=== PATIENT | male | born 1990 | race Caucasian/White ===

== ENCOUNTER 2016-06-08 16:16 | Inpatient (IN) | payer OTHER ==
[~2016-06-08] VITALS: Ht 185.4 cm; Wt 78.0 kg
[2016-06-08 11:36] VITALS: BP 154/93
[~2016-06-08 16:16] MED LIST: ATORVASTATI80 MG/TAB PO; ATORVASTATIN CA40 MG PO; AUGMENTIN875TAB PO; BACTRIM DS1 TAB PO; BUPROPION HCL300 MG PO; BUSPIRONE5 MG PO; DARVOCET-N 100100 MG OR; DITROPAN PO; ELAVIL25 MG PO; ENALAPRIL5 MG OR; FISH OIL1000 MG PO; GLIPIZIDE5 MG PO; HUMULIN 70/30 SC; HUMULIN R1 M1 SC; HYDROCO/APAP1 TA9 PO; LACTATED RING1000 ML; LEVEMIR FL100 UNIT/M SC; LEVEMIR SC; LEVEMIR1000 UNITS SC; LEVOTHYROXIN50 MCG PO; LISINOPRIL10 MG PO; LISINOPRIL20 M1 PO; LISINOPRIL20 MG PO; LOPID600 MG PO; LOPRESSOR 550 MG/TAB PO; LORTAB 5/3255 MG PO; LYRICA200 MG PO; LYRICA50 MG PO; METFORMIN500 M1 OR; METFORMIN500 M1 PO; METFORMIN500 MG PO; MIRTAZAPINE15 MG PO; MOTRIN800 MG PO; NOT TAKING ANY MEDS; NOVOLIN 70/30 SC; NOVOLOG FLEXPEN SC; OMEGA 31000 MG PO; ONDANSETRON4 MG PO; PEPCID20 MG PO; PREVACID30 M2 PO; PRILOSEC20 MG PO; PRILOSEC20 MG/CAP PO; SEROQUEL25 MG PO; TRICOR145 MG PO; VENLAFAXINE HCL75 M1 PO; ZOFRAN ODT4 MG PO
--- NOTE | 2016-06-08 16:24 | NUR ---
PT TO ROOM PER EMS. WITH FAMILY MEMEMBER AT BEDSIDE
[2016-06-08 16:38] LABS: HEMATOCRIT 44.8 % (39.0-50.0); HEMOGLOBIN 15.4 g/dl (14.0-18.0); IMMATURE GRANULOCYTES 1.3 % (0.0-1.0); MEAN CELL VOLUME 84.2 fL CALC (80.0-100.0); MEAN CORPUSCULAR HGB 28.9 pG CALC (26.0-32.0); MEAN CORPUSCULAR HGB CONC 34.4 g/L CALC (32.0-36.0); NEUT# 5.78 thou/uL (1.82-7.42); RED BLOOD COUNT 5.32 mill/uL (4.70-6.10); RED CELL DISTRI WIDTH 13.9 % (11.5-15.5)
[2016-06-08 16:49] LABS: ALKALINE PHOSPHATASE 219 u/l (38-126); AMYLASE 92 u/l (30-110); ANION GAP 26 (6-22 (CALC)); BILIRUBIN, TOTAL 1.2 mg/dL (0.0-1.4); BUN 15 mg/dL (9-20); BUN/CREATININE RATIO 23 (12-20 (CALC)); CALCIUM 10.4 mg/dL (8.4-10.2); CARBON DIOXIDE 18 mmol/l (22-30); CHLORIDE 95 mmol/l (95-108); CREATININE 0.6 mg/dL (0.7-1.3); GFR > 60 ML/MIN (>=60 (CALC)); GFR FOR AFR.AMER. > 60 ML/MIN (>=60 (CALC)); LIPASE 1316 u/l (23-300); POTASSIUM 4.8 mmol/l (3.5-5.1); SGOT/AST 79 u/l (17-59); SGPT/ALT 53 u/l (21-72); SODIUM 134 mmol/l (137-146); TOTAL PROTEIN 9.6 g/dL (6.3-8.2)
[2016-06-08 16:52] LABS: GLUCOSE 618 mg/dL (75-110)
[2016-06-08 17:01] LABS: MYOGLOBIN 33 ng/mL (0 - 121)
[2016-06-08 17:08] LABS: URINE BILIRUBIN - DIPSTICK NEGATIVE (NEGATIVE); URINE BLOOD DIPSTICK NEGATIVE (NEGATIVE); URINE CLARITY CLEAR; URINE COLOR YELLOW; URINE GLUCOSE - DIPSTICK >=1000 mg/dL (NEGATIVE); URINE KETONE NEGATIVE (NEGATIVE); URINE LEUK ESTERASE NEGATIVE (NEGATIVE); URINE NITRITE - DIPSTICK NEGATIVE (Negative); URINE PROTEIN - DIPSTICK NEGATIVE (NEG-TRACE); URINE SPECIFIC GRAVITY <=1.005; URINE UROBILINOGEN - DIPSTICK 0.2 E.U./dL (0.2)
--- NOTE | 2016-06-08 17:45 | NUR ---
PT MEDICATED W/MORPHINE FOR CONTINUED PAIN ADVISED OF WAIT TIME FOR RESULTS. COMFORT MEASURES PROVIDED.
--- NOTE | 2016-06-08 18:23 | NUR ---
ACCUCHECK RECHECK PRIOR TO INSULIN DRIP 235, ZOHRA SANTOS MD AWARE
--- NOTE | 2016-06-08 18:56 | NUR ---
PT RETURNED FROM CT ADVISED OF WAIT TIME AND COMFORT MEASURES PROVIDED. IV FLUIDS VIA PUMP
--- NOTE | 2016-06-08 19:20 | NUR ---
RECEIVED REPORT FROM CHINA TURK AND MEDICATED PT WITH PROTONIX AND DILAUDID. REPEAT ACCUCHECK 192. STILL HOLDING INSULIN.
--- NOTE | 2016-06-08 20:22 | NUR ---
PATIENT MEDICATED FOR ELEVATED BLOOD PRESSURE. WILL MONITOR FOR EFFECT. STATES PAIN IS STARTING TO RETURN.
--- NOTE | 2016-06-08 21:15 | NUR ---
REPORT GIVEN TO CHINA ROBLES.
--- NOTE | 2016-06-08 21:27 | NUR ---
Admission Note Report Given to: CHINA ROBLES Transported by: X Wheelchair Stretcher Transported with: X Nurse Transporter X Patent IV O2 Waistline Joiner Overlock CALLED TRAVIS WITH UPDATE WHILE PT TRANSPORTED BY CHINA VILLALOBOS.
[2016-06-08 21:30] VITALS: BP 155/71
--- NOTE | 2016-06-08 21:30 | NUR ---
PT. ARRIVED TO THE FLOOR VIA W/C ACCOMPANIED BY ER NURSE. PT. C/O ABDOMINAL PAIN 27/12, AWAITING PHARMACY TO VERIFY MEDICATIONS TO ADMINSITER TORADOL. PT. UPDATED WITH POC AND PAIN MEDICATION ORDERED(TORADOL), PT. STATES,"OH I NEED SOMETHING STRONGER, LIKE MORPHINE.". WILL CALL MD FOR FURTHER ORDERS. ASSESSMENT COMPLETED. PT. MOANING IN PAIN, POOR HISTORIAN AT THIS TIME R/T PAIN. TELEMETRY IN PLACE. PT. HAS CALLOUS NOTED TO RIGHT FOOT, PHOTO OBTAINED FOR CHART. CALL LIGHT IS IN REACH. WILL CONTINUE TO MONITOR. GIRLFRIEND IS AT BEDSIDE.
--- NOTE | 2016-06-08 21:50 | NUR ---
NOTFIIED DR. OVERTON OF PT'S C/O PAIN 27/12, AND OF PT'S REQUEST FOR MORPHINE, AND C/O NAUSEA WITH NO ORDERS FOR ZOFRAN. ALSO NOTIFIED HIM OF PT'S BS 252 AT THIS TIME. AWAITING CHEMISTRY RESULTS. TO PLACE NEW ORDERS IN [place], WILL AWAIT THEM.
[2016-06-08 22:11] LABS: ANION GAP 21 (6-22 (CALC)); BUN 15 mg/dL (9-20); BUN/CREATININE RATIO 24 (12-20 (CALC)); CALCIUM 9.7 mg/dL (8.4-10.2); CARBON DIOXIDE 21 mmol/l (22-30); CHLORIDE 102 mmol/l (95-108); CREATININE 0.6 mg/dL (0.7-1.3); GFR > 60 ML/MIN (>=60 (CALC)); GFR FOR AFR.AMER. > 60 ML/MIN (>=60 (CALC)); GLUCOSE 282 mg/dL (75-110); POTASSIUM 4.3 mmol/l (3.5-5.1); SODIUM 140 mmol/l (137-146)
--- NOTE | 2016-06-08 22:20 | NUR ---
NOTIFIED DR. OVERTON OF PTS HR BEING IN THE HIGH 40'S AND OF B/P 155/71, ORDERS RECEIVED TO HOLD NORVASC AT THIS TIME.
[2016-06-08 23:36] VITALS: BP 154/93
--- NOTE | 2016-06-09 00:18 | NUR ---
PT'S GIRLFRIEND RETURNED TO STAY THE NIGHT, PT. C/O ABDOMINAL PAIN AGAIN AT A 12/17, AND INSISTS THAT THIS PHYSICAL FITNESS TRAINER CALL FOR STRONGER PAIN MEDICATION, WILL CALL DR. OVERTON AND NOTIFY HIM OF THIS.
--- NOTE | 2016-06-09 00:31 | NUR ---
PT. C/O ABDOMINAL PAIN 12/17,MOANING, MEDICATED WITH ORDERED PRN DILAUDID WILL REASSESS. GIRLFRIEND REMAINS AT BEDSIDE. PT. EDUCATED ON PAIN MEDICATIONS ORDERED. ALSO EDUCATED PT. ON ELEVATED AIC AND PT. REPORTS HE HAS BEEN OUT OF STRIPS FOR 2 MONTHS AND HAS NOT BEEN CHECKING BS AND OF NOT FOLLOWING UP WITH PRIMARY MD. EDUCATED ON IMPORTANCE OF COMPLIANCE WITH DR VISITS AND MEDICATIONS. WILL CONTINUE TO MONITOR.
--- NOTE | 2016-06-09 02:43 | NUR ---
PT. C/O ABDOMINAL PAIN 12/17, MEDICATED WITH PRN LORTAB PER ORDER. ENCOURAGED TO CALL FOR ANY FURTHER NEEDS. CALL LIGHT IS IN REACH.
--- NOTE | 2016-06-09 04:30 | NUR ---
PT. CC/O PAIN 12/17, MEDICATED WITH ORDERED PRN DILAUDID, WILL REASSESS. PT. ALSO C/O NAUSEA, MEDICATED WITH PRN ZOFRAN PER ORDER.
[2016-06-09 06:02] LABS: MAGNESIUM 1.6 mg/dL (1.6-2.3)
[2016-06-09 06:14] VITALS: BP 165/89
--- NOTE | 2016-06-09 06:29 | NUR ---
PT. C/O ABDOMINAL PAIN 11/17, MEDICATED WITH ORDERED TORADOL AND LORTAB PER ORDER. APPLE JUICE PROVIDIED PER PTS REQUEST. ENCOURAGED TO CALL FOR ANY NEEDS. CALL LIGHT IS IN REACH.
--- NOTE | 2016-06-09 06:40 | NUR ---
DR. OVERTON NOTIFIED OF PT'S HR DIPPING INTO THE HIGH 30'S AND FLUCTUATING FROM 38-42. STAT EKG ORDERED AND NOTIFIED RT TO OBTAIN.
--- NOTE | 2016-06-09 06:45 | NUR ---
RT IN AT BEDSIDE FOR EKG. PT'S ASSESSMENT REMAINS THE SAME, NO NEW COMPLAINTS.
--- NOTE | 2016-06-09 07:00 | NUR ---
RECEIVED BEDSIDE REPORT FROM TRAVIS ATKINSON. IN SEMI FOWLERS POSITION WITH EYES CLOSED, AWAKENS EASILY. RESPS EVEN AND UNLABORED ON ROOM AIR, TELE MONITOR IN PLACE. DENIES PAIN OR DISCOMFORT. #22 LW INFUSING WITHOUT DIFFICULTY, SITE APPEARS HEALTHY. PLAN OF CARE DISCUSSED. SAFETY PRECAUTIONS REINFORCED. BED IN LOWEST POSITION WITH WHEELS LOCKED. CALL LIGHT WITHIN REACH. WILL CONTINUE TO MONITOR.
[2016-06-09 07:52] VITALS: BP 155/81
[2016-06-09 08:48] LABS: ANION GAP 24 (6-22 (CALC)); BUN 15 mg/dL (9-20); BUN/CREATININE RATIO 21 (12-20 (CALC)); CALCIUM 9.2 mg/dL (8.4-10.2); CARBON DIOXIDE 21 mmol/l (22-30); CHLORIDE 100 mmol/l (95-108); CREATININE 0.7 mg/dL (0.7-1.3); GFR > 60 ML/MIN (>=60 (CALC)); GFR FOR AFR.AMER. > 60 ML/MIN (>=60 (CALC)); SODIUM 139 mmol/l (137-146)
[2016-06-09 08:57] LABS: GLUCOSE 583 mg/dL (75-110); POTASSIUM 5.7 mmol/l (3.5-5.1)
--- NOTE | 2016-06-09 10:15 | NUR ---
MEDICATED WITH MORPHINE 4MG IVP FOR C/O 11/17 ABD PAIN. ENCOURAGED PT TO SIP WATER AND SOLID FOODS. UNTIL ABD PAIN SUBSIDES. VISITOR AT BEDSIDE. CALL LIGHT WITHIN REACH. WILL CONTINUE TO MONITOR.
[2016-06-09 12:42] VITALS: BP 142/63
[2016-06-09 12:47] LABS: ANION GAP 24 (6-22 (CALC)); BUN 12 mg/dL (9-20); BUN/CREATININE RATIO 18 (12-20 (CALC)); CALCIUM 8.9 mg/dL (8.4-10.2); CARBON DIOXIDE 17 mmol/l (22-30); CHLORIDE 101 mmol/l (95-108); CREATININE 0.7 mg/dL (0.7-1.3); GFR > 60 ML/MIN (>=60 (CALC)); GFR FOR AFR.AMER. > 60 ML/MIN (>=60 (CALC)); POTASSIUM 4.8 mmol/l (3.5-5.1); SODIUM 137 mmol/l (137-146)
[2016-06-09 12:55] LABS: GLUCOSE 470 mg/dL (75-110)
--- NOTE | 2016-06-09 14:43 | NUR ---
MEDICATED WITH MORPHINE 4MG IVP FOR C/O 9/10 ABD PAIN. RESPS EVEN AND UNLABORED ON ROOM AIR, TELE MONITOR IN PLACE. #20 LW INFUSING WITHOUT DIFFICULTY, SITE APPEARS HEALTHY. CALL LIGHT WITHIN REACH. WILL CONTINUE TO MONITOR.
[2016-06-09 15:48] VITALS: BP 136/73
--- NOTE | 2016-06-09 17:10 | NUR ---
MEDICATED WITH TORADOL 15MG IVP FOR C/O 9/10 ABD PAIN.
--- NOTE | 2016-06-09 17:40 | NUR ---
TORADOL NOT EFFECTIVE FOR PAIN CONTROL. MEDICATED WITH MORPHINE 4MG IVP FOR RELIEF OF 8/10 ABD PAIN. VISITOR AT BEDSIDE. CALL LIGHT WITHIN REACH. WILL CONTINUE TO MONITOR.
--- NOTE | 2016-06-09 19:00 | NUR ---
RECEIVED CHANGE OF SHIFT REPORT ON PATIENT.NO COMPLAINTS VOICED. RESTING COMFORTABLY IN BED.
[2016-06-09 19:11] VITALS: BP 128/79
[2016-06-09 23:25] VITALS: BP 125/66
[2016-06-10 01:10] LABS: ANION GAP 15 (6-22 (CALC)); BUN 5 mg/dL (9-20); BUN/CREATININE RATIO 11 (12-20 (CALC)); CALCIUM 8.3 mg/dL (8.4-10.2); CARBON DIOXIDE 23 mmol/l (22-30); CHLORIDE 106 mmol/l (95-108); CREATININE 0.5 mg/dL (0.7-1.3); GFR > 60 ML/MIN (>=60 (CALC)); GFR FOR AFR.AMER. > 60 ML/MIN (>=60 (CALC)); GLUCOSE 156 mg/dL (75-110); POTASSIUM 3.2 mmol/l (3.5-5.1); SODIUM 140 mmol/l (137-146)
[2016-06-10 03:00] LABS: HEMATOCRIT 38.3 % (39.0-50.0); HEMOGLOBIN 12.8 g/dl (14.0-18.0); IMMATURE GRANULOCYTES 0.6 % (0.0-1.0); MEAN CORPUSCULAR HGB 29.1 pG CALC (26.0-32.0); MEAN CORPUSCULAR HGB CONC 33.4 g/L CALC (32.0-36.0); NEUT# 11.38 thou/uL (1.82-7.42); RED BLOOD COUNT 4.4 mill/uL (4.70-6.10); RED CELL DISTRI WIDTH 14.6 % (11.5-15.5)
[2016-06-10 03:24] LABS: ALBUMIN 2.9 g/dL (3.2-5.0); ALKALINE PHOSPHATASE 109 u/l (38-126); AMYLASE 117 u/l (30-110); ANION GAP 12 (6-22 (CALC)); BUN 6 mg/dL (9-20); BUN/CREATININE RATIO 11 (12-20 (CALC)); CALCIUM 8.2 mg/dL (8.4-10.2); CARBON DIOXIDE 24 mmol/l (22-30); CHLORIDE 106 mmol/l (95-108); CREATININE 0.5 mg/dL (0.7-1.3); GFR > 60 ML/MIN (>=60 (CALC)); GFR FOR AFR.AMER. > 60 ML/MIN (>=60 (CALC)); GLUCOSE 130 mg/dL (75-110); LIPASE 550 u/l (23-300); POTASSIUM 3.1 mmol/l (3.5-5.1); SGOT/AST 104 u/l (17-59); SGPT/ALT 68 u/l (21-72); SODIUM 139 mmol/l (137-146); TOTAL PROTEIN 5.8 g/dL (6.3-8.2)
[2016-06-10 04:20] VITALS: BP 128/74
--- NOTE | 2016-06-10 04:30 | NUR ---
NOTIFY DR OVERTON OF CHANGE IN PATIENT'S CONDITION. ORDERRS RECEIVED FOR LR BOLUS AND POTASSIUM RIDER.
--- NOTE | 2016-06-10 05:20 | NUR ---
0520-RECEIVED PHONE CALL FROM REGARDING NOT WANTING TO PROFILE POTASSIUM RIDER. R/T PT. HAVING PERIPHERAL ACCESS AND NOT HAVING A CENTRAL LINE, AND BECAUSE OF PT. BEING ON MEDICAL/SURGICAL FLOOR. PER PT. WOULD NEED TO BE IN ICU WITH PERIPHERAL ACCESS. DR. OVERTON NOTIFIED OF THIS AND CONTINUES TO WANT ORDER GIVEN OF POTASSIUM RIDER ON THIS FLOOR AND TO NOTIFY THE PHARMACY THAT MD IS AWARE OF ACCESS AND WHERE PT. IS STATIONED, AND ALSO THAT PT. IS ON TELEMETRY. WAS CALLED BACK AND NOTIFIED OF DR. TURCIOS RESPONSE. AWAITING RETURN PHONE CALL FROM PHARMACIST. 0550- RECEIVED RETURN PHONE CALL FROM LORENZO(PHARMACIST) AND HE REPORTED PER POLICY STILL UNAVAILABLE TO PROFILE POTASSIUM RIDER. 0552- CALLED DR. OVERTON TO NOTIFY HIM OF THIS, NO ANSWER, VOICEMAIL LEFT.
--- NOTE | 2016-06-10 06:27 | NUR ---
SPOKE WITH DR. OVERTON AND NOTIFIED HIM OF [facility] NOT PROFILING K-RIDER FOR PT. IN REGARDS TO JEANNINE, AND AWARE WE WILL NEED TO AWAIT IN HOUSE PHARMACY. NO NEW ORDERS RECEIVED.
--- NOTE | 2016-06-10 07:21 | NUR ---
BEDSIDE REPORT RECEIVED FROM CHINA TIM. PT REPORTS RELIEF FROM PAIN FROM RECENT MEDICATION. PLAN OF CARE DISCUSSED. REPORTING OF CONCERNS ENCOURAGED. CALL LIGHT REVIEWED AND IN REACH. PT STATES UNDERSTANDING.
--- NOTE | 2016-06-10 07:54 | NUR ---
ORDER RECEIVED FOR LR BOLUS X 2 L NOW AND REPEAT LACTIC ACID WHEN COMPLETE. BOLUS STARTED NOW. PT UPDATED ON PLAN OF CARE. WILL CONTINUE TO MONITOR.
[2016-06-10 07:55] VITALS: BP 161/92
--- NOTE | 2016-06-10 08:05 | NUR ---
PT REPORTS NAUSEA AND 9 ON PAIN SCaLE TO ABDOMIN. LORTAB AND ZOFRAN ADMINISTERED. PAIN MEDICATIONS AND SCHEDULES REVIEWED. PT STATES UNDERSTANDING.
--- NOTE | 2016-06-10 09:25 | NUR ---
BLOOD GLUCOSE 85 AT THIS TIME. PT ENCOURAGED TO DRINK LIQUIDS PROVIDED TO HIM. PT STATES UNDERSTANDING. WILL CONTINUE TO MONITOR.
--- NOTE | 2016-06-10 09:45 | NUR ---
DR. RUSS IN TO SEE PT AT THIS TIME.
--- NOTE | 2016-06-10 10:47 | NUR ---
CONSULT CALLED TO DR. SERVIN AT THIS TIME. MESSAGE LEFT.
[2016-06-10 11:01] VITALS: BP 152/78
--- NOTE | 2016-06-10 11:27 | NUR ---
TYLENOL PO ADMINISTERED FOR TEMP OF 101.2. MORPHINE IV FOR SEVERE ABDOMINAL PAIN, 8 ON SCALE OF 0-10. PT ASSISTED TO RESTROOM FOR BM, GAIT UNSTEADY. FALL PRECAUTIONS REINFORCED. PT STATES UNDERSTANDING. PT ASSISTED TO FOR TRANSFER TO CT DEPARTMENT AT THIS TIME.
--- NOTE | 2016-06-10 12:14 | NUR ---
DR. SERVIN IN TO SEE PT AT THIS TIME. PT REPORTS RELIEF OF PAIN W/ RECENT MORPHINE ADMINISTRATION. TEMP 100.9 AFTER THYLENOL. WILL CONTINUE TO MONITOR.
--- NOTE | 2016-06-10 14:14 | NUR ---
PT SLEEPNIG AT THIS TIME. WILL CONTINUE TO MONITOR.
[2016-06-10 15:11] VITALS: BP 141/67
--- NOTE | 2016-06-10 16:50 | NUR ---
PT REPORTS SEVERE ABDOMINAL PAIN AND NAUSEA. ZOFRAN AND MORPHINE IV ADMINISTERED. PT STATES HE IS UNABLE TO CONSUME FLUID INTAKE AT THIS TIME. INTAKE ENCOURAGED WITH RELIEF OF NAUSEA. WILL CONTINUE TO MONITOR.
--- NOTE | 2016-06-10 17:54 | NUR ---
PT REPORTS SOME RELIEF OF ABDOMINAL PAIN AND NAUSEA. STATES "I FEEL SOME BETTER." STILL UNABLE TO TAKE PO FLUIDS. INTAKE ENCOURAGED AGAIN. WILL CONTINUE TO MONITOR.
--- NOTE | 2016-06-10 19:00 | NUR ---
RECEIVED REPORT ON PATIENT. NO ACUTE DISTRESS NOTED.
[2016-06-10 20:00] VITALS: BP 149/84
--- NOTE | 2016-06-11 | NUR ---
PATIENT RESTING QUIETLY IN BED WITH EYES CLOSE. NO ACUTE DISTRESS NOTED.
[2016-06-11 00:15] VITALS: BP 124/66
--- NOTE | 2016-06-11 03:37 | NUR ---
PATIENT IS RESTING COMFORTABLY. PATIENT'S AWAKE AND STATED "I DON'T THINK I REQUIE ALANIS MORE MORPHINE"
--- NOTE | 2016-06-11 04:00 | NUR ---
PATIENT IS AWAKE AND IN NO APPARENT DISTRESS.
[2016-06-11 04:45] VITALS: BP 130/72
[2016-06-11 06:02] LABS: HEMATOCRIT 35.9 % (39.0-50.0); IMMATURE GRANULOCYTES 0.9 % (0.0-1.0); MEAN CELL VOLUME 86.9 fL CALC (80.0-100.0); MEAN CORPUSCULAR HGB 29.1 pG CALC (26.0-32.0); MEAN CORPUSCULAR HGB CONC 33.4 g/L CALC (32.0-36.0); RED BLOOD COUNT 4.13 mill/uL (4.70-6.10); RED CELL DISTRI WIDTH 14.3 % (11.5-15.5)
[2016-06-11 06:25] LABS: ALBUMIN 2.6 g/dL (3.2-5.0); ALKALINE PHOSPHATASE 145 u/l (38-126); ANION GAP 13 (6-22 (CALC)); BILIRUBIN, TOTAL 5.1 mg/dL (0.0-1.4); BUN 6 mg/dL (9-20); BUN/CREATININE RATIO 11 (12-20 (CALC)); CALCIUM 8.1 mg/dL (8.4-10.2); CARBON DIOXIDE 27 mmol/l (22-30); CHLORIDE 97 mmol/l (95-108); CREATININE 0.5 mg/dL (0.7-1.3); GFR > 60 ML/MIN (>=60 (CALC)); GFR FOR AFR.AMER. > 60 ML/MIN (>=60 (CALC)); GLUCOSE 320 mg/dL (75-110); HDL CHOLESTEROL 13 mg/dL (>=40); LIPASE 122 u/l (23-300); MAGNESIUM 1.4 mg/dL (1.6-2.3); POTASSIUM 3.4 mmol/l (3.5-5.1); SGOT/AST 139 u/l (17-59); SGPT/ALT 118 u/l (21-72); SODIUM 134 mmol/l (137-146); TOTAL CHOLESTEROL 133 mg/dl (0-199); TOTAL PROTEIN 5.5 g/dL (6.3-8.2)
[2016-06-11 06:32] LABS: VLDL CHOLESTROL 128 mg/dl (1-36 (CALC))
[2016-06-11 06:33] LABS: TRIGLYCERIDES REFLEX TO dLDL 640 mg/dl (30-149)
--- NOTE | 2016-06-11 07:24 | NUR ---
BRYANE REPORT RECEIVED FROM CHINA TIM. PT SUPINE IN BED. REPORTS ABDOMINAL PAIN AND NAUSEA. PLAN OF CARE, NPO STATUS FOR NUC MED TEST DISCUSSED. REPORTING OF CONCERNS ENCORUAGED. CALL LIGHT REVIEWED AND IN REACH. PT STATES UNDERSTANDING.
[2016-06-11 07:40] VITALS: BP 132/79
--- NOTE | 2016-06-11 08:15 | NUR ---
PT LEFT FLOOR VIA WHEELCHAIR ACCOMPANIED BY VOLUNTEER TO NUC MED. STABLE AT THIS TIME.
--- NOTE | 2016-06-11 10:00 | NUR ---
PT ARRIVED TO FLOOR VIA WHEELCHAIR ACCOMPANIED BY VOLUNTEER. PT DENIES PAIN. REPORTS TOLERATING OF TESTING WELL.
--- NOTE | 2016-06-11 11:05 | NUR ---
PT LEFT FLOOR VIA WHEELCHAIR ACCOMPANIED BY VOLUNTEER, DESTINATION NUC MED.
--- NOTE | 2016-06-11 11:30 | NUR ---
PT RETURNED TO FLOOR. REPORTS HUNGER. NO PAIN, NAUSEA. WILL CONTINUE TO MONITOR.
--- NOTE | 2016-06-11 12:55 | NUR ---
PT REPORTS SEVERE ABDOMINAL PAIN. LORTAB PO ADMINISTERED. WILL MONITOR FOR EFFECTIVENESS.
--- NOTE | 2016-06-11 13:40 | NUR ---
PT REPORTS NO RELIEF OF ABDOMINAL PAIN FROM LORTAB PO. MORPHINE IV ADMINISTERED. WILL CONTINUE TO MONITOR.
--- NOTE | 2016-06-11 14:15 | NUR ---
PT REPORTS RELIEF OF ABDOMINAL PAIN. CALL LIGHT WITHIN REACH.
[2016-06-11 16:04] VITALS: BP 131/75
--- NOTE | 2016-06-11 18:33 | NUR ---
PT DENIES COMPLAINTS AT THIS TIME. REPORTING OF CONCERNS ENCOURAGED.
--- NOTE | 2016-06-11 19:44 | NUR ---
PT IN BED WATCHING TV, RESPIRATIONS EVEN AND UNLABORED ON RA. C/O EPIGASTRIC PAIN 10/17 AND MEDICATED WITH MORPHINE 4MG IV AT THIS TIME. LR INFUSING TO RFA AT 150CC/HR. TELE IN PLACE. PO FLUIDS IN REACH, URINAL AT BED SIDE. ENCOURAGED TO USE CALL LIGHT FOR ASSISTANCE, WILL CONTINUE TO MONITOR.
[2016-06-11 19:48] VITALS: BP 146/90
[2016-06-11 23:52] VITALS: BP 131/90
--- NOTE | 2016-06-11 23:52 | NUR ---
C/O PAIN TO ABDOMEN 11/17, STATES MORPHINE DOES NOT HELP HIS PAIN WELL DILAUDID AND REQUESTS THAT HIS DOCTOR BE CALLED. CALLED AND NEW ORDER RECEIVED FOR DILAUDID, MEDICATED WITH DILAUDID 1MG IV AT THIS TIME. TEMP 100.2, ICE PACK PROVIDED. TOLERATING COOL DRINK, WILL CONTINUE TO MONITOR.
[2016-06-12] VITALS (7 sets, daily range): BP systolic 131–155; BP diastolic 85–100
--- NOTE | 2016-06-12 04:30 | NUR ---
RESTING WITH EYES CLOSED RESPIRATIONS EVEN AND UNLABORED ON RA. IV FLUIDS INFUSING TO RFA WITH NO COMPLICATIONS. CALL LIGHT IN REACH.
[2016-06-12 05:43] LABS: HEMATOCRIT 36.2 % (39.0-50.0); HEMOGLOBIN 11.8 g/dl (14.0-18.0); IMMATURE GRANULOCYTES 1.3 % (0.0-1.0); MEAN CELL VOLUME 87.7 fL CALC (80.0-100.0); MEAN CORPUSCULAR HGB 28.6 pG CALC (26.0-32.0); MEAN CORPUSCULAR HGB CONC 32.6 g/L CALC (32.0-36.0); NEUT# 4.4 thou/uL (1.82-7.42); RED BLOOD COUNT 4.13 mill/uL (4.70-6.10); RED CELL DISTRI WIDTH 14.1 % (11.5-15.5)
[2016-06-12 06:09] LABS: ALBUMIN 2.8 g/dL (3.2-5.0); ALKALINE PHOSPHATASE 208 u/l (38-126); ANION GAP 14 (6-22 (CALC)); BILIRUBIN, TOTAL 5.4 mg/dL (0.0-1.4); BUN 7 mg/dL (9-20); BUN/CREATININE RATIO 15 (12-20 (CALC)); CALCIUM 8.2 mg/dL (8.4-10.2); CARBON DIOXIDE 26 mmol/l (22-30); CHLORIDE 99 mmol/l (95-108); CREATININE 0.5 mg/dL (0.7-1.3); GFR > 60 ML/MIN (>=60 (CALC)); GFR FOR AFR.AMER. > 60 ML/MIN (>=60 (CALC)); GLUCOSE 213 mg/dL (75-110); POTASSIUM 3.7 mmol/l (3.5-5.1); SGOT/AST 93 u/l (17-59); SGPT/ALT 114 u/l (21-72); SODIUM 135 mmol/l (137-146); TOTAL PROTEIN 5.9 g/dL (6.3-8.2)
--- NOTE | 2016-06-12 07:50 | NUR ---
ASSESSMENT IS COMPLETED: IV SITE IS FREE FROM REDNESS OR EDEMA. TELE MONITOR IN PLACE. C/O BACK PAIN . CONTINUE TO OBSERVE AND MONITOR
--- NOTE | 2016-06-12 11:27 | NUR ---
PT IS RELAXING IN BED WITH NO DISTRESS NOTED.
--- NOTE | 2016-06-12 12:17 | NUR ---
PT IS EATING LUNCH NO DISTRESS NOTED. IV SITE IS FREE FROM REDNESS OR EDEMA.
--- NOTE | 2016-06-12 16:30 | NUR ---
PT IS RELAXING IN BED WITH FAMILY AT BEDSIDE. NO DISTRESS NOTED. IV SITE IS FREE FROM REDNESS OR EDEMA.
--- NOTE | 2016-06-12 20:36 | NUR ---
PT. RESTING IN BED WATCHING TV, NO DISTRESS NOTED. ASSESSMENT COMPLETED. IV SITE TO RFA APPEARS WITH SLIGHT REDNESS NOTED, AND PT. C/O SLIGHT PAIN TO SITE; IV SITE REMOVED, CATH TIP IS INTACT. NEW IV RESTARTED TO RFA X1 ATTEMPT. ACCUCHECK OBTAINED AND SCHED MEDS ADMINISTERED. SNACK PROVIDED. ENCOURAGED TO CALL FOR ANY NEEDS. CALL LIGHT IS IN REACH. WILL CONTINUE TO MONITOR.
--- NOTE | 2016-06-12 23:41 | NUR ---
PT. RESTING IN BED WATCHING TV. C/O ABDOMINAL PAIN , MEDICATED WITH ORDERED PRN TORADOL. WILL REASSESS. PO FLUIDS OFFERED. ENCOURAGED PT. TO CALL FOR ANY NEEDS. CALL LIGHT IS IN REACH. WILL CONTINUE TO MONITOR.
--- NOTE | 2016-06-13 04:48 | NUR ---
PT. RESTING IN BED WITH NO RESP DISTRESS NOTED. C/O ABDOMINAL PAIN 11/17, MEDICATED WITH ORDERED DILAUDID, WILL REASSESS. PT. DENIES FURTHER NEEDS. CALL LIGHT IS IN REACH. WILL CONTINUE TO MONITOR.
[2016-06-13 05:08] LABS: HEMATOCRIT 37.1 % (39.0-50.0); HEMOGLOBIN 12.1 g/dl (14.0-18.0); IMMATURE GRANULOCYTES 1.2 % (0.0-1.0); MEAN CELL VOLUME 87.9 fL CALC (80.0-100.0); MEAN CORPUSCULAR HGB 28.7 pG CALC (26.0-32.0); MEAN CORPUSCULAR HGB CONC 32.6 g/L CALC (32.0-36.0); NEUT# 2.42 thou/uL (1.82-7.42); RED BLOOD COUNT 4.22 mill/uL (4.70-6.10); RED CELL DISTRI WIDTH 14.2 % (11.5-15.5)
[2016-06-13 05:45] LABS: ALBUMIN 3.1 g/dL (3.2-5.0); ALKALINE PHOSPHATASE 362 u/l (38-126); ANION GAP 15 (6-22 (CALC)); BILIRUBIN, TOTAL 4.8 mg/dL (0.0-1.4); BUN 5 mg/dL (9-20); BUN/CREATININE RATIO 8 (12-20 (CALC)); CALCIUM 8.6 mg/dL (8.4-10.2); CARBON DIOXIDE 28 mmol/l (22-30); CHLORIDE 100 mmol/l (95-108); CREATININE 0.6 mg/dL (0.7-1.3); GFR > 60 ML/MIN (>=60 (CALC)); GFR FOR AFR.AMER. > 60 ML/MIN (>=60 (CALC)); GLUCOSE 169 mg/dL (75-110); POTASSIUM 3.3 mmol/l (3.5-5.1); SGOT/AST 106 u/l (17-59); SGPT/ALT 113 u/l (21-72); SODIUM 140 mmol/l (137-146); TOTAL PROTEIN 6.5 g/dL (6.3-8.2)
[2016-06-13 06:06] VITALS: BP 165/98
--- NOTE | 2016-06-13 07:35 | NUR ---
INFORMED RE: MRI MACHINE UNABLE TO COMPLETE ABD TESTING. WILL EVALUATE WHEN HE COMES IN
[2016-06-13 07:45] VITALS: BP 122/47
--- NOTE | 2016-06-13 07:45 | NUR ---
ASSESSMENT IS COMPLETED: IV SITE IS FREE FROM REDNESS OR EDEMA. TELE MONITOR IN PLACE. CONTINUE TO OSBERVE AND MONITOR.
--- NOTE | 2016-06-13 08:26 | NUR ---
CALLED [facility] RE: TRANSFER OF PT .
[2016-06-13 10:11] VITALS: BP 122/47
--- NOTE | 2016-06-13 11:13 | NUR ---
SPOKE WITH ROBERTA TAKINSON AT [facility] GIVING REPORT AND [facility] HERE TO TRANSPORT PT TO [facility]. GAVE TORADOL FOR PAIN ON THE TRIP. IV SITE REMAINS FREE FROM REDNESS OR EDEMA. TELE MONITOR REMOVED CONTINUE TO OBSERVE AND MONITOR.
== END 2016-06-13 11:10 | disposition short-term general hospital (02) | DRG 439 ==
LOC: ED 16:16 → ED-I 19:54 → ED 20:09 → MS2 20:10
PROVIDERS: Emergency Medicine; Internal Medicine; ADMIT Internal Medicine; ATTEND Internal Medicine
DX: K85.90 Acute pancreatitis without necrosis or infection, unspecified (principal); K86.3 Pseudocyst of pancreas; E87.2 Acidosis; E11.69 Type 2 diabetes mellitus with other specified complication; K80.71 Calculus of gallbladder and bile duct without cholecystitis with obstruction; K86.1 Other chronic pancreatitis; E11.65 Type 2 diabetes mellitus with hyperglycemia; I10 Essential (primary) hypertension; F32.9 Major depressive disorder, single episode, unspecified; E03.9 Hypothyroidism, unspecified; K75.81 Nonalcoholic steatohepatitis (NASH); F12.90 Cannabis use, unspecified, uncomplicated; E87.5 Hyperkalemia; E78.1 Pure hyperglyceridemia; E78.5 Hyperlipidemia, unspecified; Z91.14 Patient's other noncompliance with medication regimen; Z91.11 Patient's noncompliance with dietary regimen; Z79.4 Long term (current) use of insulin; Z87.891 Personal history of nicotine dependence
CPT/HCPCS: A9537; J1335; J1650; Q9967; S0164

== ENCOUNTER 2016-06-17 15:25 | Emergency (ER) | payer OTHER ==
[~2016-06-17] VITALS: Ht 185.4 cm; Wt 76.0 kg
[2016-06-17 16:06] LABS: HEMATOCRIT 47.1 % (39.0-50.0); MEAN CELL VOLUME 92.2 fL CALC (80.0-100.0); MEAN CORPUSCULAR HGB 29.4 pG CALC (26.0-32.0); MEAN CORPUSCULAR HGB CONC 31.8 g/L CALC (32.0-36.0); NEUT# 8.61 thou/uL (1.82-7.42); RED BLOOD COUNT 5.11 mill/uL (4.70-6.10); RED CELL DISTRI WIDTH 15.2 % (11.5-15.5)
[2016-06-17 16:26] LABS: ALBUMIN 4.7 g/dL (3.2-5.0); AMYLASE 46 u/l (30-110); BILIRUBIN, TOTAL 7.3 mg/dL (0.0-1.4); BUN 11 mg/dL (9-20); BUN/CREATININE RATIO 12 (12-20 (CALC)); CALCIUM 9.9 mg/dL (8.4-10.2); CARBON DIOXIDE 15 mmol/l (22-30); CHLORIDE 90 mmol/l (95-108); CREATININE 0.9 mg/dL (0.7-1.3); GFR > 60 ML/MIN (>=60 (CALC)); GFR FOR AFR.AMER. > 60 ML/MIN (>=60 (CALC)); LIPASE 123 u/l (23-300); SGPT/ALT 446 u/l (21-72); SODIUM 135 mmol/l (137-146); TOTAL PROTEIN 9.5 g/dL (6.3-8.2)
[2016-06-17 16:33] LABS: IMMATURE GRANULOCYTES 8.4 % (0.0-1.0)
[2016-06-17 16:35] LABS: ANION GAP 36 (6-22 (CALC)); POTASSIUM 5.7 mmol/l (3.5-5.1); SGOT/AST 835 u/l (17-59)
[2016-06-17 16:36] LABS: ALKALINE PHOSPHATASE 1675 u/l (38-126); GLUCOSE 512 mg/dL (75-110)
[2016-06-17 16:37] LABS: MYOGLOBIN 21 ng/mL (0 - 121)
[2016-06-17] MEDS ORDERED: LISINOPRIL5 MG PO (16:52)
[2016-06-17 17:31] LABS: PROTHROMBIN TIME 10.7 SECONDS (9.0-12.5)
[2016-06-17 17:58] LABS: DIRECT BILIRUBIN 4.2 mg/dl (0.0-0.3)
[2016-06-17 18:30] LABS: URINE BLOOD DIPSTICK NEGATIVE (NEGATIVE); URINE CLARITY CLEAR; URINE COLOR YELLOW; URINE GLUCOSE - DIPSTICK >=1000 mg/dL (NEGATIVE); URINE KETONE >=80 mg/dL (NEGATIVE); URINE LEUK ESTERASE NEGATIVE (NEGATIVE); URINE NITRITE - DIPSTICK NEGATIVE (Negative); URINE PH 5.5 (4.5-8.0); URINE PROTEIN - DIPSTICK NEGATIVE (NEG-TRACE); URINE UROBILINOGEN - DIPSTICK 0.2 E.U./dL (0.2)
[2016-06-17 18:32] LABS: URINE BILIRUBIN - DIPSTICK SMALL (NEGATIVE)
[2016-06-17 22:07] VITALS: BP 114/57
--- NOTE | 2016-06-23 08:26 | NUR ---
ED CULTURE PHARMACY MEDICATION FOLLOW-UP Patient was seen in ED on 06/17/16 Cultures were reviewed from: Blood Patient was discharged with Rx for:NO ABX, TRN [facility] WITH OBSTRUCTIVE JAUNDICE C&S report came back with No Growth PLAN: Recommended: No Change Comment:
== END 2016-06-17 22:07 | disposition short-term general hospital (02) | DRG 445 ==
LOC: ED 15:25
PROVIDERS: Emergency Medicine
DX: K83.1 Obstruction of bile duct (principal); K86.3 Pseudocyst of pancreas; I10 Essential (primary) hypertension; R11.0 Nausea; R10.11 Right upper quadrant pain; R50.9 Fever, unspecified
CPT/HCPCS: Q9967

== ENCOUNTER 2016-07-07 23:19 | Emergency (ER) | payer OTHER ==
[~2016-07-07] VITALS: Ht 185.4 cm; Wt 75.0 kg
[~2016-07-07 23:19] MED LIST changes: +LISINOPRIL5 MG PO
[2016-07-07 23:54] LABS: HEMATOCRIT 39.3 % (39.0-50.0); HEMOGLOBIN 12.9 g/dl (14.0-18.0); IMMATURE GRANULOCYTES 0.7 % (0.0-1.0); MEAN CELL VOLUME 90.1 fL CALC (80.0-100.0); MEAN CORPUSCULAR HGB 29.6 pG CALC (26.0-32.0); MEAN CORPUSCULAR HGB CONC 32.8 g/L CALC (32.0-36.0); NEUT# 12.23 thou/uL (1.82-7.42); RED BLOOD COUNT 4.36 mill/uL (4.70-6.10); RED CELL DISTRI WIDTH 14.9 % (11.5-15.5)
[2016-07-08 00:09] LABS: ALBUMIN 4.3 g/dL (3.2-5.0); ALKALINE PHOSPHATASE 166 u/l (38-126); AMYLASE < 30 u/l (30-110); ANION GAP 19 (6-22 (CALC)); BILIRUBIN, TOTAL 1.1 mg/dL (0.0-1.4); BUN 22 mg/dL (9-20); BUN/CREATININE RATIO 32 (12-20 (CALC)); CALCIUM 10.1 mg/dL (8.4-10.2); CALCULATED LDLCHOLESTEROL 39 mg/dL (62-129 (CALC)); CARBON DIOXIDE 29 mmol/l (22-30); CHLORIDE 96 mmol/l (95-108); CREATININE 0.7 mg/dL (0.7-1.3); GFR > 60 ML/MIN (>=60 (CALC)); GFR FOR AFR.AMER. > 60 ML/MIN (>=60 (CALC)); GLUCOSE 217 mg/dL (75-110); HDL CHOLESTEROL 60 mg/dL (>=40); LIPASE 33 u/l (23-300); POTASSIUM 3.9 mmol/l (3.5-5.1); SGOT/AST 16 u/l (17-59); SGPT/ALT 38 u/l (21-72); SODIUM 139 mmol/l (137-146); TOTAL CHOLESTEROL 128 mg/dl (0-199); TOTAL PROTEIN 7.8 g/dL (6.3-8.2); TRIGLYCERIDES REFLEX TO dLDL 146 mg/dl (30-149); VLDL CHOLESTROL 29 mg/dl (1-36 (CALC))
[2016-07-08 00:21] LABS: MYOGLOBIN 21 ng/mL (0 - 121)
[2016-07-08 03:00] VITALS: BP 131/63
== END 2016-07-08 03:00 | disposition short-term general hospital (02) | DRG 440 ==
LOC: ED 23:19
PROVIDERS: Emergency Medicine
DX: K85.90 Acute pancreatitis without necrosis or infection, unspecified (principal); R50.9 Fever, unspecified; R10.13 Epigastric pain
CPT/HCPCS: J2060; S0164

== ENCOUNTER 2016-07-30 04:48 | Emergency (ER) | payer OTHER ==
[~2016-07-30] VITALS: Ht 185.4 cm; Wt 111.4 kg
[2016-07-30 05:53] LABS: HEMATOCRIT 40.5 % (39.0-50.0); HEMOGLOBIN 13.5 g/dl (14.0-18.0); IMMATURE GRANULOCYTES 1.6 % (0.0-1.0); MEAN CELL VOLUME 89.2 fL CALC (80.0-100.0); MEAN CORPUSCULAR HGB 29.7 pG CALC (26.0-32.0); MEAN CORPUSCULAR HGB CONC 33.3 g/L CALC (32.0-36.0); NEUT# 8.18 thou/uL (1.82-7.42); RED BLOOD COUNT 4.54 mill/uL (4.70-6.10); RED CELL DISTRI WIDTH 14.5 % (11.5-15.5)
[2016-07-30 05:58] LABS: ALKALINE PHOSPHATASE 93 u/l (38-126); AMYLASE < 30 u/l (30-110); ANION GAP 18 (6-22 (CALC)); BILIRUBIN, TOTAL 0.5 mg/dL (0.0-1.4); BUN 19 mg/dL (9-20); BUN/CREATININE RATIO 37 (12-20 (CALC)); CALCIUM 9.7 mg/dL (8.4-10.2); CARBON DIOXIDE 24 mmol/l (22-30); CHLORIDE 101 mmol/l (95-108); CREATININE 0.5 mg/dL (0.7-1.3); GFR > 60 ML/MIN (>=60 (CALC)); GFR FOR AFR.AMER. > 60 ML/MIN (>=60 (CALC)); GLUCOSE 342 mg/dL (75-110); LIPASE 114 u/l (23-300); POTASSIUM 4.1 mmol/l (3.5-5.1); SGOT/AST 15 u/l (17-59); SGPT/ALT 25 u/l (21-72); SODIUM 139 mmol/l (137-146); TOTAL PROTEIN 6.9 g/dL (6.3-8.2)
[2016-07-30 06:10] LABS: MYOGLOBIN 16 ng/mL (0 - 121)
[2016-07-30] MEDS ORDERED: DILAUDID4 MG PO (06:25)
[2016-07-30] MEDS ORDERED: PREDNISONE10 M2 (06:26)
[2016-07-30 07:32] LABS: URINE BILIRUBIN - DIPSTICK NEGATIVE (NEGATIVE); URINE BLOOD DIPSTICK NEGATIVE (NEGATIVE); URINE CLARITY CLEAR; URINE COLOR YELLOW; URINE GLUCOSE - DIPSTICK >=1000 mg/dL (NEGATIVE); URINE KETONE 15 mg/dL (NEGATIVE); URINE LEUK ESTERASE NEGATIVE (NEGATIVE); URINE NITRITE - DIPSTICK NEGATIVE (Negative); URINE PH 5.5 (4.5-8.0); URINE PROTEIN - DIPSTICK NEGATIVE (NEG-TRACE); URINE UROBILINOGEN - DIPSTICK 0.2 E.U./dL (0.2)
[2016-07-30 08:52] VITALS: BP 152/88
== END 2016-07-30 08:53 | disposition short-term general hospital (02) | DRG 389 ==
LOC: ED 04:48 → ED-I 05:15 → ED 05:15 → ED-I 06:45 → ED 08:53
PROVIDERS: Emergency Medicine
PROC: 0D9670Z Drainage of Stomach with Drainage Device, Via Natural or Artificial Opening (ICD-10-PCS; principal; 2016-07-30)
DX: K56.60 Unspecified intestinal obstruction (principal); K86.1 Other chronic pancreatitis; R10.13 Epigastric pain; R11.2 Nausea with vomiting, unspecified; R50.9 Fever, unspecified
CPT/HCPCS: S0164

== ENCOUNTER 2016-09-01 17:24 | Emergency (ER) | payer OTHER ==
[~2016-09-01] VITALS: Ht 185.4 cm; Wt 84.8 kg
[~2016-09-01 17:24] MED LIST changes: +DILAUDID4 MG PO; +PREDNISONE10 M2
[2016-09-01 18:19] LABS: HEMATOCRIT 41.5 % (39.0-50.0); HEMOGLOBIN 13.3 g/dl (14.0-18.0); IMMATURE GRANULOCYTES 3.8 % (0.0-1.0); MEAN CELL VOLUME 89.8 fL CALC (80.0-100.0); MEAN CORPUSCULAR HGB 28.8 pG CALC (26.0-32.0); NEUT# 6.88 thou/uL (1.82-7.42); RED BLOOD COUNT 4.62 mill/uL (4.70-6.10); RED CELL DISTRI WIDTH 14.7 % (11.5-15.5)
[2016-09-01 18:20] LABS: URINE BILIRUBIN - DIPSTICK NEGATIVE (NEGATIVE); URINE BLOOD DIPSTICK NEGATIVE (NEGATIVE); URINE CLARITY CLEAR; URINE COLOR YELLOW; URINE GLUCOSE - DIPSTICK >=1000 mg/dL (NEGATIVE); URINE KETONE NEGATIVE (NEGATIVE); URINE LEUK ESTERASE NEGATIVE (NEGATIVE); URINE NITRITE - DIPSTICK NEGATIVE (Negative); URINE PROTEIN - DIPSTICK NEGATIVE (NEG-TRACE); URINE UROBILINOGEN - DIPSTICK 0.2 E.U./dL (0.2)
[2016-09-01 18:29] LABS: ALBUMIN 4.3 g/dL (3.2-5.0); ALKALINE PHOSPHATASE 122 u/l (38-126); ANION GAP 18 (6-22 (CALC)); BILIRUBIN, TOTAL 0.3 mg/dL (0.0-1.4); BUN 14 mg/dL (9-20); BUN/CREATININE RATIO 20 (12-20 (CALC)); CALCIUM 9.5 mg/dL (8.4-10.2); CARBON DIOXIDE 25 mmol/l (22-30); CHLORIDE 99 mmol/l (95-108); CREATININE 0.7 mg/dL (0.7-1.3); GFR > 60 ML/MIN (>=60 (CALC)); GFR FOR AFR.AMER. > 60 ML/MIN (>=60 (CALC)); GLUCOSE 426 mg/dL (75-110); SGOT/AST 19 u/l (17-59); SGPT/ALT 30 u/l (21-72); SODIUM 137 mmol/l (137-146); TOTAL PROTEIN 7.2 g/dL (6.3-8.2)
[2016-09-01 18:30] LABS: POTASSIUM 5.4 mmol/l (3.5-5.1)
[2016-09-01 20:56] VITALS: BP 154/87
== END 2016-09-01 20:56 | disposition home or self-care (01) | DRG 639 ==
LOC: ED 17:24
PROVIDERS: Emergency Medicine
DX: E11.65 Type 2 diabetes mellitus with hyperglycemia (principal); I10 Essential (primary) hypertension; F31.9 Bipolar disorder, unspecified; F41.9 Anxiety disorder, unspecified; Z79.4 Long term (current) use of insulin; Z91.14 Patient's other noncompliance with medication regimen

== ENCOUNTER 2016-09-17 22:18 | Inpatient (IN) | payer OTHER ==
[~2016-09-17] VITALS: Ht 185.4 cm; Wt 83.2 kg
[2016-09-17 23:00] LABS: URINE BILIRUBIN - DIPSTICK NEGATIVE (NEGATIVE); URINE BLOOD DIPSTICK NEGATIVE (NEGATIVE); URINE CLARITY CLEAR; URINE COLOR YELLOW; URINE GLUCOSE - DIPSTICK >=1000 mg/dL (NEGATIVE); URINE KETONE NEGATIVE (NEGATIVE); URINE LEUK ESTERASE NEGATIVE (NEGATIVE); URINE NITRITE - DIPSTICK NEGATIVE (Negative); URINE PROTEIN - DIPSTICK NEGATIVE (NEG-TRACE); URINE SPECIFIC GRAVITY <=1.005; URINE UROBILINOGEN - DIPSTICK 0.2 E.U./dL (0.2)
[2016-09-17 23:07] LABS: BARBITURATES NEGATIVE (NEGATIVE); COCAINE NEGATIVE (NEGATIVE); METHADONE NEGATIVE (NEGATIVE); OXCYCODONE NEGATIVE (NEGATIVE); TETRAHYDROCANNABIONOL POSITIVE (NEGATIVE); TRICYLIC ANTIDEPRESSANTS NEGATIVE (NEGATIVE)
[2016-09-17 23:08] LABS: HEMATOCRIT 39.8 % (39.0-50.0); HEMOGLOBIN 12.6 g/dl (14.0-18.0); MEAN CORPUSCULAR HGB 29.4 pG CALC (26.0-32.0); MEAN CORPUSCULAR HGB CONC 31.7 g/L CALC (32.0-36.0); NEUT# 6.91 thou/uL (1.82-7.42); RED BLOOD COUNT 4.28 mill/uL (4.70-6.10); RED CELL DISTRI WIDTH 15.1 % (11.5-15.5)
[2016-09-17 23:12] LABS: AMYLASE 35 u/l (30-110); LIPASE 80 u/l (23-300)
[2016-09-17 23:14] LABS: ALBUMIN 4.3 g/dL (3.2-5.0); ALKALINE PHOSPHATASE 289 u/l (38-126); BUN 26 mg/dL (9-20); BUN/CREATININE RATIO 33 (12-20 (CALC)); CALCIUM 8.9 mg/dL (8.4-10.2); CARBON DIOXIDE 20 mmol/l (22-30); CHLORIDE 80 mmol/l (95-108); CREATININE 0.8 mg/dL (0.7-1.3); GFR > 60 ML/MIN (>=60 (CALC)); GFR FOR AFR.AMER. > 60 ML/MIN (>=60 (CALC)); SGOT/AST 21 u/l (17-59); SGPT/ALT 41 u/l (21-72)
[2016-09-17 23:26] LABS: ANION GAP 20 (6-22 (CALC)); POTASSIUM 5.6 mmol/l (3.5-5.1); SODIUM 114 mmol/l (137-146)
[2016-09-17 23:29] LABS: GLUCOSE 1392 mg/dL (75-110)
[2016-09-17 23:39] LABS: IMMATURE GRANULOCYTES 5.5 % (0.0-1.0)
[2016-09-18] VITALS (12 sets, daily range): BP systolic 112–145; BP diastolic 69–95
[2016-09-18 05:45] LABS: BUN 15 mg/dL (9-20); BUN/CREATININE RATIO 26 (12-20 (CALC)); CALCIUM 8.2 mg/dL (8.4-10.2); CARBON DIOXIDE 27 mmol/l (22-30); CREATININE 0.6 mg/dL (0.7-1.3); GFR > 60 ML/MIN (>=60 (CALC)); GFR FOR AFR.AMER. > 60 ML/MIN (>=60 (CALC)); GLUCOSE 258 mg/dL (75-110); MAGNESIUM 1.8 mg/dL (1.6-2.3); POTASSIUM 3.8 mmol/l (3.5-5.1)
[2016-09-18 05:47] LABS: ANION GAP 11 (6-22 (CALC)); CHLORIDE 103 mmol/l (95-108); SODIUM 137 mmol/l (137-146)
[2016-09-19 00:04] VITALS: BP 129/83
[2016-09-19 04:52] VITALS: BP 146/87
[2016-09-19 05:40] LABS: CHOLESTEROL HDL RATIO 3.7 (<4.4 (CALC))
[2016-09-19 05:41] LABS: BUN 12 mg/dL (9-20); BUN/CREATININE RATIO 18 (12-20 (CALC)); CALCIUM 8.4 mg/dL (8.4-10.2); CARBON DIOXIDE 27 mmol/l (22-30); CREATININE 0.7 mg/dL (0.7-1.3); GFR > 60 ML/MIN (>=60 (CALC)); GFR FOR AFR.AMER. > 60 ML/MIN (>=60 (CALC)); GLUCOSE 92 mg/dL (75-110); MAGNESIUM 1.7 mg/dL (1.6-2.3); POTASSIUM 3.8 mmol/l (3.5-5.1); SODIUM 140 mmol/l (137-146)
[2016-09-19 06:49] LABS: ANION GAP 9 (6-22 (CALC)); CHLORIDE 108 mmol/l (95-108)
[2016-09-19 08:21] VITALS: BP 155/93
[2016-09-19 11:03] VITALS: BP 148/91
[2016-09-19] MEDS ORDERED: FISH OIL1000 MG PO (13:16)
[2016-09-19] MEDS ORDERED: LEVEMIR100 UNIT/M SC (13:20)
[2016-09-19] MEDS ORDERED: NOVOLOG100 UNIT/M SC (13:20)
[2016-09-19 15:30] VITALS: BP 159/94
== END 2016-09-19 16:27 | disposition home or self-care (01) | DRG 637 ==
LOC: ENPENDDIS → ED 22:18 → ED-I 09-18 00:59 → ED 09-18 01:07 → ICU 09-18 01:08 → MS2 09-18 01:08
PROVIDERS: Emergency Medicine; ADMIT Internal Medicine; ATTEND Internal Medicine
DX: E11.65 Type 2 diabetes mellitus with hyperglycemia (principal); E11.00 Type 2 diabetes mellitus with hyperosmolarity without nonketotic hyperglycemic-hyperosmolar coma (NKHHC); E13.69 Other specified diabetes mellitus with other specified complication; E11.42 Type 2 diabetes mellitus with diabetic polyneuropathy; K86.1 Other chronic pancreatitis; E87.8 Other disorders of electrolyte and fluid balance, not elsewhere classified; E87.5 Hyperkalemia; K75.81 Nonalcoholic steatohepatitis (NASH); I10 Essential (primary) hypertension; E78.1 Pure hyperglyceridemia; E03.9 Hypothyroidism, unspecified; F43.10 Post-traumatic stress disorder, unspecified; F31.9 Bipolar disorder, unspecified; F41.9 Anxiety disorder, unspecified; Z59.0 Homelessness; Z79.4 Long term (current) use of insulin; Z87.891 Personal history of nicotine dependence; Z91.14 Patient's other noncompliance with medication regimen
CPT/HCPCS: Q9967

== ENCOUNTER 2016-09-21 03:54 | Inpatient (IN) | payer OTHER ==
[~2016-09-21] VITALS: Ht 185.4 cm; Wt 82.0 kg
[2016-09-21] VITALS (11 sets, daily range): BP systolic 131–153; BP diastolic 72–107
[~2016-09-21 03:54] MED LIST changes: +LEVEMIR100 UNIT/M SC; +NOVOLOG100 UNIT/M SC
--- NOTE | 2016-09-21 03:54 | NUR ---
TO TX ROOM VIA STRETCHER BY EMS. C/O ABD PAIN X 3 WEEKS.
[2016-09-21 04:49] LABS: HEMATOCRIT 36.8 % (39.0-50.0); IMMATURE GRANULOCYTES 1.9 % (0.0-1.0); MEAN CELL VOLUME 89.1 fL CALC (80.0-100.0); MEAN CORPUSCULAR HGB 29.1 pG CALC (26.0-32.0); MEAN CORPUSCULAR HGB CONC 32.6 g/L CALC (32.0-36.0); NEUT# 6.48 thou/uL (1.82-7.42); RED BLOOD COUNT 4.13 mill/uL (4.70-6.10); RED CELL DISTRI WIDTH 14.7 % (11.5-15.5)
[2016-09-21 04:50] LABS: URINE BILIRUBIN - DIPSTICK NEGATIVE (NEGATIVE); URINE BLOOD DIPSTICK NEGATIVE (NEGATIVE); URINE CLARITY CLEAR; URINE COLOR YELLOW; URINE GLUCOSE - DIPSTICK >=1000 mg/dL (NEGATIVE); URINE KETONE TRACE mg/dL (NEGATIVE); URINE LEUK ESTERASE NEGATIVE (NEGATIVE); URINE NITRITE - DIPSTICK NEGATIVE (Negative); URINE PH 5.5 (4.5-8.0); URINE PROTEIN - DIPSTICK NEGATIVE (NEG-TRACE); URINE SPECIFIC GRAVITY <=1.005; URINE UROBILINOGEN - DIPSTICK 0.2 E.U./dL (0.2)
[2016-09-21 05:00] LABS: ALBUMIN 4.2 g/dL (3.2-5.0); ALKALINE PHOSPHATASE 186 u/l (38-126); AMYLASE 38 u/l (30-110); BILIRUBIN, TOTAL 0.9 mg/dL (0.0-1.4); BUN 19 mg/dL (9-20); BUN/CREATININE RATIO 25 (12-20 (CALC)); CARBON DIOXIDE 23 mmol/l (22-30); CHLORIDE 88 mmol/l (95-108); CREATININE 0.7 mg/dL (0.7-1.3); GFR > 60 ML/MIN (>=60 (CALC)); GFR FOR AFR.AMER. > 60 ML/MIN (>=60 (CALC)); LIPASE 57 u/l (23-300); SGOT/AST 28 u/l (17-59); SGPT/ALT 41 u/l (21-72)
[2016-09-21 05:11] LABS: MYOGLOBIN 16 ng/mL (0 - 121)
[2016-09-21 05:12] LABS: ANION GAP 18 (6-22 (CALC)); GLUCOSE 946 mg/dL (75-110); POTASSIUM 5.2 mmol/l (3.5-5.1); SODIUM 124 mmol/l (137-146)
--- NOTE | 2016-09-21 06:00 | NUR ---
ACCK "HIGH" NOTIFIED. START IV AT 10 UNITS PER HOUR.
--- NOTE | 2016-09-21 06:56 | NUR ---
REPORT RECEIVED. CARE ASSUMED. PATIENT RESTING ON STRETCHER. ACCU CHECK DONE AT BEDSIDE. BLOOD SUGAR 544. ER AWARE. ORDERS RECEIVED TO DECREASE INSULIN GTT TO 5 UNITS. WILL CONTINUE TO MONIOR.
--- NOTE | 2016-09-21 07:26 | NUR ---
REPORT CALLED TO LARISSA HORTA. PATIENT READIED FOR TRANSPORT TO FLOOR.
--- NOTE | 2016-09-21 08:00 | NUR ---
PATIENT ADMITTED TO ICU BED 6. PATIENT AMBULATES TO BED FROM STRETCHER. PATIENT IMMEDIATELY ASKS FOR PAIN MEDICINE. IV FLUIDS IN PLACE, INSULIN DRIP IN PLACE. ADMISSION ASSESSMENT COMPLETED, RESP EVEN AND UNLABORED. NO S/S OF DISTRESS NOTED. PATIENT COMPLAINS OF PAIN. CALL LIGHT IN REACH PATIENT ORIENTED TO CALL SYSTEM AND ROOM.
--- NOTE | 2016-09-21 10:05 | NUR ---
PATIENT IN BED. PAIN MED GIVEN ORDERED. PATIENT GOES TO SLEEP.
--- NOTE | 2016-09-21 12:00 | NUR ---
PATIENT IN BED SLEEPING. RESP EVEN AND UNLABORED. NO S/S OF DISTRESS NOTED. CALL LIGHT IN REACH.
[2016-09-21 12:29] LABS: POTASSIUM 3.5 mmol/l (3.5-5.1)
--- NOTE | 2016-09-21 16:00 | NUR ---
PATIENT IN BED WITH EYES CLOSED. RESP EVEN AND UNLABORED. NO S/S OF DISTRESS NOTED. CALL LIGHT IN REACH. ENCOURAGED TO CALL FOR ANY NEEDS.
--- NOTE | 2016-09-21 18:50 | NUR ---
REPORT FROM CHINA SILVERMAN. ASSUMED PT. CARE.
--- NOTE | 2016-09-21 19:30 | NUR ---
PT. FOUND RESTING ON LT. SIDE IN NO DISTRESS. EYES CLOSED. RESPS EVEN AND UNLABORED. SKIN WARM AND DRY. VSS. WILL CONTINUE TO MONITOR.
--- NOTE | 2016-09-21 20:15 | NUR ---
FRIENDS PRESENTS AT THIS TIME ASKING IF THE PATIENT CAN HAVE A SALAD. THIS RN INFORMED THEM THAT HE COULD HAVE ONLY THE SALAD.
--- NOTE | 2016-09-21 21:00 | NUR ---
ACCUCHECK IS 309 AT THIS TIME. MEDICATED WITH LEVEMIR 40 UNITS PER ORDERS. PT. REPORTS SOME NAUSEA AT THIS TIME. PHYSICIAN NOTIFIED OF C/O NAUSEA AND CURRENT FSBS. WILL MEDICATE ORDERED.
--- NOTE | 2016-09-21 23:05 | NUR ---
PT. SITTING UP CROSSLEGGED IN BED IN NO DISTRESS. PLAYING ON CELL PHONE AT THIS TIME. APPEARS IN NAD. DENIES NEED AT THIS TIME. CALL LIGHT REMAINS WITHIN REACH.
--- NOTE | 2016-09-21 23:18 | NUR ---
PT. SITTING UP IN BED IN NO DISTRESS. ASKING FOR TURKEY SANDWICH. OFFERED THE TURKEY WITHOUT THE BREAD, BUT PT. STATES "I WOULDN'T WANT TO RUIN A WHOLE SANDWICH FOR THAT".
[2016-09-22] VITALS (10 sets, daily range): BP systolic 126–160; BP diastolic 67–102
--- NOTE | 2016-09-22 01:00 | NUR ---
PT. RESTING IN BED IN NO DISTRESS. BP CUFF WAKES HIM FROM A SNORING RESPIRATION. PT. STATES HIS PAIN IS "ABOUT A 6". MEDICATED PER PHYSICIAN ORDERS. URINAL EMPTIED OF APPROX 500 CC YELLOW URINE AT THIS TIME. VOICES NO OTHER COMPLAINTS OR NEEDS.
--- NOTE | 2016-09-22 03:05 | NUR ---
PT. RESTING IN BED ON RT. SIDE IN NO DISTRESS. BP AND HR STABLE. RESPS EVEN AND UNLABORED. NO EMESIS NOTED SINCE BEGINNING OF SHIFT. PT. VOICES NO COMPLAINTS OR NEEDS AT THIS TIME. CALL LIGHT REMAINS WITHIN REACH.
--- NOTE | 2016-09-22 04:10 | NUR ---
PT. CONTINUES TO REST ON LT. SIDE IN NO DISTRESS. VSS. VOICES NO COMPLAINTS OF NEED AT THIS TIME. RESPS EVEN AND UNLABORED. SKIN WARM AND DRY. IV FLUIDS CONTINUE TO INFUSE AT 75 CC/HR. WILL CONTINUE TO MONITOR.
[2016-09-22 04:54] LABS: ANION GAP 12 (6-22 (CALC)); BUN 13 mg/dL (9-20); BUN/CREATININE RATIO 18 (12-20 (CALC)); CALCIUM 8.8 mg/dL (8.4-10.2); CARBON DIOXIDE 26 mmol/l (22-30); CHLORIDE 102 mmol/l (95-108); CREATININE 0.7 mg/dL (0.7-1.3); GFR > 60 ML/MIN (>=60 (CALC)); GFR FOR AFR.AMER. > 60 ML/MIN (>=60 (CALC)); GLUCOSE 223 mg/dL (75-110); POTASSIUM 4.4 mmol/l (3.5-5.1); SODIUM 136 mmol/l (137-146)
[2016-09-22 05:57] LABS: IMMATURE GRANULOCYTES 1.8 % (0.0-1.0); MEAN CELL VOLUME 87.6 fL CALC (80.0-100.0); MEAN CORPUSCULAR HGB 29.2 pG CALC (26.0-32.0); MEAN CORPUSCULAR HGB CONC 33.3 g/L CALC (32.0-36.0); RED BLOOD COUNT 4.11 mill/uL (4.70-6.10); RED CELL DISTRI WIDTH 14.6 % (11.5-15.5)
--- NOTE | 2016-09-22 07:00 | NUR ---
REPORT RECEIVED FROM CHINA BERMAN. PT RESTING, CERTIFIED PROFESSIONAL MIDWIFE PRESENT FOR MARK BS IS 187. WILL MEDICATE DIRECTED. VSS OTHERWISE STABLE. CALL LIGHT WITHIN REACH. INSTRUCTED PT TO CALL FOR ASSISTANCE. STATES UNDERSTANDING.
--- NOTE | 2016-09-22 09:00 | NUR ---
MD IN TO SEE PT AT THIS TIME, VOICES CONCERN FOR INCREASE OF AMBULATION AND ADL PERFORMANCE. PT AGREEABLE WILL CONTINUE TO ENCOURAGE.
--- NOTE | 2016-09-22 10:00 | NUR ---
PATIENT SET UP AND GIVING SELF BATH. TOLERATING WELL.
--- NOTE | 2016-09-22 12:00 | NUR ---
PT REFUSING TO GET OOB AND AMBULATE. WILL CONTINUE TO ENCOURAGE
--- NOTE | 2016-09-22 13:32 | NUR ---
PT ASSISTED TO WHEELCHAIR AT THIS TIME. STABLE AT TIME OF DEPARTURE. REPORT GIVEN TO CHINA LICONA.
--- NOTE | 2016-09-22 13:35 | NUR ---
PT TO ROOM VIA WC ACCOMPANIED BY STAFF; AMBULATORY TO BED WITH MODERATE ASSIST; PT A/O X3; TELE MONITOR IN PLACE; PT C/O ABD PAIN 8/10, MEDICATED ORDERED; ORIENTED TO ROOM AND CALL SYSTEM; CALL ANDERSON WITHIN REACH; WILL CONTINUE TO MONITOR.
--- NOTE | 2016-09-22 19:22 | NUR ---
BEDSIDE REPORT RECEIVED FROM CHINA BENNETT. PT SITTING UP IN CHAIR READING. C/O MILD PAIN TO RIGHT ANKLE AT THIS TIME. RESPIRATIONS EVEN AND UNLABORED. ALERT, OREINTED, AND PLEASANT. PLAN OF CARE REVIEWED. PT ENCOURAGED TO VERBALIZE CONCERNS. STATES UNDERSTANDING. NO IV ACCESS. SAFETY MEASURES IN PLACE. CALL LIGHT WITHIN REACH.
--- NOTE | 2016-09-23 | NUR ---
PT SITTING UP IN BED AT THIS TIME REQUESTING PAIN MEDICATIONS FOR ABDOMEN. DILAUDID GIVEN. RESPIRATIONS EVEN AND UNLABORED. SAFETY MEASURES IN PLACE. CALL LIGHT WITHIN REACH.
[2016-09-23 04:00] VITALS: BP 151/87
--- NOTE | 2016-09-23 04:19 | NUR ---
PT ASLEEP AFTER PAIN MEDICATION GIVEN. ABT INFUSED WITH NO ADVERSE EFFECTS NOTED. RESPIRATIONS EVEN AND UNLABORED. NO CHANGES IN ASSESSMENT NOTED. SAFETY MEASURES IN PLACE. CALL LIGHT WITHIN REACH.
--- NOTE | 2016-09-23 07:00 | NUR ---
RECEIVED BEDSIDE REPORT FROM KETAN DIAS. IN HIGH FOWLERS WATCHING TV. RESPS EVEN AND UNLABORED ON ROOM AIR. #20 RH INFUSING WITHOUT DIFFICULTY, SITE APPEARS HEALTHY. VOICES NO NEEDS AT THIS TIME. PLAN OF CARE DISCUSSED, SAFETY PRECAUTIONS REINFORCED. BED IN LOWEST POSITION WITH WHEELS LOCKED. CALL LIGHT WITHIN REACH. ENCOURAGED PT TO CALL FOR ANY NEEDS.
[2016-09-23 07:17] VITALS: BP 152/93
[2016-09-23 07:33] VITALS: BP 152/93
--- NOTE | 2016-09-23 09:30 | NUR ---
RESTING IN BED WATCHING TV. RESPS EVEN AND UNLABORED ON ROOM AIR. #20RH INFUISNG WITHOUT DIFFICULTY, SITE APPEARS HEALTHY. MEDICATED WITH LORTAB PO FOR C/O 10/17 ABD PAIN. PO FLUIDS OFFERED. CALL LIGHT ALESHA DEAL. WILL CONTINUE TO MONIOTR.
--- NOTE | 2016-09-23 10:30 | NUR ---
DR RUSS IN TO SEE PT, NEW ORDERS RECEIVED.
[2016-09-23] MEDS ORDERED: LORTAB 7.5-3251 TAB PO (13:28)
[2016-09-23] MEDS ORDERED: ELAVIL25 M1 PO (13:28)
[2016-09-23] MEDS ORDERED: LEXAPRO10 MG PO (13:28)
[2016-09-23] MEDS ORDERED: LYRICA75 MG PO (13:28)
[2016-09-23] MEDS ORDERED: CREON12000 UNT PO (13:28)
--- NOTE | 2016-09-23 14:40 | NUR ---
TURKEY SANDWICH AND 210 OZ ORANGE JUICE PO FOR RBS 56. WILL RECHECK BLOOD SUGAR IN 30 MINUTES
--- NOTE | 2016-09-23 15:12 | NUR ---
Discharge instructions given. Patient verbalizes understanding of same. Discharged in stable condition via Wheelchair to Home with friend. All belongings sent with pt.
== END 2016-09-23 15:32 | disposition home or self-care (01) | DRG 638 ==
LOC: ENPENDDIS → ED 03:54 → ED-I 06:46 → ED 07:02 → ICU 07:03 → MS2 07:03
PROVIDERS: Emergency Medicine; ADMIT Internal Medicine; ATTEND Internal Medicine
DX: E13.10 Other specified diabetes mellitus with ketoacidosis without coma (principal); E87.1 Hypo-osmolality and hyponatremia; K86.3 Pseudocyst of pancreas; K75.81 Nonalcoholic steatohepatitis (NASH); K86.1 Other chronic pancreatitis; E11.69 Type 2 diabetes mellitus with other specified complication; E78.1 Pure hyperglyceridemia; I10 Essential (primary) hypertension; F31.9 Bipolar disorder, unspecified; F41.9 Anxiety disorder, unspecified; F17.210 Nicotine dependence, cigarettes, uncomplicated; F12.90 Cannabis use, unspecified, uncomplicated; E03.9 Hypothyroidism, unspecified; Z91.11 Patient's noncompliance with dietary regimen; Z91.14 Patient's other noncompliance with medication regimen; Z79.4 Long term (current) use of insulin

== ENCOUNTER 2016-10-06 05:13 | Emergency (ER) | payer OTHER ==
[~2016-10-06] VITALS: Ht 185.4 cm; Wt 83.7 kg
[~2016-10-06 05:13] MED LIST changes: +CREON12000 UNT PO; +ELAVIL25 M1 PO; +LEXAPRO10 MG PO; +LORTAB 7.5-3251 TAB PO; +LYRICA75 MG PO
[2016-10-06 06:16] LABS: HEMATOCRIT 40.3 % (39.0-50.0); HEMOGLOBIN 13.3 g/dl (14.0-18.0); IMMATURE GRANULOCYTES 1.5 % (0.0-1.0); MEAN CELL VOLUME 89.4 fL CALC (80.0-100.0); MEAN CORPUSCULAR HGB 29.5 pG CALC (26.0-32.0); RED BLOOD COUNT 4.51 mill/uL (4.70-6.10); RED CELL DISTRI WIDTH 15.7 % (11.5-15.5)
[2016-10-06 06:20] LABS: URINE BILIRUBIN - DIPSTICK NEGATIVE (NEGATIVE); URINE BLOOD DIPSTICK NEGATIVE (NEGATIVE); URINE CLARITY CLEAR; URINE COLOR YELLOW; URINE GLUCOSE - DIPSTICK >=1000 mg/dL (NEGATIVE); URINE KETONE 15 mg/dL (NEGATIVE); URINE LEUK ESTERASE NEGATIVE (NEGATIVE); URINE NITRITE - DIPSTICK NEGATIVE (Negative); URINE PH 6.5 (4.5-8.0); URINE PROTEIN - DIPSTICK NEGATIVE (NEG-TRACE); URINE SPECIFIC GRAVITY <=1.005; URINE UROBILINOGEN - DIPSTICK 0.2 E.U./dL (0.2)
[2016-10-06 06:31] LABS: ALBUMIN 4.4 g/dL (3.2-5.0); ALKALINE PHOSPHATASE 181 u/l (38-126); AMYLASE < 30 u/l (30-110); BILIRUBIN, TOTAL 0.5 mg/dL (0.0-1.4); BUN 25 mg/dL (9-20); BUN/CREATININE RATIO 20 (12-20 (CALC)); CALCIUM 9.8 mg/dL (8.4-10.2); CARBON DIOXIDE 23 mmol/l (22-30); CHLORIDE 97 mmol/l (95-108); CREATININE 1.3 mg/dL (0.7-1.3); GFR > 60 ML/MIN (>=60 (CALC)); GFR FOR AFR.AMER. > 60 ML/MIN (>=60 (CALC)); LIPASE 33 u/l (23-300); SGOT/AST 18 u/l (17-59); SGPT/ALT 36 u/l (21-72); SODIUM 132 mmol/l (137-146); TOTAL PROTEIN 7.4 g/dL (6.3-8.2)
[2016-10-06 06:33] LABS: ANION GAP 18 (6-22 (CALC)); GLUCOSE 539 mg/dL (75-110); POTASSIUM 5.9 mmol/l (3.5-5.1)
[2016-10-06] MEDS ORDERED: GABAPENTIN100 MG PO (07:23)
[2016-10-06] MEDS ORDERED: PANTOPRAZOLE SO40 MG PO (07:28)
[2016-10-06 10:06] LABS: ANION GAP 18 (6-22 (CALC)); BUN 24 mg/dL (9-20); BUN/CREATININE RATIO 27 (12-20 (CALC)); CALCIUM 9.3 mg/dL (8.4-10.2); CARBON DIOXIDE 23 mmol/l (22-30); CHLORIDE 97 mmol/l (95-108); CREATININE 0.9 mg/dL (0.7-1.3); GFR > 60 ML/MIN (>=60 (CALC)); GFR FOR AFR.AMER. > 60 ML/MIN (>=60 (CALC)); GLUCOSE 392 mg/dL (75-110); POTASSIUM 4.9 mmol/l (3.5-5.1); SODIUM 133 mmol/l (137-146)
[2016-10-06] MEDS ORDERED: ZOFRAN ODT4 MG PO (12:32)
[2016-10-06 13:05] VITALS: BP 133/66
== END 2016-10-06 13:25 | disposition home or self-care (01) | DRG 392 ==
LOC: ED 05:13 → ED-I 05:23 → ED 05:23 → ED-I 07:00 → ED 13:25
PROVIDERS: Emergency Medicine
DX: R10.13 Epigastric pain (principal); E10.65 Type 1 diabetes mellitus with hyperglycemia; K86.1 Other chronic pancreatitis; Z79.4 Long term (current) use of insulin; E87.5 Hyperkalemia; M62.562 Muscle wasting and atrophy, not elsewhere classified, left lower leg; M62.561 Muscle wasting and atrophy, not elsewhere classified, right lower leg
CPT/HCPCS: S0164

== ENCOUNTER 2016-10-09 04:24 | Inpatient (IN) | payer OTHER ==
[2016-10-09] VITALS (18 sets, daily range): BP systolic 104–136; BP diastolic 59–76
[~2016-10-09] VITALS: Ht 185.4 cm; Wt 84.0 kg
[~2016-10-09 04:24] MED LIST changes: +GABAPENTIN100 MG PO; +PANTOPRAZOLE SO40 MG PO
[2016-10-09 06:02] LABS: URINE BILIRUBIN - DIPSTICK NEGATIVE (NEGATIVE); URINE BLOOD DIPSTICK NEGATIVE (NEGATIVE); URINE CLARITY CLEAR; URINE COLOR YELLOW; URINE GLUCOSE - DIPSTICK >=1000 mg/dL (NEGATIVE); URINE KETONE 15 mg/dL (NEGATIVE); URINE LEUK ESTERASE NEGATIVE (NEGATIVE); URINE NITRITE - DIPSTICK NEGATIVE (Negative); URINE PH 5.5 (4.5-8.0); URINE PROTEIN - DIPSTICK NEGATIVE (NEG-TRACE); URINE SPECIFIC GRAVITY <=1.005; URINE UROBILINOGEN - DIPSTICK 0.2 E.U./dL (0.2)
[2016-10-09 06:03] LABS: ALBUMIN 4.9 g/dL (3.2-5.0); ALKALINE PHOSPHATASE 164 u/l (38-126); AMYLASE 33 u/l (30-110); ANION GAP 27 (6-22 (CALC)); BILIRUBIN, TOTAL 1.3 mg/dL (0.0-1.4); BUN 16 mg/dL (9-20); BUN/CREATININE RATIO 22 (12-20 (CALC)); CALCIUM 10.3 mg/dL (8.4-10.2); CARBON DIOXIDE 17 mmol/l (22-30); CHLORIDE 88 mmol/l (95-108); CREATININE 0.7 mg/dL (0.7-1.3); GFR > 60 ML/MIN (>=60 (CALC)); GFR FOR AFR.AMER. > 60 ML/MIN (>=60 (CALC)); LIPASE 63 u/l (23-300); POTASSIUM 4.8 mmol/l (3.5-5.1); SGOT/AST 17 u/l (17-59); SGPT/ALT 34 u/l (21-72); SODIUM 126 mmol/l (137-146); TOTAL PROTEIN 7.9 g/dL (6.3-8.2)
[2016-10-09 06:17] LABS: GLUCOSE 929 mg/dL (75-110)
[2016-10-09 06:21] LABS: HEMATOCRIT 40.9 % (39.0-50.0); HEMOGLOBIN 13.9 g/dl (14.0-18.0); IMMATURE GRANULOCYTES 2.4 % (0.0-1.0); MEAN CELL VOLUME 86.7 fL CALC (80.0-100.0); MEAN CORPUSCULAR HGB 29.4 pG CALC (26.0-32.0); NEUT# 4.11 thou/uL (1.82-7.42); RED BLOOD COUNT 4.72 mill/uL (4.70-6.10); RED CELL DISTRI WIDTH 15.9 % (11.5-15.5)
[2016-10-09 07:03] LABS: MYOGLOBIN 29 ng/mL (0 - 121)
[2016-10-09 07:51] LABS: BARBITURATES NEGATIVE (NEGATIVE); COCAINE NEGATIVE (NEGATIVE); METHADONE NEGATIVE (NEGATIVE); OXCYCODONE NEGATIVE (NEGATIVE); TETRAHYDROCANNABIONOL POSITIVE (NEGATIVE); TRICYLIC ANTIDEPRESSANTS NEGATIVE (NEGATIVE)
[2016-10-09 16:40] LABS: BUN 9 mg/dL (9-20); BUN/CREATININE RATIO 15 (12-20 (CALC)); CALCIUM 8.9 mg/dL (8.4-10.2); CARBON DIOXIDE 26 mmol/l (22-30); CREATININE 0.6 mg/dL (0.7-1.3); GFR > 60 ML/MIN (>=60 (CALC)); GFR FOR AFR.AMER. > 60 ML/MIN (>=60 (CALC)); GLUCOSE 157 mg/dL (75-110); POTASSIUM 3.6 mmol/l (3.5-5.1)
[2016-10-09 16:42] LABS: ANION GAP 13 (6-22 (CALC)); CHLORIDE 104 mmol/l (95-108); SODIUM 139 mmol/l (137-146)
[2016-10-10] VITALS (10 sets, daily range): BP systolic 108–158; BP diastolic 63–97
[2016-10-10 06:13] LABS: ANION GAP 12 (6-22 (CALC)); BUN 7 mg/dL (9-20); BUN/CREATININE RATIO 13 (12-20 (CALC)); CALCIUM 8.5 mg/dL (8.4-10.2); CARBON DIOXIDE 25 mmol/l (22-30); CHLORIDE 106 mmol/l (95-108); CREATININE 0.6 mg/dL (0.7-1.3); GFR > 60 ML/MIN (>=60 (CALC)); GFR FOR AFR.AMER. > 60 ML/MIN (>=60 (CALC)); GLUCOSE 212 mg/dL (75-110); POTASSIUM 3.7 mmol/l (3.5-5.1); SODIUM 139 mmol/l (137-146)
== END 2016-10-10 12:35 | disposition home health service (06) | DRG 638 ==
LOC: ED 04:24 → ED-I 06:36 → ED 07:04 → ICU 07:05
PROVIDERS: Emergency Medicine; Internal Medicine; ADMIT Internal Medicine; ATTEND Internal Medicine
DX: E13.10 Other specified diabetes mellitus with ketoacidosis without coma (principal); K86.1 Other chronic pancreatitis; K75.81 Nonalcoholic steatohepatitis (NASH); I10 Essential (primary) hypertension; E11.621 Type 2 diabetes mellitus with foot ulcer; L97.529 Non-pressure chronic ulcer of other part of left foot with unspecified severity; E11.69 Type 2 diabetes mellitus with other specified complication; E78.5 Hyperlipidemia, unspecified; E03.9 Hypothyroidism, unspecified; F31.9 Bipolar disorder, unspecified; F41.9 Anxiety disorder, unspecified; Z87.891 Personal history of nicotine dependence; Z79.4 Long term (current) use of insulin; Z91.14 Patient's other noncompliance with medication regimen; Z91.11 Patient's noncompliance with dietary regimen
CPT/HCPCS: S0164

== ENCOUNTER 2016-11-26 17:25 | Inpatient (IN) | payer OTHER ==
[2016-11-26] VITALS (7 sets, daily range): BP systolic 110–147; BP diastolic 56–83
[~2016-11-26] VITALS: Ht 185.4 cm; Wt 83.0 kg
[2016-11-26 18:13] LABS: HEMATOCRIT 47.6 % (39.0-50.0); HEMOGLOBIN 15.6 g/dl (14.0-18.0); IMMATURE GRANULOCYTES 2.2 % (0.0-1.0); MEAN CELL VOLUME 89.3 fL CALC (80.0-100.0); MEAN CORPUSCULAR HGB 29.3 pG CALC (26.0-32.0); MEAN CORPUSCULAR HGB CONC 32.8 g/L CALC (32.0-36.0); NEUT# 15.2 thou/uL (1.82-7.42); RED BLOOD COUNT 5.33 mill/uL (4.70-6.10); RED CELL DISTRI WIDTH 13.2 % (11.5-15.5)
[2016-11-26 18:51] LABS: URINE BILIRUBIN - DIPSTICK NEGATIVE (NEGATIVE); URINE BLOOD DIPSTICK NEGATIVE (NEGATIVE); URINE CLARITY CLEAR; URINE COLOR YELLOW; URINE GLUCOSE - DIPSTICK >=1000 mg/dL (NEGATIVE); URINE KETONE >=80 mg/dL (NEGATIVE); URINE LEUK ESTERASE NEGATIVE (NEGATIVE); URINE NITRITE - DIPSTICK NEGATIVE (Negative); URINE PH 5.5 (4.5-8.0); URINE PROTEIN - DIPSTICK NEGATIVE (NEG-TRACE); URINE UROBILINOGEN - DIPSTICK 0.2 E.U./dL (0.2)
[2016-11-26 18:54] LABS: ALBUMIN 5.4 g/dL (3.2-5.0); ALKALINE PHOSPHATASE 171 u/l (38-126); BILIRUBIN, TOTAL 0.8 mg/dL (0.0-1.4); BUN 28 mg/dL (9-20); BUN/CREATININE RATIO 26 (12-20 (CALC)); CALCIUM 10.3 mg/dL (8.4-10.2); CHLORIDE 91 mmol/l (95-108); CREATININE 1.1 mg/dL (0.7-1.3); GFR > 60 ML/MIN (>=60 (CALC)); GFR FOR AFR.AMER. > 60 ML/MIN (>=60 (CALC)); SGOT/AST 19 u/l (17-59); SGPT/ALT 29 u/l (21-72); SODIUM 136 mmol/l (137-146); TOTAL PROTEIN 9.1 g/dL (6.3-8.2)
[2016-11-26 18:54] LABS: BARBITURATES NEGATIVE (NEGATIVE); COCAINE NEGATIVE (NEGATIVE); METHADONE NEGATIVE (NEGATIVE); OXCYCODONE NEGATIVE (NEGATIVE); TETRAHYDROCANNABIONOL POSITIVE (NEGATIVE); TRICYLIC ANTIDEPRESSANTS NEGATIVE (NEGATIVE)
[2016-11-26 18:57] LABS: ANION GAP 46 (6-22 (CALC))
[2016-11-26 18:58] LABS: CARBON DIOXIDE < 5 mmol/l (22-30); POTASSIUM 5.9 mmol/l (3.5-5.1)
[2016-11-26 19:04] LABS: GLUCOSE 727 mg/dL (75-110)
[2016-11-26 19:06] LABS: MYOGLOBIN 38 ng/mL (0 - 121)
[2016-11-26 22:14] LABS: HEMATOCRIT 49.3 % (39.0-50.0); IMMATURE GRANULOCYTES 2.4 % (0.0-1.0); MEAN CORPUSCULAR HGB 29.2 pG CALC (26.0-32.0); MEAN CORPUSCULAR HGB CONC 32.5 g/L CALC (32.0-36.0); NEUT# 14.96 thou/uL (1.82-7.42); RED BLOOD COUNT 5.48 mill/uL (4.70-6.10); RED CELL DISTRI WIDTH 13.2 % (11.5-15.5)
[2016-11-26 22:23] LABS: MAGNESIUM 2.1 mg/dL (1.6-2.3)
[2016-11-26 22:24] LABS: BUN 22 mg/dL (9-20); BUN/CREATININE RATIO 22 (12-20 (CALC)); CALCIUM 9.6 mg/dL (8.4-10.2); CARBON DIOXIDE 10 mmol/l (22-30); GFR > 60 ML/MIN (>=60 (CALC)); GFR FOR AFR.AMER. > 60 ML/MIN (>=60 (CALC))
[2016-11-26 22:29] LABS: ANION GAP 39 (6-22 (CALC)); CHLORIDE 103 mmol/l (95-108); SODIUM 146 mmol/l (137-146)
[2016-11-26 22:30] LABS: GLUCOSE 499 mg/dL (75-110)
[2016-11-27] VITALS (23 sets, daily range): BP systolic 108–141; BP diastolic 58–81
[2016-11-27 00:14] LABS: ANION GAP 31 (6-22 (CALC)); BUN 20 mg/dL (9-20); BUN/CREATININE RATIO 23 (12-20 (CALC)); CALCIUM 8.9 mg/dL (8.4-10.2); CARBON DIOXIDE 14 mmol/l (22-30); CHLORIDE 107 mmol/l (95-108); CREATININE 0.9 mg/dL (0.7-1.3); GFR > 60 ML/MIN (>=60 (CALC)); GFR FOR AFR.AMER. > 60 ML/MIN (>=60 (CALC)); GLUCOSE 323 mg/dL (75-110); POTASSIUM 5.1 mmol/l (3.5-5.1); SODIUM 147 mmol/l (137-146)
[2016-11-27 02:42] LABS: ANION GAP 27 (6-22 (CALC)); BUN 20 mg/dL (9-20); BUN/CREATININE RATIO 24 (12-20 (CALC)); CALCIUM 8.9 mg/dL (8.4-10.2); CARBON DIOXIDE 14 mmol/l (22-30); CHLORIDE 110 mmol/l (95-108); CREATININE 0.8 mg/dL (0.7-1.3); GFR > 60 ML/MIN (>=60 (CALC)); GFR FOR AFR.AMER. > 60 ML/MIN (>=60 (CALC)); GLUCOSE 257 mg/dL (75-110); SODIUM 146 mmol/l (137-146)
[2016-11-27 05:37] LABS: HEMATOCRIT 37.5 % (39.0-50.0); HEMOGLOBIN 12.8 g/dl (14.0-18.0); IMMATURE GRANULOCYTES 1.6 % (0.0-1.0); MEAN CORPUSCULAR HGB 29.7 pG CALC (26.0-32.0); MEAN CORPUSCULAR HGB CONC 34.1 g/L CALC (32.0-36.0); NEUT# 7.28 thou/uL (1.82-7.42); RED BLOOD COUNT 4.31 mill/uL (4.70-6.10); RED CELL DISTRI WIDTH 13.1 % (11.5-15.5)
[2016-11-27 05:50] LABS: ANION GAP 18 (6-22 (CALC)); BUN 17 mg/dL (9-20); BUN/CREATININE RATIO 27 (12-20 (CALC)); CALCIUM 8.4 mg/dL (8.4-10.2); CARBON DIOXIDE 16 mmol/l (22-30); CHLORIDE 113 mmol/l (95-108); CREATININE 0.6 mg/dL (0.7-1.3); GFR > 60 ML/MIN (>=60 (CALC)); GFR FOR AFR.AMER. > 60 ML/MIN (>=60 (CALC)); GLUCOSE 240 mg/dL (75-110); POTASSIUM 4.3 mmol/l (3.5-5.1); SODIUM 143 mmol/l (137-146)
[2016-11-27 09:40] LABS: ANION GAP 15 (6-22 (CALC)); BUN 15 mg/dL (9-20); BUN/CREATININE RATIO 26 (12-20 (CALC)); CALCIUM 8.2 mg/dL (8.4-10.2); CARBON DIOXIDE 20 mmol/l (22-30); CHLORIDE 111 mmol/l (95-108); CREATININE 0.6 mg/dL (0.7-1.3); GFR > 60 ML/MIN (>=60 (CALC)); GFR FOR AFR.AMER. > 60 ML/MIN (>=60 (CALC)); GLUCOSE 262 mg/dL (75-110); POTASSIUM 4.4 mmol/l (3.5-5.1); SODIUM 140 mmol/l (137-146)
[2016-11-27 14:03] LABS: ANION GAP 14 (6-22 (CALC)); BUN 13 mg/dL (9-20); BUN/CREATININE RATIO 22 (12-20 (CALC)); CALCIUM 8.3 mg/dL (8.4-10.2); CARBON DIOXIDE 15 mmol/l (22-30); CHLORIDE 111 mmol/l (95-108); CREATININE 0.6 mg/dL (0.7-1.3); GFR > 60 ML/MIN (>=60 (CALC)); GFR FOR AFR.AMER. > 60 ML/MIN (>=60 (CALC)); GLUCOSE 370 mg/dL (75-110); POTASSIUM 4.6 mmol/l (3.5-5.1); SODIUM 135 mmol/l (137-146)
[2016-11-27] MEDS ORDERED: LEVEMIR100 UNIT/M SC (21:22)
[2016-11-28 00:05] VITALS: BP 123/71
[2016-11-28 02:00] VITALS: BP 142/75
[2016-11-28 03:50] LABS: ANION GAP 13 (6-22 (CALC)); BUN 9 mg/dL (9-20); BUN/CREATININE RATIO 15 (12-20 (CALC)); CALCIUM 8.7 mg/dL (8.4-10.2); CARBON DIOXIDE 22 mmol/l (22-30); CHLORIDE 107 mmol/l (95-108); CREATININE 0.6 mg/dL (0.7-1.3); GFR > 60 ML/MIN (>=60 (CALC)); GFR FOR AFR.AMER. > 60 ML/MIN (>=60 (CALC)); GLUCOSE 153 mg/dL (75-110); POTASSIUM 3.4 mmol/l (3.5-5.1); SODIUM 139 mmol/l (137-146)
[2016-11-28 04:00] VITALS: BP 123/72
[2016-11-28 06:00] VITALS: BP 108/65
[2016-11-28 08:00] VITALS: BP 133/86
[2016-11-28] MEDS ORDERED: TRAMADOL HCL50 MG PO (10:10)
== END 2016-11-28 10:20 | disposition home or self-care (01) | DRG 638 ==
LOC: ED 17:25 → ED-I 18:55 → ED 19:15 → ICU 19:16
PROVIDERS: Emergency Medicine; ADMIT Internal Medicine; ATTEND Internal Medicine
DX: E13.10 Other specified diabetes mellitus with ketoacidosis without coma (principal); K86.1 Other chronic pancreatitis; E87.8 Other disorders of electrolyte and fluid balance, not elsewhere classified; I10 Essential (primary) hypertension; F12.90 Cannabis use, unspecified, uncomplicated; F32.9 Major depressive disorder, single episode, unspecified; E11.42 Type 2 diabetes mellitus with diabetic polyneuropathy; E11.69 Type 2 diabetes mellitus with other specified complication; E78.1 Pure hyperglyceridemia; E03.9 Hypothyroidism, unspecified; Z79.4 Long term (current) use of insulin; Z91.14 Patient's other noncompliance with medication regimen
CPT/HCPCS: J1650

== ENCOUNTER 2016-12-07 05:02 | Emergency (ER) | payer OTHER ==
[~2016-12-07] VITALS: Ht 185.4 cm; Wt 81.0 kg
[~2016-12-07 05:02] MED LIST changes: +TRAMADOL HCL50 MG PO
[2016-12-07 05:40] LABS: HEMOGLOBIN 13.8 g/dl (14.0-18.0); IMMATURE GRANULOCYTES 1.4 % (0.0-1.0); MEAN CORPUSCULAR HGB 29.6 pG CALC (26.0-32.0); MEAN CORPUSCULAR HGB CONC 33.7 g/L CALC (32.0-36.0); NEUT# 4.25 thou/uL (1.82-7.42); RED BLOOD COUNT 4.66 mill/uL (4.70-6.10); RED CELL DISTRI WIDTH 13.5 % (11.5-15.5)
[2016-12-07 05:45] LABS: ALBUMIN 4.4 g/dL (3.2-5.0); ALKALINE PHOSPHATASE 145 u/l (38-126); AMYLASE 37 u/l (30-110); ANION GAP 22 (6-22 (CALC)); BILIRUBIN, TOTAL 0.5 mg/dL (0.0-1.4); BUN 11 mg/dL (9-20); BUN/CREATININE RATIO 14 (12-20 (CALC)); CALCIUM 9.5 mg/dL (8.4-10.2); CARBON DIOXIDE 26 mmol/l (22-30); CHLORIDE 99 mmol/l (95-108); CREATININE 0.8 mg/dL (0.7-1.3); GFR > 60 ML/MIN (>=60 (CALC)); GFR FOR AFR.AMER. > 60 ML/MIN (>=60 (CALC)); LIPASE 32 u/l (23-300); POTASSIUM 4.4 mmol/l (3.5-5.1); SGOT/AST 24 u/l (17-59); SGPT/ALT 35 u/l (21-72); SODIUM 142 mmol/l (137-146); TOTAL PROTEIN 8.3 g/dL (6.3-8.2)
[2016-12-07 05:48] LABS: GLUCOSE 522 mg/dL (75-110)
[2016-12-07 10:30] VITALS: BP 153/90
== END 2016-12-07 10:36 | disposition left against medical advice (07) | DRG 639 ==
LOC: ED 05:02
PROVIDERS: Emergency Medicine
PROC: 02HV33Z Insertion of Infusion Device into Superior Vena Cava, Percutaneous Approach (ICD-10-PCS; principal; 2016-12-07)
DX: E13.10 Other specified diabetes mellitus with ketoacidosis without coma (principal); I10 Essential (primary) hypertension; F31.9 Bipolar disorder, unspecified; F41.9 Anxiety disorder, unspecified; F43.10 Post-traumatic stress disorder, unspecified; F17.210 Nicotine dependence, cigarettes, uncomplicated; Z91.19 Patient's noncompliance with other medical treatment and regimen
CPT/HCPCS: Q9967

== ENCOUNTER 2017-01-05 23:07 | Inpatient (IN) | payer MEDICARE, OTHER ==
[~2017-01-05] VITALS: Ht 185.4 cm; Wt 82.2 kg
--- NOTE | 2017-01-05 23:08 | NUR ---
PT TO ROOM # 9 VIA EMS STRETCHER.
--- NOTE | 2017-01-05 23:15 | NUR ---
INTRODUCED SELF TO PT. #20 IV STARTED IN RAC WITH LABS DRAWN. PT REPORTS ABD PAIN THAT STARTED ON 01/03/17 WITH ASSOCIATED NAUSEA AND VOMITING. PT ACTIVELY VOMITING WITH 200 CC OF YELLOW BILIOUS CONTENT. ZOFRAN 4 MG IM GIVEN BY EMS WASTEWATER TREATMENT ENGINEER.
[2017-01-05 23:35] LABS: HEMATOCRIT 51.7 % (39.0-50.0); HEMOGLOBIN 16.7 g/dl (14.0-18.0); IMMATURE GRANULOCYTES 1.8 % (0.0-1.0); MEAN CELL VOLUME 90.4 fL CALC (80.0-100.0); MEAN CORPUSCULAR HGB 29.2 pG CALC (26.0-32.0); MEAN CORPUSCULAR HGB CONC 32.3 g/L CALC (32.0-36.0); NEUT# 12.13 thou/uL (1.82-7.42); RED BLOOD COUNT 5.72 mill/uL (4.70-6.10)
--- NOTE | 2017-01-05 23:45 | NUR ---
PT MEDICATED PER MD ORDER. NS BOLUS INFUSING TO RAC W/O DIFFICULTY. HOB LOWERED FOR PT COMFORT. WARM BLANKET GIVEN. UPDATED ON PLAN OF CARE. CALL LIGHT WITHIN REACH.
[2017-01-05 23:52] LABS: ALBUMIN 5.6 g/dL (3.2-5.0); ALKALINE PHOSPHATASE 164 u/l (38-126); AMYLASE < 30 u/l (30-110); BILIRUBIN, TOTAL 0.7 mg/dL (0.0-1.4); BUN 17 mg/dL (9-20); BUN/CREATININE RATIO 16 (12-20 (CALC)); CHLORIDE 97 mmol/l (95-108); GFR > 60 ML/MIN (>=60 (CALC)); GFR FOR AFR.AMER. > 60 ML/MIN (>=60 (CALC)); LIPASE 47 u/l (23-300); SGOT/AST 44 u/l (17-59); SGPT/ALT 66 u/l (21-72); SODIUM 139 mmol/l (137-146); TOTAL PROTEIN 9.6 g/dL (6.3-8.2)
[2017-01-05 23:59] LABS: POTASSIUM 5.3 mmol/l (3.5-5.1)
[2017-01-06] VITALS (8 sets, daily range): BP systolic 105–141; BP diastolic 47–85
[2017-01-06 00:01] LABS: ANION GAP 42 (6-22 (CALC)); CARBON DIOXIDE < 5 mmol/l (22-30); GLUCOSE 516 mg/dL (75-110)
--- NOTE | 2017-01-06 00:10 | NUR ---
PT GIVEN INSULIN AND ZOFRAN PER MD ORDER. PT REQUESTING ICE CHIPS AT THIS TIME, INFORMED OF NPO STATUS UNTIL WORK-UP COMPLETE. IVF INFUSING TO LAC W/O DIFFICULTY. RT B/S FOR ABG. CALL LIGHT WITHIN REACH.
--- NOTE | 2017-01-06 00:40 | NUR ---
PT RESTING ON STRETCHER WITH EYES CLOSED. STATES PAIN IS DOWN TO AN 8/10. NO VOMITING NOTED SINCE ANTIEMETIC ADMINISTRATION. PT REPORTS BEING SOB. SPO2 AT 100% RA. LS CTA. PT REPOSITIONED IN BED. IVF BAG # 2 INITIATED. CALL LIGHT WITHIN REACH. WILL CONTINUE TO MONTOR.
--- NOTE | 2017-01-06 00:45 | NUR ---
PT VOIDED 600 CC OF YELLOW URINE. SPECIMEN OBTAINED. PT RESTING ON LEFT SIDE. DENIES ANY NEEDS AT THIS TIME. PT REQUESTING ICE CHIPS, INFORMED OF NPO STATUS AT THIS TIME. VERBALIZED UNDERSTANDING.
--- NOTE | 2017-01-06 01:10 | NUR ---
IV INSULIN GTT INITIATED AT 5CC/HR FOR ACCUCHECK OF 457.
[2017-01-06 01:15] LABS: URINE BLOOD DIPSTICK NEGATIVE (NEGATIVE); URINE COLOR YELLOW; URINE GLUCOSE - DIPSTICK 500 mg/dL (NEGATIVE); URINE KETONE >=80 mg/dL (NEGATIVE); URINE LEUK ESTERASE NEGATIVE (NEGATIVE); URINE NITRITE - DIPSTICK NEGATIVE (Negative); URINE PH 5.5 (4.5-8.0); URINE PROTEIN - DIPSTICK TRACE mg/dL (NEG-TRACE); URINE SPECIFIC GRAVITY 1.025; URINE UROBILINOGEN - DIPSTICK 0.2 E.U./dL (0.2)
--- NOTE | 2017-01-06 01:17 | NUR ---
REPORT CALLED TO [facility]. PATIENT READIED FOR TRANSPORT TO FLOOR VIA STRETCHER, ON MONITOR, WITH RN.
[2017-01-06 01:21] LABS: URINE BILIRUBIN - DIPSTICK NEGATIVE (NEGATIVE); URINE CLARITY SLIGHT CLOUDY
--- NOTE | 2017-01-06 01:25 | NUR ---
EDUCATION ADMINISTRATOR B/S FOR REPEAT LACTIC.
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
--- NOTE | 2017-01-06 04:00 | NUR ---
eyes closed. no distress. 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 iv boluses cont.
--- NOTE | 2017-01-06 04:44 | NUR ---
PATIENT SPO2 100% ON RA. RN WILL NOTIFY RT OTHERWISE.
--- NOTE | 2017-01-06 06:06 | NUR ---
lab here. blood drawn.
[2017-01-06 06:36] LABS: BUN 12 mg/dL (9-20); BUN/CREATININE RATIO 19 (12-20 (CALC)); CALCIUM 8.3 mg/dL (8.4-10.2); CARBON DIOXIDE 10 mmol/l (22-30); CHOLESTEROL HDL RATIO 5.3 (<4.4 (CALC)); CREATININE 0.6 mg/dL (0.7-1.3); GFR > 60 ML/MIN (>=60 (CALC)); GFR FOR AFR.AMER. > 60 ML/MIN (>=60 (CALC)); GLUCOSE 213 mg/dL (75-110); HDL CHOLESTEROL 28 mg/dL (>=40); MAGNESIUM 1.6 mg/dL (1.6-2.3); POTASSIUM 4.7 mmol/l (3.5-5.1); SODIUM 142 mmol/l (137-146); TOTAL CHOLESTEROL 151 mg/dl (0-199); VLDL CHOLESTROL 87 mg/dl (1-36 (CALC))
[2017-01-06 06:38] LABS: ANION GAP 22 (6-22 (CALC)); TRIGLYCERIDES REFLEX TO dLDL 436 mg/dl (30-149)
[2017-01-06 06:39] LABS: CHLORIDE 115 mmol/l (95-108)
[2017-01-06 07:06] LABS: TSH, 3RD GENERATION 0.66 uIU/mL (0.47 - 4.68)
--- NOTE | 2017-01-06 09:19 | NUR ---
PATIENT IN BED SLEEPING, WAKES TO VOICE. DOCTOR JEB AND ANITHA IN TO SEE PATIENT.
--- NOTE | 2017-01-06 09:54 | NUR ---
PATIENT IN BED AWAKE. ASSESSMENT COMPLETED AT THIS TIME. RESP EVEN AND UNLABORED. NO S/S OF DISTRESS NOTED. PATIENT DENIES ANY NEEDS OR PAIN AT THIS TIME. CALL LIGHT IN REACH. ENCOURAGED TO CALL FOR ANY NEEDS.
[2017-01-06 10:15] LABS: HEMOGLOBIN 14.4 g/dl (14.0-18.0); IMMATURE GRANULOCYTES 1.6 % (0.0-1.0); MEAN CELL VOLUME 88.9 fL CALC (80.0-100.0); MEAN CORPUSCULAR HGB 29.1 pG CALC (26.0-32.0); MEAN CORPUSCULAR HGB CONC 32.7 g/L CALC (32.0-36.0); NEUT# 4.61 thou/uL (1.82-7.42); RED BLOOD COUNT 4.95 mill/uL (4.70-6.10); RED CELL DISTRI WIDTH 14.1 % (11.5-15.5)
[2017-01-06 10:33] LABS: ALBUMIN 4.2 g/dL (3.2-5.0); ALKALINE PHOSPHATASE 109 u/l (38-126); ANION GAP 21 (6-22 (CALC)); BILIRUBIN, TOTAL 0.6 mg/dL (0.0-1.4); BUN 10 mg/dL (9-20); BUN/CREATININE RATIO 15 (12-20 (CALC)); CALCIUM 8.8 mg/dL (8.4-10.2); CARBON DIOXIDE 14 mmol/l (22-30); CHLORIDE 112 mmol/l (95-108); CREATININE 0.6 mg/dL (0.7-1.3); GFR > 60 ML/MIN (>=60 (CALC)); GFR FOR AFR.AMER. > 60 ML/MIN (>=60 (CALC)); GLUCOSE 225 mg/dL (75-110); POTASSIUM 4.6 mmol/l (3.5-5.1); SGOT/AST 26 u/l (17-59); SGPT/ALT 50 u/l (21-72); SODIUM 143 mmol/l (137-146); TOTAL PROTEIN 7.5 g/dL (6.3-8.2)
--- NOTE | 2017-01-06 11:54 | NUR ---
PATIENT IN BED WITH EYES CLOSED. WAKES TO VOICE. PATIENT DENIES ANY NEEDS OR PAIN. CALL LIGHT IN REACH. ENCOURAGED TO CALL FOR ANY NEEDS.
--- NOTE | 2017-01-06 13:02 | NUR ---
PATIENT UNHOOKED FROM MONITOR. AMBULATES TO BATHROOM. AMBULATES BACK TO BED. MONITOR PUT BACK IN PLACE.
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
--- NOTE | 2017-01-06 20:40 | NUR ---
PT APPEARS TO BE SLEEPING WITH EYES CLOSED IN LEFT SIDE LAYING POSITION;WOKE PT TO COMPLETE ASSESSMENT AND ADMINISTER SCHEDULED MEDICATIONS;PT ACCUCHECK WAS 233 THIS EVENING;PT VOICES NO CONCERNS OR COMPLAINTS AT THIS TIME;RESP EVEN AND UNLABORED ON RA;MULTIPLE SCABS NOTED THROUGHOUT BODY,SKIN OTHERWISE INTACT;#20G TO RAC FLUSHED AND PATENT;PT DENIES ANY OTHER NEEDS AT THIS TIME;SAFETY PRECAUTIONS REINFORCED;FRESH WATER PROVIDED;PT EDUCATED TO CALL FOR ASSISTANCE IF NEEDED;CALL LIGHT IN REACH;WILL CONTINUE TO MONITOR
--- NOTE | 2017-01-06 23:50 | NUR ---
PT APPEARS TO BE SLEEPING IN LEFT SIDE LAYING POSITION WITH EYES CLOSED;NO SIGNS OF DISTRESS NOTED;RESP EVEN AND UNLABORED ON RA;TELE MONITOR IN PLACE;CALL LIGHT WITHIN REACH;WILL CONTINUE TO MONITOR
--- NOTE | 2017-01-07 03:50 | NUR ---
PT REPORTS HAVING ABDOMINAL PAIN RATING 8/10 ON THE PAIN SCALE AND NAUSEA;PT MEDICATED WITH PRN ZOFRAN AND TORADOL;RESP EVEN AND UNLABORED ON RA;IV SITE APPEARS HEALTHY;TELE MONITOR IN PLACE;PT VOICES NO OTHER NEEDS OR CONCERNS;CALL LIGHT IN REACH;WILL CONTINUE TO MONITOR
[2017-01-07 05:12] VITALS: BP 116/71
[2017-01-07 05:56] LABS: HEMATOCRIT 40.6 % (39.0-50.0); HEMOGLOBIN 13.8 g/dl (14.0-18.0); MEAN CELL VOLUME 86.6 fL CALC (80.0-100.0); MEAN CORPUSCULAR HGB 29.4 pG CALC (26.0-32.0); NEUT# 2.64 thou/uL (1.82-7.42); RED BLOOD COUNT 4.69 mill/uL (4.70-6.10); RED CELL DISTRI WIDTH 13.8 % (11.5-15.5)
--- NOTE | 2017-01-07 06:00 | NUR ---
PT REPORTS SLIGHT DECREASE IN ABDOMINAL PAIN NOW RATING A 4/10 ON THE PAIN SCALE;NAUSEA HAS SUBSIDED;PT DENIES ANY NEEDS;CALL LIGHT IN REACH;WILL CONTINUE TO MONITOR
[2017-01-07 06:41] LABS: ANION GAP 15 (6-22 (CALC)); BUN 9 mg/dL (9-20); BUN/CREATININE RATIO 16 (12-20 (CALC)); CALCIUM 9.3 mg/dL (8.4-10.2); CARBON DIOXIDE 21 mmol/l (22-30); CHLORIDE 106 mmol/l (95-108); CREATININE 0.6 mg/dL (0.7-1.3); GFR > 60 ML/MIN (>=60 (CALC)); GFR FOR AFR.AMER. > 60 ML/MIN (>=60 (CALC)); GLUCOSE 221 mg/dL (75-110); MAGNESIUM 1.5 mg/dL (1.6-2.3); POTASSIUM 3.8 mmol/l (3.5-5.1); SODIUM 139 mmol/l (137-146)
--- NOTE | 2017-01-07 07:00 | NUR ---
SHIFT CHANGE REPORT FROM BRUNA, PT SLEEPING BUT AWAKENED TO VERBAL STIMULI, C/O UPPER BACK PAIN WHICH WAS ADDRESSED, TELE MONITOR IN PLACE, CALL ANDERSON IN REACH. PT C/O DID NOT GET REST AT HS AND WANTS TO SLEEP NOW, ADVISED HOSPITAL IS NOT THE BEST PLACE FOR A GOOD SLEEP STAFF IS CONSTANTLY MONITORING PTS CONDITION AND ADDRESSING NEEDS.
[2017-01-07 08:12] VITALS: BP 138/72
--- NOTE | 2017-01-07 10:56 | NUR ---
PT C/O EPIGASTRIC PAIN @ 10/17, REFUSED TORADOL WHEN OFFERED AND ASKED FOR MORPHINE, HE THEN ASKED WHEN WILL HE BE D/C HE LIKES THE LUNCH HERE AND WANTS TO EAT BEFORE LEAVING.
[2017-01-07] MEDS ORDERED: LEXAPRO10 MG PO (11:10)
[2017-01-07 12:05] VITALS: BP 131/88
--- NOTE | 2017-01-07 13:25 | NUR ---
Discharge instructions given. Patient verbalizes understanding of same. Discharged in stable condition via Wheelchair to Home with family. All belongings sent with pt.
== END 2017-01-07 13:24 | disposition home health service (06) | DRG 638 ==
LOC: ED 23:07 → ED-I 01-06 00:15 → ED 01-06 00:36 → ICU 01-06 00:37 → MS2 01-06 14:48
PROVIDERS: Emergency Medicine; Internal Medicine; Nurse Practitioner Family; ADMIT Internal Medicine; ATTEND Internal Medicine
DX: E11.10 Type 2 diabetes mellitus with ketoacidosis without coma (principal); E87.1 Hypo-osmolality and hyponatremia; K75.81 Nonalcoholic steatohepatitis (NASH); E83.42 Hypomagnesemia; E11.69 Type 2 diabetes mellitus with other specified complication; E11.42 Type 2 diabetes mellitus with diabetic polyneuropathy; E87.5 Hyperkalemia; I10 Essential (primary) hypertension; E03.9 Hypothyroidism, unspecified; E78.1 Pure hyperglyceridemia; F32.9 Major depressive disorder, single episode, unspecified; F43.10 Post-traumatic stress disorder, unspecified; F12.90 Cannabis use, unspecified, uncomplicated; E86.0 Dehydration; R10.9 Unspecified abdominal pain; F41.9 Anxiety disorder, unspecified; G89.29 Other chronic pain; Z87.891 Personal history of nicotine dependence; Z79.4 Long term (current) use of insulin; Z91.14 Patient's other noncompliance with medication regimen; Z91.11 Patient's noncompliance with dietary regimen; Z87.898 Personal history of other specified conditions

== ENCOUNTER 2017-04-08 20:44 | Inpatient (IN) | payer MEDICARE, OTHER ==
[~2017-04-08] VITALS: Ht 185.4 cm; Wt 84.8 kg
--- NOTE | 2017-04-08 20:45 | NUR ---
PATIENT TO ROOM 13 VIA EMS STRETCHER. TRIAGE COMPLETED AT BEDSIDE. AWAITING MD POWERS.
[2017-04-08] MEDS ORDERED: LYRICA50 MG PO (21:03)
--- NOTE | 2017-04-08 21:46 | NUR ---
PT MEDICATED FOR PAIN AND WITH INSULIN ALSO, IVF INFUSING.
[2017-04-08 21:47] LABS: HEMATOCRIT 46.8 % (39.0-50.0); HEMOGLOBIN 15.6 g/dl (14.0-18.0); MEAN CELL VOLUME 87.6 fL CALC (80.0-100.0); MEAN CORPUSCULAR HGB 29.2 pG CALC (26.0-32.0); MEAN CORPUSCULAR HGB CONC 33.3 g/L CALC (32.0-36.0); NEUT# 5.86 thou/uL (1.82-7.42); RED BLOOD COUNT 5.34 mill/uL (4.70-6.10); RED CELL DISTRI WIDTH 13.3 % (11.5-15.5)
[2017-04-08 21:49] LABS: URINE BILIRUBIN - DIPSTICK NEGATIVE (NEGATIVE); URINE BLOOD DIPSTICK NEGATIVE (NEGATIVE); URINE COLOR YELLOW; URINE GLUCOSE - DIPSTICK >=1000 mg/dL (NEGATIVE); URINE KETONE >=80 mg/dL (NEGATIVE); URINE LEUK ESTERASE NEGATIVE (NEGATIVE); URINE NITRITE - DIPSTICK NEGATIVE (Negative); URINE PROTEIN - DIPSTICK NEGATIVE (NEG-TRACE); URINE SPECIFIC GRAVITY 1.025; URINE UROBILINOGEN - DIPSTICK 0.2 E.U./dL (0.2)
[2017-04-08 21:51] LABS: URINE CLARITY CLEAR
[2017-04-08 22:00] LABS: ALBUMIN 5.5 g/dL (3.2-5.0); ALKALINE PHOSPHATASE 215 u/l (38-126); AMYLASE 32 u/l (30-110); ANION GAP 37 (6-22 (CALC)); BILIRUBIN, TOTAL 0.5 mg/dL (0.0-1.4); BUN 24 mg/dL (9-20); BUN/CREATININE RATIO 22 (12-20 (CALC)); CARBON DIOXIDE 12 mmol/l (22-30); CHLORIDE 96 mmol/l (95-108); CREATININE 1.1 mg/dL (0.7-1.3); GFR > 60 ML/MIN (>=60 (CALC)); GFR FOR AFR.AMER. > 60 ML/MIN (>=60 (CALC)); LIPASE 21 u/l (23-300); POTASSIUM 4.5 mmol/l (3.5-5.1); SGOT/AST 22 u/l (17-59); SGPT/ALT 48 u/l (21-72); SODIUM 140 mmol/l (137-146); TOTAL PROTEIN 9.1 g/dL (6.3-8.2)
--- NOTE | 2017-04-08 22:02 | NUR ---
PT TO CT.
[2017-04-08 22:13] LABS: MYOGLOBIN 41 ng/mL (0 - 121)
--- NOTE | 2017-04-08 22:13 | NUR ---
PT RETURNED FROM CT. LAB CALL BS 552, DR SANON INFORMED.
--- NOTE | 2017-04-08 22:34 | NUR ---
ACCUCHECK 382, PT C/O BACK PAIN. DR SANON INFORMED.
--- NOTE | 2017-04-08 23:21 | NUR ---
REPORT TO [facility].
--- NOTE | 2017-04-08 23:29 | NUR ---
26 yr old white male admitted icu7 per stretcher from er. stood to weigh then to bed. farm loan inspector shows sinus rhythm. ns bolus cont @ 999cchr, insulin gtt infusing @ 4 units/hr. history obtained per pt & er record. oriented to room. fall precautions initiated.
--- NOTE | 2017-04-08 23:34 | NUR ---
PT TO ICU WITH RN ON MONITOR WITH IV PUMP.
[2017-04-08 23:45] VITALS: BP 133/83
--- NOTE | 2017-04-08 23:50 | NUR ---
c/o back pain. toradol 15mg iv & zofran 4mg iv given.
[2017-04-09] VITALS (13 sets, daily range): BP systolic 90–134; BP diastolic 41–81
--- NOTE | 2017-04-09 02:00 | NUR ---
awakens easily. no c/o pain voiced. public works commissioner shows sinus rhythm.
--- NOTE | 2017-04-09 04:00 | NUR ---
eyes closed. no apparent distress. contractor general engineering shows sinus rhythm.
--- NOTE | 2017-04-09 06:00 | NUR ---
eyes closed. no distress. glaze supervisor shows sinus rhythm.
--- NOTE | 2017-04-09 06:58 | NUR ---
lab here. blood drawn.
--- NOTE | 2017-04-09 07:10 | NUR ---
PT LAYING IN BED RESTING WITH EYES CLOSED, AROUSES EASILY TO VERBAL STIMULI, PT DENIES ANY PAIN OR NAUSEA, A & O X3, PERRL, HR 68, RESP. 18, BP 110/69, O2 100% ON RA, LUNG SOUNDS CLEAR IN ALL CARVER, STRONG RADIAL & PEDAL PULSES, 20G LFA IV WITH NS INFUSING AT PRESCRIBED RATE, AM ASSESSMENT COMPLETE, SEE INTERVENTIONS, SAFETY MEASURES REINFORCED, CALL ANDERSON WITHIN REACH
[2017-04-09 07:27] LABS: ANION GAP 17 (6-22 (CALC)); BUN 17 mg/dL (9-20); BUN/CREATININE RATIO 25 (12-20 (CALC)); CARBON DIOXIDE 19 mmol/l (22-30); CREATININE 0.7 mg/dL (0.7-1.3); GFR > 60 ML/MIN (>=60 (CALC)); GFR FOR AFR.AMER. > 60 ML/MIN (>=60 (CALC)); POTASSIUM 4.3 mmol/l (3.5-5.1); SODIUM 144 mmol/l (137-146)
[2017-04-09 07:37] LABS: CHLORIDE 112 mmol/l (95-108)
--- NOTE | 2017-04-09 07:45 | NUR ---
SETUP ASSISTANCE PROVIDED WITH JHONY STEELE
--- NOTE | 2017-04-09 08:05 | NUR ---
PT SITTING UP IN THE BED PLAYING A GAME ON HIS PHONE, VERBALIZES NO COMPLAINTS, TOLERATED BREAKFAST WELL, CALL ANDERSON WITHIN REACH
--- NOTE | 2017-04-09 09:05 | NUR ---
DR RUSS AT BEDSIDE DISCUSSING PLAN OF CARE
--- NOTE | 2017-04-09 09:10 | NUR ---
INSULIN DRIP TITRATED OFF
--- NOTE | 2017-04-09 11:35 | NUR ---
SETUP ASSISTANCE PROVIDED WITH LUNCH
--- NOTE | 2017-04-09 12:10 | NUR ---
PT LAYING IN BED RESTING WITH EYES CLOSED, AROUSES EASILY TO VERBAL STIMULI, REMINDED TO CALL FOR ASSISTANCE, CALL ANDERSON WITHIN REACH
[2017-04-09] MEDS ORDERED: LEVEMIR100 UNIT/M SC (12:21)
[2017-04-09] MEDS ORDERED: NOVOLOG100 UNIT/M SC (12:21)
--- NOTE | 2017-04-09 13:35 | NUR ---
Discharge instructions given. Patient verbalizes understanding of same. Discharged in stable condition via Wheelchair to Home with friend. All belongings sent with pt.
== END 2017-04-09 13:55 | DRG 638 ==
LOC: ED 20:44 → ED-I 22:33 → ED 22:50 → ICU 22:51
PROVIDERS: Emergency Medicine; Internal Medicine; ADMIT Internal Medicine; ATTEND Internal Medicine
DX: E10.10 Type 1 diabetes mellitus with ketoacidosis without coma (principal); K86.1 Other chronic pancreatitis; K75.81 Nonalcoholic steatohepatitis (NASH); E10.42 Type 1 diabetes mellitus with diabetic polyneuropathy; I10 Essential (primary) hypertension; F31.9 Bipolar disorder, unspecified; F41.9 Anxiety disorder, unspecified; E03.9 Hypothyroidism, unspecified; F43.10 Post-traumatic stress disorder, unspecified; E78.1 Pure hyperglyceridemia; Z91.14 Patient's other noncompliance with medication regimen; Z79.4 Long term (current) use of insulin; Z87.891 Personal history of nicotine dependence
CPT/HCPCS: J1650

== ENCOUNTER 2017-05-15 03:31 | Inpatient (IN) | payer MEDICARE, OTHER ==
[~2017-05-15] VITALS: Ht 185.4 cm; Wt 83.0 kg
[2017-05-15] VITALS (14 sets, daily range): BP systolic 114–156; BP diastolic 61–103
[2017-05-15] MEDS ORDERED: VENLAFAXINE25 MG PO (03:49)
[2017-05-15] MEDS ORDERED: HYDRALAZINE10 M2 PO (03:50)
[2017-05-15] MEDS ORDERED: ESCITALOPRAM OX10 MG PO (03:51)
[2017-05-15 04:27] LABS: ALBUMIN 4.7 g/dL (3.2-5.0); ALKALINE PHOSPHATASE 187 u/l (38-126); BILIRUBIN, TOTAL 0.8 mg/dL (0.0-1.4); BUN 15 mg/dL (9-20); BUN/CREATININE RATIO 19 (12-20 (CALC)); CREATININE 0.8 mg/dL (0.7-1.3); GFR > 60 ML/MIN (>=60 (CALC)); GFR FOR AFR.AMER. > 60 ML/MIN (>=60 (CALC)); LIPASE 62 u/l (23-300); POTASSIUM 4.7 mmol/l (3.5-5.1); SGPT/ALT 137 u/l (21-72); TOTAL PROTEIN 7.7 g/dL (6.3-8.2)
[2017-05-15 04:29] LABS: ANION GAP 33 (6-22 (CALC)); CARBON DIOXIDE 13 mmol/l (22-30); CHLORIDE 95 mmol/l (95-108); SGOT/AST 95 u/l (17-59); SODIUM 136 mmol/l (137-146)
[2017-05-15 04:32] LABS: HEMATOCRIT 45.2 % (39.0-50.0); HEMOGLOBIN 14.8 g/dl (14.0-18.0); IMMATURE GRANULOCYTES 1.1 % (0.0-1.0); MEAN CELL VOLUME 89.2 fL CALC (80.0-100.0); MEAN CORPUSCULAR HGB 29.2 pG CALC (26.0-32.0); MEAN CORPUSCULAR HGB CONC 32.7 g/L CALC (32.0-36.0); NEUT# 3.94 thou/uL (1.82-7.42); RED BLOOD COUNT 5.07 mill/uL (4.70-6.10)
[2017-05-15 04:33] LABS: URINE BILIRUBIN - DIPSTICK NEGATIVE (NEGATIVE); URINE BLOOD DIPSTICK NEGATIVE (NEGATIVE); URINE COLOR YELLOW; URINE GLUCOSE - DIPSTICK >=1000 mg/dL (NEGATIVE); URINE KETONE >=80 mg/dL (NEGATIVE); URINE LEUK ESTERASE NEGATIVE (NEGATIVE); URINE NITRITE - DIPSTICK NEGATIVE (Negative); URINE PH 5.5 (4.5-8.0); URINE PROTEIN - DIPSTICK NEGATIVE (NEG-TRACE); URINE SPECIFIC GRAVITY 1.015; URINE UROBILINOGEN - DIPSTICK 0.2 E.U./dL (0.2)
[2017-05-15 04:37] LABS: URINE CLARITY CLEAR
[2017-05-15 06:58] LABS: POTASSIUM 4.6 mmol/l (3.5-5.1)
[2017-05-15 09:17] LABS: HDL CHOLESTEROL 35 mg/dL (>=40)
[2017-05-15 09:24] LABS: VLDL CHOLESTROL 111 mg/dl (1-36 (CALC))
[2017-05-15 09:27] LABS: CHOLESTEROL HDL RATIO 5.9 (<4.4 (CALC)); TOTAL CHOLESTEROL 207 mg/dl (0-199); TRIGLYCERIDES REFLEX TO dLDL 557 mg/dl (30-149)
[2017-05-15 10:48] LABS: POTASSIUM 4.3 mmol/l (3.5-5.1)
[2017-05-15 14:09] LABS: POTASSIUM 4.3 mmol/l (3.5-5.1)
[2017-05-16] VITALS: BP 126/72
[2017-05-16 02:00] VITALS: BP 110/68
[2017-05-16 04:00] VITALS: BP 108/64
[2017-05-16 04:41] LABS: ANION GAP 14 (6-22 (CALC)); BUN 8 mg/dL (9-20); BUN/CREATININE RATIO 14 (12-20 (CALC)); CARBON DIOXIDE 24 mmol/l (22-30); CHLORIDE 106 mmol/l (95-108); CREATININE 0.6 mg/dL (0.7-1.3); GFR > 60 ML/MIN (>=60 (CALC)); GFR FOR AFR.AMER. > 60 ML/MIN (>=60 (CALC)); POTASSIUM 3.7 mmol/l (3.5-5.1); SODIUM 140 mmol/l (137-146)
[2017-05-16 05:20] LABS: HEMATOCRIT 40.8 % (39.0-50.0); HEMOGLOBIN 13.8 g/dl (14.0-18.0); MEAN CELL VOLUME 87.2 fL CALC (80.0-100.0); MEAN CORPUSCULAR HGB 29.5 pG CALC (26.0-32.0); MEAN CORPUSCULAR HGB CONC 33.8 g/L CALC (32.0-36.0); RED BLOOD COUNT 4.68 mill/uL (4.70-6.10); RED CELL DISTRI WIDTH 14.2 % (11.5-15.5)
[2017-05-16 07:12] VITALS: BP 121/74
[2017-05-16 10:26] VITALS: BP 140/86
== END 2017-05-16 12:30 | disposition home or self-care (01) | DRG 638 ==
LOC: ED 03:31 → ED-I 04:45 → ED 05:45 → ICU 05:46
PROVIDERS: Emergency Medicine; ADMIT Internal Medicine; ATTEND Internal Medicine
DX: E10.10 Type 1 diabetes mellitus with ketoacidosis without coma (principal); K86.1 Other chronic pancreatitis; E10.42 Type 1 diabetes mellitus with diabetic polyneuropathy; K75.81 Nonalcoholic steatohepatitis (NASH); I10 Essential (primary) hypertension; F31.9 Bipolar disorder, unspecified; F41.9 Anxiety disorder, unspecified; E03.9 Hypothyroidism, unspecified; F43.10 Post-traumatic stress disorder, unspecified; F12.90 Cannabis use, unspecified, uncomplicated; E78.1 Pure hyperglyceridemia; Z91.11 Patient's noncompliance with dietary regimen; Z79.4 Long term (current) use of insulin; Z91.14 Patient's other noncompliance with medication regimen; Z87.891 Personal history of nicotine dependence

== ENCOUNTER 2017-06-10 19:38 | Inpatient (IN) | payer MEDICARE, OTHER ==
[~2017-06-10] VITALS: Ht 185.4 cm; Wt 85.2 kg
[~2017-06-10 19:38] MED LIST changes: +ESCITALOPRAM OX10 MG PO; +HYDRALAZINE10 M2 PO; +VENLAFAXINE25 MG PO
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
--- NOTE | 2017-06-10 20:08 | NUR ---
PT ON NIDIA IN GOWN WITH SIGNIFICANT OTHER AT BEDSIDE. PT STATES THAT HE RAN OUT OF INSULIN THIS MORNING. PTS ACCUCHECK READS HIGH AFTER CHECKING TODAYS DATE. ACCUCHECK HERE READS 599. (+) KETONE SMELL TO BREATH. MEDICATED PER MS'S ORDERS. RESTING COMFORTABLY AT THIS TIME.
[2017-06-10 20:10] LABS: HEMATOCRIT 44.3 % (39.0-50.0); HEMOGLOBIN 15.1 g/dl (14.0-18.0); IMMATURE GRANULOCYTES 0.4 % (0.0-1.0); MEAN CELL VOLUME 86.2 fL CALC (80.0-100.0); MEAN CORPUSCULAR HGB 29.4 pG CALC (26.0-32.0); MEAN CORPUSCULAR HGB CONC 34.1 g/L CALC (32.0-36.0); NEUT# 9.76 thou/uL (1.82-7.42); RED BLOOD COUNT 5.14 mill/uL (4.70-6.10); RED CELL DISTRI WIDTH 13.3 % (11.5-15.5)
[2017-06-10 20:21] LABS: ALBUMIN 4.8 g/dL (3.2-5.0); ALKALINE PHOSPHATASE 194 u/l (38-126); BILIRUBIN, TOTAL 0.9 mg/dL (0.0-1.4); BUN 24 mg/dL (9-20); BUN/CREATININE RATIO 25 (12-20 (CALC)); GFR > 60 ML/MIN (>=60 (CALC)); GFR FOR AFR.AMER. > 60 ML/MIN (>=60 (CALC)); SGOT/AST 33 u/l (17-59); SGPT/ALT 49 u/l (21-72); TOTAL PROTEIN 8.4 g/dL (6.3-8.2)
[2017-06-10 20:22] LABS: INFLUENZA A NONE DETECTED (NONE DETECT); INFLUENZA B NONE DETECTED (NONE DETECT)
[2017-06-10 20:25] LABS: ANION GAP 34 (6-22 (CALC)); CARBON DIOXIDE 13 mmol/l (22-30); CHLORIDE 89 mmol/l (95-108); SODIUM 132 mmol/l (137-146)
[2017-06-10 20:58] LABS: URINE BLOOD DIPSTICK NEGATIVE (NEGATIVE); URINE CLARITY CLEAR; URINE COLOR YELLOW; URINE GLUCOSE - DIPSTICK >=1000 mg/dL (NEGATIVE); URINE KETONE 40 mg/dL (NEGATIVE); URINE LEUK ESTERASE NEGATIVE (NEGATIVE); URINE NITRITE - DIPSTICK NEGATIVE (Negative); URINE PROTEIN - DIPSTICK NEGATIVE (NEG-TRACE); URINE SPECIFIC GRAVITY 1.015; URINE UROBILINOGEN - DIPSTICK 0.2 E.U./dL (0.2)
[2017-06-10 20:59] LABS: URINE BILIRUBIN - DIPSTICK NEGATIVE (NEGATIVE)
[2017-06-10 21:01] LABS: BARBITURATES NEGATIVE (NEGATIVE); COCAINE NEGATIVE (NEGATIVE); METHADONE NEGATIVE (NEGATIVE); OXCYCODONE NEGATIVE (NEGATIVE); TETRAHYDROCANNABIONOL POSITIVE (NEGATIVE); TRICYLIC ANTIDEPRESSANTS NEGATIVE (NEGATIVE)
--- NOTE | 2017-06-10 21:24 | NUR ---
accucheck done 298 mg/dl. temp down to 98.3 tympanic. MD going to discuss admission possibilities with pt.
--- NOTE | 2017-06-10 22:13 | NUR ---
pt transported to room via [facility] with monitor on.
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
[2017-06-10 22:36] VITALS: BP 116/74
[2017-06-10 22:45] VITALS: BP 95/56
[2017-06-10 23:00] VITALS: BP 110/70
[2017-06-10 23:15] VITALS: BP 117/69
[2017-06-10 23:30] VITALS: BP 116/66
[2017-06-10 23:45] VITALS: BP 113/62
[2017-06-11] VITALS (13 sets, daily range): BP systolic 79–149; BP diastolic 54–88
--- NOTE | 2017-06-11 | NUR ---
ULTRAM 50MG PROVIDED FOR C/O BACK PAIN 10/17. ELECTROLYTES ALSO DRAWN AT THIS TIME BY CLOTHES MODEL, TOLERATED WELL.
[2017-06-11 00:16] LABS: POTASSIUM 3.7 mmol/l (3.5-5.1)
--- NOTE | 2017-06-11 01:24 | NUR ---
PT RESTING IN SEMIFOWELRS WITH EYES CLOSED, RESPIRATIONS EVEN AND UNLABORED. TEMP 97.9, ACCUCHECK 297, INSULIN GTT RATE REDUCED TO 3UNITS/HR. WILL CONTINUE TO MONITOR, CALL LIGHT IN REACH.
--- NOTE | 2017-06-11 02:20 | NUR ---
ACCUCHECK 255, INSULIN GTT CONTINUES TO INFUSE AT 3U/HR. VOICES NO CONCERNS.
--- NOTE | 2017-06-11 03:20 | NUR ---
ACCUCHECK 217, INSULIN GTT AT 3U/HR, VOICES NO CONCERNS. CALL LIGHT IN REACH.
[2017-06-11 04:18] LABS: POTASSIUM 4.1 mmol/l (3.5-5.1)
--- NOTE | 2017-06-11 04:20 | NUR ---
ACCUCHECK 117, INSULIN GTT RATE REDUCED TO 1UNIT/HR, DR. RUSS AWARE AND NEW ORDERS TO START ON LEVERMIR. PT IS A/O X3, FRUITY BREATH SMELL NOTICED. CALL LIGHT IN REACH.
--- NOTE | 2017-06-11 04:51 | NUR ---
LEVERMIR 35U ADMINISTERED SQ, TOLERATED WELL.
--- NOTE | 2017-06-11 05:25 | NUR ---
INSULIN GTT AND FLUIDS DC'D AT THIS TIME. RESTING WITH EYES CLOSED, RESPIRATIONS EVEN AND UNLABORED, RESPONDS EASILY TO VERBAL COMMAND, CALL LIGHT IN REACH.
--- NOTE | 2017-06-11 07:20 | NUR ---
PT LAYING IN BED RESTING WITH EYES CLOSED, AROUSES EASILY TO VERBAL STIMULI, PT A & O X3, PERRL, HR 74, RESP. 20, BP 103/63, O2 99% ON RA, LUNG SOUNDS CLEAR IN ALL CARVER, 18G LW IV SALINE LOCKED, NO REDNESS OR DRAINAGE AT SITE, DRY SCABBED DIABETIC ULCER ON THE BALL OF L FOOT, PT DENIES ANY PAIN IN THIS AREA, AM ASSESSMENT COMPLETE, SEE INTERVENTIONS, SAFETY MEASURES REINFORCED, CALL ANDERSON WITHIN REACH
--- NOTE | 2017-06-11 07:35 | NUR ---
PT SITTING UP IN BED, SETUP ASSISTANCE PROVIDED WITH AM MEAL
--- NOTE | 2017-06-11 07:36 | NUR ---
PT REQUESTED GRITS INSTEAD OF PARAGUAYAN, GRITS PROVIDED BY DIETARY, PT REMINDED TO CALL FOR ASSISTANCE, CALL ANDERSON WITHIN REACH
--- NOTE | 2017-06-11 07:53 | NUR ---
AFTER BEING ASKED WHAT BROUGHT PT TO HOSPITAL AND TRYING TO EDUCATE PT ABOUT THE IMPORTANCE OF TAKING MEDICATION PRESCRIBED, PT THREW LID FROM AM TRAY AND STARTED YELLING OUT PROFANITY, PT ASKED NOT TO THROW THINGS AND TO PLEASE KEEP THE PROFANITY DOWN
--- NOTE | 2017-06-11 08:55 | NUR ---
LAB AT BEDSIDE
[2017-06-11 08:59] LABS: HEMATOCRIT 38.7 % (39.0-50.0); IMMATURE GRANULOCYTES 0.3 % (0.0-1.0); MEAN CELL VOLUME 88.2 fL CALC (80.0-100.0); MEAN CORPUSCULAR HGB 29.6 pG CALC (26.0-32.0); MEAN CORPUSCULAR HGB CONC 33.6 g/L CALC (32.0-36.0); NEUT# 9.42 thou/uL (1.82-7.42); RED BLOOD COUNT 4.39 mill/uL (4.70-6.10); RED CELL DISTRI WIDTH 13.7 % (11.5-15.5)
[2017-06-11 09:26] LABS: ANION GAP 14 (6-22 (CALC)); BUN 12 mg/dL (9-20); BUN/CREATININE RATIO 19 (12-20 (CALC)); CARBON DIOXIDE 26 mmol/l (22-30); CHLORIDE 101 mmol/l (95-108); CREATININE 0.6 mg/dL (0.7-1.3); GFR > 60 ML/MIN (>=60 (CALC)); GFR FOR AFR.AMER. > 60 ML/MIN (>=60 (CALC)); POTASSIUM 4.4 mmol/l (3.5-5.1); SODIUM 136 mmol/l (137-146)
--- NOTE | 2017-06-11 09:29 | NUR ---
PT SITTING UP IN BED PLAYING A GAME ON HIS PHONE, VERBALIZES NO COMPLAINTS, CALL ANDERSON WITHIN REACH
--- NOTE | 2017-06-11 10:00 | NUR ---
PT ASSISTED TO THE BSC AND BACK TO BED, PT AMBULATES WITH A SLOW UNSTEADY GAIT, PT TOLERATED WELL, REMINDED TO CALL FOR ASSISTANCE, CALL ANDERSON WITHIN REACH
--- NOTE | 2017-06-11 11:20 | NUR ---
PT LAYING IN BED RESTING WITH EYES CLOSED, AROUSES EASILY TO VERBAL STIMULI, NO S/S OF DISTRESS, CALL ANDERSON WITHIN REACH
--- NOTE | 2017-06-11 11:35 | NUR ---
SETUP ASSISTANCE PROVIDED WITH LUNCH
--- NOTE | 2017-06-11 12:10 | NUR ---
PT SITTING UP IN THE BED, VERBALIZES NO COMPLAINTS, TOLERATED LUNCH WELL, REMINDED TO CALL FOR ASSISTANCE, CALL ANDERSON WITHIN REACH
--- NOTE | 2017-06-11 13:15 | NUR ---
SETUP ASSISTANCE OFFERED FOR PT TO GET WASHED UP, PT REFUSED
--- NOTE | 2017-06-11 15:00 | NUR ---
PT LAYING IN BED RESTING, TEMP RECHECKED DO TO PT HAVING JOZEF CHECKS, TEMP. 102, ANITHA EVERETT MADE AWARE, ORDERS GIVEN
--- NOTE | 2017-06-11 16:30 | NUR ---
PT SITTING UP IN BED, NO S/S OF DISTRESS, GIRLFRIEND AT BEDSIDE, REMINDED TO CALL FOR ASSISTANCE, CALL ANDERSON WITHIN REACH
--- NOTE | 2017-06-11 17:15 | NUR ---
ALOK FROM CASE MANAGEMENT AT BEDSIDE DISCUSSING DISCHARGE PLANNING
--- NOTE | 2017-06-11 17:35 | NUR ---
PT SITTING UP IN BED WATCHING TV, VERBALIZES NO COMPLAINTS, SETUP ASSISTANCE PROVIDED WITH PM MEAL, CALL ANDERSON WITHIN REACH
--- NOTE | 2017-06-11 19:15 | NUR ---
awake. denies c/o. admits "i feel like i'm in [place]. i'm sure you've been debriefed. the lady is supposed to give me my medicaid numbers." pt is talking about home meds & [facility]. pt admits "i tried to get energency insulin but the pharmacy said it wasn't time." pt reassured. instructed case management would be here in the morning. convertible power shovel operator shows sinus rhythm. #18 lt wrist saline lock. po fluids taken well. voids per urinal. fall precautions cont.
--- NOTE | 2017-06-11 22:00 | NUR ---
watching tv. no distress. girlfriend @ bedside
[2017-06-12] VITALS (10 sets, daily range): BP systolic 118–159; BP diastolic 71–98
--- NOTE | 2017-06-12 00:01 | NUR ---
eyes closed. no distress. secured entrance monitor shows sinus rhythm.
--- NOTE | 2017-06-12 02:00 | NUR ---
resting quietly. resps even & unlabored. no apparent distress.
--- NOTE | 2017-06-12 04:00 | NUR ---
awake. no c/o voiced. girlfriend remains asleep in recliner.
--- NOTE | 2017-06-12 04:40 | NUR ---
lab here. blood drawn.
[2017-06-12 04:52] LABS: HEMATOCRIT 36.8 % (39.0-50.0); IMMATURE GRANULOCYTES 0.6 % (0.0-1.0); MEAN CELL VOLUME 88.7 fL CALC (80.0-100.0); MEAN CORPUSCULAR HGB 28.9 pG CALC (26.0-32.0); MEAN CORPUSCULAR HGB CONC 32.6 g/L CALC (32.0-36.0); NEUT# 3.09 thou/uL (1.82-7.42); RED BLOOD COUNT 4.15 mill/uL (4.70-6.10); RED CELL DISTRI WIDTH 13.6 % (11.5-15.5)
[2017-06-12 05:16] LABS: BUN 8 mg/dL (9-20); BUN/CREATININE RATIO 13 (12-20 (CALC)); CARBON DIOXIDE 25 mmol/l (22-30); CHLORIDE 103 mmol/l (95-108); CREATININE 0.7 mg/dL (0.7-1.3); GFR > 60 ML/MIN (>=60 (CALC)); GFR FOR AFR.AMER. > 60 ML/MIN (>=60 (CALC)); SODIUM 140 mmol/l (137-146)
[2017-06-12 05:19] LABS: ANION GAP 15 (6-22 (CALC)); POTASSIUM 3.4 mmol/l (3.5-5.1)
--- NOTE | 2017-06-12 06:03 | NUR ---
no acute change in condition. girlfriend remains in recliner.
--- NOTE | 2017-06-12 07:10 | NUR ---
PT LAYING IN BED RESTING WITH EYES CLOSED, AROUSES EASILY TO VERBAL STIMULI, PT A & O X3, PERRL, PT DENIES ANY PAIN OR SOB, HR 76, RESP. 20, BP 134/87, O2 98% ON RA, LUNG SOUNDS CLEAR IN ALL CARVER, STRONG RADIAL & PEDAL PULSES, DIABETIC ULCER ON THE BALL OF LEFT FOOT, SCABBED WITH NO ODOR OR DRAINAGE, 18G LW IV, SALINE LOCKED, NO REDNESS OR DRAINAGE AT SITE, PT'S GIRLFRIEND REMAINS AT BEDSIDE, AM ASSESSMENT COMPLETE, SEE INTERVENTIONS, SAFETY MEASURES REINFORCED, CALL ANDERSON WITHIN REACH
--- NOTE | 2017-06-12 07:35 | NUR ---
SETUP ASSISTANCE PROVIDED WITH JHONY STEELE
--- NOTE | 2017-06-12 08:19 | NUR ---
Critical results of 1 of 4 bottles from blood culture growing gram positive cocci growing gram positive cocci called to Dr Moy. New order received for vancomycin.
--- NOTE | 2017-06-12 08:35 | NUR ---
ANITHA EVERETT AT BEDSIDE DISCUSSING PLAN OF CARE
--- NOTE | 2017-06-12 09:30 | NUR ---
PT LAYING IN BED PLAYING A GAME ON HIS PHONE, NO S/S OF DISTRESS, CALL ANDERSON WITHIN REACH, CALL ANDERSON WITHIN REACH
--- NOTE | 2017-06-12 10:29 | NUR ---
PT LAYING IN BED WATCHING TV, VERBALIZES NO COMPLAINTS, REMINDED TO CALL FOR ASSISTANCE, CALL ANDERSON WITHIN REACH
[2017-06-12] MEDS ORDERED: NOVOLOG100 UNIT/M SC (11:10)
--- NOTE | 2017-06-12 11:10 | NUR ---
DR RUSS AT BEDSIDE DISCUSSING PLAN OF CARE WITH PT
--- NOTE | 2017-06-12 11:35 | NUR ---
SETUP ASSISTANCE PROVIDED WITH LUNCH
--- NOTE | 2017-06-12 12:10 | NUR ---
PT SITTING UP IN BED PLAYING A GAME ON HIS PHONE, GIRLFRIEND REMAINS AT BEDSIDE, PT TOLERATED LUNCH WELL, CALL ANDERSON WITHIN REACH
--- NOTE | 2017-06-12 12:49 | NUR ---
PT ARRIVED FROM ICU VIA WC ACCOMPANIED BY STAFF., IV SITE IS FREE FROM REDNESS OR EDEMA. FAMILY IN THE ROOM. CONTINUE TO OBSERVE AND MONITOR.
--- NOTE | 2017-06-12 15:12 | NUR ---
S: HARESH ESQUIVEL is a 26 M who presents with DKA, streptococcus pharyngitis, and preliminary blood culture growing gram positive cocci. He has a history of T1DM and necrotizing pancreatitis. All medications in patient's chart were reviewed. O: VS: BP 150/96, P 77, RR 18,T 98.1 W 85.2 kg, HT 73 in, Scr=0.7, CrCl= >120 ml/min A: Blood culture is growing gram positive cocci in 1 of 2 sets. Final results to follow. P: Patient is on ceftriaxone 1 gram IV Q24H. Vancomycin ordered for pharmacy to dose. Start Vancomycin 1250 mg IV Q8H. Vancomycin trough is drawn before the 4th dose on 06/13 @0830. Vancomycin goal trough is between 15-20 mcg/ml. Pharmacy will follow and or advise on antibiotics use as needed.
--- NOTE | 2017-06-12 16:30 | NUR ---
PT IS RELAXING AND VISITING WITH GIRLFRIEND. NO DISTRESS NOTED. WAS C/O ABD PAIN AFTER DRINKING DIET COKE. GAVE MEDICATION CONTINUE TO OSBERVE AND MONITOR
--- NOTE | 2017-06-12 19:35 | NUR ---
PT.ANTIBIOTIC THERAPY COMPLETED AT THIS TIME. PT.IS UPRIGHT IN BED W/GIRLFRIEND AT BEDSIDE. PT.IS ASKING IF HE CAN HAVE A SANDWICH, I TOLD HIM THAT WE WILL CHECK BLOOD SUGAR AND THEN PROVIDE SNACK IF APPROPRIATE AT THAT TIME. PT.SEEMS OKAY W/THAT. DENIES ANY OTHER NEEDS AT THIS TIME. CALL LIGHT IS W/IN REACH AND PT.ENCOURAGED TO CALL IF ANY OTHER NEEDS ARISE.
--- NOTE | 2017-06-12 21:30 | NUR ---
PT.BS IS 329/35 UNITS OF LEVEMIR ADMINISTERED AT THIS TIME. PT.ASSESSED AT THIS TIME, PT.WAS PLAYING VIDEO GAME ON HIS PHONE THROUGHOUT ASSESSMENT. PT.DENIES ANY OTHER NEEDS AND LEFT W/LIGHTS ON, PLAYING ON PHONE. NO S/S OF DISTRESS NOTED, CALL LIGHT W/IN REACH
--- NOTE | 2017-06-12 23:47 | NUR ---
PT.C/O NOT BEING ABLE TO SLEEP AND DISCOMFORT IN BACK 06/17, PT.MEDICATED W/TORODOL AND ANTIBIOTIC THERAPY AT THIS TIME. DENIES ANY OTHER NEEDS. PT.LEFT W/LIGHT ON, PLAYING VIDEO GAME ON PHONE. CALL LIGHT AT SIDE
[2017-06-13 00:58] VITALS: BP 132/91
[2017-06-13 04:15] VITALS: BP 135/84
--- NOTE | 2017-06-13 05:15 | NUR ---
PT.IN BED AWAKE, LAB JUST FINISHED DRAWING LABS. PT.MEDICATED ORDERS PROVIDE AND IV PUMP CLEARED AT THIS TIME. PT.DENIES ANY NEEDS, NO S/S OF DISTRESS, CALL LIGHT W/IN REACH AND PT.ENCOURAGED TO CALL IF ANY NEEDS ARISE.
[2017-06-13 05:29] LABS: HEMATOCRIT 35.7 % (39.0-50.0); HEMOGLOBIN 12.1 g/dl (14.0-18.0); IMMATURE GRANULOCYTES 0.3 % (0.0-1.0); MEAN CORPUSCULAR HGB 30.2 pG CALC (26.0-32.0); MEAN CORPUSCULAR HGB CONC 33.9 g/L CALC (32.0-36.0); NEUT# 1.76 thou/uL (1.82-7.42); RED BLOOD COUNT 4.01 mill/uL (4.70-6.10); RED CELL DISTRI WIDTH 13.4 % (11.5-15.5)
[2017-06-13 06:00] LABS: ANION GAP 15 (6-22 (CALC)); BUN 11 mg/dL (9-20); BUN/CREATININE RATIO 18 (12-20 (CALC)); CARBON DIOXIDE 26 mmol/l (22-30); CHLORIDE 103 mmol/l (95-108); CREATININE 0.6 mg/dL (0.7-1.3); GFR > 60 ML/MIN (>=60 (CALC)); GFR FOR AFR.AMER. > 60 ML/MIN (>=60 (CALC)); MAGNESIUM 1.8 mg/dL (1.6-2.3); POTASSIUM 3.5 mmol/l (3.5-5.1); SODIUM 140 mmol/l (137-146)
--- NOTE | 2017-06-13 07:16 | NUR ---
BEDSIDE REPORT RECEIVED BY RICO. PT IS SLEEPING ON HIS LEFT SIDE WITH NO S/S OF DISTRESS NOTED. CALL LIGHT IN REACH.
[2017-06-13 08:00] VITALS: BP 147/88
--- NOTE | 2017-06-13 08:00 | NUR ---
ASSESSMENT DONE. RESPS EVEN AND UNLABORED. #20 RAC THAT APPEAR HEALTHY. PT DENIES PAIN AT THIS THIS TIME. ORIENTED PT TO CALL LIGHT AND SAFETY PRECAUTIONS REINFORCED.
--- NOTE | 2017-06-13 12:02 | NUR ---
PT IS RESTING IN BED WITH NO S/S OF DISTRESS NOTED. PT DENIES NEEDS AT THIS TIME. CALL LIGHT IN REACH.
[2017-06-13] MEDS ORDERED: NOVOLOG100 UNIT/M SC (15:31)
[2017-06-13] MEDS ORDERED: ZITHROMAX Z-PA250 MG PO (15:32)
[2017-06-13 15:37] VITALS: BP 157/92
--- NOTE | 2017-06-13 16:55 | NUR ---
Discharge instructions given. Patient verbalizes understanding of same. Discharged in stable condition via Wheelchair to Home with significant other. All belongings sent with pt.
== END 2017-06-13 16:55 | disposition home or self-care (01) | DRG 638 ==
LOC: ED 19:38 → ED-I 21:15 → ED 21:43 → ICU 21:44 → MS2 06-12 12:37
PROVIDERS: Emergency Medicine; Nurse Practitioner Family; ADMIT Internal Medicine; ATTEND Internal Medicine
DX: E10.10 Type 1 diabetes mellitus with ketoacidosis without coma (principal); K86.1 Other chronic pancreatitis; R78.81 Bacteremia; E10.42 Type 1 diabetes mellitus with diabetic polyneuropathy; K75.81 Nonalcoholic steatohepatitis (NASH); E03.9 Hypothyroidism, unspecified; F41.9 Anxiety disorder, unspecified; I10 Essential (primary) hypertension; J02.0 Streptococcal pharyngitis; F31.9 Bipolar disorder, unspecified; F12.90 Cannabis use, unspecified, uncomplicated; E78.1 Pure hyperglyceridemia; F43.10 Post-traumatic stress disorder, unspecified; H61.23 Impacted cerumen, bilateral; E87.6 Hypokalemia; L27.1 Localized skin eruption due to drugs and medicaments taken internally; T39.1X5A Adverse effect of 4-Aminophenol derivatives, initial encounter; E86.0 Dehydration; Z87.891 Personal history of nicotine dependence; Z91.14 Patient's other noncompliance with medication regimen; Z79.4 Long term (current) use of insulin
CPT/HCPCS: J0561; J3370

== ENCOUNTER 2017-08-18 12:05 | Inpatient (IN) | payer MEDICARE, OTHER ==
[~2017-08-18] VITALS: Ht 185.4 cm; Wt 84.8 kg
[2017-08-18] VITALS (11 sets, daily range): BP systolic 118–156; BP diastolic 75–98
[~2017-08-18 12:05] MED LIST changes: +ZITHROMAX Z-PA250 MG PO
[2017-08-18 13:22] LABS: HEMATOCRIT 47.3 % (39.0-50.0); IMMATURE GRANULOCYTES 1.1 % (0.0-1.0); MEAN CELL VOLUME 86.5 fL CALC (80.0-100.0); MEAN CORPUSCULAR HGB 29.3 pG CALC (26.0-32.0); MEAN CORPUSCULAR HGB CONC 33.8 g/L CALC (32.0-36.0); NEUT# 5.05 thou/uL (1.82-7.42); RED BLOOD COUNT 5.47 mill/uL (4.70-6.10)
[2017-08-18 13:23] LABS: URINE BILIRUBIN - DIPSTICK NEGATIVE (NEGATIVE); URINE BLOOD DIPSTICK NEGATIVE (NEGATIVE); URINE COLOR YELLOW; URINE GLUCOSE - DIPSTICK >=1000 mg/dL (NEGATIVE); URINE KETONE 40 mg/dL (NEGATIVE); URINE LEUK ESTERASE NEGATIVE (NEGATIVE); URINE NITRITE - DIPSTICK NEGATIVE (Negative); URINE PH 5.5 (4.5-8.0); URINE PROTEIN - DIPSTICK NEGATIVE (NEG-TRACE); URINE SPECIFIC GRAVITY <=1.005; URINE UROBILINOGEN - DIPSTICK 0.2 E.U./dL (0.2)
[2017-08-18 13:30] LABS: URINE CLARITY CLEAR
[2017-08-18 13:34] LABS: ALBUMIN 5.2 g/dL (3.2-5.0); ALKALINE PHOSPHATASE 160 u/l (38-126); AMYLASE 51 u/l (30-110); BILIRUBIN, TOTAL 1.5 mg/dL (0.0-1.4); BUN 34 mg/dL (9-20); BUN/CREATININE RATIO 42 (12-20 (CALC)); CREATININE 0.8 mg/dL (0.7-1.3); GFR > 60 ML/MIN (>=60 (CALC)); GFR FOR AFR.AMER. > 60 ML/MIN (>=60 (CALC)); LIPASE 343 u/l (23-300); SGPT/ALT 32 u/l (21-72); TOTAL PROTEIN 9.7 g/dL (6.3-8.2)
[2017-08-18 13:35] LABS: SGOT/AST 85 u/l (17-59)
[2017-08-18 13:43] LABS: CHLORIDE 98 mmol/l (95-108); SODIUM 133 mmol/l (137-146)
[2017-08-18 13:45] LABS: ANION GAP 28 (6-22 (CALC)); CARBON DIOXIDE 11 mmol/l (22-30); POTASSIUM 4.3 mmol/l (3.5-5.1)
[2017-08-18 13:46] LABS: MYOGLOBIN 45 ng/mL (0 - 121)
[2017-08-18 19:17] LABS: ALBUMIN 3.5 g/dL (3.2-5.0); ALKALINE PHOSPHATASE 96 u/l (38-126); ANION GAP 13 (6-22 (CALC)); BILIRUBIN, TOTAL 0.3 mg/dL (0.0-1.4); BUN 28 mg/dL (9-20); BUN/CREATININE RATIO 46 (12-20 (CALC)); CARBON DIOXIDE 19 mmol/l (22-30); CHLORIDE 107 mmol/l (95-108); CREATININE 0.6 mg/dL (0.7-1.3); GFR > 60 ML/MIN (>=60 (CALC)); GFR FOR AFR.AMER. > 60 ML/MIN (>=60 (CALC)); POTASSIUM 3.9 mmol/l (3.5-5.1); SGOT/AST 23 u/l (17-59); SGPT/ALT 55 u/l (21-72); SODIUM 135 mmol/l (137-146); TOTAL PROTEIN 6.7 g/dL (6.3-8.2)
[2017-08-18] MEDS ORDERED: FENOFIBRATE145 MG PO (19:58)
[2017-08-18] MEDS ORDERED: LISINOPRIL5 MG PO (19:59)
[2017-08-18] MEDS ORDERED: LIPITOR80 M1 PO (19:59)
[2017-08-18] MEDS ORDERED: LEVOTHYROXIN50 MCG PO (19:59)
[2017-08-18] MEDS ORDERED: FISH OIL1000 MG PO (20:00)
[2017-08-18] MEDS ORDERED: GABAPENTIN100 MG PO (20:01)
[2017-08-18] MEDS ORDERED: HYDRALAZINE10 M2 PO (20:01)
[2017-08-18] MEDS ORDERED: LEVEMIR100 UNIT/M SC (20:01)
[2017-08-18] MEDS ORDERED: LEXAPRO10 MG PO (20:01)
[2017-08-19] VITALS (12 sets, daily range): BP systolic 121–151; BP diastolic 72–90
[2017-08-19 04:58] LABS: MEAN CELL VOLUME 86.1 fL CALC (80.0-100.0); MEAN CORPUSCULAR HGB 29.6 pG CALC (26.0-32.0); MEAN CORPUSCULAR HGB CONC 34.3 g/L CALC (32.0-36.0); RED BLOOD COUNT 4.33 mill/uL (4.70-6.10); RED CELL DISTRI WIDTH 13.9 % (11.5-15.5)
[2017-08-19 05:01] LABS: HEMATOCRIT 37.3 % (39.0-50.0); HEMOGLOBIN 12.8 g/dl (14.0-18.0)
[2017-08-19 05:07] LABS: ANION GAP 14 (6-22 (CALC)); BUN 17 mg/dL (9-20); BUN/CREATININE RATIO 33 (12-20 (CALC)); CARBON DIOXIDE 19 mmol/l (22-30); CHLORIDE 105 mmol/l (95-108); CREATININE 0.5 mg/dL (0.7-1.3); GFR > 60 ML/MIN (>=60 (CALC)); GFR FOR AFR.AMER. > 60 ML/MIN (>=60 (CALC)); MAGNESIUM 1.4 mg/dL (1.6-2.3); POTASSIUM 4.6 mmol/l (3.5-5.1); SODIUM 133 mmol/l (137-146)
[2017-08-19] MEDS ORDERED: LEVEMIR100 UNIT/M SC (09:14)
[2017-08-19] MEDS ORDERED: CREON24000 UNT PO (15:33)
[2017-08-19] MEDS ORDERED: FOLIC ACID1 MG PO (15:33)
[2017-08-20] VITALS (7 sets, daily range): BP systolic 107–140; BP diastolic 69–86
[2017-08-20 05:27] LABS: HEMATOCRIT 38.7 % (39.0-50.0); IMMATURE GRANULOCYTES 0.9 % (0.0-1.0); MEAN CORPUSCULAR HGB 29.2 pG CALC (26.0-32.0); MEAN CORPUSCULAR HGB CONC 33.6 g/L CALC (32.0-36.0); NEUT# 1.63 thou/uL (1.82-7.42); RED BLOOD COUNT 4.45 mill/uL (4.70-6.10); RED CELL DISTRI WIDTH 13.9 % (11.5-15.5)
[2017-08-20 05:47] LABS: ANION GAP 11 (6-22 (CALC)); BUN 11 mg/dL (9-20); BUN/CREATININE RATIO 18 (12-20 (CALC)); CHLORIDE 105 mmol/l (95-108); CREATININE 0.6 mg/dL (0.7-1.3); GFR > 60 ML/MIN (>=60 (CALC)); GFR FOR AFR.AMER. > 60 ML/MIN (>=60 (CALC)); POTASSIUM 3.7 mmol/l (3.5-5.1); SODIUM 138 mmol/l (137-146)
[2017-08-20 05:48] LABS: CARBON DIOXIDE 26 mmol/l (22-30)
[2017-08-20] MEDS ORDERED: LIPITOR80 M1 PO (08:53)
[2017-08-20] MEDS ORDERED: CYMBALTA30 MG PO (08:53)
[2017-08-20] MEDS ORDERED: FENOFIBRATE145 MG PO (08:53)
[2017-08-20] MEDS ORDERED: CREON24000 UNT PO (08:53)
[2017-08-20] MEDS ORDERED: GABAPENTIN100 MG PO (08:53)
[2017-08-20] MEDS ORDERED: TRAMADOL HCL50 MG PO (08:53)
[2017-08-20] MEDS ORDERED: FOLIC ACID1 MG PO (08:53)
== END 2017-08-20 11:55 | disposition home or self-care (01) | DRG 638 ==
LOC: ED 12:05 → ED-I 16:22 → ED 16:39 → ICU 16:40
PROVIDERS: Nurse Practitioner Family; ADMIT Internal Medicine; ATTEND Internal Medicine
DX: E11.10 Type 2 diabetes mellitus with ketoacidosis without coma (principal); K86.1 Other chronic pancreatitis; K75.81 Nonalcoholic steatohepatitis (NASH); E83.42 Hypomagnesemia; E87.1 Hypo-osmolality and hyponatremia; E03.9 Hypothyroidism, unspecified; F41.9 Anxiety disorder, unspecified; I10 Essential (primary) hypertension; E78.1 Pure hyperglyceridemia; E11.42 Type 2 diabetes mellitus with diabetic polyneuropathy; F43.10 Post-traumatic stress disorder, unspecified; F31.9 Bipolar disorder, unspecified; F12.90 Cannabis use, unspecified, uncomplicated; S16.1XXD Strain of muscle, fascia and tendon at neck level, subsequent encounter; X58.XXXD Exposure to other specified factors, subsequent encounter; Z79.4 Long term (current) use of insulin; Z91.14 Patient's other noncompliance with medication regimen; Z87.891 Personal history of nicotine dependence
CPT/HCPCS: J0692; Q9967

== ENCOUNTER 2017-08-30 20:41 | Emergency (ER) | payer MEDICARE, OTHER ==
[~2017-08-30] VITALS: Ht 185.4 cm; Wt 74.2 kg
[~2017-08-30 20:41] MED LIST changes: +CREON24000 UNT PO; +CYMBALTA30 MG PO; +FENOFIBRATE145 MG PO; +FOLIC ACID1 MG PO; +LIPITOR80 M1 PO
[2017-08-30 21:44] LABS: HEMATOCRIT 43.4 % (39.0-50.0); HEMOGLOBIN 14.5 g/dl (14.0-18.0); IMMATURE GRANULOCYTES 0.5 % (0.0-1.0); MEAN CELL VOLUME 87.7 fL CALC (80.0-100.0); MEAN CORPUSCULAR HGB 29.3 pG CALC (26.0-32.0); MEAN CORPUSCULAR HGB CONC 33.4 g/L CALC (32.0-36.0); NEUT# 6.67 thou/uL (1.82-7.42); RED BLOOD COUNT 4.95 mill/uL (4.70-6.10); RED CELL DISTRI WIDTH 14.6 % (11.5-15.5)
[2017-08-30 21:51] LABS: ALKALINE PHOSPHATASE 131 u/l (38-126); AMYLASE < 30 u/l (30-110); BILIRUBIN, TOTAL 0.7 mg/dL (0.0-1.4); BUN 16 mg/dL (9-20); BUN/CREATININE RATIO 22 (12-20 (CALC)); CARBON DIOXIDE 21 mmol/l (22-30); CHLORIDE 99 mmol/l (95-108); CREATININE 0.7 mg/dL (0.7-1.3); GFR > 60 ML/MIN (>=60 (CALC)); GFR FOR AFR.AMER. > 60 ML/MIN (>=60 (CALC)); LIPASE < 10 u/l (23-300); SGOT/AST 29 u/l (17-59); SGPT/ALT 70 u/l (21-72); SODIUM 135 mmol/l (137-146); TOTAL PROTEIN 7.6 g/dL (6.3-8.2)
[2017-08-30 21:59] LABS: ALBUMIN 4.4 g/dL (3.2-5.0); ANION GAP 20 (6-22 (CALC)); POTASSIUM 4.8 mmol/l (3.5-5.1)
[2017-08-30 22:27] LABS: URINE BILIRUBIN - DIPSTICK NEGATIVE (NEGATIVE); URINE BLOOD DIPSTICK NEGATIVE (NEGATIVE); URINE COLOR YELLOW; URINE GLUCOSE - DIPSTICK >=1000 mg/dL (NEGATIVE); URINE KETONE 15 mg/dL (NEGATIVE); URINE LEUK ESTERASE NEGATIVE (NEGATIVE); URINE NITRITE - DIPSTICK NEGATIVE (Negative); URINE PROTEIN - DIPSTICK NEGATIVE (NEG-TRACE); URINE UROBILINOGEN - DIPSTICK 0.2 E.U./dL (0.2)
[2017-08-30 22:28] LABS: URINE CLARITY CLEAR
[2017-08-30] MEDS ORDERED: PHENERGAN25 MG/TAB PO (23:48)
[2017-08-30] MEDS ORDERED: LOMOTIL2.5 MG PO (23:48)
[2017-08-31 00:25] VITALS: BP 123/70
== END 2017-08-31 00:25 | disposition home or self-care (01) ==
LOC: ED 20:41
PROVIDERS: Family Medicine
DX: K52.9 Noninfective gastroenteritis and colitis, unspecified (principal); E11.65 Type 2 diabetes mellitus with hyperglycemia; I10 Essential (primary) hypertension; F31.9 Bipolar disorder, unspecified; F41.9 Anxiety disorder, unspecified; E03.9 Hypothyroidism, unspecified

== ENCOUNTER 2017-09-29 14:15 | Emergency (ER) | payer MEDICARE, OTHER ==
[~2017-09-29] VITALS: Ht 185.4 cm; Wt 84.5 kg
[~2017-09-29 14:15] MED LIST changes: +LOMOTIL2.5 MG PO; +PHENERGAN25 MG/TAB PO
[2017-09-29] MEDS ORDERED: LYRICA25 MG PO (15:23)
[2017-09-29 16:20] VITALS: BP 134/78
== END 2017-09-29 16:20 | disposition home or self-care (01) ==
LOC: ED 14:15
DX: S83.91XA Sprain of unspecified site of right knee, initial encounter (principal); E11.9 Type 2 diabetes mellitus without complications; I10 Essential (primary) hypertension; F31.9 Bipolar disorder, unspecified; E03.9 Hypothyroidism, unspecified; X50.0XXA Overexertion from strenuous movement or load, initial encounter; Y93.55 Activity, bike riding; Z79.4 Long term (current) use of insulin; Z91.14 Patient's other noncompliance with medication regimen

== ENCOUNTER 2018-03-14 04:45 | Emergency (ER) | payer MEDICARE, OTHER ==
[~2018-03-14] VITALS: Ht 185.4 cm; Wt 72.7 kg
[~2018-03-14 04:45] MED LIST changes: +LYRICA25 MG PO
[2018-03-14 06:17] LABS: HEMATOCRIT 42.7 % (39.0-50.0); HEMOGLOBIN 14.8 g/dl (14.0-18.0); IMMATURE GRANULOCYTES 1.2 % (0.0-5.0); MEAN CELL VOLUME 90.3 fL CALC (80.0-100.0); MEAN CORPUSCULAR HGB 31.3 pG CALC (26.0-32.0); MEAN CORPUSCULAR HGB CONC 34.7 g/L CALC (32.0-36.0); NEUT# 5.33 thou/uL (1.82-7.42); RED BLOOD COUNT 4.73 mill/uL (4.70-6.10); RED CELL DISTRI WIDTH 13.8 % (11.5-15.5)
[2018-03-14 06:21] LABS: URINE BILIRUBIN - DIPSTICK NEGATIVE (NEGATIVE); URINE BLOOD DIPSTICK NEGATIVE (NEGATIVE); URINE COLOR YELLOW; URINE GLUCOSE - DIPSTICK >=1000 mg/dL (NEGATIVE); URINE KETONE >=80 mg/dL (NEGATIVE); URINE LEUK ESTERASE NEGATIVE (NEGATIVE); URINE NITRITE - DIPSTICK NEGATIVE (Negative); URINE PH 5.5 (4.5-8.0); URINE PROTEIN - DIPSTICK NEGATIVE (NEG-TRACE); URINE UROBILINOGEN - DIPSTICK 0.2 E.U./dL (0.2)
[2018-03-14 06:23] LABS: BARBITURATES NEGATIVE (NEGATIVE); COCAINE NEGATIVE (NEGATIVE); METHADONE NEGATIVE (NEGATIVE); OXCYCODONE NEGATIVE (NEGATIVE); TETRAHYDROCANNABIONOL NEGATIVE (NEGATIVE); TRICYLIC ANTIDEPRESSANTS NEGATIVE (NEGATIVE)
[2018-03-14 06:33] LABS: ALBUMIN 4.4 g/dL (3.2-5.0); ANION GAP 25 (6-22 (CALC)); BILIRUBIN, TOTAL 0.4 mg/dL (0.0-1.4); BUN 23 mg/dL (9-20); BUN/CREATININE RATIO 30 (12-20 (CALC)); CARBON DIOXIDE 15 mmol/l (22-30); CHLORIDE 103 mmol/l (95-108); CREATININE 0.8 mg/dL (0.7-1.3); GFR > 60 ML/MIN (>=60 (CALC)); GFR FOR AFR.AMER. > 60 ML/MIN (>=60 (CALC)); POTASSIUM 4.8 mmol/l (3.5-5.1); SGOT/AST 28 u/l (17-59); SODIUM 138 mmol/l (137-146); TOTAL PROTEIN 8.2 g/dL (6.3-8.2)
[2018-03-14 06:50] LABS: ALKALINE PHOSPHATASE 205 u/l (38-126)
[2018-03-14] MEDS ORDERED: NOVOLIN R100 UNIT/M SC (06:57)
[2018-03-14 07:14] VITALS: BP 113/68
== END 2018-03-14 07:28 | disposition home or self-care (01) ==
LOC: ED 04:45
PROVIDERS: Family Medicine
DX: E11.65 Type 2 diabetes mellitus with hyperglycemia (principal); I10 Essential (primary) hypertension; F31.9 Bipolar disorder, unspecified; E03.9 Hypothyroidism, unspecified; F41.9 Anxiety disorder, unspecified; T38.3X6A Underdosing of insulin and oral hypoglycemic [antidiabetic] drugs, initial encounter; Z79.4 Long term (current) use of insulin; Z91.128 Patient's intentional underdosing of medication regimen for other reason

== ENCOUNTER 2018-05-16 13:46 | Observation (INO) | payer MEDICARE, OTHER ==
[~2018-05-16] VITALS: Ht 185.4 cm; Wt 104.4 kg
[~2018-05-16 13:46] MED LIST changes: +NOVOLIN R100 UNIT/M SC
[2018-05-16 14:42] LABS: HEMATOCRIT 47.4 % (39.0-50.0); HEMOGLOBIN 15.3 g/dl (14.0-18.0); IMMATURE GRANULOCYTES 0.8 % (0.0-5.0); MEAN CELL VOLUME 89.8 fL CALC (80.0-100.0); MEAN CORPUSCULAR HGB CONC 32.3 g/L CALC (32.0-36.0); NEUT# 8.31 thou/uL (1.82-7.42); RED BLOOD COUNT 5.28 mill/uL (4.70-6.10); RED CELL DISTRI WIDTH 13.5 % (11.5-15.5)
[2018-05-16 15:10] LABS: ALBUMIN 4.8 g/dL (3.2-5.0); ALKALINE PHOSPHATASE 136 u/l (38-126); AMYLASE < 30 u/l (30-110); ANION GAP 30 (6-22 (CALC)); BILIRUBIN, TOTAL 0.7 mg/dL (0.0-1.4); BUN 18 mg/dL (9-20); BUN/CREATININE RATIO 23 (12-20 (CALC)); CARBON DIOXIDE 11 mmol/l (22-30); CHLORIDE 99 mmol/l (95-108); CREATININE 0.8 mg/dL (0.7-1.3); GFR > 60 ML/MIN (>=60 (CALC)); GFR FOR AFR.AMER. > 60 ML/MIN (>=60 (CALC)); LIPASE < 10 u/l (23-300); POTASSIUM 4.6 mmol/l (3.5-5.1); SGOT/AST 48 u/l (17-59); SODIUM 135 mmol/l (137-146); TOTAL PROTEIN 8.2 g/dL (6.3-8.2)
[2018-05-16 15:21] LABS: MYOGLOBIN 35 ng/mL (0 - 121)
[2018-05-16] MEDS ORDERED: GABAPENTIN100 MG PO (16:40)
[2018-05-16] MEDS ORDERED: OLANZAPINE2.5 MG PO (16:43)
[2018-05-16] MEDS ORDERED: CYMBALTA30 MG PO (16:43)
[2018-05-16 16:46] LABS: URINE BILIRUBIN - DIPSTICK NEGATIVE (NEGATIVE); URINE BLOOD DIPSTICK NEGATIVE (NEGATIVE); URINE COLOR YELLOW; URINE GLUCOSE - DIPSTICK >=1000 mg/dL (NEGATIVE); URINE KETONE 15 mg/dL (NEGATIVE); URINE LEUK ESTERASE NEGATIVE (NEGATIVE); URINE NITRITE - DIPSTICK NEGATIVE (Negative); URINE PH 5.5 (4.5-8.0); URINE PROTEIN - DIPSTICK NEGATIVE (NEG-TRACE); URINE SPECIFIC GRAVITY <=1.005; URINE UROBILINOGEN - DIPSTICK 0.2 E.U./dL (0.2)
[2018-05-16 16:51] LABS: BARBITURATES NEGATIVE (NEGATIVE); COCAINE NEGATIVE (NEGATIVE); METHADONE NEGATIVE (NEGATIVE); TETRAHYDROCANNABIONOL NEGATIVE (NEGATIVE); TRICYLIC ANTIDEPRESSANTS NEGATIVE (NEGATIVE)
[2018-05-16 16:52] LABS: OXCYCODONE NEGATIVE (NEGATIVE)
[2018-05-16 18:06] VITALS: BP 150/95
[2018-05-17 00:31] VITALS: BP 138/82
[2018-05-17 04:09] VITALS: BP 132/85
[2018-05-17 06:03] LABS: IMMATURE GRANULOCYTES 0.7 % (0.0-5.0); MEAN CELL VOLUME 91.6 fL CALC (80.0-100.0); MEAN CORPUSCULAR HGB 29.4 pG CALC (26.0-32.0); MEAN CORPUSCULAR HGB CONC 32.1 g/L CALC (32.0-36.0); NEUT# 1.9 thou/uL (1.82-7.42); RED BLOOD COUNT 4.28 mill/uL (4.70-6.10); RED CELL DISTRI WIDTH 13.6 % (11.5-15.5)
[2018-05-17 06:04] LABS: HEMATOCRIT 39.2 % (39.0-50.0); HEMOGLOBIN 12.6 g/dl (14.0-18.0)
[2018-05-17 06:06] LABS: ALKALINE PHOSPHATASE 81 u/l (38-126); AMYLASE < 30 u/l (30-110); BILIRUBIN, TOTAL 0.3 mg/dL (0.0-1.4); BUN 12 mg/dL (9-20); BUN/CREATININE RATIO 19 (12-20 (CALC)); CHLORIDE 109 mmol/l (95-108); CREATININE 0.6 mg/dL (0.7-1.3); GFR > 60 ML/MIN (>=60 (CALC)); GFR FOR AFR.AMER. > 60 ML/MIN (>=60 (CALC)); LIPASE < 10 u/l (23-300); MAGNESIUM 1.5 mg/dL (1.6-2.3); POTASSIUM 3.9 mmol/l (3.5-5.1); SGOT/AST 35 u/l (17-59); SODIUM 138 mmol/l (137-146)
[2018-05-17 06:09] LABS: ALBUMIN 3.4 g/dL (3.2-5.0); ANION GAP 14 (6-22 (CALC)); CARBON DIOXIDE 19 mmol/l (22-30); TOTAL PROTEIN 6.3 g/dL (6.3-8.2)
[2018-05-17 07:47] VITALS: BP 146/88
[2018-05-17 10:25] LABS: CHOLESTEROL HDL RATIO 6.7 (<4.4 (CALC))
[2018-05-17 10:53] LABS: TSH, 3RD GENERATION 3.02 uIU/mL (0.47 - 4.68)
[2018-05-17 11:05] VITALS: BP 131/84
[2018-05-17 16:03] VITALS: BP 131/84
== END 2018-05-17 18:20 | disposition home or self-care (01) ==
LOC: ED 13:46 → ED-I 16:20 → ED 16:50 → MS2 16:51 → ED-I 17:03 → ED 17:03 → MS2 05-17 18:20
PROVIDERS: Emergency Medicine; Nurse Practitioner Family; ADMIT Internal Medicine Nephrology; ATTEND Internal Medicine Nephrology
DX: E10.10 Type 1 diabetes mellitus with ketoacidosis without coma (principal); I10 Essential (primary) hypertension; E83.42 Hypomagnesemia; E03.9 Hypothyroidism, unspecified; E11.42 Type 2 diabetes mellitus with diabetic polyneuropathy; K75.81 Nonalcoholic steatohepatitis (NASH); F31.9 Bipolar disorder, unspecified; E78.5 Hyperlipidemia, unspecified; K86.1 Other chronic pancreatitis; K86.3 Pseudocyst of pancreas; R44.3 Hallucinations, unspecified; Z91.19 Patient's noncompliance with other medical treatment and regimen; Z79.4 Long term (current) use of insulin; Z87.891 Personal history of nicotine dependence; Z91.14 Patient's other noncompliance with medication regimen
CPT/HCPCS: J3475; S0164

== ENCOUNTER 2018-08-04 15:55 | Inpatient (IN) | payer MEDICARE, OTHER ==
[2018-08-04] VITALS (8 sets, daily range): BP systolic 126–140; BP diastolic 71–87
[~2018-08-04] VITALS: Ht 185.4 cm; Wt 98.0 kg
[~2018-08-04 15:55] MED LIST changes: +OLANZAPINE2.5 MG PO
--- NOTE | 2018-08-04 15:55 | NUR ---
PT TO ROOM 12 VIA EMS STRETCHER. ASSIST TO ER STRETCHER.
--- NOTE | 2018-08-04 16:31 | NUR ---
BS 412 UPON RECHECK. BLOOD DRAWN FROM IV SITE. PT REQUESTING PAIN MED FOR BACK.
[2018-08-04 16:44] LABS: HEMATOCRIT 42.7 % (39.0-50.0); HEMOGLOBIN 14.2 g/dl (14.0-18.0); IMMATURE GRANULOCYTES 1.2 % (0.0-5.0); MEAN CELL VOLUME 87.1 fL CALC (80.0-100.0); MEAN CORPUSCULAR HGB CONC 33.3 g/L CALC (32.0-36.0); NEUT# 7.74 thou/uL (1.82-7.42); RED BLOOD COUNT 4.9 mill/uL (4.70-6.10); RED CELL DISTRI WIDTH 13.7 % (11.5-15.5)
[2018-08-04 16:46] LABS: URINE BILIRUBIN - DIPSTICK NEGATIVE (NEGATIVE); URINE BLOOD DIPSTICK NEGATIVE (NEGATIVE); URINE COLOR YELLOW; URINE GLUCOSE - DIPSTICK >=1000 mg/dL (NEGATIVE); URINE KETONE >=80 mg/dL (NEGATIVE); URINE LEUK ESTERASE NEGATIVE (NEGATIVE); URINE NITRITE - DIPSTICK NEGATIVE (Negative); URINE PH 5.5 (4.5-8.0); URINE PROTEIN - DIPSTICK NEGATIVE (NEG-TRACE); URINE UROBILINOGEN - DIPSTICK 0.2 E.U./dL (0.2)
[2018-08-04 16:49] LABS: BARBITURATES NEGATIVE (NEGATIVE); COCAINE NEGATIVE (NEGATIVE); METHADONE NEGATIVE (NEGATIVE); OXCYCODONE NEGATIVE (NEGATIVE); TETRAHYDROCANNABIONOL NEGATIVE (NEGATIVE); TRICYLIC ANTIDEPRESSANTS NEGATIVE (NEGATIVE)
[2018-08-04 17:04] LABS: ALKALINE PHOSPHATASE 109 u/l (38-126); BUN 21 mg/dL (9-20); BUN/CREATININE RATIO 19 (12-20 (CALC)); CREATININE 1.1 mg/dL (0.7-1.3); GFR > 60 ML/MIN (>=60 (CALC)); GFR FOR AFR.AMER. > 60 ML/MIN (>=60 (CALC)); POTASSIUM 3.9 mmol/l (3.5-5.1); SGOT/AST 19 u/l (17-59); SODIUM 135 mmol/l (137-146)
[2018-08-04 17:10] LABS: ALBUMIN 4.8 g/dL (3.2-5.0); ANION GAP 30 (6-22 (CALC)); BILIRUBIN, TOTAL 0.6 mg/dL (0.0-1.4); CARBON DIOXIDE 14 mmol/l (22-30); CHLORIDE 95 mmol/l (95-108); TOTAL PROTEIN 7.8 g/dL (6.3-8.2)
--- NOTE | 2018-08-04 17:37 | NUR ---
PT BS 286, NOW WITH INSULIN DRIP AT 3 UNITS HOURLY.
--- NOTE | 2018-08-04 18:32 | NUR ---
BS 243, INSULIN DRIP REMAINS AT 3 UNITS HOURLY.
--- NOTE | 2018-08-04 18:34 | NUR ---
SBAR PRINTED TO FLOOR
--- NOTE | 2018-08-04 19:17 | NUR ---
REPORT TO KETAN, TO ICU SOON.
--- NOTE | 2018-08-04 19:22 | NUR ---
PT ARRIVED TO UNIT VIA STRETCHER WITH ER STAFF; PT EMOTIONALLY DETACHED AND TEARFUL, BUT IS ALERT AND ORIENTED. AMBULATED INDEPENDENTLY TO BED WITH UNSTEADY GAIT; STATES THAT HE USES A CANE AT HOME. DENIES PAIN CURRENTLY. RESPOIRATIONS EVEN AND UNLABORED ON ROOM AIR. INSULIN DRIP INFUSING UPON ARRIVAL AT 3 UNITS/HR WITH NS MAINTANENCE FLUIDS. ORIENTED TO ROOM AND CALL LIGHT SYSTEM. PLAN OF CARE DISCUSSED. PT ENCOURAGED TO VERBALIZE CONCERNS. STATES UNDERSTANDING. SAFETY MEASURES IN PLACE. CALL LIGHT WITHIN REACH.
--- NOTE | 2018-08-04 19:32 | NUR ---
PT TO ICU-3 WITHOUT INCIDENT.
--- NOTE | 2018-08-04 19:40 | NUR ---
INITIAL ACCU CHECK 209, WILL CONTINUE DRIP AT 3 UNITS/HR. ASSESSMENT COMPLETE AND WNL FOR PT. NSR ON TELEMETRY AND VS STABLE.
[2018-08-04 20:42] LABS: ANION GAP 17 (6-22 (CALC)); BUN 20 mg/dL (9-20); BUN/CREATININE RATIO 25 (12-20 (CALC)); CARBON DIOXIDE 21 mmol/l (22-30); CHLORIDE 103 mmol/l (95-108); CREATININE 0.8 mg/dL (0.7-1.3); GFR > 60 ML/MIN (>=60 (CALC)); GFR FOR AFR.AMER. > 60 ML/MIN (>=60 (CALC)); POTASSIUM 4.2 mmol/l (3.5-5.1); SODIUM 137 mmol/l (137-146)
--- NOTE | 2018-08-04 20:51 | NUR ---
IV FLUIDS CHANGED FROM NORMAL SALINE TO D5 1/2 NS PER DKA PROTOCOL. INSULIN CONTINUES AT 3 UNITS/HR. HS MEDICATIONS ADMINSITERED AT THIS TIME. PT HAS NO REQEUSTS OR CONCERNS CURRENTLY. RESTING SUPINE ON CELL PHONE.
--- NOTE | 2018-08-04 22:39 | NUR ---
DR. RUSS NOTIFIED OF LAB RESULTS; NEW ORDERS TO DISCONTINUE INSULIN DRIP, GIVE LEVEMIR, AND BEGIN NORMAL SALINE AT 100ML/HR. PT UPDATED ON POC.
[2018-08-05] VITALS (7 sets, daily range): BP systolic 112–146; BP diastolic 64–86
--- NOTE | 2018-08-05 00:03 | NUR ---
PT ASLEEP AT THIS TIME WITH NO SIGNS OF DISTRESS. RESPIRATIONS EVEN AND UNLABORED ON ROOM AIR. IV FLUIDS INFUSING WITHOUT DIFFICULTY; IV SITE APPEARS HEALHTY. SAFETY MEASURES IN PLACE. CALL LIGHT WITHIN REACH.
--- NOTE | 2018-08-05 04:18 | NUR ---
NO CHANGES IN CONDITION THROUGHOUT THE NIGHT. LAST ACCUCHECK 190. REMAINS NSR ON TELE RATE IN THE 70'S. VOIDING CLEAR YELLOW URINE IN BEDSIDE URINAL.
--- NOTE | 2018-08-05 05:03 | NUR ---
LAB AT BEDSIDE.
[2018-08-05 05:19] LABS: HEMATOCRIT 39.6 % (39.0-50.0); HEMOGLOBIN 13.2 g/dl (14.0-18.0); MEAN CELL VOLUME 87.4 fL CALC (80.0-100.0); MEAN CORPUSCULAR HGB 29.1 pG CALC (26.0-32.0); MEAN CORPUSCULAR HGB CONC 33.3 g/L CALC (32.0-36.0); RED BLOOD COUNT 4.53 mill/uL (4.70-6.10); RED CELL DISTRI WIDTH 13.9 % (11.5-15.5)
[2018-08-05 05:40] LABS: ANION GAP 13 (6-22 (CALC)); BUN 14 mg/dL (9-20); BUN/CREATININE RATIO 22 (12-20 (CALC)); CARBON DIOXIDE 22 mmol/l (22-30); CHLORIDE 106 mmol/l (95-108); CREATININE 0.6 mg/dL (0.7-1.3); GFR > 60 ML/MIN (>=60 (CALC)); GFR FOR AFR.AMER. > 60 ML/MIN (>=60 (CALC)); SODIUM 137 mmol/l (137-146)
--- NOTE | 2018-08-05 06:22 | NUR ---
PT TOOK AM MEDS WITHOUT DIFFICULTY AND WENT BACK TO SLEEP.
--- NOTE | 2018-08-05 06:45 | NUR ---
RECVD REPORT FROM [facility] AT START OF SHIFT.
--- NOTE | 2018-08-05 07:44 | NUR ---
ACCUCHECK NOT WORKING AT THIS TIME. WILL MEDICATE ACCORDING TO AM BLOOD DRAW. PT SLEEPING, WILL WAIT FOR MEDS & HOLD BREAKFAST UNTIL PT AWAKENS. NO S/S OF DISTRESS AT THIS TIME.
--- NOTE | 2018-08-05 09:28 | NUR ---
PT OUT OF BED, AMBULATED W/STEADY GAIT TO BATHROOM FOR BM. C/O PAIN BEHIND RIGHT SHOULDER BLADE. PT SITTING UP IN BED, PLAYING ON PHONE. VSS. WILL CONTINUE TO MONITOR.
--- NOTE | 2018-08-05 10:40 | NUR ---
DR VALADEZ @BEDSIDE.
[2018-08-05] MEDS ORDERED: TRAMADOL HCL50 MG PO (11:00)
--- NOTE | 2018-08-05 11:17 | NUR ---
IV DC'D, TIP INTACT, DRESSING APPLIED. PT UNHOOKED FROM MONITORS AFTER BP UPDATE. PT REFUSED HELP TO GET DRESSED. ADVISED PT HE CAN ARRANGE FOR A RIDE HOME. PT REFUSED 1100 MEDS.
--- NOTE | 2018-08-05 11:29 | NUR ---
WHEN EDUCATING PT RE: DC INSTRUCTIONS. PT INFORMED THIS NURSE THAT HE WILL TAKE A WC DOWN, "ALTHOUGH IT DOESNT MATTER BC HE'LL JUST END UP WALKING HOME ANYWAY". WHEN ASKED WHY THAT WAS, PT STATES THATS JUST THE WAY IT IS. PT FOLLOWED UP WITH "I DOESNT MATTER ANYWAY BC I'LL PROBABLY BE BACK LATER TODAY ANYWAY". CHARGE NURSE NOTIFIED. CM WILL COME TALK TO PT. WILL TRY TO FIND A TAXI TO TAKE PT HOME.
--- NOTE | 2018-08-05 11:34 | NUR ---
PT GOT OUT OF BED & STARTED OUT OF UNIT. ASKED IF EVERYTHING WAS OK. PT STATED HIS FRIEND WAS ON HIS WAY NOW TO PICK HIM UP SO HE HAD TO GO. I ASKED AGAIN IF PT WANTS A WC, HE REFUSED; STATING "HE'S ALREADY TAKING UP ENOUGH OF OUR TIME AND OUR BED AND WE STILL HAVENT FIXED HIS DIABETIES". PT AMBULATED OUT OF ICU IN STABLE CONDITION. HE REFUSED LAST ACCUCHECK AND MEDS. PT SIGNED DC PAPERWORK BUT LEFT HIS PAPERWORK & RX. THIS RN TRIED TO LOOK AROUND DOWNSTAIRS BUT UNABLE TO LOCATE PT. CM & DEPT MGR AWARE.
== END 2018-08-05 11:34 | disposition home or self-care (01) | DRG 639 ==
LOC: ED 15:55 → ED-I 17:11 → ED 18:20 → ICU 18:21
PROVIDERS: ADMIT Internal Medicine; ATTEND Internal Medicine
DX: E10.10 Type 1 diabetes mellitus with ketoacidosis without coma (principal); I10 Essential (primary) hypertension; F31.9 Bipolar disorder, unspecified; E03.9 Hypothyroidism, unspecified; K75.81 Nonalcoholic steatohepatitis (NASH); E78.1 Pure hyperglyceridemia; E10.42 Type 1 diabetes mellitus with diabetic polyneuropathy; G89.29 Other chronic pain; M54.5 Low back pain; Z79.4 Long term (current) use of insulin; Z87.891 Personal history of nicotine dependence; Z91.11 Patient's noncompliance with dietary regimen; Z91.14 Patient's other noncompliance with medication regimen

== ENCOUNTER 2019-01-01 13:28 | Emergency (ER) | payer MEDICARE, OTHER ==
[~2019-01-01] VITALS: Ht 185.4 cm; Wt 100.0 kg
[2019-01-01 14:25] LABS: HEMATOCRIT 40.3 % (39.0-50.0); HEMOGLOBIN 13.4 g/dl (14.0-18.0); IMMATURE GRANULOCYTES 0.6 % (0.0-5.0); MEAN CELL VOLUME 87.6 fL CALC (80.0-100.0); MEAN CORPUSCULAR HGB 29.1 pG CALC (26.0-32.0); MEAN CORPUSCULAR HGB CONC 33.3 g/L CALC (32.0-36.0); NEUT# 6.05 thou/uL (1.82-7.42); RED BLOOD COUNT 4.6 mill/uL (4.70-6.10); RED CELL DISTRI WIDTH 14.4 % (11.5-15.5)
[2019-01-01 14:28] LABS: ALBUMIN 4.1 g/dL (3.2-5.0); ALKALINE PHOSPHATASE 129 u/l (38-126); BILIRUBIN, TOTAL 0.6 mg/dL (0.0-1.4); BUN 13 mg/dL (9-20); BUN/CREATININE RATIO 18 (12-20 (CALC)); CHLORIDE 101 mmol/l (95-108); CREATININE 0.7 mg/dL (0.7-1.3); GFR > 60 ML/MIN (>=60 (CALC)); GFR FOR AFR.AMER. > 60 ML/MIN (>=60 (CALC)); POTASSIUM 4.5 mmol/l (3.5-5.1); SGOT/AST 33 u/l (17-59); SODIUM 134 mmol/l (137-146); TOTAL PROTEIN 7.4 g/dL (6.3-8.2)
[2019-01-01 14:30] LABS: ANION GAP 22 (6-22 (CALC)); CARBON DIOXIDE 16 mmol/l (22-30)
[2019-01-01] MEDS ORDERED: ZOLOFT50 MG PO (14:42)
[2019-01-01] MEDS ORDERED: NOVOLOG FL100 UNIT/M SC (14:42)
[2019-01-01] MEDS ORDERED: CIPROFLOXACN500 MG PO (16:21)
[2019-01-01 16:43] VITALS: BP 121/81
== END 2019-01-01 16:43 | disposition home or self-care (01) ==
LOC: ED 13:28
DX: E11.621 Type 2 diabetes mellitus with foot ulcer (principal); L97.519 Non-pressure chronic ulcer of other part of right foot with unspecified severity; Z79.4 Long term (current) use of insulin; I10 Essential (primary) hypertension; E03.9 Hypothyroidism, unspecified; E11.65 Type 2 diabetes mellitus with hyperglycemia

== ENCOUNTER 2019-01-29 03:36 | Inpatient (IN) | payer MEDICARE, OTHER ==
[2019-01-29] VITALS (11 sets, daily range): BP systolic 104–130; BP diastolic 53–77
[~2019-01-29] VITALS: Ht 185.4 cm; Wt 93.4 kg
[~2019-01-29 03:36] MED LIST changes: +CIPROFLOXACN500 MG PO; +NOVOLOG FL100 UNIT/M SC; +SERTRALINE50 MG PO
--- NOTE | 2019-01-29 03:36 | NUR ---
PT TO ROOM 9 BY EMS FOR HIGH BLOOD SUGAR. ACCUCHECK BY EMS SAID HI. PT OUT OF INSULIN,
--- NOTE | 2019-01-29 03:56 | NUR ---
UPDATED MED LIST BY MEDICATION PT STATES HE TAKES UNABLE TO TELL ME DOSAGE.
--- NOTE | 2019-01-29 04:17 | NUR ---
TO XRAY. NOTIFIED OF PH OF 7.15
[2019-01-29 04:44] LABS: IMMATURE GRANULOCYTES 1.6 % (0.0-5.0); MEAN CELL VOLUME 90.7 fL CALC (80.0-100.0); MEAN CORPUSCULAR HGB 28.9 pG CALC (26.0-32.0); MEAN CORPUSCULAR HGB CONC 31.9 g/L CALC (32.0-36.0); NEUT# 7.75 thou/uL (1.82-7.42); RED BLOOD COUNT 5.46 mill/uL (4.70-6.10); RED CELL DISTRI WIDTH 14.1 % (11.5-15.5)
[2019-01-29 04:45] LABS: HEMATOCRIT 49.5 % (39.0-50.0); HEMOGLOBIN 15.8 g/dl (14.0-18.0)
--- NOTE | 2019-01-29 04:47 | NUR ---
RETURNED FROM RADIOLOGY.
[2019-01-29 04:59] LABS: CPK 113 u/l (52-200); MAGNESIUM 2.3 mg/dL (1.6-2.3)
[2019-01-29 05:44] LABS: URINE BLOOD DIPSTICK NEGATIVE (NEGATIVE); URINE COLOR YELLOW; URINE GLUCOSE - DIPSTICK >=1000 mg/dL (NEGATIVE); URINE KETONE >=80 mg/dL (NEGATIVE); URINE LEUK ESTERASE NEGATIVE (NEGATIVE); URINE NITRITE - DIPSTICK NEGATIVE (Negative); URINE PROTEIN - DIPSTICK NEGATIVE (NEG-TRACE); URINE UROBILINOGEN - DIPSTICK 0.2 E.U./dL (0.2)
[2019-01-29 05:46] LABS: BARBITURATES NEGATIVE (NEGATIVE); COCAINE NEGATIVE (NEGATIVE); METHADONE NEGATIVE (NEGATIVE); OXCYCODONE NEGATIVE (NEGATIVE); TETRAHYDROCANNABIONOL NEGATIVE (NEGATIVE); TRICYLIC ANTIDEPRESSANTS NEGATIVE (NEGATIVE); URINE BILIRUBIN - DIPSTICK SMALL (NEGATIVE)
--- NOTE | 2019-01-29 05:50 | NUR ---
REPORT TO [facility]/ICU
--- NOTE | 2019-01-29 06:00 | NUR ---
TO ICU VIA STRETCHER WITH PORTABLE MONITOR, IVF, AND INSULIN DRIP ON PUMP. PT REMAINS A/O. PWD. RESP EASY REG. FEELS MUCH BETTER. VSS. UPON ARRIVING ON FLOOR....PT AMBULATORY TO BED.
--- NOTE | 2019-01-29 06:05 | NUR ---
PT ARRIVED TO UNIT VIA STRETCHER WITH ER STAFF; ALERT AND ORIENTED. AMBULATED TO BED WITH UNSTEADY GAIT; C/O DIZZINESS AND STATES, "I FEEL LIKE MY SUGAR IS LOW." C/O SOME MILD NECK PAIN. RESPIRATIONS EVEN AND UNLABORED ON ROOM AIR. INUSLIN DRIP INFUSING AT 5 UNITS/HR; MAINTENACE FLUIDS INFUSING AT KVO. ACCU CHECK 440. ORIENTED TO ROOM AND CALL LIGHT SYSTEM. PLAN OF CARE REVIEWED. PT ENCOURAGED TO VERBALIZE CONCERNS. STATES UNDERSTANDING. SAFETY MEASURES IN PLACE. CALL LIGHT WITHIN REACH.
[2019-01-29 06:16] LABS: ALBUMIN 4.6 g/dL (3.2-5.0); ALKALINE PHOSPHATASE 158 u/l (38-126); ANION GAP 35 (6-22 (CALC)); BILIRUBIN, TOTAL 0.6 mg/dL (0.0-1.4); BUN 31 mg/dL (9-20); BUN/CREATININE RATIO 27 (12-20 (CALC)); CHLORIDE 97 mmol/l (95-108); CREATININE 1.2 mg/dL (0.7-1.3); GFR > 60 ML/MIN (>=60 (CALC)); GFR FOR AFR.AMER. > 60 ML/MIN (>=60 (CALC)); POTASSIUM 4.9 mmol/l (3.5-5.1); SGOT/AST 36 u/l (17-59); SODIUM 133 mmol/l (137-146); TOTAL PROTEIN 8.6 g/dL (6.3-8.2)
[2019-01-29 06:21] LABS: CARBON DIOXIDE 6 mmol/l (22-30)
--- NOTE | 2019-01-29 07:21 | NUR ---
INSULIIN DRIP TITRATED DOWN TO 5 UNITS/HR; ACCU CHECK 370.
--- NOTE | 2019-01-29 08:00 | NUR ---
PT RECENTLY ARRIVED TO FLOOR, CURRENTLY WITH IVF AND INSULIN DRIP RUNNING. RATE IS 4 U/H. PT IS RESTING, BUT IS ALERT AND ORIENTED X 3. LUNGS CLEAR, RA. NO COMPLAINT OF PAIN OR OTHERWISE.
[2019-01-29 08:31] LABS: ANION GAP 29 (6-22 (CALC)); BUN 27 mg/dL (9-20); BUN/CREATININE RATIO 26 (12-20 (CALC)); CHLORIDE 103 mmol/l (95-108); GFR > 60 ML/MIN (>=60 (CALC)); GFR FOR AFR.AMER. > 60 ML/MIN (>=60 (CALC)); SODIUM 134 mmol/l (137-146)
[2019-01-29 08:32] LABS: CARBON DIOXIDE 7 mmol/l (22-30)
[2019-01-29 12:03] LABS: POTASSIUM 4.6 mmol/l (3.5-5.1)
--- NOTE | 2019-01-29 14:25 | NUR ---
INSULIN DRIP HAS BEEN TAPERED DOWN TO 1, IVF CHANGED TO D5.45NS. PT PROVIDED MED FOR ABDOMINAL PAIN. HOURLY ACCUCHECKS CONTINUE. MEAL TRAY PROVIDED, PT STATED THE BROTH HELPED HIS ABDOMINAL PAIN TO IMPROVE.
[2019-01-29 15:59] LABS: POTASSIUM 4.6 mmol/l (3.5-5.1)
--- NOTE | 2019-01-29 17:44 | NUR ---
TIME BS DRIP 0700 370 4 0800 260 3 0900 217 3 1000 174 2 1100 145 1 1300 234 3 1400 278 3 1500 285 3 1600 257 3 1700 231 3 PROVIDED LONG LASTING INSULIN, DRIP OFF 1800
--- NOTE | 2019-01-29 19:30 | NUR ---
awake. no acute distress. controls designer shows sinus rhythm hr 91. #20 saline lock lfa. #20 lt wrist ns infusing @ 125cchr. po fluids taken well. voids per urinal. amb to br per request for bm. cathy well. fall precautions cont.
[2019-01-29 19:33] LABS: POTASSIUM 4.6 mmol/l (3.5-5.1)
--- NOTE | 2019-01-29 22:00 | NUR ---
using cell phone. no distress. television repairman shows sinus rhythm hr 84.
[2019-01-29 23:40] LABS: POTASSIUM 4.1 mmol/l (3.5-5.1)
[2019-01-30] VITALS (8 sets, daily range): BP systolic 90–109; BP diastolic 45–71
--- NOTE | 2019-01-30 00:05 | NUR ---
amb to br per request for bm. cathy well. denies distress.
--- NOTE | 2019-01-30 02:00 | NUR ---
resting quietly. no apparent distress. monitoring manager shows sinus rhythm hr 76.
--- NOTE | 2019-01-30 04:00 | NUR ---
eyes closed. no distress. calender wind up helper shows sinus rhythm hr 76.
--- NOTE | 2019-01-30 06:00 | NUR ---
eyes closed. no distress. monitoring coordinator shows sinus rhythm hr 70.
--- NOTE | 2019-01-30 07:20 | NUR ---
PT RESTING IN BED AWAKE. PT IS ALERT AND OIRIENTED X3. SHIFT ASSESSMENT COMPLETED AT THIS TIME. IV PATENT X2. CALL LIGHT IN REACH. WILL CONTINUE TO MONITOR.
[2019-01-30 07:26] LABS: IMMATURE GRANULOCYTES 1.1 % (0.0-5.0); MEAN CELL VOLUME 88.6 fL CALC (80.0-100.0); MEAN CORPUSCULAR HGB 29.5 pG CALC (26.0-32.0); MEAN CORPUSCULAR HGB CONC 33.3 g/L CALC (32.0-36.0); NEUT# 2.73 thou/uL (1.82-7.42); RED BLOOD COUNT 4.3 mill/uL (4.70-6.10); RED CELL DISTRI WIDTH 14.1 % (11.5-15.5)
[2019-01-30 07:30] LABS: HEMATOCRIT 38.1 % (39.0-50.0); HEMOGLOBIN 12.7 g/dl (14.0-18.0)
--- NOTE | 2019-01-30 07:40 | NUR ---
PT SET UP FOR AM MEAL
[2019-01-30 07:47] LABS: ALKALINE PHOSPHATASE 105 u/l (38-126); ANION GAP 14 (6-22 (CALC)); BILIRUBIN, TOTAL 0.4 mg/dL (0.0-1.4); BUN 10 mg/dL (9-20); BUN/CREATININE RATIO 19 (12-20 (CALC)); CARBON DIOXIDE 15 mmol/l (22-30); CHLORIDE 111 mmol/l (95-108); CREATININE 0.5 mg/dL (0.7-1.3); GFR > 60 ML/MIN (>=60 (CALC)); GFR FOR AFR.AMER. > 60 ML/MIN (>=60 (CALC)); POTASSIUM 4.2 mmol/l (3.5-5.1); SGOT/AST 33 u/l (17-59); SODIUM 136 mmol/l (137-146)
[2019-01-30 07:48] LABS: ALBUMIN 3.4 g/dL (3.2-5.0); TOTAL PROTEIN 6.7 g/dL (6.3-8.2)
--- NOTE | 2019-01-30 10:27 | NUR ---
PT RESTING IN BED WITH EYES CLOSED. RESP ARE EVEN AND UNLABORED. NO DISTRESS NOTED. CALL LIGHT IN REACH. WILL CONTINUE TO MONITOR.
--- NOTE | 2019-01-30 11:50 | NUR ---
PT SET UP FOR NOON MEAL
--- NOTE | 2019-01-30 13:15 | NUR ---
DR KRAUSE AND Sandra MABRY APRN AT BEDSIDE AT THIS TIME
--- NOTE | 2019-01-30 15:00 | NUR ---
PT RESTING IN BED WATCHING TV. RESP ARE EVEN AND UNLABORED. NO DISTRESS NOTED CALL LGIHT IN REACH. WILL CONTINUE TO MONITOR.
--- NOTE | 2019-01-30 16:15 | NUR ---
IV site discontinued X2, cath intact. No edema , no redness, voices no discomfort.
--- NOTE | 2019-01-30 16:25 | NUR ---
DISCHARGE INSTRUCTIONS REVIEWED WITH PATIENT. PATIENT VERBALIZED UNDERSTANDING.
--- NOTE | 2019-01-30 16:55 | NUR ---
Discharge instructions given. Patient verbalizes understanding of same. Discharged in stable condition via Ambulatory to Home with spouse. All belongings sent with pt.
== END 2019-01-30 16:55 | disposition home or self-care (01) | DRG 639 ==
LOC: ED 03:36 → ED-I 05:00 → ED 05:45 → ICU 05:46
PROVIDERS: Family Medicine; Internal Medicine; ADMIT Internal Medicine; ATTEND Internal Medicine
PROC: 3E02340 Introduction of Influenza Vaccine into Muscle, Percutaneous Approach (ICD-10-PCS; principal; 2019-01-29)
PROC: 3E0234Z Introduction of Serum, Toxoid and Vaccine into Muscle, Percutaneous Approach (ICD-10-PCS; 2019-01-30)
DX: E11.10 Type 2 diabetes mellitus with ketoacidosis without coma (principal); E11.621 Type 2 diabetes mellitus with foot ulcer; L97.529 Non-pressure chronic ulcer of other part of left foot with unspecified severity; L97.519 Non-pressure chronic ulcer of other part of right foot with unspecified severity; I10 Essential (primary) hypertension; E03.9 Hypothyroidism, unspecified; F31.9 Bipolar disorder, unspecified; T38.3X6A Underdosing of insulin and oral hypoglycemic [antidiabetic] drugs, initial encounter; T38.1X6A Underdosing of thyroid hormones and substitutes, initial encounter; E78.5 Hyperlipidemia, unspecified; Z23 Encounter for immunization; Z79.4 Long term (current) use of insulin; Z91.128 Patient's intentional underdosing of medication regimen for other reason
CPT/HCPCS: J1650

== ENCOUNTER 2019-07-10 11:52 | Observation (INO) | payer MEDICARE, OTHER ==
[~2019-07-10] VITALS: Ht 185.4 cm; Wt 87.0 kg
[2019-07-10] VITALS (11 sets, daily range): BP systolic 133–172; BP diastolic 68–98
--- NOTE | 2019-07-10 11:52 | NUR ---
PT TO ROOM VIA EMS; AOX3 AT THIS TIME
--- NOTE | 2019-07-10 12:22 | NUR ---
PT MEDICATED PER MAR FOR ABD PAIN RATING 10 OUT OF 10; MONITORING DEVICES IN PLACE; WILL CONTINUE TO MONITOR
[2019-07-10 12:49] LABS: IMMATURE GRANULOCYTES 0.7 % (0.0-5.0); MEAN CELL VOLUME 87.5 fL CALC (80.0-100.0); MEAN CORPUSCULAR HGB 28.5 pG CALC (26.0-32.0); MEAN CORPUSCULAR HGB CONC 32.5 g/dL CAL (32.0-36.0); NEUT# 13.12 thou/uL (1.82-7.42); RED BLOOD COUNT 5.69 mill/uL (4.70-6.10); RED CELL DISTRI WIDTH 13.9 % (11.5-15.5)
[2019-07-10 12:56] LABS: HEMATOCRIT 49.8 % (39.0-50.0); HEMOGLOBIN 16.2 g/dl (14.0-18.0)
--- NOTE | 2019-07-10 13:00 | NUR ---
PT C/O CONTINUED ABD PAIN W/O RELIEF FROM PAIN MEDICATIONS AT THIS TIME; VSS; WILL CONTINUE TO MONITOR
[2019-07-10 13:09] LABS: ALKALINE PHOSPHATASE 156 u/l (38-126); BUN 28 mg/dL (9-20); BUN/CREATININE RATIO 28 (12-20 (CALC)); GFR > 60 ML/MIN (>=60 (CALC)); GFR FOR AFR.AMER. > 60 ML/MIN (>=60 (CALC)); LIPASE 65 u/l (23-300); POTASSIUM 4.4 mmol/l (3.5-5.1); SGOT/AST 38 u/l (17-59); SODIUM 133 mmol/l (137-146)
[2019-07-10 13:12] LABS: ANION GAP 33 (6-22 (CALC)); CHLORIDE 95 mmol/l (95-108)
[2019-07-10 13:13] LABS: ALBUMIN 5.1 g/dL (3.2-5.0); CARBON DIOXIDE 9 mmol/l (22-30); TOTAL PROTEIN 9.5 g/dL (6.3-8.2)
--- NOTE | 2019-07-10 13:45 | NUR ---
PT MEDICATED FOR CONTINUED ABD PAIN RATING 10 OUT OF 10; MONITORING DEVICES IN PLACE; VSS; WILL CONTINUE TO MONITOR
--- NOTE | 2019-07-10 14:19 | NUR ---
INSULIN DRIP STARTED AT THIS TIME; PT C/O CONTINUED ABD PAIN UNRELIEVVED BY 4MG OF MORPHINE; MONITORING DEVICES IN PLACE; VSS; PT ADVISED OF CONTINUED WAIT TIME; WILL CONTINUE TO MONITOR
--- NOTE | 2019-07-10 15:03 | NUR ---
Admission Note Report Given to: CHINA SHERMAN Transported by: Wheelchair X Stretcher Transported with: X Nurse Transporter X Patent IV O2 X Bag Hanger Location: X ICU MS2
--- NOTE | 2019-07-10 15:08 | NUR ---
PT ARRIVED TO ICU BY STRETCHER WITH TELE, IVF, & INSULIN DRIP WEARING MASK. PT ABLE TO AMBULATE TO NEW BED. PT MOANING & ROCKING STATING HE WAS TOLD HE WOULD GET MORE PAIN MED SOON HE GOT UP TO ICU. PT EDUCATED ON MED SCHEDULE. ON CARDIAC/BP/O2. CALLBELL W/IN REACH. WALLET & PHONE/PUMP ASSEMBLER ON BEDSIDE TABLE.
--- NOTE | 2019-07-10 15:15 | NUR ---
PER REPORT, PT ATE A LOT OF SWEETS YESTERDAY (COOKIES, CAKES, ICE CREAM) AND DIDN'T TAKE HIS INSULIN; BUT TOOK 20units BEFORE EMS GOT TO HIS HOUSE TODAY. PER PATIENT, HE DOESNT KNOW WHY HE'S HERE BC NOBODY TOLD HIM. PT STATES THE ER TOLD HIM HE WOULD GET PAIN MEDICINE SOON HE GOT TO ICU. PT AWARE OF MED SCHEDULE. PT NOT COOPERATIVE WITH ADMISSION ASSESSMENT. PT DENIES MARIJUANA USE TODAY OR YESTERDAY BC HE'S "BEEN SO BUSY". ADMISSION COMPLETED PER PREVIOUS RESULTS. TODAY: SKIN WARM/DRY/PINK, EYES PERRLA @4. SPEECH CLEAR. UNKNOWN A&O- PT WILL NOT ANSWER QUESTIONS BC "THEY ARE STUPID." ABD SOFT/ ACTIVE BS/ TENDER TO HOVER OVER ENTIRE ABD. STRONG PULSES x4. NSR W/PVC ON TELE. PT REFUSES TO REMOVE SHORTS TO INSPECT SKIN. PT EDUCATED ON CALLBELL & BED CONTROLS & VS & FALL SAFETY.
--- NOTE | 2019-07-10 15:17 | NUR ---
CALLED ER TO CLARIFY WHEN INSULIN DRIP STARTED.
[2019-07-10 15:23] LABS: URINE BLOOD DIPSTICK NEGATIVE (NEGATIVE); URINE COLOR YELLOW; URINE GLUCOSE - DIPSTICK >=1000 mg/dL (NEGATIVE); URINE KETONE >=80 mg/dL (NEGATIVE); URINE LEUK ESTERASE NEGATIVE (NEGATIVE); URINE NITRITE - DIPSTICK NEGATIVE (Negative); URINE PROTEIN - DIPSTICK NEGATIVE (NEG-TRACE); URINE SPECIFIC GRAVITY 1.025; URINE UROBILINOGEN - DIPSTICK 0.2 E.U./dL (0.2)
--- NOTE | 2019-07-10 15:28 | NUR ---
PT REFUSED NONSKID SOCKS & SCD/GRISELDA HOSE.
--- NOTE | 2019-07-10 15:30 | NUR ---
PT TELLS THIS RN THAT I CAN "FUCK OFF". PT STATES I "MAKE HIS PAIN WORSE". PT MAKING FALSE ACCUSATIONS. PT HOPES I "GET A SWOLLEN FUCKEN PANCREASE". PT STATES HE CAN MAKES AN EVEN BIGGER/LOUDER SCENE IF HE DOESNT GET HIS PAIN MEDICINE. I AGAIN "AM A FUCKING BITCH". PT STATES "SECURITY BETTER BE A BIG BOY". SECURITY CALLED TOO ROOM. HOUSE SUP NOTIFIED.
[2019-07-10 15:33] LABS: URINE BILIRUBIN - DIPSTICK SMALL (NEGATIVE)
--- NOTE | 2019-07-10 15:36 | NUR ---
PT STARTED MUMBLING TO HIMSELF AFTER SECURITY LEFT ROOM. THEN STATES "IS HE GONE BECAUSE I'VE GOT A LOT MORE TO GO". YOSHI SAUCEDO CALLED.
--- NOTE | 2019-07-10 15:44 | NUR ---
SECURITY & 2 OFFICERS AT BEDSIDE WITH PT.
--- NOTE | 2019-07-10 15:45 | NUR ---
PER OTHER RN ON UNIT, SHE WAS CALLED TO PT ROOM #2 WHO SAID SHE HEARD A LOT OF SCREAMING THAT SOUNDED LIKE HER FIANCE RASHAUN ESQUIVEL. PT DISTURBING ALL PATIENTS ON ICU.
--- NOTE | 2019-07-10 16:02 | NUR ---
PT LAYING IN BED, QUIETLY; STILL. DR ANNA NOTIFIED OF PTS VERBALLY ABUSIVE & THREATENING BEHAVIOR. NO NEW ORDERS AT THIS TIME.
--- NOTE | 2019-07-10 16:37 | NUR ---
PT ON CALLBELL TO STATES HE IS VERY SORRY & ASHAMED OF HIS ACTIONS. PT KICKING FEET ON BED. PT STATES HE "DOESNT THINK THIS SCHEDULE IS GOING TO WORK", WANTS PAIN MEDS NOW. PT RE-EDUCATED ON ADMIX DX & MED SCHEDULE. PT AWARE NEXT PAIN MED IS DUE AT 1743. PT AWARE MD HAS ALREADY BEEN UPDATED. AFTER LEAVING ROOM, PT YELLING "HELP".
--- NOTE | 2019-07-10 17:04 | NUR ---
PT CONTINUES TO BE APOLOGETIC TOWARDS THIS RN. HE STATES HE "WILL NOT GET ME FIRED ANYMORE". PT STATING "THE NEXT MORPHINE ISNT GOING TO WORK BC THE LAST ONE DIDNT". THIS RN TRYING TO CONSOLE PT TO RELAX. -
--- NOTE | 2019-07-10 17:09 | NUR ---
PT GIVEN AN EMESIS BAG BC C/O NAUSEA. PTS RFA IV REINFORCED WIT HCOBAN.
--- NOTE | 2019-07-10 17:24 | NUR ---
PT VOMITING IN EMESIS BAG. FAXED ORDER FOR ZOFRAN FROM DR ANNA TO [facility].
--- NOTE | 2019-07-10 18:11 | NUR ---
PT SITTING UP QUIETLY IN BED. CALLBELL W/IN REACH. WILL CONTINUE TO MONITOR.
--- NOTE | 2019-07-10 18:33 | NUR ---
PT SLEEPING IN BED, ON BACK. APPEARS RESTFUL. NO MOVEMENT. HR DROPPED TO 50 BPM AFTER MORPHINE. WILL CONTINUE TO MONITOR.
--- NOTE | 2019-07-10 18:45 | NUR ---
RECEIVED REPORT FROM WHIT ATKINSON.
--- NOTE | 2019-07-10 19:00 | NUR ---
ACCU CHECK 217. NO CHANGE IN INSULIN GTT. RATE AT 3 UNITS/HR.
--- NOTE | 2019-07-10 20:00 | NUR ---
PT AWAKE AND ALERT. PT RELATED ABD PAIN STARTING TO COME BACK. INFORMED OF PAIN MED SCHEDULE. INSULIN GTT AT 3UNITS/HR. CALL ANDERSON IN REACH.
[2019-07-10 20:43] LABS: BUN 28 mg/dL (9-20); BUN/CREATININE RATIO 39 (12-20 (CALC)); CHLORIDE 102 mmol/l (95-108); CREATININE 0.7 mg/dL (0.7-1.3); GFR > 60 ML/MIN (>=60 (CALC)); GFR FOR AFR.AMER. > 60 ML/MIN (>=60 (CALC)); POTASSIUM 4.2 mmol/l (3.5-5.1); SODIUM 136 mmol/l (137-146)
[2019-07-10 20:44] LABS: ANION GAP 17 (6-22 (CALC)); CARBON DIOXIDE 21 mmol/l (22-30)
--- NOTE | 2019-07-10 21:10 | NUR ---
DR ANNA CALLED, ORDERS GIVEN.
--- NOTE | 2019-07-10 21:40 | NUR ---
PT C/O 11/17 ABD PAIN, REQUESTED PAIN MED.
--- NOTE | 2019-07-10 21:50 | NUR ---
PAIN MED GIVEN PER MAR.
--- NOTE | 2019-07-10 22:28 | NUR ---
WAITING FOR LEVEMIR ORDER TO BE PROCESSED, CARDINAL CALLED. ORDER FAXED TWICE.
--- NOTE | 2019-07-10 23:00 | NUR ---
DINNER WARMED UP FOR PT, ENCOURAGED TO EAT.
[2019-07-11] VITALS (22 sets, daily range): BP systolic 85–157; BP diastolic 45–88
--- NOTE | 2019-07-11 | NUR ---
PT C/O ABD PAIN AND NAUSEA. MEDICATED PER MAY. CALL ANDERSON IN REACH.
--- NOTE | 2019-07-11 00:28 | NUR ---
INSULIN GTT STOPPED. PER MD ORDERS.
--- NOTE | 2019-07-11 00:34 | NUR ---
PT SAT UP IN BED AND PULLED IV OUT.
--- NOTE | 2019-07-11 01:48 | NUR ---
PT MEDICATED FOR PAIN PER MAR.
--- NOTE | 2019-07-11 01:53 | NUR ---
PT VOMITED. EMESIS BAG PROVIDED.
--- NOTE | 2019-07-11 02:00 | NUR ---
PT RELATED HE FELT BETTER AFTER VOMITING. PT ATE SMALL AMOUNT OF MEAL. CALL ANDERSON IN REACH.
--- NOTE | 2019-07-11 03:20 | NUR ---
DR ANNA CALLED FOR PAIN MED ORDERS. PT SCREAMING OUT IN PAIN. ORDERS RECEIVED. INFORMED OF ACCU CHECK 379.
--- NOTE | 2019-07-11 04:00 | NUR ---
PT WITH EYES CLOSED, RESPONDS TO VERBAL STIMULI. NO DISTRESS NOTED. CALL ANDERSON IN REACH.
--- NOTE | 2019-07-11 04:45 | NUR ---
LAB AT BEDSIDE FOR AM DRAW.
[2019-07-11 05:09] LABS: HEMOGLOBIN 14.9 g/dl (14.0-18.0); IMMATURE GRANULOCYTES 0.7 % (0.0-5.0); MEAN CELL VOLUME 87.5 fL CALC (80.0-100.0); MEAN CORPUSCULAR HGB 28.3 pG CALC (26.0-32.0); MEAN CORPUSCULAR HGB CONC 32.4 g/dL CAL (32.0-36.0); NEUT# 12.45 thou/uL (1.82-7.42); RED BLOOD COUNT 5.26 mill/uL (4.70-6.10); RED CELL DISTRI WIDTH 14.1 % (11.5-15.5)
[2019-07-11 05:36] LABS: AMYLASE 84 u/l (30-110); BUN 18 mg/dL (9-20); BUN/CREATININE RATIO 23 (12-20 (CALC)); CHLORIDE 103 mmol/l (95-108); CREATININE 0.8 mg/dL (0.7-1.3); GFR > 60 ML/MIN (>=60 (CALC)); GFR FOR AFR.AMER. > 60 ML/MIN (>=60 (CALC)); LIPASE 918 u/l (23-300); SODIUM 135 mmol/l (137-146)
[2019-07-11 05:38] LABS: POTASSIUM 5.1 mmol/l (3.5-5.1)
[2019-07-11 05:40] LABS: ANION GAP 28 (6-22 (CALC)); CARBON DIOXIDE 9 mmol/l (22-30); MAGNESIUM 1.6 mg/dL (1.6-2.3)
--- NOTE | 2019-07-11 06:00 | NUR ---
PT WITH EYES CLOSED, LYING ON L SIDE. NO DISTRESS NOTED. CALL ANDERSON IN REACH.
--- NOTE | 2019-07-11 07:22 | NUR ---
NOTIFIED DR ANNA OF "CRITICALLY HIGH" ACCUCHECK. RECVD NEW ORDERS TO PLACE PT BACK ON INSULIN DRIP, BMP Q6H, DKA PROTOCOL. PT REQUESTED MORE PAIN MEDICINE.
--- NOTE | 2019-07-11 07:57 | NUR ---
LAB @BEDSIDE FOR DRAW.
--- NOTE | 2019-07-11 08:16 | NUR ---
PT LAYING IN BED, ON SIDE, CALM, ASKING FOR PAIN MEDICINE.
--- NOTE | 2019-07-11 08:55 | NUR ---
DR ANNA @BEDSIDE WITH PT, ASSESSING & DISCUSSING POC
--- NOTE | 2019-07-11 09:30 | NUR ---
PT REFUSED NONPHARMACEUTICAL OPTIONS TO HELP PAIN.
--- NOTE | 2019-07-11 10:03 | NUR ---
PT SLEEPING IN BED, QUIETLY, CALMLY. TITRATED IV INSULIN TO 4units
--- NOTE | 2019-07-11 10:41 | NUR ---
LAB @BEDSIDE FOR DRAW
--- NOTE | 2019-07-11 11:52 | NUR ---
PT SLEEPING ON RIGHT SIDE. NO S/S OF DISTRESS. WILL CONTINUE TO MONITOR.
[2019-07-11 13:03] LABS: BUN 17 mg/dL (9-20); BUN/CREATININE RATIO 21 (12-20 (CALC)); CHLORIDE 109 mmol/l (95-108); CREATININE 0.8 mg/dL (0.7-1.3); GFR > 60 ML/MIN (>=60 (CALC)); GFR FOR AFR.AMER. > 60 ML/MIN (>=60 (CALC)); SODIUM 137 mmol/l (137-146)
[2019-07-11 13:05] LABS: ANION GAP 29 (6-22 (CALC)); CARBON DIOXIDE < 5 mmol/l (22-30); POTASSIUM 5.8 mmol/l (3.5-5.1)
--- NOTE | 2019-07-11 13:06 | NUR ---
DR ANNA NOTIFIED OF CRITICAL CO2 LAB RESULT OF <5.
--- NOTE | 2019-07-11 13:45 | NUR ---
PT SLEEPING UPON ENTERING ROOM, SINCE AGREEMENT WITH PT, THIS RN WOKE HIM UP & ASKED HIM IF HE NEEDED PAIN MEDICATION; PT STATES YES. PT MEDICATED FOR PAIN & WENT BACK TO SLEEP. NO S/S OF DISTRESS. CALLBELL W/IN REACH. WILL CONTINUE TO MONITOR.
--- NOTE | 2019-07-11 15:24 | NUR ---
PT ALTERNATING BETWEENING SITTING UP IN BED AND LAYING IN BED. NO S/S OF DISTRESS AT THIS TIME. VSS. CALLBELL IN LAP. WILL CONTINUE TO MONITOR.
--- NOTE | 2019-07-11 15:44 | NUR ---
PT USED CALLBELL TO AGAIN APOLOGIZE FOR HIS BEHAVIOR YESTERDAY AND THANK THIS RN FOR ALL MY CARE. PT STATES HE "THINKS HIS PAIN IS FINALLY GONE".
--- NOTE | 2019-07-11 17:01 | NUR ---
PT GIVEN WATER & ICE, PER PTS REQUEST. PT ASKED TO NOTIFY STAFF IF NAUSEA RETURNS. PT C/O 05/17 PAIN, REFUSES NEXT PAIN MED; STATES HE "CAN HANDLE THIS PAIN". PT WILL NOTIFY STAFF WHEN HE NEEDS PAIN RELEIF.
--- NOTE | 2019-07-11 18:00 | NUR ---
IV INSULIN DRIP TITRATED DOWN TO 2units D/T ACCUCHECK OF 192. PT STATES HE DOESNT NEED PAIN MEDS YET. PT DENIES N/V WITH WATER & ICE.
--- NOTE | 2019-07-11 18:45 | NUR ---
RECEIVED REPORT FROM WHIT ATKINSON.
--- NOTE | 2019-07-11 19:00 | NUR ---
ACCU CHECK 202, INSULIN GTT TO 3 UNITS/HR. PT C/O ABD PAIN 11/17, REQUESTED PAIN MED.
--- NOTE | 2019-07-11 19:15 | NUR ---
MEDICATED PER MAR FOR PAIN.
[2019-07-11 19:38] LABS: ANION GAP 16 (6-22 (CALC)); BUN 14 mg/dL (9-20); BUN/CREATININE RATIO 23 (12-20 (CALC)); CARBON DIOXIDE 15 mmol/l (22-30); CHLORIDE 110 mmol/l (95-108); CREATININE 0.6 mg/dL (0.7-1.3); GFR > 60 ML/MIN (>=60 (CALC)); GFR FOR AFR.AMER. > 60 ML/MIN (>=60 (CALC)); POTASSIUM 4.5 mmol/l (3.5-5.1); SODIUM 136 mmol/l (137-146)
--- NOTE | 2019-07-11 20:00 | NUR ---
PT AWAKE AND ALERT, SITTING UP IN BED TALKING ON PHONE. PT RELATED PAIN DECREASED TO 3/10. NO NAUSEA AT THIS TIME. CALL ANDERSON IN REACH.
--- NOTE | 2019-07-11 21:03 | NUR ---
ACCU CHECK 185, DECREASED INSULIN GTT TO 2 UNITS/HR
--- NOTE | 2019-07-11 22:00 | NUR ---
PT AWAKE AND ALERT, PLAYING VIDEO GAME. CALL ANDERSON IN REACH.
--- NOTE | 2019-07-11 22:01 | NUR ---
ALOK, ANGLE FURNACEMAN AT BEDSIDE.
--- NOTE | 2019-07-11 22:12 | NUR ---
ACCUU CHECK 197, INSULIN GTT REMAINS AT 2 UNITS/HR.
--- NOTE | 2019-07-11 23:05 | NUR ---
ACCU CHECK 180, INSULIN GTT AT 2 UNITS/HR
[2019-07-12] VITALS (10 sets, daily range): BP systolic 110–163; BP diastolic 58–86
--- NOTE | 2019-07-12 00:10 | NUR ---
BLOOD GLUCOSE 198, INSULIN GTT AT 2 UNITS/HR.
--- NOTE | 2019-07-12 00:15 | NUR ---
PT C/O 11/17 RUQ ABD PAIN, REQUESTED PAIN MED.
[2019-07-12 00:31] LABS: BUN 13 mg/dL (9-20); BUN/CREATININE RATIO 21 (12-20 (CALC)); CHLORIDE 111 mmol/l (95-108); CREATININE 0.6 mg/dL (0.7-1.3); GFR > 60 ML/MIN (>=60 (CALC)); GFR FOR AFR.AMER. > 60 ML/MIN (>=60 (CALC)); SODIUM 136 mmol/l (137-146)
[2019-07-12 00:36] LABS: ANION GAP 10 (6-22 (CALC)); CARBON DIOXIDE 19 mmol/l (22-30)
--- NOTE | 2019-07-12 00:36 | NUR ---
MEDICATED PER MAR.
--- NOTE | 2019-07-12 01:15 | NUR ---
ACCU CHECK 191 INSULIN GTT AT 2 UNITS/HR
--- NOTE | 2019-07-12 02:00 | NUR ---
PT WITH EYES CLOSED, RESPONDS TO VERBAL STIMULI. CALL ANDERSON IN REACH.
--- NOTE | 2019-07-12 03:05 | NUR ---
ACCU CHECK 175 INSULIN GTT AT 2 UNITS PER HR.
--- NOTE | 2019-07-12 04:00 | NUR ---
PT WITH EYES CLOSED, RESPONDED TO VERBAL STIMULI. NO DISTRESS NOTED. CALL ANDERSON IN REACH.
--- NOTE | 2019-07-12 04:10 | NUR ---
ACU CHECK 170 INSULIN GTT AT 2 UNITS/HR
[2019-07-12 05:14] LABS: IMMATURE GRANULOCYTES 0.6 % (0.0-5.0); MEAN CELL VOLUME 88.1 fL CALC (80.0-100.0); MEAN CORPUSCULAR HGB 28.8 pG CALC (26.0-32.0); MEAN CORPUSCULAR HGB CONC 32.6 g/dL CAL (32.0-36.0); NEUT# 4.95 thou/uL (1.82-7.42); RED BLOOD COUNT 4.38 mill/uL (4.70-6.10); RED CELL DISTRI WIDTH 14.3 % (11.5-15.5)
[2019-07-12 05:19] LABS: HEMATOCRIT 38.6 % (39.0-50.0); HEMOGLOBIN 12.6 g/dl (14.0-18.0)
[2019-07-12 05:45] LABS: MAGNESIUM 1.7 mg/dL (1.6-2.3)
--- NOTE | 2019-07-12 06:15 | NUR ---
PT LYING IN BED ON L SIDE. ACCUCHECK 229 INSULIN GTT AT 3 UNITS/HR. CALL ANDERSON IN REACH.
--- NOTE | 2019-07-12 06:52 | NUR ---
REPORT TO LAKESHIA ATKINSON
--- NOTE | 2019-07-12 07:15 | NUR ---
REPORT RECEIVED [facility] NIGHT RN. PT RESTING IN BED. NO DISTRESS NOTED. NO SOB NOTED. NO PAIN AT THIS TIME. PT ON INSULIN GTT 3 UNITS. BG 204, PER PROTOCAL NO TITRATION NEED. PT NPO. VOIDING VIA URINAL. WILL CONTINUE TO MONITOR.
[2019-07-12 07:24] LABS: ALKALINE PHOSPHATASE 90 u/l (38-126); ANION GAP 11 (6-22 (CALC)); BUN 12 mg/dL (9-20); BUN/CREATININE RATIO 21 (12-20 (CALC)); CARBON DIOXIDE 19 mmol/l (22-30); CHLORIDE 111 mmol/l (95-108); CREATININE 0.6 mg/dL (0.7-1.3); GFR > 60 ML/MIN (>=60 (CALC)); GFR FOR AFR.AMER. > 60 ML/MIN (>=60 (CALC)); SGOT/AST 41 u/l (17-59); SODIUM 136 mmol/l (137-146)
[2019-07-12 07:27] LABS: ALBUMIN 3.2 g/dL (3.2-5.0); BILIRUBIN, TOTAL 0.4 mg/dL (0.0-1.4); TOTAL PROTEIN 6.3 g/dL (6.3-8.2)
--- NOTE | 2019-07-12 09:30 | NUR ---
DR. RUSS AT BEDSIDE TO ASSESS PT. PT CAN BE DISCHARGED AFTER LUNCH.
--- NOTE | 2019-07-12 10:26 | NUR ---
PT RESTING IN BED. NO DISTRESS NOTED. DENIES PAIN AT THIS TIME. BREAKFAST GIVEN. WILL CONTINUE TO MONITOR.
--- NOTE | 2019-07-12 11:48 | NUR ---
PT STATING HE IS STILL IN PAIN AND NOT READY TO GO HOME AT THIS TIME. DR. RUSS NOTIFIED. DISCHARGE ON HOLD. PT TO BE TRANSFERRED TO [facility].
--- NOTE | 2019-07-12 12:30 | NUR ---
PT RESTING IN BED. NO DISTRESS NOTED. PT STATES HIS PAIN IS GETTING BETTER AFTER PAIN MED. PT AMBULATED TO BATHROOM AND HAS BM. WILL CONTINUE TO MONITOR.
--- NOTE | 2019-07-12 12:49 | NUR ---
REPORT GIVEN TO BRUNA
--- NOTE | 2019-07-12 12:50 | NUR ---
PER DR. RUSS IF PATIENT IS EATING AND DRINKING DISCONTINUE IV FLUIDS.
--- NOTE | 2019-07-12 13:10 | NUR ---
PT ARRIVED TO MED/SURG ROOM 273 IN STABLE CONDITION VIA WHEELCHAIR ACCOMPANIED BY CHINA ASHER;PT AMBULATED WITH A STEADY GAIT TO BEDSIDE,VS OBTAINED BY ANUJ GARNER;PT A&O X3,ORIENTED TO ROOM AND CALL LIGHT SYSTEM;PT REPORTS MINIMAL ABDOMINAL PAIN AT THIS TIME,PAIN SCALE AND REPORTING EDUCATED;ASSESSMENT COMPLETED;RESPIRATIONS EVEN AND UNLABORED ON RA,CLEAR LUNG SOUNDS;ABDOMEN SOFT ON PALPATION AND ACTIVE IN ALL 4 QUADRANTS;STRONG PEDAL PULSES;SKIN INTACT;#20G TO LAC FLUSHED AND PATENT,SITE APPEARS HEALTHY;PT DENIES ANY ADDITIONAL NEEDS AT AT THIS TIME;ENCOURAGED TO CALL FOR ASSISTANCE IF NEEDED;CALL LIGHT IN REACH;WILL CONTINUE TO MONITOR
--- NOTE | 2019-07-12 13:15 | NUR ---
PT TRANSFERRED TO [facility]. PT IN STABLE CONDITION. PT TRANSFERRED IN WHEELCHAIR. BELONGINGS AND MEDICAL CHART SENT WITH PATIENT. PT AMBULATED FROM WHEELCHAIR TO BATHROOM. BEDSIDE REPORT GIVEN TO BRUNA
--- NOTE | 2019-07-12 15:35 | NUR ---
PT APPEARS TO BE SLEEPING IN SUPINE POSITION;NO S/S OF DISTRESS NOTED;RESPIRATIONS EVEN AND UNLABORED ON RA;IV SITE PATENT;ASSESSMENT REMAINS UNCHANGED AT THIS TIME;CALL LIGHT IN REACH;WILL CONTINUE TO MONITOR
--- NOTE | 2019-07-12 16:49 | NUR ---
PT REQUESTS TO BE DISCHARGED HOME: NOTIFIED AND ORDER TO D/C HOME OBTAINED AT THIS TIME.
--- NOTE | 2019-07-12 17:02 | NUR ---
ALL DISCHARGE INSTRUCTIONS PROVIDED AT THIS TIME;PT INSTRUCTED TO MONITOR BLOOD SUGAR AND TAKE INSULIN PRESCRIBED;PT DENIES ANY ADDITIONAL QUESTIONS OR NEEDS;IV SITE REMOVED WITH CATHETER INTACT;PT REFUSES WHEELCHAIR FOR D/C.FAMILY TO TRANSPORT PT HOME.
--- NOTE | 2019-07-12 17:05 | NUR ---
Discharge instructions given. Patient verbalizes understanding of same. Discharged in stable condition via AMBULATORY to with family. All belongings sent with pt. PT AMBULATED TO [facility] IN STABLE CONDITION ACCOMPANIED BY ANUJ GARNER FOR D/C HOME.FAMILY TO TRANSPORT PT HOME.
== END 2019-07-12 17:05 | disposition home or self-care (01) ==
LOC: ED 11:52 → ED-I 13:45 → ED 13:57 → ED-I 13:58 → ICU 13:58 → MS2 07-12 11:50
PROVIDERS: Family Medicine; ADMIT Internal Medicine; ATTEND Internal Medicine
DX: E10.10 Type 1 diabetes mellitus with ketoacidosis without coma (principal); K85.90 Acute pancreatitis without necrosis or infection, unspecified; K86.1 Other chronic pancreatitis; I10 Essential (primary) hypertension; E10.42 Type 1 diabetes mellitus with diabetic polyneuropathy; K75.81 Nonalcoholic steatohepatitis (NASH); E03.9 Hypothyroidism, unspecified; Z87.891 Personal history of nicotine dependence; Z79.4 Long term (current) use of insulin
CPT/HCPCS: G0378; J1650

== ENCOUNTER 2019-11-16 01:56 | Observation (INO) | payer MEDICARE, OTHER ==
[~2019-11-16] VITALS: Ht 185.4 cm; Wt 90.0 kg
--- NOTE | 2019-11-16 01:56 | NUR ---
PATIENT TO ROOM 13 VIA EMS STRETCHER. UNDRESSED INTO A GOWN. TRIAGE COMPLETED AT BEDSIDE.
--- NOTE | 2019-11-16 02:25 | NUR ---
N/V 100 CC GREEN LIQUID. ADVISED.
[2019-11-16 02:35] LABS: HEMATOCRIT 40.7 % (39.0-50.0); HEMOGLOBIN 13.2 g/dl (14.0-18.0); MEAN CORPUSCULAR HGB 27.9 pG CALC (26.0-32.0); MEAN CORPUSCULAR HGB CONC 32.4 g/dL CAL (32.0-36.0); NEUT# 12.48 thou/uL (1.82-7.42); RED BLOOD COUNT 4.73 mill/uL (4.70-6.10)
[2019-11-16 02:56] LABS: IMMATURE GRANULOCYTES 0.7 % (0.0-5.0)
[2019-11-16 02:57] LABS: ALKALINE PHOSPHATASE 96 u/l (38-126); AMYLASE 34 u/l (30-110); ANION GAP 17 (6-22 (CALC)); BUN 13 mg/dL (9-20); BUN/CREATININE RATIO 23 (12-20 (CALC)); CARBON DIOXIDE 17 mmol/l (22-30); CHLORIDE 105 mmol/l (95-108); CREATININE 0.6 mg/dL (0.7-1.3); GFR > 60 ML/MIN (>=60 (CALC)); GFR FOR AFR.AMER. > 60 ML/MIN (>=60 (CALC)); LIPASE 13 u/l (23-300); POTASSIUM 4.6 mmol/l (3.5-5.1); SGOT/AST 42 u/l (17-59); SODIUM 134 mmol/l (137-146); TOTAL PROTEIN 7.1 g/dL (6.3-8.2)
[2019-11-16 02:59] LABS: BILIRUBIN, TOTAL 0.6 mg/dL (0.0-1.4)
--- NOTE | 2019-11-16 03:30 | NUR ---
RETURNED FROM XRAY URINE SPECIMEN OBTAINED. REMAINS PAIN FREE AT PRESENT.
[2019-11-16 03:52] LABS: URINE BILIRUBIN - DIPSTICK NEGATIVE (NEGATIVE); URINE BLOOD DIPSTICK NEGATIVE (NEGATIVE); URINE COLOR YELLOW; URINE GLUCOSE - DIPSTICK 100 mg/dL (NEGATIVE); URINE KETONE 15 mg/dL (NEGATIVE); URINE LEUK ESTERASE NEGATIVE (NEGATIVE); URINE NITRITE - DIPSTICK NEGATIVE (Negative); URINE PH 5.5 (4.5-8.0); URINE PROTEIN - DIPSTICK TRACE mg/dL (NEG-TRACE); URINE SPECIFIC GRAVITY 1.025; URINE UROBILINOGEN - DIPSTICK 0.2 E.U./dL (0.2)
--- NOTE | 2019-11-16 04:20 | NUR ---
RESTING QUIETLY. NAD.
--- NOTE | 2019-11-16 04:55 | NUR ---
RESTING QUIETLY. NAD. IV INFUSING WELL.
--- NOTE | 2019-11-16 05:43 | NUR ---
REMAINS PAIN FREE.
--- NOTE | 2019-11-16 07:04 | NUR ---
PT RESTING RT SIDE LYING IN NO DISTRESS. PT REMAINS PAIN FREE AT THIS TIME. AFEBRILE NO NAUSEA. UPDATED ON ADMIT AND AGREEABLE. BED IN LOW POSITION, CALL LIGHT WITHIN REACH
--- NOTE | 2019-11-16 07:05 | NUR ---
Admission Note Report Given to: CHINA ACEVES Transported by: X Wheelchair Stretcher Transported with: X Nurse Transporter X Patent IV O2 Assistant Merchandiser Location: ICU X MS2
--- NOTE | 2019-11-16 07:25 | NUR ---
PT ARRIVED TO UNIT VIA WHEELCHAIR WITH ER STAFF; ALERT AND ORIENTED. C/O PAIN TO RIGHT GREAT TOE. RESPIRATIONS EVEN AND UNLABORED ON ROOM AIR. DENIES SOB OR NAUSEA. AMBULATED TO BED WITH UNSTEADY GAIT AND RESTING ON LEFT SIDE. OREINTED TO ROOM AND CALL LIGHT SYSTEM. PLAN OF CARE DISCUSSED. PT ENCOURAGED TO VERBALIZE CONCERNS. STATES UNDERSTANDING. SAFETY MEASURES IN PLACE. CALL LIGHT WITHIN REACH.
--- NOTE | 2019-11-16 07:25 | NUR ---
PT TRANSPORTED TO [place] VIA WC IN NO DISTRESS WITH NO COMPLAINTS.
[2019-11-16 07:30] VITALS: BP 143/84
--- NOTE | 2019-11-16 08:20 | NUR ---
DRESSINGS TO BILATERAL GREAT TOES; PT REPORTS THAT HE HAS BEEN USING HYPERBARIC CHAMBER FOR DIABETIC FOOD ULCERS, BUT HAS HAD TO CANCEL HIS APPOINTMENTS DUE TO "ISSUES AT HOME." PT HAS BEEN DRESSING HIS WOUNDS HIMSELF WITH PAPER TOWELS WRAPPED IN TAPE. PT STATES, "THEY SAID I SHOULDN'T USE THIS, BUT IT'S ALL I HAD." LEFT GREAT TOE APPEARS HEALED WITH CALLUSED SKIN; RIGHT GREAT TOE WITH CALLUSED SKIN AND BLOODY, PURULENT DRAINAGE FROM SMALL HOLE IN CENTER. WOULD CULTURE OBTAINED AND SENT TO LAB. NEW DRESSING APPLIED WITH TELFA AND KERLEX.
--- NOTE | 2019-11-16 08:39 | NUR ---
OFF UNIT VIA WHEELCHAIR TO NUCLEAR MED FOR GALLBLADDER SCAN.
--- NOTE | 2019-11-16 10:30 | NUR ---
RETURNED TO UNIT VIA WHEELCHAIR IN STABLE CONDITION. PT REMAINS NPO DIET FOR NOW UNTIL RESULTS FOR HIDA SCAN ARE RECEIVED BY DR. TOLENTINO.
--- NOTE | 2019-11-16 10:40 | NUR ---
DR. TOLENTINO AT BEDSIDE TO DISCUSS HIDA SCAN RESULTS AND PLAN FOR MRCP. PT C/O 11/17 ABDOMINAL PAIN AND NAUSEA.
--- NOTE | 2019-11-16 10:57 | NUR ---
DILAUDID AND ZOFRAN GIVEN FOR PAIN AND NAUSEA; EMESIS BAG PROVIDED. IV FLUIDS INITIATED AND MAINTAINING AT 100 ML/HR; EMS IV SITE TO LFA APPEARS HEALTHY AND FLUSHES. PT RESTING ON RIGHT SIDE WITH LEGS CURLED UP AND ARMS TUCKED.
[2019-11-16] MEDS ORDERED: NEURONTIN300 MG PO (12:18)
[2019-11-16] MEDS ORDERED: SERTRALINE HCL100 MG PO (12:19)
[2019-11-16] MEDS ORDERED: FOLIC ACID1 MG PO (12:19)
[2019-11-16] MEDS ORDERED: LEVEMIR100 UNIT/M SC (12:22)
[2019-11-16] MEDS ORDERED: CREON24000 UNT PO (12:25)
[2019-11-16] MEDS ORDERED: GABAPENTIN300 M2 PO (12:25)
--- NOTE | 2019-11-16 13:33 | NUR ---
OFF UNIT VIA WHEELCHAIR WITH INDOOR PLANT TECHNICIAN.
--- NOTE | 2019-11-16 14:27 | NUR ---
BACK TO ROOM AND STATES THAT HE DOES NOT FEEL GOOD; LEANING OVER HOLDING HIS ABDOMEN. ASSISTED INTO BED; IV FLUIDS RECONNECTED. DILAUDID GIVEN ALONG WITH NEW ORDER FOR PROTONIX.
[2019-11-16 15:23] VITALS: BP 151/89
[2019-11-16 19:00] VITALS: BP 144/90
--- NOTE | 2019-11-16 19:00 | NUR ---
RECEIVE REPORT FROM NURSE KETAN, PATIENT CURTRENTLY WITH SIGNIFICANT OTHER BREATHING UNLABORED, PAIN TOLERABLE, CALL LIGHT AT REACH.
--- NOTE | 2019-11-16 20:40 | NUR ---
CALLED DR. ANNA MADE AWARE OF BS 392, WITH ORDERS TO GIVE THE SCHEDULED LEVEMIR.
--- NOTE | 2019-11-16 21:00 | NUR ---
PATIENT ALERT ORIENTED, ABLE TO MAKE NEEDS KNONW, NOTED TO WITH ABDOMINAL PAIN PS 6/10, WILL MEDICATE, ACTIVE BOWEL SOUNDS ON ALL FOUR QUADRANTS, DDENIES NAUSEA OR VOMITING AT THIS TIME, CALL LIGHT AT REACH.
--- NOTE | 2019-11-16 23:49 | NUR ---
PATIENT RESTING IN BED, WATCHING TV, PATIENT REINFORCED ON NPO STAUS, CALL LIGHT AT REACH.
[2019-11-17 04:10] VITALS: BP 148/94
[2019-11-17 05:25] LABS: HEMATOCRIT 37.3 % (39.0-50.0); IMMATURE GRANULOCYTES 0.8 % (0.0-5.0); MEAN CORPUSCULAR HGB 28.3 pG CALC (26.0-32.0); MEAN CORPUSCULAR HGB CONC 32.2 g/dL CAL (32.0-36.0); NEUT# 3.54 thou/uL (1.82-7.42); RED BLOOD COUNT 4.24 mill/uL (4.70-6.10); RED CELL DISTRI WIDTH 13.9 % (11.5-15.5)
[2019-11-17 05:45] LABS: ALBUMIN 3.4 g/dL (3.2-5.0); ALKALINE PHOSPHATASE 101 u/l (38-126); BUN 7 mg/dL (9-20); BUN/CREATININE RATIO 14 (12-20 (CALC)); CHLORIDE 101 mmol/l (95-108); CREATININE 0.5 mg/dL (0.7-1.3); GFR > 60 ML/MIN (>=60 (CALC)); GFR FOR AFR.AMER. > 60 ML/MIN (>=60 (CALC)); POTASSIUM 4.2 mmol/l (3.5-5.1); SGOT/AST 55 u/l (17-59); SODIUM 133 mmol/l (137-146); TOTAL PROTEIN 6.2 g/dL (6.3-8.2)
--- NOTE | 2019-11-17 05:48 | NUR ---
PATIENT C/O ABDOMINAL PAIN PS 8/10 PRN DILAUDID GIVEN AT THIS TIME, PATIENT CURRENTLY SITTING IN BED, RESPIRATION UNLABORED, CALL LIGHT AT REACH.
[2019-11-17 05:50] LABS: ANION GAP 14 (6-22 (CALC)); BILIRUBIN, TOTAL 0.3 mg/dL (0.0-1.4); CARBON DIOXIDE 22 mmol/l (22-30)
[2019-11-17 07:37] VITALS: BP 116/68
--- NOTE | 2019-11-17 07:37 | NUR ---
REPORT RECEIVED FROM CHINA CARROLL. PT RESTING IN BED ON RIGHT SIDE WITH EYES CLOSED; AWAKENS SPONTANEOUSLY. ALERT AND ORIENTED. C/O MILD 2/10 ABDOMINAL PAIN. RESPIRATIONS EVEN AND UNLABORED ON ROOM AIR. IV FLUIDS INFUSING WITHOUT DIFFICULTY; EMS SITE TO [facility] APPEARS HEALTHY. DR. TOLENTINO NOTITFED OF MRCP RESULTS; VERBAL ORDER TO TRANSFER PT TO [facility]. PLAN OF CARE REVIEWED INCLUDING PLAN FOR TRANSFER. PT ENCOURAGED TO VERBALIZE CONCERNS. STATES UNDERSTANDING. SAFETY MEASURES IN PLACE. CALL LIGHT WITHIN REACH.
--- NOTE | 2019-11-17 07:55 | NUR ---
PRELIM BLOOD CX SHOWS GPCOCCI IN 3/4 BOTTLES. WOUND CX SHOWS GRAM NEG RODS. RESULTS CALLED TO JOVITA, STARTED ON ZOSYN AND VANCO
[2019-11-17 08:59] VITALS: BP 148/94
--- NOTE | 2019-11-17 10:36 | NUR ---
DILAUDID GIVEN FOR 8/10 ABDOMINAL PAIN. VANCO INFUSING AT THIS TIME.
--- NOTE | 2019-11-17 12:18 | NUR ---
SPOKE WITH COLLIN AT [facility]. PER COLLIN PT WILL BE GOING TO [address] [place] [address] Rober ACEVES RN AND MALA,CASE MANAGMENT NOTIFIED.
--- NOTE | 2019-11-17 13:21 | NUR ---
PREMEDICATED FOR TRANSPORT WITH DILAUDID AND ZOFRAN. DRESSING CHANGED TO RIGHT GREAT TOE. MOTHER AT BEDSIDE.
--- NOTE | 2019-11-17 13:31 | NUR ---
[facility] ON UNIT.
--- NOTE | 2019-11-17 13:32 | NUR ---
DR. TOLENTINO AT BEDSIDE IMMEDIATELY PRIOR TO TRANSPORT TO DISCUSS POC WITH PT AND MOTHER.
--- NOTE | 2019-11-17 13:34 | NUR ---
Discharge instructions given. Patient verbalizes understanding of same. Discharged in stable condition via [facility] to [facility]. All belongings sent with pt.
--- NOTE | 2019-11-17 13:54 | NUR ---
PT PRESENTS WITH DIABETIC FOOT INFX AND PRELIMINARY BLOOD CX RESULTS SHOW GRAM POSITIVE COCCI. VANCOMYCIN ORDERED FOR PHARMACY TO DOSE. START VANCOMYCIN 1G IV Q8H. CHECK TROUGH ON 11/17 @ 0730. GOAL TROUGH IS 15-20 MCG/ML. PHARMACY WILL CONTINUE TO FOLLOW.
--- NOTE | 2019-11-17 14:00 | NUR ---
REPORT CALLED TO WHIT AT [facility] AT [phone].
== END 2019-11-17 13:34 | disposition short-term general hospital (02) ==
LOC: ED 01:56 → ED-I 06:25 → ED 06:59 → MS2 07:00
PROVIDERS: Emergency Medicine; Nurse Practitioner; ADMIT Surgery; ATTEND Surgery
DX: A41.9 Sepsis, unspecified organism (principal); K80.43 Calculus of bile duct with acute cholecystitis with obstruction; E87.2 Acidosis; E11.621 Type 2 diabetes mellitus with foot ulcer; L97.529 Non-pressure chronic ulcer of other part of left foot with unspecified severity; L97.519 Non-pressure chronic ulcer of other part of right foot with unspecified severity; E11.65 Type 2 diabetes mellitus with hyperglycemia; I10 Essential (primary) hypertension; E11.42 Type 2 diabetes mellitus with diabetic polyneuropathy; F31.9 Bipolar disorder, unspecified; F41.9 Anxiety disorder, unspecified; E03.9 Hypothyroidism, unspecified; E78.1 Pure hyperglyceridemia; K75.81 Nonalcoholic steatohepatitis (NASH); F43.10 Post-traumatic stress disorder, unspecified; B96.4 Proteus (mirabilis) (morganii) as the cause of diseases classified elsewhere; Z79.4 Long term (current) use of insulin; Z87.891 Personal history of nicotine dependence; Z20.828 Contact with and (suspected) exposure to other viral communicable diseases
CPT/HCPCS: A9537; G0378; Q9967; S0164

== ENCOUNTER 2019-11-21 12:15 | Inpatient (IN) | payer MEDICARE, OTHER ==
[~2019-11-21] VITALS: Ht 172.7 cm; Wt 81.8 kg
[~2019-11-21 12:15] MED LIST changes: +GABAPENTIN300 M2 PO; +NEURONTIN300 MG PO; +SERTRALINE HCL100 MG PO
[2019-11-21 15:30] VITALS: BP 185/94
--- NOTE | 2019-11-21 15:30 | NUR ---
PT ARRIVED FROM [facility] VIA [facility]. PT C/O PAIN AND BP WAS UP. WAITING FOR THE PHARAMACY TO PROFILE MEDS THEN WILL GIVE HIM SOMETHING.
--- NOTE | 2019-11-21 16:30 | NUR ---
ASSESSMENT IS COMPLTED: IV SITE IS FREE FROM REDNESS OR EDEMA. SENT BY [facility]. HR IS REG,PULSES ARE STRONG , ABD IS SOFT AND TENDER. C/O R SIDE PAIN TO THE BACK. BREATH SOUNDS ARE CLEAR,BILATERALLY. CONTINUE TO OSBERVE AND MONITOR.
[2019-11-21 16:53] VITALS: BP 193/94
--- NOTE | 2019-11-21 17:03 | NUR ---
COVID SWAB - BIOFIRE SAMPLE OBTAINED FROM BOTH NARES, PT TOLERATED WELL. SPECIMEN SAMPLE LABELED AND SENT TO LAB
[2019-11-21 17:25] LABS: HEMATOCRIT 40.5 % (39.0-50.0); HEMOGLOBIN 12.9 g/dl (14.0-18.0); MEAN CELL VOLUME 87.3 fL CALC (80.0-100.0); MEAN CORPUSCULAR HGB 27.8 pG CALC (26.0-32.0); MEAN CORPUSCULAR HGB CONC 31.9 g/dL CAL (32.0-36.0); RED BLOOD COUNT 4.64 mill/uL (4.70-6.10); RED CELL DISTRI WIDTH 13.9 % (11.5-15.5)
[2019-11-21 17:41] LABS: ANION GAP 13 (6-22 (CALC)); BUN 6 mg/dL (9-20); BUN/CREATININE RATIO 11 (12-20 (CALC)); CARBON DIOXIDE 26 mmol/l (22-30); CHLORIDE 101 mmol/l (95-108); CREATININE 0.6 mg/dL (0.7-1.3); GFR > 60 ML/MIN (>=60 (CALC)); GFR FOR AFR.AMER. > 60 ML/MIN (>=60 (CALC)); POTASSIUM 3.9 mmol/l (3.5-5.1); SODIUM 137 mmol/l (137-146)
[2019-11-21 18:29] VITALS: BP 177/96
--- NOTE | 2019-11-21 18:32 | NUR ---
EXPLAINED THAT DR TOLENTINO WANTS TO TAKE CHOLY OUT TOMORROW.VERBALIZED UNDERSTANDING
--- NOTE | 2019-11-21 18:33 | NUR ---
APRESOLINE 10 MG IV GIVEN FOR BP 177/96 WITH HR OF 58 BPM. PTS NURSE TO REASSESS BP.
[2019-11-21 19:00] VITALS: BP 155/90
--- NOTE | 2019-11-21 20:00 | NUR ---
PATIENT ALERT, VERBAL, ABLE TO MAKE NEEDS KNOWN. ABLE TO TOLERATE MEDS WELL WHOLE. CONT OF BOWEL AND BLADDER--ABLE TO AMBULATE INDEPENDENTLY TO AND FROM BR AND AROUND ROOM--STEADY GAIT. REQUESTED PRN PAIN MEDS @HS FOR C/OS OF RIGHT ABDOMEN PAIN AND BACK PAIN--PRN DILAUDID GIVEN WITH POSITIVE EFFECT. PATIENT HAVING SOME MINOR ANXIETY ASSOCIATED WITH TOMORROW'S PROCEDURE--REASSURANCE AND 1:1 PROVIDED WITH THERAPUTIC EFFECT-PATIENT IS AWARE AND VOICES COMPLIANCE WITH NPO STATUS TO BE INITIATED AFTER MIDNIGHT PER MD ORDERS. B/P ELEVATED ON PREVIOUS SHIFT IS @ 155/96 @ START OF SHIFT. BS @ HS 194--MEDICATED PER SSI ORDERED--OTHERWISE NO S/S OF GLYCEMIC REACTION NOTED. PIV SITE PATENT TO LEFT FOREARM--FLUSHES WELL--SITE UNREMARKABLE--LACTATED RINGER INFUSING @ 150ML/HR WITHOUT DIFFICULTY--TOLERATINF FLUIDS WELL. CONT ON IV ABT THERAPY RELATED TO PRE-OP A PRECAUTIONARY MEASURE--NO SIDE EFFECTS NOTED THUS FAR--AFEBRILE. WILL CONT TO MONITOR FROR ANY FURTHER CHANGES.
[2019-11-22] VITALS (9 sets, daily range): BP systolic 145–180; BP diastolic 67–95
--- NOTE | 2019-11-22 | NUR ---
PATIENT EXTREMELY RESTLESS THIS SHIFT--EXTREMELY ANXIOUS ABOUT PROCEDURE IN THE AM. C/O PAIN ALMOST CONTINUOUSLY THROUGHOUT THE SHIFT THUS FAR--MEDICATED WHEN POSSIBLE WITH PRN DILAUDID AND SCHED TORADOL IV--BOTH WITH MINIMAL EFFECT. PATIENT TOLD THIS QUILL WINDER HE HAD A COUPLE OF NIGHTMARES THIS SHIFT ENCOMPASSING THE PROCEDURE IN WHICH HE HEMORRHAGED AND . SPOKE WITH DR RUSS ABOUT POSSIBLY GIVING PATIENT SOMETHING FOR ANXIETY/SLEEP--NEW ORDERS RECEIVED AND PROCESSED FOR ATIVAN 0.5MG PO Q 6 HOURS PRN--GIVEN AT THIS TIME--PENDING RESULTS. ALSO RECEIVED IV ABT THERAPY RELATED TO PRE-OP PRECAUTIONARY MEASURES--NO S/E NOTED--REMAINS AFEBRILE--MPO STATUS IN EFFECT ORDERED OF THIS TIME. PI SITE PATENT AND INFUSING LACTATED RINGER @ 150ML/HR WITHOUT DIFFICULTY--TOLERATING FLUIDS WELL. WILL CONT TO MONITOR FOR ANY FURTHER CHANGES.
--- NOTE | 2019-11-22 04:00 | NUR ---
PATIENT RESTING BETTER AT THIS TIME--DID WAKE UP RECENTLY AND REQUEST PAIN MEDS--MEDICATED WITH PRN DILAUDID TIMES 1 WITH POSITIVE EFFECT. CONT TO MAINTAIN NPO STATUS ORDERED--TOLERATING WELL. PIV SITE PATENT TO LEFT FOREARM--LACTATED RINGER INFUSING @ 150ML/HR WITHOUT DIFFICULTY--TOLERATING FLUDIS WELL. WILL CONT TO MONITOR FOR ANY FURTHER CHANGES.
[2019-11-22 04:41] LABS: HEMATOCRIT 40.4 % (39.0-50.0); HEMOGLOBIN 12.7 g/dl (14.0-18.0); IMMATURE GRANULOCYTES 2.8 % (0.0-5.0); MEAN CELL VOLUME 87.3 fL CALC (80.0-100.0); MEAN CORPUSCULAR HGB 27.4 pG CALC (26.0-32.0); MEAN CORPUSCULAR HGB CONC 31.4 g/dL CAL (32.0-36.0); NEUT# 3.64 thou/uL (1.82-7.42); RED BLOOD COUNT 4.63 mill/uL (4.70-6.10); RED CELL DISTRI WIDTH 13.9 % (11.5-15.5)
[2019-11-22 04:59] LABS: ALBUMIN 3.9 g/dL (3.2-5.0); ANION GAP 11 (6-22 (CALC)); BUN 7 mg/dL (9-20); BUN/CREATININE RATIO 11 (12-20 (CALC)); CARBON DIOXIDE 31 mmol/l (22-30); CHLORIDE 100 mmol/l (95-108); CREATININE 0.6 mg/dL (0.7-1.3); GFR > 60 ML/MIN (>=60 (CALC)); GFR FOR AFR.AMER. > 60 ML/MIN (>=60 (CALC)); POTASSIUM 3.8 mmol/l (3.5-5.1); SGOT/AST 47 u/l (17-59); SODIUM 139 mmol/l (137-146); TOTAL PROTEIN 6.8 g/dL (6.3-8.2)
[2019-11-22 05:05] LABS: ALKALINE PHOSPHATASE 185 u/l (38-126); BILIRUBIN, TOTAL 0.6 mg/dL (0.0-1.4)
--- NOTE | 2019-11-22 06:35 | NUR ---
MEDICATED PT FOR ELEVATED BP. PT REPORTS PAIN LEVEL ELEVATED, JUST PREVIOUSLY MEDICATED W/TORODOL FOR PAIN 45 MIN PRIOR TO THIS. WILL NOTIFY HIS LARISSA SHERMAN. PT DENIES ANY OTHER NEEDS AT THIS TIME. PT LEFT SITTING UPRIGHT IN BED W/LIGHTS ON.
--- NOTE | 2019-11-22 07:45 | NUR ---
REPORT RECEIVED FROM LARISSA SHERMAN. PT SITTING UP IN BED HIGH FOWLERS; ALERT AND ORIENTED. USED CALL LIGHT TO REQUEST PAIN MEDICATION; C/O 8/10 ABODMINAL PAIN. RESPIRATIONS EVEN AND UNLABORED ON ROOM AIR. PT IS ANXIOUS. REMAINS ON NPO DIET. ACCU CHECK THIS AM 85. LUNGS CLEAR; ABDOMEN TENDER WITH HYPOACTIVE BS. IV FLUIDS INFUSING WITHOUT DIFFICULTY; IV SITE APPEARS HEALTHY. PLAN OF CARE REVIEWED INCLUDING PLANS FOR [facility] THIS AFTERNOON. PT ENCOURAGED TO VERABLIZE CONCERNS. STATES UNDERSTANDING. SAFETY MEASURES IN PLACE. CALL LIGHT WITHIN REACH.
--- NOTE | 2019-11-22 07:55 | NUR ---
DIALUDID AND ATIVAN GIVEN AT THIS TIME FOR PAIN AND ANXIETY.
--- NOTE | 2019-11-22 11:05 | NUR ---
DR. WATTS AT BEDSIDE FOR WOUND CARE CONSULT. VERBAL ORDER RECEIVED TO SKIN PREP CALLOUSED AREA TO LEFT GREAT TOE AND TO RIGHT GREAT TOE APPLY ALGINATE WOUND DRESSING WITH KERLEX AND TAPE. DRESSING APPLIED.
--- NOTE | 2019-11-22 13:01 | NUR ---
PT OFF UNIT VIA STRETCHER WITH OR STAFF; ALERT AND ORIENTED. VS TAKEN PRIOR TO TRANSPORT AND ARE STABLE. BRIEF BEDSIDE REPORT GIVEN TO CHINA CONTRERAS.
--- NOTE | 2019-11-22 17:32 | NUR ---
PT ARRIVED BACK TO UNIT VIA STRETCHER WITH OR STAFF; BEDSIDE REPORT RECEIVED FROM CHINA DOWNS. PT ASSISTED HIMSELF FROM STETCHER TO BED WITH MINIMAL ASSIST. C/O 9/10 ABDOMINAL PAIN. RESPIRATIONS EVEN AND UNLABORED ON OXYGEN 2L VIA NC. NORMAL SALINE INFUSING UPON ARRIVAL. DRESSING TO RUQ OF ABDOMEN CDI; GALILEO DRAIN TO BULB SUCTION WITH BLOODY DRAINAGE; 25 ML EMPTIED IMMEDIATELY. ACCU CHECK WNL FOR PT. RASH NOTED TO BACK. SCDS APPLIED AND IS PLACED AT BEDSIDE. VSS. PT ALERT AND ORIENTED; UPDATED ON POST OP ORDERS INCLUDING DIET ADVANCEMENT; REQUESTS DIET GINGERALE. SAFETY MEASURES IN PLACE. CALL LIGHT WITHIN REACH.
--- NOTE | 2019-11-22 18:00 | NUR ---
SCHEDULED TORADOL GIVEN FOR PAIN. SPO2 UP TO 95-96% ON 2L VIA NC.
--- NOTE | 2019-11-22 19:05 | NUR ---
REPORT RECEIVED FROM CHINA ACEVES. PT RESTING IN BED, NO S/S OF DISTRESS AT THIS TIME. SAFETY PRECAUTIONS IN PLACE. WILL CONTINUE TO MONITOR.
--- NOTE | 2019-11-22 19:45 | NUR ---
PT RESTING IN BED ALERT AND ORIENTED. PT REFUSING TO GET UP TO CHAIR, STATING "I JUST HAD SURGERY TODAY. AND I'M IN TOO MUCH PAIN TO GET UP"
--- NOTE | 2019-11-22 21:45 | NUR ---
PT REGISTERED NURSE SURGICAL SERVICES [facility]ICA, RAISING HIS VOICE TO STAFF STATING "THAT NURSE FUCKED UP MY PAIN MEDS, I'M STILL IN PAIN". UPON ENTERING THE ROOM PT RESTING IN BED, SHAKING HIS LEGS, APPEARS AGGITATED. WRITTER ALLOWED FOR PT TO VOICE HIS CONCERNS. PT STATING "YOU GAVE ME MY PAIN MEDS WRONG, I DON'T EVEN FEEL THEM WORKING! I THINK YOU'RE BEING SPITEFUL, YOU PUT THE PAIN MEDS IN THIS FAR PORT INSTEAD OF THIS CLOSE ONE" PT NOT WANTING TO HEAR CHEF GERMAN, TALKING OVER CHEF GERMAN. PT STATING "I WILL BE TALKING TO SOMEONE ABOUT THIS YOU GAVE ME MY PAIN MEDS WRONG!" CHEF GERMAN OFFER TO CALL SUPERVISER, FOR PT TO VOICE CONCERNS. SAFETY PRECAUTIONS IN PLACE. WILL CONTINUE TO MONITOR.
--- NOTE | 2019-11-22 21:55 | NUR ---
SCARLETT SUPERVISER IN ROOM WITH
--- NOTE | 2019-11-23 04:05 | NUR ---
PT RESTING IN BED FREE OF DISTRESS AT THIS TIME.
[2019-11-23 04:36] VITALS: BP 158/90
[2019-11-23 04:47] LABS: IMMATURE GRANULOCYTES 2.2 % (0.0-5.0); MEAN CELL VOLUME 90.2 fL CALC (80.0-100.0); MEAN CORPUSCULAR HGB 27.9 pG CALC (26.0-32.0); MEAN CORPUSCULAR HGB CONC 30.9 g/dL CAL (32.0-36.0); NEUT# 7.23 thou/uL (1.82-7.42); RED BLOOD COUNT 3.37 mill/uL (4.70-6.10); RED CELL DISTRI WIDTH 14.3 % (11.5-15.5)
[2019-11-23 04:55] LABS: HEMATOCRIT 30.4 % (39.0-50.0); HEMOGLOBIN 9.4 g/dl (14.0-18.0)
[2019-11-23 05:04] LABS: ALKALINE PHOSPHATASE 118 u/l (38-126); BILIRUBIN, TOTAL 0.7 mg/dL (0.0-1.4); BUN 12 mg/dL (9-20); BUN/CREATININE RATIO 18 (12-20 (CALC)); CHLORIDE 101 mmol/l (95-108); CREATININE 0.7 mg/dL (0.7-1.3); GFR > 60 ML/MIN (>=60 (CALC)); GFR FOR AFR.AMER. > 60 ML/MIN (>=60 (CALC)); SGOT/AST 79 u/l (17-59); SODIUM 133 mmol/l (137-146)
[2019-11-23 05:07] LABS: ALBUMIN 2.8 g/dL (3.2-5.0); ANION GAP 13 (6-22 (CALC)); CARBON DIOXIDE 24 mmol/l (22-30); POTASSIUM 4.7 mmol/l (3.5-5.1); TOTAL PROTEIN 5.2 g/dL (6.3-8.2)
[2019-11-23 08:23] VITALS: BP 127/65
--- NOTE | 2019-11-23 08:23 | NUR ---
RECIEVED REPORT FROM Ashley YUAN RN. PT RESTING IN LOW FOWLERS POSITION UPON ENTERING ROOM. INTRODUCED SELF TO PT AND DISCUSSED POC. PT IS A/O X3. ASSESSMENT AND VITALS COMPLETED AT THIS TIME. BP 127/65, HR 67, O2 100% ON 2L NC. OXYGEN REMOVED TO CHECK O2 SATS WITHOUT. RESPIRATIONS ARE EVEN AND UNLABORED WITH NO SIGNS OF DISTRESS NOTED. LUNG SOUNDS ARE CLEAR. HEART RHYTHM IS NORMAL. BOWEL SOUNDS ACTIVE IN ALL QUADRANTS, PT REPORTS BM 11/22/2019. #20 IN RFA RUNNING WITH IVF PER ORDER, SITE APPEARS HEALTHY AND PATENT. PT HAD OPEN CHOLESECTOMY ON 11/22/[address] TOLENTINO, DRESSING CDI AND GALILEO DRAIN IN RUQ IN PLACE WITH VERY MINIMAL BLOODY OUTPUT. PT COMPLAINS OF 9/10 PAIN, DILAUDID TO BE AMDINISTERED. PT PRESENTS WITH DIABETIC WOUNDS ON LEFT GREAT TOE THAT IS SCABBED OVER. RIGHT GREAT TOE DRESSING CDI AT THIS TIME.I.S AT BEDSIDE, EDUCATED PT ON USAGE. PT VERBALIZED UNDERSTAINDING. SUGGESTED PT GET UP TO CHAIR. PT STATED "I HAVENT SLEPT MUCH, HOPEFULLY PAIN MEDIACTION WILL KICK IN AND THEN AFTER I GET SOME SLEEP I WILL." ALL SAFETY PRECAUTIONS ARE IN PLACE WITH CALL LIGHT IN REACH. WILL CONTINUE TO MONITOR.
--- NOTE | 2019-11-23 10:19 | NUR ---
REASSESSMENT OF PAIN AT THIS TIME RESULTING IN 10/17. PT STATES THAT DILAUDID IS HELPING SOME. RRESPIRATIONS ARE EVEN AND UNLABORED WITH NO SIGNS OF DISTRESS. ALL SAFETY PRECAUTIONS ARE IN PLACE WITH CALL LIGHT IN REACH. WWILL CONTINUE TO MONITOR
[2019-11-23 11:00] VITALS: BP 158/68
--- NOTE | 2019-11-23 12:05 | NUR ---
PT RESTING IN SEMI FOWLERS POSTIION UPON ENTERING ROOM. RESPIRATIONS ARE EVEN AND UNLABORED WITH NO SIGNS OF DISTRESS. PT IS A/OX3. PT COMPLAINS OF 9/10 PAIN , PT REFUSED TORADOL. PT ASK FOR DILAUDID. DILAUDID TO BE ADMINISTERED. DRESSING OF RIGHT GREAT TOE CHANGED AT THIS TIME, ALGINATE AND KRELEX APLLIED, SECURED WITH TAPE. SKIN PREP APPLIED TO LEFT GREAT TOES PER ORDER. PT TOLERATED WELL. ALL SAFETY PRECAUTIONS ARE IN PLACE WITH CALL LIGHT IN REACH. WILL CONTINUE TO MONITOR
--- NOTE | 2019-11-23 12:41 | NUR ---
PT AGGREED TO SITTING IN CHAIR AFTER GETTIN GBACK TO BATHROOM. PT REQUEST FOR PAIN MEDICTAION TO BE INCREASE. [employer] Labs[employer]TER NOTIFIED PT THAT DR WOULD HAVE TO BE CALLED. PT STATED "YALL NEED TO STOP DICKING AROUND WITH MY PAIN MEDICATION. I WISH I COULD GIVE YALL THE PAIN. " [facility] LabsITTER INFORMED PT THAT MD WOULD BE NOTIFIED OF PT REQUEST. ALL SAFETY PRECAUTIONS ARE IN PLACE WITH CALL LIGHT IN REACH. WILL CONTINUE TO MONITOR
--- NOTE | 2019-11-23 12:47 | NUR ---
DR TOLENTINO CONTACTED ABOUT PT REQUEST TO INCREASE 1MG Q2H TO 2MG. RAJAN DENIED STATING " I, NOT GOING UP ANYMORE ON DILAUDID." PT TO BE NOTIFIED.
--- NOTE | 2019-11-23 13:00 | NUR ---
Dwayne ZARAGOZA AT BEDSIDE DISCUSSING PAIN MEDICTAION REQUEST WITH PT .
--- NOTE | 2019-11-23 13:15 | NUR ---
SISTER CALLED FOR INFORMATION ON PT PAIN MEDICTAION. PT SAID IT WAS OK FOR PASS CODE TO BE GIVEN. SISTER INFORMED THAT PT WAS GETTING 1 MG DILAUDID Q2H AND MD REFUSED TO INCREASE. SISTER VERBAILZED UNDERSTANDING.
[2019-11-23 15:35] VITALS: BP 157/88
--- NOTE | 2019-11-23 16:32 | NUR ---
PT SITTING UP IN RECYLINER TALKING ON PHONE UPON NETERING ROOM. PT IS A/OX3. RESPIRATIONS ARE EVEN AND UNLABORED WITH NO SIGNS OF DISTRESS. REASSESSMENT OF PAIN AT THIS TIME RESULTING IN 9/10. PT STATES THAT DILAUDID DOES HELP BUT WEARS OFF. PT INFORMED WRITTER OF BM ON 11/22/2019, NO DOCUMENTATION AT THIS TIME. PT COMPLAINS OF GAS. MOM AND PRUNE JUICE ADMINISTERED AT THSI TIME. ABD MIDLINE DRESSING IS CDI WITH GALILEO DRAIN IN PLACE, VERY MINIMAL BLOODY OUTPUT AT THIS TIME. ALL SAFETY PRECAUTIONS ARE IN PLACE WITH CALL LIGHT IN REACH. WILL CONTINUE TO MONITOR
[2019-11-23 19:00] VITALS: BP 157/89
--- NOTE | 2019-11-23 19:03 | NUR ---
REPORT RECEIVED FROM TYLER DIAS. PT RESTING IN BED, NO S/S OF DISTRESS AT THIS TIME. SAFETY PRECAUTIONS IN PLACE. WILL CONTINUE TO MONITOR.
--- NOTE | 2019-11-23 20:01 | NUR ---
PT SITTING UP IN BED ALERT AND ORIENTED. RESPIRATIONS EVEN AND UNLABORED ON RA. PT AMBULATED TO THE BATHROOM WITH A STEADY GATE, TO HAVE A BM, PT AMBULATED BACK INTO BED. PT STATES "MY INCISION SITE TICKLES, LIKE SOMETHING IS RUBBING" DRESSING TO THE ABDOMEN IS CDI. PT REPORTS HAVING PAIN IN HIS ABDOMEN RATING IT AN 8/10. PT MEDICATED PER EMAR ORDERS. SAFETY PRECAUTIONS IN PLACE. WILL CONTINUE TO MONITOR.
--- NOTE | 2019-11-24 00:15 | NUR ---
PT RESING IN BED WITH EYES CLOSED. RESPIRATIONS EVEN AND UNLABORED ON RA. NO S/S OF DISTRESS AT THIS TIME. WILL CONTINUE TO MONITOR.
--- NOTE | 2019-11-24 03:37 | NUR ---
PT RESTING IN BED, NO S/S OF DISTRESS AT THIS TIME.
[2019-11-24 04:52] LABS: HEMOGLOBIN 7.8 g/dl (14.0-18.0); IMMATURE GRANULOCYTES 1.4 % (0.0-5.0); MEAN CELL VOLUME 89.3 fL CALC (80.0-100.0); MEAN CORPUSCULAR HGB 27.9 pG CALC (26.0-32.0); MEAN CORPUSCULAR HGB CONC 31.2 g/dL CAL (32.0-36.0); NEUT# 4.44 thou/uL (1.82-7.42); RED BLOOD COUNT 2.8 mill/uL (4.70-6.10); RED CELL DISTRI WIDTH 14.4 % (11.5-15.5)
[2019-11-24 05:00] VITALS: BP 152/84
[2019-11-24 05:12] LABS: ALBUMIN 2.9 g/dL (3.2-5.0); ALKALINE PHOSPHATASE 109 u/l (38-126); BUN 4 mg/dL (9-20); BUN/CREATININE RATIO 8 (12-20 (CALC)); CHLORIDE 101 mmol/l (95-108); CREATININE 0.5 mg/dL (0.7-1.3); GFR > 60 ML/MIN (>=60 (CALC)); GFR FOR AFR.AMER. > 60 ML/MIN (>=60 (CALC)); SGOT/AST 36 u/l (17-59); SODIUM 136 mmol/l (137-146); TOTAL PROTEIN 5.3 g/dL (6.3-8.2)
[2019-11-24 05:25] LABS: ANION GAP 8 (6-22 (CALC)); BILIRUBIN, TOTAL 0.3 mg/dL (0.0-1.4); CARBON DIOXIDE 31 mmol/l (22-30)
--- NOTE | 2019-11-24 07:05 | NUR ---
REPORT RECEIVED FROM CHINA CERVANTES;PT APPEARS TO BE SLEEPING IN SEMI FOWLERS POSITION;NO S/S OF DISTRESS NOTED;RESPIRATIONS EVEN AND UNLABORED ON RA;IV FLUIDS INFUSING WITH EASE PER ORDER;ALL SAFETY PRECAUTIONS IN PLACE WITH BED IN THE LOWEST POSITION AND CALL LIGHT IN REACH;WILL CONTINUE TO MONITOR
--- NOTE | 2019-11-24 07:45 | NUR ---
PT RESTING AT BEDSIDE EATING BREAKFAST,A&O X3;VS OBTAINED AND ASSESSMENT COMPLETED;PT REPORTS ABDOMINAL AND LOWER BACK PAIN RATING 8/10 ON THE PAIN SCALE AND REQUESTS PAIN MEDICATION;PRN DIALUDID 1MG SLOW IVP ADMINISTERED AT THIS TIME;RESPIRATIONS EVEN AND UNLABORED ON RA,CLEAR LUNG SOUNDS;I.S AT BEDSIDE AND PT RE-EDUCATED ON USE, ENCOURAGED 10X PER HOUR;ABDOMEN DISTENDED/SOFT ON PALPATION AND HYPOACTIVE IN ALL 4 QUADRANTS;PT POD #2 OPEN ROSAURA WITH MIDLINE INCISION DRESSING CDI;GALILEO DRAIN PATENT TO RUQ AND DRAINING SCANT AMOUNTS OF BLOODY DRAINAGE;STRONG PEDAL PULSES;DRESSING NOTED TO BE CDI TO RT GREAT TOE;#20G TO RIGHT HAND INFUSING LR @ 150ML/HR,SITE APPEARS HEALTHY;ACCUCHECK 142, NO COVERAGE NEEDED;PT DENIES ANY ADDITIONAL NEEDS AT THIS TIME AND IS ENCOURAGED TO CALL FOR ASSISTANCE IF NEEDED;FALL PRECAUTIONS IN PLACE WITH BED IN THE LOWEST POSITION AND CALL LIGHT IN REACH;WILL CONTINUE TO MONITOR
[2019-11-24 07:47] VITALS: BP 168/87
--- NOTE | 2019-11-24 08:34 | NUR ---
AT BEDSIDE DISCUSSING POC.
--- NOTE | 2019-11-24 10:04 | NUR ---
AT BEDSIDE DISCUSSING POC.
[2019-11-24 10:57] VITALS: BP 172/96
--- NOTE | 2019-11-24 11:30 | NUR ---
PT APPEARS TO BE SLEEPING IN SEMI FOWLERS POSITION,WAKES EASILY TO VERBAL STIMULI;RESPIRATIONS EVEN AND UNLABORED ON RA;PT REPORTS ABDOMINAL PAIN RATING 9/10 ON THE PAIN SCALE,PT EDUCATED ON NEW ORDER FOR DILAUDID 2MG PO BUT REFUSES AT THIS TIME REQUESTING IVP PAIN MEDICATION;BRANDY ANRP NOTIFIED;PT TO BE MEDICATED WITH PRN DILAUDID 1MG SLOW IVP PER ORDER;ACCUCHECK 161, PT COVERED WITH SLIDING SCALE NOVOLOG PER ORDER;ABD DRESSING REMOVED BY WITH 18 TOMASZ NOTED IN TOTAL, NEW DRY DRESSING APPLIED;PT DENIES ANY ADDITIONAL NEEDS AT THIS TIME;ENCOURAGED TO CALL FOR ASSISTANCE IF NEEDED;FALL PRECAUTIONS IN PLACE WITH CALL LIGHT IN REACH;WILL CONTINUE TO MONITOR
--- NOTE | 2019-11-24 12:15 | NUR ---
BP NOTED TO BE ELEVATED AT 172/96 PRIOR TO PAIN MEDICATION ADMINISTRATION;BP RE-CHECK 158/80 AT THIS TIME;WILL CONTINUE TO MONITOR
--- NOTE | 2019-11-24 12:15 | NUR ---
LAB AT BEDSIDE
[2019-11-24 12:26] LABS: HEMATOCRIT 28.2 % (39.0-50.0); HEMOGLOBIN 8.8 g/dl (14.0-18.0)
--- NOTE | 2019-11-24 14:39 | NUR ---
PT MEDICATED WITH 1MG SLOW IVP OF DILAUDID PER REQUEST FOR ABDOMINAL PAIN RATING 8/10 ON THE PAIN SCALE,WILL CONTINUE TO MONITOR FOR EFFECTIVENESS
[2019-11-24 15:18] VITALS: BP 149/87
--- NOTE | 2019-11-24 15:40 | NUR ---
PT OOB RESTING IN RECLINER;RESPIRATIONS EVEN AND UNLABORED ON RA;PT REPORTS ABDOMINAL PAIN HAS DECREASED TO 5/10 ON THE PAIN SCALE AFTER PAIN MEDICATION ADMINISTRATION;IV SITE PATENT;DRESSING TO ABDOMEN CDI AND GALILEO DRAIN PATENT; PT DENIES ANY ADDITIIONAL NEEDS AT THIS TIME;ENCOURAGED TO CALL FOR ASSISTANCE IF NEEDED;CALL LIGHT IN REACH;WILL CONTINUE TO MONITOR
--- NOTE | 2019-11-24 18:00 | NUR ---
PT MEDICATED WITH DILAUDID 1MG SLOW IVP FOR ABDOMINAL PAIN RATING 8/10 ON THE PAIN SCALE,WILL CONTINUE TO MONITOR FOR EFFECTIVENESS
[2019-11-24 19:00] VITALS: BP 144/80
--- NOTE | 2019-11-24 20:00 | NUR ---
PATIENT ALERT, VERBAL, ABLE TO MAKE NEEDS KNOWN--ABLE TO TOLERATE MEDS WELL WHOLE. CONT OF BOWEL AND BLADDER--ABLE TO AMBULATE TO AND FROM BATHROOM WITH MINIMAL ASSIST. REQUESTED PRN IV DIALUDID @ HS THIS SHIFT FOR C/OS OF PAIN TO RIGHT BACK AND RIGHT ABDOMEN--GIVEN WITH POSITIVE EFFECT. ABD INCISION WITH EDGES APPROX--TOMASZ INTACT--DRGS C/D/I--GALILEO DRAIN PATENT TO RIGHT UPPER QUAD OF ABDOMEN--VERY SLIGHT AMOUNT OF BRIGHT RED BLOOD DRAINAGE NOTED--INSERTION SITE UNREMARKABLE. FSBS ORDERED WITH SSI PRN--NO S/S OF GLYCEMIC REACTION NOTED. PIV SITE PATENT TO RIGHT FOREARM--SITE UNREMARKABLE. WILL CONT TO MONITOR FOR ANY FURTHER CHANGES.
--- NOTE | 2019-11-25 | NUR ---
PATIENT RESTING SOUNDLY IN BED WITH EYES CLOSED AT THIS TIME. NO APPARENT DISTRESS NOTED. CONT TO HAVE MINIMAL DRAINAGE FROM GALILEO DRAIN. WILL CONT TO MONITOR FOR ANY FURTHER CHANGES.
[2019-11-25 04:00] VITALS: BP 159/60
--- NOTE | 2019-11-25 04:00 | NUR ---
PATIENT RESTING SOUNDLY IN BED WITH EYES CLOSED AT THIS TIME. PIV SITE PATENT TO RIGHT FOREARM--FLUSHES WELL--SITE UNREMARKABLE. REQUESTED PRN PO DILAUDID FOR C/OS OF RIGHT BACK AND RIGHT ABDOMEN PAIN--GIVEN WITH POSITIVE EFFECT. GALILEO DRAIN PATENT TO RUQ WITH MINIMAL DRAINAGE NOTED--SITE WITHOUT ANY REDNESS OR S/S OF INFECTION NOTED. WILL CONT TO MONITOR FOR ANY FURTHER CHANGES.
[2019-11-25 05:16] LABS: HEMATOCRIT 27.3 % (39.0-50.0); HEMOGLOBIN 8.5 g/dl (14.0-18.0); IMMATURE GRANULOCYTES 1.8 % (0.0-5.0); MEAN CELL VOLUME 89.8 fL CALC (80.0-100.0); MEAN CORPUSCULAR HGB CONC 31.1 g/dL CAL (32.0-36.0); NEUT# 4.35 thou/uL (1.82-7.42); RED BLOOD COUNT 3.04 mill/uL (4.70-6.10); RED CELL DISTRI WIDTH 14.4 % (11.5-15.5)
[2019-11-25 05:29] LABS: ALKALINE PHOSPHATASE 107 u/l (38-126); ANION GAP 11 (6-22 (CALC)); BUN 3 mg/dL (9-20); BUN/CREATININE RATIO 4 (12-20 (CALC)); CARBON DIOXIDE 31 mmol/l (22-30); CHLORIDE 101 mmol/l (95-108); CREATININE 0.6 mg/dL (0.7-1.3); GFR > 60 ML/MIN (>=60 (CALC)); GFR FOR AFR.AMER. > 60 ML/MIN (>=60 (CALC)); POTASSIUM 3.9 mmol/l (3.5-5.1); SGOT/AST 29 u/l (17-59); SODIUM 139 mmol/l (137-146); TOTAL PROTEIN 6.2 g/dL (6.3-8.2)
[2019-11-25 06:01] LABS: ALBUMIN 3.5 g/dL (3.2-5.0); BILIRUBIN, TOTAL 0.5 mg/dL (0.0-1.4)
--- NOTE | 2019-11-25 07:10 | NUR ---
REPORT RECEIVED FROM CHINA SHERMAN;PT APPEARS TO BE SLEEPING IN SEMI FOWLERS POSITION;RESPIRATIONS EVEN AND UNLABORED ON RA;NO S/S OF DISTRESS NOTED;IV SITE PATENT;ACCUCHECK 103, NO COVERAGE NEEDED AT THIS TIME;ALL SAFETY PRECAUTIONS IN PLACE WITH BED IN THE LOWEST POSITION AND CALL LIGHT IN REACH;WILL CONTINUE TO MONITOR
--- NOTE | 2019-11-25 08:45 | NUR ---
PT RESTING IN SEMI FOWLERS POSITION,A&O X3;VS OBTAINED AND ASSESSMENT COMPETED;PT REPORTS ABDOMINAL PAIN RATING 7/10 ON THE PAIN SCALE AND REQUESTS PAIN MEDICATION, PT TO BE MEDICATED WITH PRN DILAUDID 2MG PO;PT POD #3 OPEN ROSAURA;RESPIRATIONS EVEN AND UNLABORED ON RA,CLEAR LUNG SOUNDS;I.S. AT BEDSIDE AND PT ENCOURAGED TO USE 10X PER HOUR;ABDOMEN DISTENDED/SOFT ON PALPATION AND ACTIVE IN ALL 4 QUADRANTS;WEAK PEDAL PULSES;DRESSING CHANGE PROVIDED TO RT GREAT TOE AT THIS TIME,PT TOLERATED WELL;#20G TO RFA FLUSHED AND PATENT,SITE APPEARS HEALTHY;PT DENIES ANY ADDITIONAL NEEDS AT THIS TIME AND IS ENCOURAGED TO CALL FOR ASSISTANCE IF NEEDED;FALL PRECAUTIONS IN PLACE WITH BED IN THE LOWEST POSITION AND CALL LIGHT IN REACH;WILL CONTINUE TO MONITOR
[2019-11-25 08:46] VITALS: BP 138/84
--- NOTE | 2019-11-25 13:30 | NUR ---
PT RESTING AT BEDSIDE;RESPIRATIONS EVEN AND UNLABORED ON RA;PT REPORTS ABDOMINAL AND LOWER BACK PAIN RATING 9/10 ON THE PAIN SCALE AND REQUESTS PAIN MEDICATION, PT MEDICATED WITH PRN DILAUDID 2MG PO AT THIS TIME;ABDOMINAL DRESSING CDI AND GALILEO DRAIN REMAINS PATENT;PT DENIES ANY ADDITIONAL NEEDS AT THIS TIME;ENCOURAGED TO CALL FOR ASSISTANCE IF NEEDED;CALL LIGHT IN REACH;WILL CONTINUE TO MONITOR
[2019-11-25 15:30] VITALS: BP 148/89
--- NOTE | 2019-11-25 15:30 | NUR ---
PT RESTING IN SEMI FOWLERS POSITION;RESPIRATIONS EVEN AND UNLABORED ON RA;PT REPORTS THAT ABDOMINAL PAIN IS CURRENTLY A 3/10 ON THE PAIN SCALE AFTER PAIN MEDICATION ADMINISTRATION;IV SITE PATENT;GALILEO DRAIN REMAINS INTACT WITH MINIMAL DRAINAGE NOTED;PT DENIES ANY ADDITIONAL NEEDS AT THIS TIME AND IS ENCOURAGED TO CALL FOR ASSISTANCE IF NEEDED;ASSESSMENT REMAINS UNCHANGED AT THIS TIME;ENCOURAGED TO CALL FOR ASSISTANCE IF NEEDED;CALL LIGHT IN REACH;WILL CONTINUE TO MONITOR
--- NOTE | 2019-11-25 17:25 | NUR ---
PT REPORTS ABDOMINAL/BACK PAIN RATING 7/10 ON THE PAIN SCALE AND REQUESTS PAIN MEDICATION, PT MEDICATED WITH DILAUDID 2MG PO AT THIS TIME;PT DENIES ANY ADDITIONAL NEEDS;CALL LIGHT IN REACH;WILL CONTINUE TO MONITOR FOR EFFECTIVENESS
[2019-11-25 19:00] VITALS: BP 162/90
--- NOTE | 2019-11-25 19:00 | NUR ---
REPORT RECEIVED FROM Hany JENSEN LPN, CARE OF PT ASSUMED AT THIS TIME.
--- NOTE | 2019-11-25 21:10 | NUR ---
PT SITTING UP IN, BED, PHYSICAL ASSESMENT COMPLETE. REPORTS ABD AND BACK PAIN 11/17. REQUEST PAIN MEDICATION. PRN DILAUDID ADMINSITERED, SEE E-MAR. SCHEDULED MEDICATIONS ADMINISTERED, SEE E-MAR. BEDSIDE FINGERSTICK GLUCOSE 293mg/dl, INSULIN ADMINISTERED PER SLIDING SCALE ALGORITHM, SEE E-MAR. ABD DRESSING IS CLEAN, DRY AND INTACT WITH ABD BINDER SECURED OVER TOP. RIGHT SIDED GALILEO DRAIN SECURED, UNKINKED, AND UNOBSTRUCTED WITH BULB SUCTION ENGAGED. OUTPUT IS SANGUINEOUS W/ SMALL CLOTS. PLAN OF CARE REVIEWED. PT DENIES QUESTIONS AND VERBALIZES UNDERSTANDING. PROVIDED PT W/ DIET GINGERALE PER HIS REQUEST, DENIES ANY FURTHER NEEDS. CALL ANDERSON WITHIN REACH, AGREES TO CALL PRN.
--- NOTE | 2019-11-26 00:06 | NUR ---
PT APPEARS TO BE SLEEPING COMOFORTABLY, NO APPARENT DISTRESS, RESPIRATIONS REGUALR AND UNLABORED. CALL ANDERSON REMAINS WITHIN REACH.
[2019-11-26 04:00] VITALS: BP 127/68
--- NOTE | 2019-11-26 05:00 | NUR ---
REPORTS ABD AND BACK PAIN, 10/17. ADMINISTERED PRN DILAUDID PER PTS REQUEST. SEE E-MAR. 10ML SANGUINEOUS DRAINAGE WITH CLOTS, BULB SUCTION RE-ENGAGED. DENIES FURTHER NEEDS, CALL ANDERSON WITHIN REACH AGREES TO CALL PRN.
[2019-11-26 05:32] LABS: HEMATOCRIT 28.6 % (39.0-50.0); HEMOGLOBIN 8.8 g/dl (14.0-18.0); IMMATURE GRANULOCYTES 1.3 % (0.0-5.0); MEAN CELL VOLUME 90.5 fL CALC (80.0-100.0); MEAN CORPUSCULAR HGB 27.8 pG CALC (26.0-32.0); MEAN CORPUSCULAR HGB CONC 30.8 g/dL CAL (32.0-36.0); NEUT# 4.27 thou/uL (1.82-7.42); RED BLOOD COUNT 3.16 mill/uL (4.70-6.10); RED CELL DISTRI WIDTH 14.4 % (11.5-15.5)
[2019-11-26 06:25] LABS: ALBUMIN 3.7 g/dL (3.2-5.0); ALKALINE PHOSPHATASE 112 u/l (38-126); ANION GAP 12 (6-22 (CALC)); BILIRUBIN, TOTAL 0.6 mg/dL (0.0-1.4); BUN 6 mg/dL (9-20); BUN/CREATININE RATIO 10 (12-20 (CALC)); CARBON DIOXIDE 29 mmol/l (22-30); CHLORIDE 101 mmol/l (95-108); CREATININE 0.6 mg/dL (0.7-1.3); GFR > 60 ML/MIN (>=60 (CALC)); GFR FOR AFR.AMER. > 60 ML/MIN (>=60 (CALC)); POTASSIUM 3.8 mmol/l (3.5-5.1); SGOT/AST 24 u/l (17-59); SODIUM 138 mmol/l (137-146); TOTAL PROTEIN 6.6 g/dL (6.3-8.2)
--- NOTE | 2019-11-26 07:30 | NUR ---
RECIEVED REPORT FROM CHINA ARANGO. PT RESTING IN LOW FOWLERS POSITION UPON ENTERING ROOM. RESPIRATIONS ARE EVEN AND UNLABORED WITH NO SIGNS OF DISTRESS. PT DENIES OF ANY PAIN OR DISCOMFORTS AT THIS TIME. ALL SAFETY PRECAUTIONS ARE IN PLACE WITH CALL LIGHT IN REACH. WILL CONTINUE TO MONITOR
[2019-11-26 08:22] VITALS: BP 135/82
--- NOTE | 2019-11-26 08:22 | NUR ---
ASESSMENT AND VITALS COMPLETED AT THIS TIME. BP 135/82, HR 85, O2 98% ON ROOM AIR. RESPIRATIONS ARE EVEN AND UNLABORED WITH NO SIGNS OF DISTRESS. LUNG SOUNDS ARE CLEAR. HEART RHYTHM IS NORMAL. BOWEL SOUNDS ARE ACTIVE IN ALL QUADRANTS, LAST REPORTED BM 11/25/2019. RADIAL AND PEDAL PULSES ARE STRONG WITH NORMAL CAPILLARY REFILL. #20 IN RIGHT HAND FLUSHED, SITE APPEARS HEALTHY AND PATENT. PT HAD OPEN CHOLECYSTECTOMY BY DR TOLENTINO ON 11/22/2019. DRESSING CDI AT THIS TIME WITH GALILEO DRAIN IN RUQ. VERY MINIMAL AMOUT OF BLOODY OUTPUT.I.S AT BEDSIDE. SCDS APPLIED. PT PRESENTS WITH DRESSING TO RIGHT GREAT TOE, DRESSING CDI. DIABETIC ULCER ON LEFT GREAT TOE SCABBED OVER AND OPEN TO AIR. PT COMPLAINS OF 5/10 PAIN IN ABDOMIN, DILAUDID PO TO BE ADMINSTERED. PT DENIES ANY ADDITIONAL NEEDS AT THIS TIME. ALL SAFTEY PRCAUTIONS ARE IN PLACE WITH CALL LIGHT IN REACH. WILL CONTINUE TO MONITOR
[2019-11-26 09:06] VITALS: BP 135/82
--- NOTE | 2019-11-26 09:24 | NUR ---
DR RUSS AT BEDSIDE DISCUSSING POC.
[2019-11-26] MEDS ORDERED: DILAUDID2 MG PO ×2 (10:14)
--- NOTE | 2019-11-26 11:12 | NUR ---
REASSESSMENT OF PAIN RESUTLING IN 05/17. RESPIRATIONS ARE EVEN AND UNLABORED WITH NO SIGNS OF DISTRESS. ALL SAFETY PRECAUTIONS ARE IN PLACE WITH CALL LIGHT IN REACH. WILL CONTINUE TO MONITOR
--- NOTE | 2019-11-26 12:51 | NUR ---
PT EDUCATED ON DISCHARGE INSTRUCTIONS AND NEW MEDICATIONS DILAUDID PO THAT WAS SENT TO [facility]. PT VERBALIZED UNDERSTANDING. IV REMOVED WITH CATHATER STILL INTACT, PT TOELRATED WELL. GALILEO DRAIN REMOVED PER LANDY ORDER FROM SANDRA NAVA. PT TOLERATED WELL. DRESSING ON RIGHT GREAT TOE CHANGED. ALGINAT AND KRELEX APPLIED. SKIN PREP APPLIED TO LEFT GREAT TOE PER ORDER. PT STATED HE DID NOT HAVE TRANSPORTATION HOME. [facility] TO PROVIDE [facility] HOME. PT AWAITING TRANSPORTATION AT THIS TIME. ALL SAFETY PRECAUTIONS ARE IN PLACE WITH CALL LIGHT IN REACH. WILL CONTINUE TO MONITOR
--- NOTE | 2019-11-26 13:33 | NUR ---
Discharge instructions given. Patient verbalizes understanding of same. Discharged in stable condition via Wheelchair to Home with staff. All belongings sent with pt. PT DISCHARGED IN STABLE CONDITION VIA WHEELCHAIR ACCOMPAINED BY [employer]. PT LEFT WITH ALL DISCHARGE INSTRUCTIONS AND BELONGINGS. TAXI PROVIDED BY [facility].
--- NOTE | 2019-11-26 13:40 | NUR ---
MOTHER CALLED TO SPEAK WITH NURSE. PASSWORD PROVIDED. MOTHER STATED "HE CALLED AND CUSSED ME OUT. " WRITTER INFORMED PT MOTHER THAT PT WAS CALM UPON BEING DISCHARGED. MOTHER STATED " HES NOT IN HIS RIGHT MIND. " WRITTER EXPLAINED TO MOTHER THAT PT WAS A/O AND STABLE UPON BEING DISCHARGED.
--- NOTE | 2019-11-26 14:48 | NUR ---
PT note Patient is seen for screen. He has open wounds to the toes and is encouraged to follow up with wound care upon DC Functionally he is independent without the need for PT
== END 2019-11-26 13:34 | disposition home or self-care (01) | DRG 416 ==
LOC: MS2 12:15
PROVIDERS: Nurse Practitioner; Surgery; ADMIT Internal Medicine; ATTEND Internal Medicine
PROC: 0FT40ZZ Resection of Gallbladder, Open Approach (ICD-10-PCS; principal; 2019-11-22)
PROC: 0FJ44ZZ Inspection of Gallbladder, Percutaneous Endoscopic Approach (ICD-10-PCS; 2019-11-22)
DX: K81.2 Acute cholecystitis with chronic cholecystitis (principal); K82.8 Other specified diseases of gallbladder; G89.18 Other acute postprocedural pain; D64.9 Anemia, unspecified; I10 Essential (primary) hypertension; E78.5 Hyperlipidemia, unspecified; K75.81 Nonalcoholic steatohepatitis (NASH); E03.9 Hypothyroidism, unspecified; E10.42 Type 1 diabetes mellitus with diabetic polyneuropathy; E10.65 Type 1 diabetes mellitus with hyperglycemia; F31.9 Bipolar disorder, unspecified; F41.9 Anxiety disorder, unspecified; Z79.4 Long term (current) use of insulin; Z87.891 Personal history of nicotine dependence; Z20.828 Contact with and (suspected) exposure to other viral communicable diseases
CPT/HCPCS: J1610; J1650; J2710; Q9967

== ENCOUNTER 2019-11-30 04:27 | Observation (INO) | payer MEDICARE, OTHER ==
[~2019-11-30] VITALS: Ht 172.7 cm; Wt 63.6 kg
[~2019-11-30 04:27] MED LIST changes: +DILAUDID2 MG PO
--- NOTE | 2019-11-30 04:27 | NUR ---
BY EMS TO ROOM
[2019-11-30 05:13] LABS: HEMATOCRIT 28.5 % (39.0-50.0); HEMOGLOBIN 8.9 g/dl (14.0-18.0); IMMATURE GRANULOCYTES 0.9 % (0.0-5.0); MEAN CELL VOLUME 89.9 fL CALC (80.0-100.0); MEAN CORPUSCULAR HGB 28.1 pG CALC (26.0-32.0); MEAN CORPUSCULAR HGB CONC 31.2 g/dL CAL (32.0-36.0); NEUT# 5.79 thou/uL (1.82-7.42); RED BLOOD COUNT 3.17 mill/uL (4.70-6.10); RED CELL DISTRI WIDTH 14.6 % (11.5-15.5)
[2019-11-30 05:18] LABS: URINE BILIRUBIN - DIPSTICK NEGATIVE (NEGATIVE); URINE BLOOD DIPSTICK NEGATIVE (NEGATIVE); URINE COLOR YELLOW; URINE GLUCOSE - DIPSTICK 500 mg/dL (NEGATIVE); URINE KETONE NEGATIVE (NEGATIVE); URINE LEUK ESTERASE NEGATIVE (NEGATIVE); URINE NITRITE - DIPSTICK NEGATIVE (Negative); URINE PROTEIN - DIPSTICK NEGATIVE (NEG-TRACE); URINE SPECIFIC GRAVITY >=1.030; URINE UROBILINOGEN - DIPSTICK 0.2 E.U./dL (0.2)
[2019-11-30 05:36] LABS: ALBUMIN 3.4 g/dL (3.2-5.0); ALKALINE PHOSPHATASE 104 u/l (38-126); BILIRUBIN, TOTAL 0.5 mg/dL (0.0-1.4); BUN 15 mg/dL (9-20); BUN/CREATININE RATIO 23 (12-20 (CALC)); CHLORIDE 105 mmol/l (95-108); CREATININE 0.6 mg/dL (0.7-1.3); ETHYL ALCOHOL 0 mg/dl (0-30); GFR > 60 ML/MIN (>=60 (CALC)); GFR FOR AFR.AMER. > 60 ML/MIN (>=60 (CALC)); LIPASE < 10 u/l (23-300); POTASSIUM 4.5 mmol/l (3.5-5.1); SGOT/AST 19 u/l (17-59); SODIUM 136 mmol/l (137-146); TOTAL PROTEIN 6.3 g/dL (6.3-8.2)
[2019-11-30 05:38] LABS: AMYLASE < 30 u/l (30-110); ANION GAP 15 (6-22 (CALC)); CARBON DIOXIDE 21 mmol/l (22-30)
--- NOTE | 2019-11-30 06:20 | NUR ---
REQUESTING PAIN MED.
--- NOTE | 2019-11-30 06:23 | NUR ---
EDUCATED ON USE OF INCENTIVE SPIROMETRY, IMPORTANCE OF GOOD HYDRATION, ABX THERAPY, AND ABSTINENCE FROM ALCOHOL WHILE TAKING ABX. ADVISED THAT HE WOULD BE OFF WORK FOR 1 WEEK.
--- NOTE | 2019-11-30 06:58 | NUR ---
Admission Note Report Given to: CHINA DIETRICH Transported by: Wheelchair X Stretcher Transported with: X Nurse Transporter X Patent IV O2 Cloth Folder Hand Location: ICU X MS2
--- NOTE | 2019-11-30 07:00 | NUR ---
REPORT RECEIVED FROM ABI IN ED, PT ARRIVED ON UNIT @ 0709 TRANSPORTED VIA CHAIR BY ED STAFF AND SETTLED IN ROOM, C/O ABD PAIN, TOMASZ IN PLACE TO ABDOMINAL INCISION FROM RECENT SURGERY, ORIENED TO ROOM AND CALL ANDERSON, WILL CONTINUE TO MONITOR.
--- NOTE | 2019-11-30 07:05 | NUR ---
PT CARE RECIEVED FOR TRANSPORT ONLY.
--- NOTE | 2019-11-30 07:06 | NUR ---
PT TRANSPORTED TO [place] VIA . SKIN PWD . BELONGINGS INCLUDING CELL PHONE AND MAKE UP OPERATOR HELPER IN PTS POSSESSION.
[2019-11-30 07:10] VITALS: BP 144/88
[2019-11-30 10:30] VITALS: BP 152/90
--- NOTE | 2019-11-30 12:00 | NUR ---
C/O ABD PAIN WITH SOME RELIEF WITH DILAUDID, ALSO C/O NAUSEA, CONCERNS ADDRESSED.
[2019-11-30 15:05] VITALS: BP 160/93
--- NOTE | 2019-11-30 16:00 | NUR ---
NEW ORDERS WRITTEN TO ADDRESS NEW LAB RESULTS, PT INFORMED AND STATED UNDERSTANDING, NO CHANGE IN PAIN ISSUES.
[2019-11-30 19:00] VITALS: BP 157/99
--- NOTE | 2019-11-30 20:04 | NUR ---
RECIEVED REPORT FROM [place] DIETRICH. PT ASSESSMENT AND VITALS COMPLETE. PT RESTING IN IN SEMI FOLWERS POSITION WATCHING TV UPON ENTERING ROOM.RESPIRATIONS ARE EVEN AND UNLABORED WITH NO SIGNS OF DISTRESS NOTED. IV SITE APPEARS HEALTHY AND PATENT. C/O OF LEFT FLANK PAIN; WILL GIVE PRN MEDICINE SOON POSSIBLE. NO OTHER NEEDS OR DISCOMFORTS REPORTED AT THIS TIME. ALL SAFETY PRECAUTIONS ARE IN PLACE WITH CALL LIGHT IN REACH. WILL CONTINUE TO MONITOR.
--- NOTE | 2019-12-01 00:04 | NUR ---
PT SLEEPING QUIETLY. NO DISCOMFORT OBSERVED WILL CONTINUE TO MONITOR.
[2019-12-01 04:00] VITALS: BP 122/74
--- NOTE | 2019-12-01 04:07 | NUR ---
PT MEDICATED FOR PAIN 10/17. PT INQUIRED WAY HE WAS NOT WOKEN UP FOR 2AM MEDICATION HE BELIEVED MEDICATION WAS SCHEDULED EVERY TWO HOURS. EXPLAINED THAT MEDICATION WAS AVAILABLE Q2 HOURS UPON REQUEST/NEED. PT ALSO STATED THAT HE HAD SOILED HIS BED. REPLACED BED LINEN AND PROVIDED A FRESH ROBE. CALL ANDERSON WITHIN REACH. WILL CONTINUE TO MONITOR.
[2019-12-01 05:27] LABS: HEMATOCRIT 28.7 % (39.0-50.0); HEMOGLOBIN 8.9 g/dl (14.0-18.0); IMMATURE GRANULOCYTES 0.7 % (0.0-5.0); MEAN CELL VOLUME 90.3 fL CALC (80.0-100.0); NEUT# 3.06 thou/uL (1.82-7.42); RED BLOOD COUNT 3.18 mill/uL (4.70-6.10); RED CELL DISTRI WIDTH 14.7 % (11.5-15.5)
[2019-12-01 05:38] LABS: ALBUMIN 3.3 g/dL (3.2-5.0); ALKALINE PHOSPHATASE 94 u/l (38-126); ANION GAP 10 (6-22 (CALC)); BILIRUBIN, TOTAL 0.5 mg/dL (0.0-1.4); BUN 3 mg/dL (9-20); BUN/CREATININE RATIO 8 (12-20 (CALC)); CARBON DIOXIDE 24 mmol/l (22-30); CHLORIDE 108 mmol/l (95-108); CREATININE 0.4 mg/dL (0.7-1.3); GFR > 60 ML/MIN (>=60 (CALC)); GFR FOR AFR.AMER. > 60 ML/MIN (>=60 (CALC)); POTASSIUM 4.1 mmol/l (3.5-5.1); SGOT/AST 28 u/l (17-59); SODIUM 138 mmol/l (137-146); TOTAL PROTEIN 6.1 g/dL (6.3-8.2)
--- NOTE | 2019-12-01 07:25 | NUR ---
SHIFT CHANGE REPORT, PT SLEEPING AT THIS TIME, BREATHING ENEN AND NON-LABORED, NO SIGN DISCOMFORT, CALL ANDERSON IN REACH.
[2019-12-01 08:10] VITALS: BP 153/90
--- NOTE | 2019-12-01 08:21 | NUR ---
PT AWAKE AT THIS TIME, ALERT AND ORIENTED, C/O ABD PAIN @ 8/10, REPORTED HE HAD A BOWEL ACCIDENT DURING THE NIGHT, REPORTED HE REQUESTED PAIN MED LAST HS AND HS RN ADVISED HIM HE WAS ALREADY MEDICATED BUT PT THINKS THE RN LIED AND THAT HE WAS NOT GIVEN THE MED. I INFORMED HIM OF DOCUMENTATION SHOWING WHERE MED WAS GIVEN AND APOLOGISED TO HIM FOR THINKING THE NURSE WOULD EXHIBIT SUCH BEHAVIOR. ALL NEEDS ADDRESSED AT THIS TIME.
--- NOTE | 2019-12-01 12:07 | NUR ---
CONTINUES TO C/O ABD PAIN AND REQUEST MED, OFFERED ORAL MED INSTEAD OF IV BUT PT WANTED IV MED AT THIS TIME STATING HE WILL TRY ORAL NEXT TIME. EDUCATED AND ADVISED ON WEANING OFF IV MEDS TO HAVE ACCURATE MEASUREMENT OF EFFECTS OF MEDS HERE TO BETTER ADDRESS HOME NEEDS.
--- NOTE | 2019-12-01 13:11 | NUR ---
PT REQUESTING TO HAVE IV MED TO CONTROL PAIN, EDUCATION ON WEANING OFF IV MED IT IS NOT AVAILABLE AT HOME BUT HE WANTS TO HAVE IT ANYWAY.
[2019-12-01 16:00] VITALS: BP 161/96
--- NOTE | 2019-12-01 16:00 | NUR ---
11/30/19: LATE ENTRY. DURING ADMISSION ASSESSMENT PT REPORTED HE DID NOT FEEL SAFE IN HIS LIVING CONDITION THE PLACE WAS INSANITARY, STATED HE LIVES WITH MOTHER AND FIANCEE, I ASKED WHETHER ANY ONE OF THEM COULD CLEAN HIS ENVIRONMENT BUT HIS RESPONSE WAS NOT DIFINITIVE.
[2019-12-01 18:45] VITALS: BP 153/97
--- NOTE | 2019-12-01 20:00 | NUR ---
PATIENT ALERT, VERBAL, ABLE TO MAKE NEEDS KNOWN. ABLE TO TOLERATE MEDS WELL WHOLE. PIV SITE PATENT TO LEFT WRIST--FLUSHES WELL--SITE UNREMARKABLE--NS INFUSING @ 80ML/HR WITHOUT DIFFICULTY--TOLERATING FLUIDS WELL. CONT OF BOWEL AND BLADDER--ABLE TO AMBULATE BACK AND FORTH TO BR INDEPENDENTLY--STEADY GAIT. REQUESTED PRN IV PAIN MEDS TIMES 2 THIS SHIFT FOR C/OS OF RIGHT ABDOMEN AND RIGHT BACK PAIN--POSITIVE EFFECT THUS FAR. ABDOMINAL INCISION WITH EDGES APPROX--TOMASZ INTACT--OPEN TO AIR WITHOUT ANY S/S OF INFECTION NOTED--SOME MILD TENDERNESS NOTED TO SITE UPON PALPATION--BRUISING NOTED TO RIGHT ABDOMEN AT OLD [place] DRAIN SITE. FSBS ORDERED WITH SSI PRN--NO S/S OF GLYCEMIC REACTION NOTED. WILL CONT TO MONITOR FOR ANY FURTHER CHANGES.
[2019-12-02 03:25] VITALS: BP 142/83
--- NOTE | 2019-12-02 04:00 | NUR ---
PATIENT RESTING SOUNDLY IN BED WITH EYES CLOSED AT THIS TIME. REQUESTED PRN PAIN MEDS TIMES 1 SINCE LAST MONITORING FOR C/OS OF RIGHT ABDOMEN PAIN--POSITIVE EFFECT. PIV SITE PATIENT TO LEFT HAND--FLUSHES WELL--SITE UNREMARKABLE--NS INFUSING @ 80ML/HR WITHOUT DIFFICULTY--TOLERATING FLUIDS WELL. WILL CONT TO MONITOR FOR ANY FURTHER CHANGES.
[2019-12-02 05:11] LABS: HEMATOCRIT 28.3 % (39.0-50.0); HEMOGLOBIN 8.8 g/dl (14.0-18.0); MEAN CORPUSCULAR HGB 27.7 pG CALC (26.0-32.0); MEAN CORPUSCULAR HGB CONC 31.1 g/dL CAL (32.0-36.0); RED BLOOD COUNT 3.18 mill/uL (4.70-6.10); RED CELL DISTRI WIDTH 14.4 % (11.5-15.5)
[2019-12-02 05:32] LABS: ANION GAP 9 (6-22 (CALC)); BUN < 2 mg/dL (9-20); CARBON DIOXIDE 28 mmol/l (22-30); CHLORIDE 105 mmol/l (95-108); CREATININE 0.5 mg/dL (0.7-1.3); GFR > 60 ML/MIN (>=60 (CALC)); GFR FOR AFR.AMER. > 60 ML/MIN (>=60 (CALC)); POTASSIUM 3.7 mmol/l (3.5-5.1); SODIUM 139 mmol/l (137-146)
[2019-12-02 07:35] VITALS: BP 177/95
--- NOTE | 2019-12-02 07:35 | NUR ---
ASSESSMENT IS COMPLTED: IV SITE IS FREE FROM REDNESS OR EDEMA. HR IS REG, PULSES ARE STRONG X4, ABD IS SOFT WITH ACTIVE BS, BREATH SOUNDS ARE CLEAR BILATERALLY, TOMASZ ON ABD IS CDI. SOME SHADOW BRUISING NOTED. CONTINUES TO C/O PAIN ON ABD, ENCOURAGED TO AMBULATE. INSTRUCTED PT ON UNABLE TO GET IV PAIN MEDICATION WHEN HE GOES HOME. VERBALIZED UNDERSTANDING.
[2019-12-02 08:17] VITALS: BP 177/95
[2019-12-02] MEDS ORDERED: CYCLOBENZAPR5 MG PO ×2 (09:51)
[2019-12-02] MEDS ORDERED: DILAUDID2 MG PO (09:54)
--- NOTE | 2019-12-02 10:00 | NUR ---
TOOK 19 TOMASZ OUT OF THE ABD MIDDLE AND R SIDE. DR TOLENTINO IN TO VISIT AND GIVING D/C INSTRUCTIONS,
--- NOTE | 2019-12-02 11:35 | NUR ---
WENT OVER DISCHARGE INSTRUCTIONS WITH PT. ALSO SPOKE WITH PT RE: DIABETIC TEACHING WITH CARB COUNTING. AND ILLUSTRATIONS. PT VERBALIZED UNDERSTANDING.
--- NOTE | 2019-12-02 11:56 | NUR ---
PT TRANSPORTED VIA WC WITH STAFF TO ER FOR TRANSPORT HOME WITH MOTHER. ALL DISCHARGE INSTRUCTIONS GIVEN AND VERBALIZED UNDERSTANDING.
--- NOTE | 2019-12-02 11:58 | NUR ---
IV SITE DISCONTINEUD CATHETER INTACT. NO REDNESS OR EDEMA. Discharge instructions given. Patient verbalizes understanding of same. Discharged in stable condition via Wheelchair to Home with family. All belongings sent with pt.
== END 2019-12-02 11:50 | disposition home health service (06) ==
LOC: ED 04:27 → ED-I 05:55 → ED 06:17 → MS2 06:18
PROVIDERS: Nurse Practitioner; ADMIT Surgery; ATTEND Surgery
DX: G89.18 Other acute postprocedural pain (principal); I10 Essential (primary) hypertension; E03.9 Hypothyroidism, unspecified; D64.9 Anemia, unspecified; E11.65 Type 2 diabetes mellitus with hyperglycemia; E78.5 Hyperlipidemia, unspecified; E87.2 Acidosis; K75.81 Nonalcoholic steatohepatitis (NASH); F41.9 Anxiety disorder, unspecified; E11.42 Type 2 diabetes mellitus with diabetic polyneuropathy; F43.10 Post-traumatic stress disorder, unspecified; F31.9 Bipolar disorder, unspecified; Z90.49 Acquired absence of other specified parts of digestive tract; Z87.891 Personal history of nicotine dependence; Z79.4 Long term (current) use of insulin; Z20.828 Contact with and (suspected) exposure to other viral communicable diseases; T81.31XA Disruption of external operation (surgical) wound, not elsewhere classified, initial encounter; E11.9 Type 2 diabetes mellitus without complications; Y83.6 Removal of other organ (partial) (total) as the cause of abnormal reaction of the patient, or of later complication, without mention of misadventure at the time of the procedure
CPT/HCPCS: G0378; J2060; Q9967

== ENCOUNTER 2019-12-02 21:16 | Emergency (ER) | payer MEDICARE, OTHER ==
[~2019-12-02] VITALS: Ht 172.7 cm; Wt 88.6 kg
[~2019-12-02 21:16] MED LIST changes: +CYCLOBENZAPR5 MG PO
[2019-12-02 22:05] VITALS: BP 158/84
== END 2019-12-02 22:12 | disposition home or self-care (01) ==
LOC: ED 21:16
DX: T81.31XA Disruption of external operation (surgical) wound, not elsewhere classified, initial encounter (principal); E11.9 Type 2 diabetes mellitus without complications; I10 Essential (primary) hypertension; E03.9 Hypothyroidism, unspecified; Y83.6 Removal of other organ (partial) (total) as the cause of abnormal reaction of the patient, or of later complication, without mention of misadventure at the time of the procedure; Z79.4 Long term (current) use of insulin; Z90.49 Acquired absence of other specified parts of digestive tract

== ENCOUNTER 2019-12-06 09:49 | Inpatient (IN) | payer MEDICARE, OTHER ==
[~2019-12-06] VITALS: Ht 172.7 cm; Wt 86.0 kg
[2019-12-06] VITALS (11 sets, daily range): BP systolic 120–164; BP diastolic 72–97
--- NOTE | 2019-12-06 09:49 | NUR ---
PT ARRIVES VIA EMS ALERT AND C/O RUQ AND EPIGASTRIC DISCOMFORT OF SUDDEN ONSET AT 0300 WITH NAUSEA AND VOMITING THIS AM
--- NOTE | 2019-12-06 10:18 | NUR ---
PATIENT MEDICATED PER ORDERED. PT DENIES ANY NEEDS AT THIS TIME AND IS UPDATED ON PLAN OF CARE AND WAIT TIME. CALL ANDERSON WITHIN REACH.
[2019-12-06 10:26] LABS: IMMATURE GRANULOCYTES 0.8 % (0.0-5.0); MEAN CELL VOLUME 89.3 fL CALC (80.0-100.0); MEAN CORPUSCULAR HGB 27.3 pG CALC (26.0-32.0); MEAN CORPUSCULAR HGB CONC 30.5 g/dL CAL (32.0-36.0); NEUT# 6.46 thou/uL (1.82-7.42); RED BLOOD COUNT 4.22 mill/uL (4.70-6.10); RED CELL DISTRI WIDTH 14.2 % (11.5-15.5)
[2019-12-06 10:35] LABS: HEMATOCRIT 37.7 % (39.0-50.0); HEMOGLOBIN 11.5 g/dl (14.0-18.0)
[2019-12-06 10:43] LABS: AMYLASE 40 u/l (30-110); BUN 10 mg/dL (9-20); BUN/CREATININE RATIO 14 (12-20 (CALC)); CHLORIDE 98 mmol/l (95-108); CREATININE 0.7 mg/dL (0.7-1.3); GFR > 60 ML/MIN (>=60 (CALC)); GFR FOR AFR.AMER. > 60 ML/MIN (>=60 (CALC)); LIPASE 16 u/l (23-300); SGOT/AST 25 u/l (17-59); SODIUM 134 mmol/l (137-146)
[2019-12-06 10:49] LABS: ALBUMIN 4.5 g/dL (3.2-5.0); ALKALINE PHOSPHATASE 153 u/l (38-126); ANION GAP 20 (6-22 (CALC)); CARBON DIOXIDE 21 mmol/l (22-30); POTASSIUM 4.6 mmol/l (3.5-5.1); TOTAL PROTEIN 8.2 g/dL (6.3-8.2)
--- NOTE | 2019-12-06 11:30 | NUR ---
PT TOLERATING IVF AND IV ABT ORDERED. VSS. PT LUNGS CLEAR, RESP EVEN AND UNLBORED. O2 SAT 98%
--- NOTE | 2019-12-06 12:50 | NUR ---
INITIATED INSULIN GTT ORDERED AT 5U/HR. PT UPDATED ON POC AND AGREEABLE.
--- NOTE | 2019-12-06 13:15 | NUR ---
REPORT TO MANUEL GONZALEZ RN
[2019-12-06 13:30] LABS: URINE BILIRUBIN - DIPSTICK NEGATIVE (NEGATIVE); URINE BLOOD DIPSTICK NEGATIVE (NEGATIVE); URINE COLOR YELLOW; URINE GLUCOSE - DIPSTICK >=1000 mg/dL (NEGATIVE); URINE KETONE >=80 mg/dL (NEGATIVE); URINE LEUK ESTERASE NEGATIVE (NEGATIVE); URINE NITRITE - DIPSTICK NEGATIVE (Negative); URINE PROTEIN - DIPSTICK NEGATIVE (NEG-TRACE); URINE UROBILINOGEN - DIPSTICK 0.2 E.U./dL (0.2)
--- NOTE | 2019-12-06 13:50 | NUR ---
PT RESTING SUPINE MORE COMFORTABLE AT THIS TIME. VSS. IV ABT INFUSING AND PT UPDATED ON WAIT TIME.
--- NOTE | 2019-12-06 14:26 | NUR ---
CALLED REPORT TO CHUCK PORTER RN
--- NOTE | 2019-12-06 14:44 | NUR ---
PT TO ICU BED 6 VIA STRETCHER ACCOMPANIED BY ER NURSE. PT ABLE TO AMBULATE SELF TO BED WITH STEADY GAIT. PT IS ALERT AND ORIENTED X3. ADMISSION ASSESSMENT COMPLETED AT THIS TIME. IV PATENT X2. CALL LIGHT IN REACH. WILL CONTINUE TO MONITOR.
--- NOTE | 2019-12-06 14:50 | NUR ---
Admission Note Report Given to: CHUCK RN Transported by: Wheelchair X Stretcher Transported with: X Nurse Transporter X Patent IV O2 X Finish Grinder Location: X ICU MS2 TRANSPORTED TO ICU 6 WITHOUT INCIDENT
--- NOTE | 2019-12-06 15:15 | NUR ---
PT PRINTED CIRCUIT BOARDS PINNER LIGHT REQUESTING SOMETHING FOR PAIN. EXPLAINED THAT AT THIS TIME THERE IS NO ORDERS FOR PAIN MEDS BUT WILL NOTIFY PRACTITIONER.
--- NOTE | 2019-12-06 16:00 | NUR ---
P BRIM SHAPER LIGHT REQUESTING PAIN MEDICATION. EXPLAINED THAT THE MEDICATION HAS TO BE VERIFIED BY PHARMACY AND WILL MEDICATE SOON ORDER AND VERIFICATION IS COMPLETED. PT VERBALIZED UNDERSTANDING
--- NOTE | 2019-12-06 16:40 | NUR ---
Gianluca WOODS AT BEDSIDE AT THIS TIME.
--- NOTE | 2019-12-06 16:50 | NUR ---
PT HEAD OF STOCK LIGHT STATING THAT HE FEELS LIKE HE IS HAVING AN ANXIETY ATTACK. PT STATES I JUST CAN'T STOP IT. THIS NURSE INTO ROOM AND PROVIDED REASSURANCE. DOG BOARDER NOTIFIED NO NEW ORDERS AT THIS TIME.
--- NOTE | 2019-12-06 17:45 | NUR ---
Gianluca WOODS PHONED THIS NURSE TO ORDER LEVEMIR 42 UNITS AND LOW DOSE SLIDING SCALED WHEN ACCU CHECK IS LESS THAN 250.
--- NOTE | 2019-12-06 18:02 | NUR ---
ACCUCHECK 225 ORDERS SENT TO [facility] FOR D PEGGY VERBAL ORDERS
--- NOTE | 2019-12-06 18:19 | NUR ---
PT PROVIDED CLEAR LIQUID DIABETIC DIET. SPOUSE AT BEDSIDE.
--- NOTE | 2019-12-06 19:00 | NUR ---
PATIENT IS AWAKE, ORIENTED X4. COMPLAINS OF PAIN RATE OF 8 ON RIGHT UPPER QUADRANT, REQUESTS PAIN MEDICATION, I NOTIFIED HIM I WILL BE CALLING DR RAT POISONER TO NOTIFY, PT UNDERSTANDS AND AGREES. NURSING ASSESSMENT PERFORMED. POC DISCUSSED FOR TONIGHT. IV X2 INTACT, NO REDNESS OR TENDERNESS, FLUSH PROPERLY. 191: LEVEMIR 42 UNITS SC ADMISNISTERED AND INSULIN DRIP STOPPED. NS INFUSING AT 150 ML.HR. ACCUCHECK 216 MG/DL. CALL LIGHT WITHIN REACH.
--- NOTE | 2019-12-06 20:10 | NUR ---
CALLED AND SPOKE TO DR RUSS REGARDING PATIENT COMPLAINTS OF R-UPPER QHADRANT PAIN AROUND SURGICAL SITE, RATES 8/10 SHARP, SURGICAL SITE SHOWS NO SIGNS OF REDNESS OR TENDERNESS, NO DISCHARGE. NEW ORDERS RECEIVED.
--- NOTE | 2019-12-06 20:52 | NUR ---
PAIN MEDICATION GIVEN. PATIENT IS AWAKE. CONVERSATES. PATIENT ABLE TO SWALLOW BEDTIME MEDS WITHOUT DIFFICULTY. IV ANTIBITOIC INFUSING NOW. REQUESTS A JELLO, WILL PROVIDE. CALL LIGHT WITHIN REACH. URINAL EMPTIED, URINE KARLY AND 325 ML OUT.
--- NOTE | 2019-12-06 22:29 | NUR ---
INSULIN GIVEN FOR BS 238 MG/DL. PATIENT HAS NO COMPLAINTS, PT ATE HIS JELLO WITHOUT DIFFICULTY. CALL LIGHT WITHIN REACH.
[2019-12-07] VITALS (9 sets, daily range): BP systolic 118–156; BP diastolic 63–97
--- NOTE | 2019-12-07 00:15 | NUR ---
IV ANTIBIOTICS INFUSING. PT HAS NO COMPLAINTS OR NEEDS AT THIS TIME. BP 140'S SYTOLIC. SPO2 GREATER THAN 95%, NO SOB NOTED. SR ON TELEMETRY. CALL LIGHT WITHIN REACH.
--- NOTE | 2019-12-07 01:34 | NUR ---
NEW BAG OF IV FLUIDS INFUSING OF NS AT 150 ML/HR. PT HAS NO COMPLAINTS OR NEEDS AT THIS TIME. RESTS WITH EYES CLOSED. CALL LIGHT WITHIN REACH.
--- NOTE | 2019-12-07 04:32 | NUR ---
patient awakens easily when spoken to. no complaints. electrodes fixed on chest. afebrile. no needs at this time. call light within reach.
[2019-12-07 05:23] LABS: HEMOGLOBIN 9.9 g/dl (14.0-18.0); IMMATURE GRANULOCYTES 0.6 % (0.0-5.0); MEAN CELL VOLUME 88.1 fL CALC (80.0-100.0); MEAN CORPUSCULAR HGB 27.5 pG CALC (26.0-32.0); MEAN CORPUSCULAR HGB CONC 31.2 g/dL CAL (32.0-36.0); NEUT# 4.24 thou/uL (1.82-7.42); RED BLOOD COUNT 3.6 mill/uL (4.70-6.10); RED CELL DISTRI WIDTH 14.1 % (11.5-15.5)
[2019-12-07 05:27] LABS: HEMATOCRIT 31.7 % (39.0-50.0)
[2019-12-07 05:47] LABS: ALKALINE PHOSPHATASE 92 u/l (38-126); BUN 7 mg/dL (9-20); BUN/CREATININE RATIO 15 (12-20 (CALC)); CHLORIDE 104 mmol/l (95-108); CREATININE 0.5 mg/dL (0.7-1.3); GFR > 60 ML/MIN (>=60 (CALC)); GFR FOR AFR.AMER. > 60 ML/MIN (>=60 (CALC)); SGOT/AST 15 u/l (17-59); SODIUM 135 mmol/l (137-146)
[2019-12-07 05:51] LABS: ANION GAP 9 (6-22 (CALC)); CARBON DIOXIDE 26 mmol/l (22-30)
[2019-12-07 05:52] LABS: ALBUMIN 3.1 g/dL (3.2-5.0); BILIRUBIN, TOTAL 0.4 mg/dL (0.0-1.4)
--- NOTE | 2019-12-07 06:31 | NUR ---
PATIENT ABLE TO SIT UP IN BED, ABLE TO SWALLOW HIS AM SYNTHROID, PAIN MEDICATION GIVEN PER REQUEST. NO OTHER NEEDS OR COMPLAINTS AT THIS TIME. NOTIFIED HIM OF CT GUIDED ASPIRATION THIS AM. CALL LIGHT WITHIN REACH.
--- NOTE | 2019-12-07 06:48 | NUR ---
AWILDA FROM RADIOLOGY CALLED UP HERE TO NOTIFY THEY WILL BE TAKING PATIENT ROUND 10AM, LOCAL ANESTHESIA, CONSENT WILL BE OBTAINED DOWN AT RADIOLOGY, NO NPO AT THIS TIME.
--- NOTE | 2019-12-07 07:20 | NUR ---
REPORT RECEIVED FROM CHINA LEACH. PT RESTING IN BED SUPINE WITH EYES CLOSED AND NO SIGNS OF DISTRESS. AWAKENS SPONTANEOUSLY. DENIES PAIN; REPORTS THAT PAIN MEDICATION GIVEN ON PREVIOUS SHIFT WAS EFFECTIVE. RESPIRATIONS EVEN AND UNLABORED ON ROOM AIR. VSS. ACCU CHECK 105. AFEBRILE. DRESSING TO RIGHT GREAT TOE AT AREA OF DIABETIC ULCER; DRY DRESSING REAPPLIED; NO DRAINGE OR ODOR NOTED; SITE IS CALLUSED. PLAN OF CARE REVIEWED. PT ENCOURAGED TO VERBALIZE CONCERNS. STATES UNDERSTANDING. SAFETY MEAUSRES IN PLACE. CALL LIGHT WITHIN REACH.
--- NOTE | 2019-12-07 08:28 | NUR ---
DR. TOLENTINO AT BEDSIDE TO DISCUSS POC INCLUDING PROCEDURE FOR FLUID ASPIRATION AT INCISION SITE TO RUQ OF ABDOMEN.
--- NOTE | 2019-12-07 08:38 | NUR ---
DR. ANNA AT BEDSIDE FOR EVAL.
--- NOTE | 2019-12-07 10:09 | NUR ---
TRANSPORTED TO RADIOLOGY FOR PROCEDURE VIA WHEELCHAIR WITH ICU STAFF IN STABLE CONDITION.
--- NOTE | 2019-12-07 10:22 | NUR ---
PT RETURNED FROM RADIOLOGY VIA WHEELCHAIR. TECH REPORTS THAT PROCEDURE WAS NOT COMPLETED DUE TO NOT ENOUGH FLUID ABLE TO ASPIRATED. PT TRANSPORTED TO [facility] VIA WHEELCHAIR ROOM 272. ORIENTED TO NEW ROOM AND CALL LIGHT SYSTEM.
--- NOTE | 2019-12-07 12:00 | NUR ---
PT ARRIVES TO MED/SURG VIA WHEELCHAIR FROM ICU, ALERT AND ORIENTED X 3. PT STATES THAT HE IS HERE DUE TO BLOOD SUGARS ELEVATING AND CONTINUED PAIN TO ABDOMEN FROM RECENT CHOLECYSTECTOMY. PT PROVIDED MED FOR PAIN SHORTLY AFTER ARRIVAL.
--- NOTE | 2019-12-07 15:01 | NUR ---
PT HAS BEEN DISCHARGED TO HOME. PT VERBALIZES UNDERSTANDING OF DC INSTRUCTIONS, AMBULATES TO LOBBY ACCOMPANIED BY STAFF. PT LEAVES [facility] IN STABLE CONDITION.
--- NOTE | 2019-12-07 16:42 | NUR ---
1500 PT CURRENTLY ON MED SURG UNIT. CM VISITED PT TO PLAN DISCHARGE. PT STATES HE HAD A VISIT WITH [facility]. HE STATES THEY CALLED TO SCHEDULE HIS SECOND VISIT BUT HE WAS ALREADY IN THE HOSPITAL. PT STATES [facility] CALLED HIM TO DISCUSS HIS REFERRAL BUT STATED AGAIN HE WAS IN THE HOSPITAL. PT DUE TO DISCHARGE HOME TODAY. PT STATES HE WANTS TO MOVE FORWARD WITH HH AND [facility]. HE STATES HE IS DEPRESSED AND FEELS THIS MAY HELP HIM. HE DENIES SUICIDAL THOUGHTS. NO OTHER NEEDS AT THIS TIME.
== END 2019-12-07 14:58 | disposition home health service (06) | DRG 919 ==
LOC: ED 09:49 → ED-I 11:50 → ED 12:00 → ICU 12:01 → MS2 12-07 10:29
PROVIDERS: Nurse Practitioner; Student in an Organized Health Care Education/Training Program; ADMIT Internal Medicine; ATTEND Internal Medicine
DX: K91.870 Postprocedural hematoma of a digestive system organ or structure following a digestive system procedure (principal); E10.10 Type 1 diabetes mellitus with ketoacidosis without coma; I10 Essential (primary) hypertension; E10.42 Type 1 diabetes mellitus with diabetic polyneuropathy; D64.9 Anemia, unspecified; E03.9 Hypothyroidism, unspecified; F31.9 Bipolar disorder, unspecified; F43.10 Post-traumatic stress disorder, unspecified; F41.9 Anxiety disorder, unspecified; E78.1 Pure hyperglyceridemia; K75.81 Nonalcoholic steatohepatitis (NASH); Y83.6 Removal of other organ (partial) (total) as the cause of abnormal reaction of the patient, or of later complication, without mention of misadventure at the time of the procedure; Z90.49 Acquired absence of other specified parts of digestive tract; Z91.19 Patient's noncompliance with other medical treatment and regimen; Z96.89 Presence of other specified functional implants; Z79.4 Long term (current) use of insulin; Z87.891 Personal history of nicotine dependence; Z20.828 Contact with and (suspected) exposure to other viral communicable diseases
CPT/HCPCS: J1650; Q9967

== ENCOUNTER 2019-12-19 00:24 | Inpatient (IN) | payer MEDICARE, OTHER ==
[~2019-12-19] VITALS: Ht 172.7 cm; Wt 65.9 kg
[2019-12-19] VITALS (9 sets, daily range): BP systolic 126–156; BP diastolic 75–99
--- NOTE | 2019-12-19 00:24 | NUR ---
PATIENT TAKEN TO TREATMENT ROOM 9 BY EMS, AWAKE AND ALERT, ORIENTED X3, NO S/S OF DISTRESS NOTED, C/O NAUSEA AND PAIN TO ABDOMEN FROM [facility] SURGERY 3 WEEKS AGO, PATIENT STATES THAT HE WAS JUST RELEASED FROM [facility] 2 DAYS AGO WHERE THEY REMOVED SURGICAL DRAIN.
[2019-12-19 00:59] LABS: IMMATURE GRANULOCYTES 0.6 % (0.0-5.0); MEAN CORPUSCULAR HGB 26.9 pG CALC (26.0-32.0); MEAN CORPUSCULAR HGB CONC 32.8 g/dL CAL (32.0-36.0); NEUT# 7.15 thou/uL (1.82-7.42); RED BLOOD COUNT 4.83 mill/uL (4.70-6.10); RED CELL DISTRI WIDTH 14.1 % (11.5-15.5)
[2019-12-19 00:59] LABS: URINE BILIRUBIN - DIPSTICK NEGATIVE (NEGATIVE); URINE BLOOD DIPSTICK NEGATIVE (NEGATIVE); URINE COLOR YELLOW; URINE GLUCOSE - DIPSTICK >=1000 mg/dL (NEGATIVE); URINE KETONE 15 mg/dL (NEGATIVE); URINE LEUK ESTERASE NEGATIVE (NEGATIVE); URINE NITRITE - DIPSTICK NEGATIVE (Negative); URINE PROTEIN - DIPSTICK NEGATIVE (NEG-TRACE); URINE SPECIFIC GRAVITY <=1.005; URINE UROBILINOGEN - DIPSTICK 0.2 E.U./dL (0.2)
[2019-12-19 01:00] LABS: HEMATOCRIT 39.6 % (39.0-50.0)
[2019-12-19 01:16] LABS: BUN 24 mg/dL (9-20); BUN/CREATININE RATIO 24 (12-20 (CALC)); CARBON DIOXIDE 23 mmol/l (22-30); GFR > 60 ML/MIN (>=60 (CALC)); GFR FOR AFR.AMER. > 60 ML/MIN (>=60 (CALC)); MAGNESIUM 1.9 mg/dL (1.6-2.3); SGOT/AST 23 u/l (17-59)
[2019-12-19 01:28] LABS: ALBUMIN 4.7 g/dL (3.2-5.0); ALKALINE PHOSPHATASE 319 u/l (38-126); ANION GAP 24 (6-22 (CALC)); BILIRUBIN, TOTAL 1.3 mg/dL (0.0-1.4); CHLORIDE 80 mmol/l (95-108); POTASSIUM 5.3 mmol/l (3.5-5.1); SODIUM 122 mmol/l (137-146); TOTAL PROTEIN 8.2 g/dL (6.3-8.2)
--- NOTE | 2019-12-19 01:30 | NUR ---
PT RESTING QUIETLY AT THIS TIME, AWAITING DIAGNOSTIC RESULTS, RESPIRATIONS EVEN AND UNLABORED.
[2019-12-19 01:59] LABS: AMYLASE 49 u/l (30-110); LIPASE < 10 u/l (23-300)
--- NOTE | 2019-12-19 02:32 | NUR ---
HAND OFF REPORT GIVEN TO YAO
--- NOTE | 2019-12-19 02:36 | NUR ---
450CC OF CLEAR YELLOW URINE EMPTIED FROM URINAL
--- NOTE | 2019-12-19 03:07 | NUR ---
accucheck reads high.
--- NOTE | 2019-12-19 03:07 | NUR ---
29 yr old white male admitted icu6 per stretcher from er. transferred self to bed. no n/v @ present. divisional merchandising manager shows sinus rhythm. #20 lac. bolus cont. divisional merchandising manager shows sinus rhythm. history obtained per pt & er record. oriented to room. fall & air/contact precautions initiated.
--- NOTE | 2019-12-19 04:05 | NUR ---
accucheck reads hi. covid swab collected & sent to lab.
--- NOTE | 2019-12-19 04:27 | NUR ---
lab here. blood drawn.
[2019-12-19 04:47] LABS: HEMATOCRIT 36.6 % (39.0-50.0); HEMOGLOBIN 11.9 g/dl (14.0-18.0); IMMATURE GRANULOCYTES 0.8 % (0.0-5.0); MEAN CELL VOLUME 81.3 fL CALC (80.0-100.0); MEAN CORPUSCULAR HGB 26.4 pG CALC (26.0-32.0); MEAN CORPUSCULAR HGB CONC 32.5 g/dL CAL (32.0-36.0); NEUT# 5.22 thou/uL (1.82-7.42); RED BLOOD COUNT 4.5 mill/uL (4.70-6.10); RED CELL DISTRI WIDTH 13.9 % (11.5-15.5)
[2019-12-19 05:20] LABS: BUN 23 mg/dL (9-20); BUN/CREATININE RATIO 27 (12-20 (CALC)); CARBON DIOXIDE 23 mmol/l (22-30); CREATININE 0.9 mg/dL (0.7-1.3); GFR > 60 ML/MIN (>=60 (CALC)); GFR FOR AFR.AMER. > 60 ML/MIN (>=60 (CALC))
[2019-12-19 05:27] LABS: ANION GAP 17 (6-22 (CALC)); CHLORIDE 95 mmol/l (95-108); SODIUM 131 mmol/l (137-146)
--- NOTE | 2019-12-19 06:00 | NUR ---
eyes closed. no distress. satellite project site monitor shows sinus rhythm.
--- NOTE | 2019-12-19 06:51 | NUR ---
PT RESTING QUIETLY ON BED, SLEEPING AT THIS TIME, AWAKENS EASILY, DENIES ANY NEEDS AT THIS TIME
[2019-12-19] MEDS ORDERED: LORAZEPAM0.5 MG PO (07:51)
[2019-12-19] MEDS ORDERED: CREON24000 UNT PO (07:52)
--- NOTE | 2019-12-19 09:23 | NUR ---
PT RESTING QUIETLY ON LEFT SIDE, SPOKE TO PT ABOUT THE NEED TO FOLLOW A DIABETIC DIET ROUTINE, HE VOICES UNDERSTANDING. VITAL SIGNS STABLE, INSULIN GTT INFUSING AT 5 DUE TO ACCUCHCK OF 443
--- NOTE | 2019-12-19 10:40 | NUR ---
DR. OVERTON EXAMINING PT, PT IS TO BE TAKEN OFF OF INSULIN GTT AND PLACED ON REGULAR MEDICATIONS AND IF HOLDS STEADY TO BE SENT TO MED SURG FROM HERE
--- NOTE | 2019-12-19 10:41 | NUR ---
LAB HERE FOR REPEAT BLOOD DRAW
[2019-12-19 11:13] LABS: ANION GAP 15 (6-22 (CALC)); BUN 18 mg/dL (9-20); BUN/CREATININE RATIO 25 (12-20 (CALC)); CARBON DIOXIDE 24 mmol/l (22-30); CHLORIDE 101 mmol/l (95-108); CREATININE 0.7 mg/dL (0.7-1.3); GFR > 60 ML/MIN (>=60 (CALC)); GFR FOR AFR.AMER. > 60 ML/MIN (>=60 (CALC)); POTASSIUM 4.4 mmol/l (3.5-5.1); SGOT/AST 21 u/l (17-59); SODIUM 135 mmol/l (137-146); TOTAL PROTEIN 7.3 g/dL (6.3-8.2)
[2019-12-19 11:14] LABS: ALKALINE PHOSPHATASE 142 u/l (38-126); BILIRUBIN, TOTAL 0.5 mg/dL (0.0-1.4)
--- NOTE | 2019-12-19 12:44 | NUR ---
PER DR. OVERTON, INSULIN DRIP DISCONTINUED AND PTS OWN MEDS GIVEN TO SEE HOW ACCUCHECK VALUES STAY AT. LAST ACCUCHECK 261
--- NOTE | 2019-12-19 14:55 | NUR ---
PT RESTING QUIETLY ON BED, WATCHING TV, DENIES ANY PAIN, DENIES ANY DISCOMFORT, IV FLUIDS INFUSING, REQUESTED DIET DRINK AND WAS GIVEN TO HIM, VITAL SIGNS REMAIN STABLE, ALERT/ORIENTED X3, CALL LIGHT WITHIN REACH
--- NOTE | 2019-12-19 17:29 | NUR ---
PT REMAINS PAIN FREE/NO DISCOMFORT NOTED, IV FLUIDS INFUSING, IV SITE HEALTHY AT THIS TIME, VITAL SIGGNS REMAIN WITHIN LIMITS, CALL LIGHT AT BEDSIDE.
--- NOTE | 2019-12-19 17:45 | NUR ---
PT SITTING UP ON BED EATING DINNER MEAL
--- NOTE | 2019-12-19 19:15 | NUR ---
awake. c/o anxiety. ativan 0.5mg po given. monitor and storage bin tender shows sinus rhythm hr 86. #20 lac ns infusing @ 200cchr. po fluids taken well. voids per urinal. fall & air/contact precautions cont.
--- NOTE | 2019-12-19 20:30 | NUR ---
pt c/o post op(3 weeks ago) pain. requested morphine. motrin 800mg given.
--- NOTE | 2019-12-19 21:45 | NUR ---
pt cont to c/o post op pain "when i cough." sonata 5mg po given.
[2019-12-20 00:01] VITALS: BP 149/81
--- NOTE | 2019-12-20 00:01 | NUR ---
eyes closed. no distress. laboratory monitor shows sinus rhythm.
[2019-12-20 02:00] VITALS: BP 157/90
--- NOTE | 2019-12-20 02:00 | NUR ---
resting quietly. resps even & unlabored. no apparent distress.
[2019-12-20 04:00] VITALS: BP 145/85
--- NOTE | 2019-12-20 04:00 | NUR ---
eyes closed. no distress. ivf infusing well.
--- NOTE | 2019-12-20 04:55 | NUR ---
lab here. blood drawn.
[2019-12-20 05:08] LABS: HEMATOCRIT 34.7 % (39.0-50.0); HEMOGLOBIN 10.9 g/dl (14.0-18.0); IMMATURE GRANULOCYTES 0.5 % (0.0-5.0); MEAN CELL VOLUME 85.3 fL CALC (80.0-100.0); MEAN CORPUSCULAR HGB 26.8 pG CALC (26.0-32.0); MEAN CORPUSCULAR HGB CONC 31.4 g/dL CAL (32.0-36.0); NEUT# 4.68 thou/uL (1.82-7.42); RED BLOOD COUNT 4.07 mill/uL (4.70-6.10); RED CELL DISTRI WIDTH 13.8 % (11.5-15.5)
[2019-12-20 05:30] LABS: ANION GAP 10 (6-22 (CALC)); BUN 11 mg/dL (9-20); BUN/CREATININE RATIO 19 (12-20 (CALC)); CARBON DIOXIDE 25 mmol/l (22-30); CHLORIDE 107 mmol/l (95-108); CREATININE 0.6 mg/dL (0.7-1.3); GFR > 60 ML/MIN (>=60 (CALC)); GFR FOR AFR.AMER. > 60 ML/MIN (>=60 (CALC)); POTASSIUM 3.6 mmol/l (3.5-5.1); SODIUM 138 mmol/l (137-146)
--- NOTE | 2019-12-20 06:00 | NUR ---
eyes closed. no distress. manual arts therapy teacher shows sinus rhythm.
[2019-12-20 07:45] VITALS: BP 143/69
--- NOTE | 2019-12-20 07:45 | NUR ---
PT A&OX4, ABLE TO MAKE NEEDS KNOWN. SR ON TELEMETRY, HR 78. RESPIRATIONS EVEN/UNLBORED, LS CLEAR THROUGHOUT, SA02@100%RA. ABDOMEN SOFT/TENDER, POST OPEN CHOLECTOMY, BSX4 ACTIVE. PT STATING "MY BELLY IS BURNING" PT WILL BE MEDICATED ORDERED FOR INDIGESTION. CALL LIGHT IN REACH. WILL MONITOR.
--- NOTE | 2019-12-20 08:00 | NUR ---
PT UP TO [facility] FOR BM.
--- NOTE | 2019-12-20 08:15 | NUR ---
DR. ANNA AND KARLOS HUSSEIN AT [facility] FOR ASSESSMENT AND TO DISCUSS PLAN OF CARE, NEW ORDERS RECIEVED.
[2019-12-20 08:59] VITALS: BP 145/87
[2019-12-20] MEDS ORDERED: LORAZEPAM0.5 MG PO ×2 (09:00→09:44)
--- NOTE | 2019-12-20 09:00 | NUR ---
PT TO [facility] FOR BM
--- NOTE | 2019-12-20 09:15 | NUR ---
IV site discontinued, cath intact. No edema , no redness, voices no discomfort.
[2019-12-20 09:17] VITALS: BP 145/87
--- NOTE | 2019-12-20 09:48 | NUR ---
Discharge instructions given. Patient verbalizes understanding of same. Discharged in stable condition via Wheelchair to Home with family. All belongings sent with pt. PAPER PRESCRIPTION FOR [facility] SENT WITH PT. [facility]/HH TO F/U WITH VISITS PER MADISON SAMUELS.
== END 2019-12-20 09:48 | disposition home or self-care (01) | DRG 639 ==
LOC: ED 00:24 → ED-I 02:13 → ED 02:22 → ICU 02:23
PROVIDERS: Family Medicine; Internal Medicine; ADMIT Internal Medicine; ATTEND Internal Medicine
DX: E10.10 Type 1 diabetes mellitus with ketoacidosis without coma (principal); I10 Essential (primary) hypertension; F31.9 Bipolar disorder, unspecified; F41.9 Anxiety disorder, unspecified; E03.9 Hypothyroidism, unspecified; K75.81 Nonalcoholic steatohepatitis (NASH); E78.1 Pure hyperglyceridemia; E10.42 Type 1 diabetes mellitus with diabetic polyneuropathy; Z87.891 Personal history of nicotine dependence; Z79.4 Long term (current) use of insulin; Z20.828 Contact with and (suspected) exposure to other viral communicable diseases
CPT/HCPCS: J1650

== ENCOUNTER 2019-12-27 22:44 | Emergency (ER) | payer MEDICARE, OTHER ==
[~2019-12-27] VITALS: Ht 172.7 cm; Wt 65.9 kg
[~2019-12-27 22:44] MED LIST changes: +LORAZEPAM0.5 MG PO
[2019-12-28 01:10] VITALS: BP 151/89
== END 2019-12-28 01:10 | disposition home or self-care (01) ==
LOC: ED 22:44
DX: T78.40XA Allergy, unspecified, initial encounter (principal); E10.8 Type 1 diabetes mellitus with unspecified complications; I10 Essential (primary) hypertension; K75.81 Nonalcoholic steatohepatitis (NASH); E03.9 Hypothyroidism, unspecified; F31.9 Bipolar disorder, unspecified; E78.1 Pure hyperglyceridemia; X58.XXXA Exposure to other specified factors, initial encounter; Z79.4 Long term (current) use of insulin

== ENCOUNTER 2020-01-03 04:22 | Emergency (ER) | payer MEDICARE, OTHER ==
[~2020-01-03] VITALS: Ht 172.7 cm; Wt 63.6 kg
[2020-01-03 05:12] LABS: HEMATOCRIT 38.5 % (39.0-50.0); HEMOGLOBIN 12.5 g/dl (14.0-18.0); IMMATURE GRANULOCYTES 0.6 % (0.0-5.0); MEAN CELL VOLUME 82.6 fL CALC (80.0-100.0); MEAN CORPUSCULAR HGB 26.8 pG CALC (26.0-32.0); MEAN CORPUSCULAR HGB CONC 32.5 g/dL CAL (32.0-36.0); NEUT# 4.52 thou/uL (1.82-7.42); RED BLOOD COUNT 4.66 mill/uL (4.70-6.10)
[2020-01-03 05:25] LABS: ALBUMIN 4.2 g/dL (3.2-5.0); ALKALINE PHOSPHATASE 180 u/l (38-126); AMYLASE 39 u/l (30-110); ANION GAP 14 (6-22 (CALC)); BILIRUBIN, TOTAL 0.4 mg/dL (0.0-1.4); BUN 15 mg/dL (9-20); BUN/CREATININE RATIO 25 (12-20 (CALC)); CARBON DIOXIDE 26 mmol/l (22-30); CHLORIDE 97 mmol/l (95-108); CREATININE 0.6 mg/dL (0.7-1.3); GFR > 60 ML/MIN (>=60 (CALC)); GFR FOR AFR.AMER. > 60 ML/MIN (>=60 (CALC)); LIPASE < 10 u/l (23-300); SGOT/AST 36 u/l (17-59); SODIUM 132 mmol/l (137-146); TOTAL PROTEIN 7.4 g/dL (6.3-8.2)
[2020-01-03 05:32] LABS: URINE BILIRUBIN - DIPSTICK NEGATIVE (NEGATIVE); URINE BLOOD DIPSTICK NEGATIVE (NEGATIVE); URINE COLOR YELLOW; URINE GLUCOSE - DIPSTICK >=1000 mg/dL (NEGATIVE); URINE KETONE TRACE mg/dL (NEGATIVE); URINE LEUK ESTERASE NEGATIVE (NEGATIVE); URINE NITRITE - DIPSTICK NEGATIVE (Negative); URINE PH 6.5 (4.5-8.0); URINE PROTEIN - DIPSTICK NEGATIVE (NEG-TRACE); URINE SPECIFIC GRAVITY <=1.005; URINE UROBILINOGEN - DIPSTICK 0.2 E.U./dL (0.2)
[2020-01-03 05:40] LABS: POTASSIUM 4.8 mmol/l (3.5-5.1)
[2020-01-03 05:57] VITALS: BP 158/85
== END 2020-01-03 06:42 | disposition home or self-care (01) ==
LOC: ED 04:22
PROVIDERS: Family Medicine
DX: R10.12 Left upper quadrant pain (principal); R10.32 Left lower quadrant pain; G89.29 Other chronic pain; R18.8 Other ascites; E11.65 Type 2 diabetes mellitus with hyperglycemia; I10 Essential (primary) hypertension; K75.81 Nonalcoholic steatohepatitis (NASH); E03.9 Hypothyroidism, unspecified; F32.9 Major depressive disorder, single episode, unspecified; Z79.4 Long term (current) use of insulin; Z96.89 Presence of other specified functional implants
CPT/HCPCS: Q9967

== ENCOUNTER 2020-02-03 11:12 | Inpatient (IN) | payer MEDICARE, OTHER ==
[~2020-02-03] VITALS: Ht 172.7 cm; Wt 77.8 kg
[~2020-02-03 11:12] MED LIST changes: -NOVOLOG FL100 UNIT/M SC; -OLANZAPINE2.5 MG PO; -SERTRALINE HCL100 MG PO
--- NOTE | 2020-02-03 11:55 | NUR ---
PT MEDICATED PER EDP ORDER. TOLERATED WELL. PT GIVEN URINAL FOR UA SPECIMEN. CALL LIGHT WITHIN REACH.
[2020-02-03 11:57] LABS: IMMATURE GRANULOCYTES 0.7 % (0.0-5.0); MEAN CORPUSCULAR HGB 26.3 pG CALC (26.0-32.0); MEAN CORPUSCULAR HGB CONC 31.3 g/dL CAL (32.0-36.0); NEUT# 6.98 thou/uL (1.82-7.42); RED BLOOD COUNT 5.67 mill/uL (4.70-6.10); RED CELL DISTRI WIDTH 15.1 % (11.5-15.5)
[2020-02-03 12:08] LABS: HEMATOCRIT 47.6 % (39.0-50.0); HEMOGLOBIN 14.9 g/dl (14.0-18.0)
[2020-02-03 12:15] LABS: ALKALINE PHOSPHATASE 206 u/l (38-126); AMYLASE 56 u/l (30-110); BUN 26 mg/dL (9-20); BUN/CREATININE RATIO 32 (12-20 (CALC)); CHLORIDE 89 mmol/l (95-108); CREATININE 0.8 mg/dL (0.7-1.3); ETHYL ALCOHOL 0 mg/dl (0-30); GFR > 60 ML/MIN (>=60 (CALC)); GFR FOR AFR.AMER. > 60 ML/MIN (>=60 (CALC)); LIPASE 13 u/l (23-300); SGOT/AST 24 u/l (17-59); SODIUM 128 mmol/l (137-146)
--- NOTE | 2020-02-03 12:20 | NUR ---
PT WAITING ON STRETCHERS WITH TREATMENTS BEING DONE. PLAN OF CARE DISCUSSED. PT COOPERATIVE. CALL LIGHT WITHIN REACH
[2020-02-03 12:23] LABS: ANION GAP 34 (6-22 (CALC)); BILIRUBIN, TOTAL 0.8 mg/dL (0.0-1.4); CARBON DIOXIDE 10 mmol/l (22-30); POTASSIUM 5.2 mmol/l (3.5-5.1)
[2020-02-03 12:49] LABS: URINE BILIRUBIN - DIPSTICK NEGATIVE (NEGATIVE); URINE BLOOD DIPSTICK NEGATIVE (NEGATIVE); URINE COLOR YELLOW; URINE GLUCOSE - DIPSTICK >=1000 mg/dL (NEGATIVE); URINE KETONE >=80 mg/dL (NEGATIVE); URINE LEUK ESTERASE NEGATIVE (NEGATIVE); URINE NITRITE - DIPSTICK NEGATIVE (Negative); URINE PH 5.5 (4.5-8.0); URINE PROTEIN - DIPSTICK NEGATIVE (NEG-TRACE); URINE SPECIFIC GRAVITY 1.015; URINE UROBILINOGEN - DIPSTICK 0.2 E.U./dL (0.2)
[2020-02-03] MEDS ORDERED: LISINOPRIL5 MG PO (12:56)
[2020-02-03] MEDS ORDERED: LEVOTHYROXIN50 MCG PO (12:56)
[2020-02-03] MEDS ORDERED: FOLIC ACID1 MG PO (12:57)
[2020-02-03] MEDS ORDERED: LORAZEPAM0.5 MG PO (12:57)
[2020-02-03] MEDS ORDERED: SERTRALINE HCL100 MG PO (12:57)
[2020-02-03] MEDS ORDERED: NOVOLOG FL100 UNIT/M SC (12:57)
[2020-02-03] MEDS ORDERED: OLANZAPINE2.5 MG PO (12:57)
--- NOTE | 2020-02-03 13:30 | NUR ---
PT STATES THAT HE IS IN CONTINUED PAIN RATING AT 8/10. MD NOTIFIED AND MEDS ORDERED
--- NOTE | 2020-02-03 14:45 | NUR ---
GAVE REPORT TO LUANN
[2020-02-03 15:23] LABS: ALBUMIN 4.6 g/dL (3.2-5.0); ALKALINE PHOSPHATASE 154 u/l (38-126); BUN 26 mg/dL (9-20); BUN/CREATININE RATIO 33 (12-20 (CALC)); CHLORIDE 96 mmol/l (95-108); CREATININE 0.8 mg/dL (0.7-1.3); GFR > 60 ML/MIN (>=60 (CALC)); GFR FOR AFR.AMER. > 60 ML/MIN (>=60 (CALC)); SGOT/AST 22 u/l (17-59); SODIUM 131 mmol/l (137-146); TOTAL PROTEIN 7.9 g/dL (6.3-8.2)
[2020-02-03 15:34] LABS: ANION GAP 26 (6-22 (CALC)); BILIRUBIN, TOTAL 0.4 mg/dL (0.0-1.4); CARBON DIOXIDE 14 mmol/l (22-30)
--- NOTE | 2020-02-03 15:40 | NUR ---
PT TRANSFERED TO ICU STABLE AND IN NO DISTRESS. CARE ASSUMED TO LUANN Admission Note Report Given to: LUANN Transported by: Wheelchair X Stretcher Transported with: X Nurse Transporter X Patent IV O2 X Ware Finisher Location: X ICU MS2
--- NOTE | 2020-02-03 16:38 | NUR ---
PT ARRIVES TO ROOM 4 IN ICU, ALERT AND ORIENTED X 3. LUNGS CLEAR, PERHAPS SLIGHTLY DECREASED, RA. INSULIN DRIP IN PROGRESS AT 5 UNITS HOURLY. PT NAUSEATED, PROVIDED ZOFRAN FOR SAME. PT DID COMPLAIN OF ABDOMINAL PAIN, DR OVERTON HAS ORDERED MEDICINE FOR THAT. NO ACUTE DISTRESS NOTED.
[2020-02-03 16:40] VITALS: BP 121/86
--- NOTE | 2020-02-03 18:20 | NUR ---
PT WAITS FOR PAIN MEDICINE TO BE MADE AVAILABLE BY [facility]. SEVERAL ATTEMPTS TO FAX AND COMMUNICATE WITH THEM HAVE NOT RESULTED IN AVAILABLE MED. PT DOES APPEAR UNCOMFORTABLE WITH ABDOMINAL PAIN, NO DISTRESS OTHERWISE.
[2020-02-03 19:00] VITALS: BP 141/87
--- NOTE | 2020-02-03 19:35 | NUR ---
pt awake in bed; no apparent distress noted; assessment completed at this time; pt alert and oriented; admits to pulling pain and hunger pains to abd rating 6/10; improved since receiving morphine; no n/v noted at present; resp even and unlabored; lungs clear; skin color wnl; ra; hr reg; strong pulses; no edema noted; sr on monitor; abd soft with bs present; no bm noted per marine underwriter; pt admits to voiding without complication; no urine to inspect at this time; urinal at bedside; #20 patent to rh with ivf infusing without complication; insulin gtt infusing per protocol; marine underwriter attempted to confirm insulin with pt; pt is a poor historian and doses levemir and novolog per accucheck readings or "the way he feels"; pt denies follow up with Dr Rajput in "a while"; plan of care/ meds explained; call light within reach; will continue to monitor
[2020-02-03 20:00] VITALS: BP 117/71
--- NOTE | 2020-02-03 20:02 | NUR ---
awake in bed; no apparent distress noted; sr on monitor; iv intact and patent; call light within reach; will continue to monitor
--- NOTE | 2020-02-03 20:13 | NUR ---
Dr Clark called per administrative underwriter; levemir and novolog reviewed; pt states he takes levemir 40-45 units twice daily and novolog 20-30 units with meals and extra in between if more is needed; pt uncertain of ordered doses/ pt self doses; orders received and on chart
[2020-02-03 21:00] VITALS: BP 124/75
[2020-02-03 21:02] LABS: BUN 24 mg/dL (9-20); BUN/CREATININE RATIO 43 (12-20 (CALC)); CHLORIDE 102 mmol/l (95-108); CREATININE 0.6 mg/dL (0.7-1.3); GFR > 60 ML/MIN (>=60 (CALC)); GFR FOR AFR.AMER. > 60 ML/MIN (>=60 (CALC)); POTASSIUM 4.4 mmol/l (3.5-5.1); SODIUM 135 mmol/l (137-146)
[2020-02-03 21:03] LABS: ANION GAP 15 (6-22 (CALC)); CARBON DIOXIDE 22 mmol/l (22-30)
[2020-02-03 22:00] VITALS: BP 122/75
--- NOTE | 2020-02-03 22:09 | NUR ---
awake in bed; no apparent distress noted; insulin gtt continues; sr on monitor; call light within reach; will continue to monitor
--- NOTE | 2020-02-03 22:39 | NUR ---
insulin gtt discontinued; pt medicated with morphine and zofran as per request; pt wishing to speak to MD in the morning in regards to pain management; will continue to monitor
[2020-02-03 23:00] VITALS: BP 114/70
[2020-02-04] VITALS (7 sets, daily range): BP systolic 93–119; BP diastolic 55–82
--- NOTE | 2020-02-04 00:05 | NUR ---
resting in bed with eyes closed; no apparent distress noted; iv patent; no redness or edema noted at site; sr on monitor; call light within reach; will continue to monitor
[2020-02-04 00:31] LABS: ANION GAP 15 (6-22 (CALC)); BUN 21 mg/dL (9-20); BUN/CREATININE RATIO 36 (12-20 (CALC)); CARBON DIOXIDE 23 mmol/l (22-30); CHLORIDE 101 mmol/l (95-108); CREATININE 0.6 mg/dL (0.7-1.3); GFR > 60 ML/MIN (>=60 (CALC)); GFR FOR AFR.AMER. > 60 ML/MIN (>=60 (CALC)); SODIUM 135 mmol/l (137-146)
--- NOTE | 2020-02-04 02:05 | NUR ---
resting in bed with eyes closed; no apparent distress noted; sr on monitor; iv intact; call light within reach; will continue to monitor
--- NOTE | 2020-02-04 04:00 | NUR ---
resting in bed with eyes closed; no apparent distress noted; iv intact and patent; sr on monitor; call light within reach; will continue to monitor
[2020-02-04 05:26] LABS: ANION GAP 11 (6-22 (CALC)); BUN 18 mg/dL (9-20); BUN/CREATININE RATIO 35 (12-20 (CALC)); CARBON DIOXIDE 25 mmol/l (22-30); CHLORIDE 104 mmol/l (95-108); CREATININE 0.5 mg/dL (0.7-1.3); GFR > 60 ML/MIN (>=60 (CALC)); GFR FOR AFR.AMER. > 60 ML/MIN (>=60 (CALC)); POTASSIUM 4.1 mmol/l (3.5-5.1); SODIUM 135 mmol/l (137-146)
--- NOTE | 2020-02-04 06:11 | NUR ---
pt resting in bed with eyes closed; no apparent distress noted; resp even and unlabored; iv intact and patent; no redness or edema noted at site; sr on monitor; call light within reach
--- NOTE | 2020-02-04 06:45 | NUR ---
RECIEVED REPORT FROM CHINA CABAN. ASSUMED PT CARE.
--- NOTE | 2020-02-04 08:00 | NUR ---
PT A&OX4, ABLE TO MAKE NEEDS KNOWN. SR ON TELEMETRY, HR 70. PT DENIES CP. SOB OR DISTRESS NOTED AT THIS TIME. BS 134. SA02@98%RA, LS CLEAR THROUGHOUT . ABDOMEN SOFT/NONTENDER, BSX4 ACTIVE. 20RW INFUSING NS@100ML/HR, NO S/S OF INFILTRATION OR INFECTION NOTED AT SITE. CALL LIGHT IN REACH. WILL MONITOR.
[2020-02-04] MEDS ORDERED: LEVEMIR100 UNIT/M SC (09:29)
--- NOTE | 2020-02-04 09:30 | NUR ---
DR. OVERTON AT BEDSIDE FOR ASSESSMENT AND TO DISCUSS PLAN OF CARE, NEW ORDERS RECIEVED.
--- NOTE | 2020-02-04 10:00 | NUR ---
IV site discontinued, cath intact. No edema , no redness, voices no discomfort.
--- NOTE | 2020-02-04 10:55 | NUR ---
Discharge instructions given. Patient verbalizes understanding of same. Discharged in stable condition via Wheelchair to Home with family. All belongings sent with pt.
== END 2020-02-04 10:55 | disposition home or self-care (01) | DRG 639 ==
LOC: ED 11:12 → ED-I 12:45 → ED 12:56 → ICU 12:57
PROVIDERS: ADMIT Internal Medicine; ATTEND Internal Medicine
DX: E10.11 Type 1 diabetes mellitus with ketoacidosis with coma (principal); E10.42 Type 1 diabetes mellitus with diabetic polyneuropathy; K75.81 Nonalcoholic steatohepatitis (NASH); I10 Essential (primary) hypertension; E78.5 Hyperlipidemia, unspecified; E03.9 Hypothyroidism, unspecified; F31.9 Bipolar disorder, unspecified; F41.9 Anxiety disorder, unspecified; Z79.4 Long term (current) use of insulin; Z79.899 Other long term (current) drug therapy; Z88.6 Allergy status to analgesic agent; Z88.5 Allergy status to narcotic agent; Z88.0 Allergy status to penicillin; Z87.891 Personal history of nicotine dependence
CPT/HCPCS: Q9967

== ENCOUNTER 2020-12-28 05:10 | Emergency (ER) | payer MEDICARE, OTHER ==
[~2020-12-28] VITALS: Ht 180.3 cm; Wt 85.0 kg
[~2020-12-28 05:10] MED LIST changes: +NOVOLOG FL100 UNIT/M SC; +OLANZAPINE2.5 MG PO; +SERTRALINE HCL100 MG PO
[2020-12-28] MEDS ORDERED: FENOFIBRATE145 MG PO (05:35)
[2020-12-28 06:01] LABS: HEMATOCRIT 47.8 % (39.0-50.0); HEMOGLOBIN 15.8 g/dl (14.0-18.0); IMMATURE GRANULOCYTES 0.3 % (0.0-5.0); MEAN CORPUSCULAR HGB 29.8 pG CALC (26.0-32.0); MEAN CORPUSCULAR HGB CONC 33.1 g/dL CAL (32.0-36.0); NEUT# 6.54 thou/uL (1.82-7.42); RED BLOOD COUNT 5.3 mill/uL (4.70-6.10); RED CELL DISTRI WIDTH 13.9 % (11.5-15.5)
[2020-12-28 06:02] LABS: MEAN CELL VOLUME 90.2 fL CALC (80.0-100.0)
[2020-12-28 06:03] LABS: URINE BILIRUBIN - DIPSTICK NEGATIVE (NEGATIVE); URINE BLOOD DIPSTICK TRACE-INTACT (NEGATIVE); URINE COLOR YELLOW; URINE GLUCOSE - DIPSTICK NEGATIVE (NEGATIVE); URINE KETONE 15 mg/dL (NEGATIVE); URINE LEUK ESTERASE NEGATIVE (NEGATIVE); URINE PROTEIN - DIPSTICK TRACE mg/dL (NEG-TRACE)
[2020-12-28 06:04] LABS: URINE NITRITE - DIPSTICK NEGATIVE (Negative)
[2020-12-28 06:11] LABS: ALBUMIN 4.9 g/dL (3.2-5.0); ALKALINE PHOSPHATASE 153 u/l (38-126); AMYLASE 47 u/l (30-110); BUN 11 mg/dL (9-20); BUN/CREATININE RATIO 21 (12-20 (CALC)); CARBON DIOXIDE 23 mmol/l (22-30); CHLORIDE 101 mmol/l (95-108); CREATININE 0.5 mg/dL (0.7-1.3); GFR > 60 ML/MIN (>=60 (CALC)); GFR FOR AFR.AMER. > 60 ML/MIN (>=60 (CALC)); LIPASE 49 u/l (23-300); POTASSIUM 3.8 mmol/l (3.5-5.1); TOTAL PROTEIN 8.6 g/dL (6.3-8.2)
[2020-12-28 06:12] LABS: ANION GAP 22 (6-22 (CALC)); BILIRUBIN, TOTAL 0.6 mg/dL (0.0-1.4); SGOT/AST 463 u/l (17-59); SODIUM 142 mmol/l (137-146)
[2020-12-28 12:04] VITALS: BP 143/92
== END 2020-12-28 11:40 | disposition short-term general hospital (02) ==
LOC: ED 05:10
PROVIDERS: Family Medicine
DX: K83.8 Other specified diseases of biliary tract (principal); R74.8 Abnormal levels of other serum enzymes; I10 Essential (primary) hypertension; E11.9 Type 2 diabetes mellitus without complications; E78.00 Pure hypercholesterolemia, unspecified; E03.9 Hypothyroidism, unspecified; Z79.4 Long term (current) use of insulin; Z96.89 Presence of other specified functional implants; Z90.49 Acquired absence of other specified parts of digestive tract
CPT/HCPCS: Q9967; S0164

== ENCOUNTER 2021-10-14 00:12 | Emergency (ER) | payer MEDICARE, MEDICAID ==
[~2021-10-14] VITALS: Ht 180.3 cm; Wt 84.5 kg
[2021-10-14 00:45] LABS: IMMATURE GRANULOCYTES 0.4 % (0.0-5.0); MEAN CELL VOLUME 92.3 fL CALC (80.0-100.0); MEAN CORPUSCULAR HGB 30.6 pG CALC (26.0-32.0); MEAN CORPUSCULAR HGB CONC 33.2 g/dL CAL (32.0-36.0); NEUT# 4.76 thou/uL (1.82-7.42); RED BLOOD COUNT 4.15 mill/uL (4.70-6.10); RED CELL DISTRI WIDTH 14.2 % (11.5-15.5)
[2021-10-14 00:46] LABS: HEMATOCRIT 38.3 % (39.0-50.0); HEMOGLOBIN 12.7 g/dl (14.0-18.0)
[2021-10-14 01:18] LABS: ALKALINE PHOSPHATASE 207 u/l (38-126); BUN 21 mg/dL (9-20); BUN/CREATININE RATIO 22 (12-20 (CALC)); CARBON DIOXIDE 23 mmol/l (22-30); CHLORIDE 101 mmol/l (95-108); GFR FOR AFR.AMER. > 60 ML/MIN (>=60 (CALC)); GFR OTHER RACES > 60 ML/MIN (>=60 (CALC))
[2021-10-14 01:19] LABS: ALBUMIN 3.9 g/dL (3.2-5.0); ANION GAP 15 (6-22 (CALC)); BILIRUBIN, TOTAL 0.2 mg/dL (0.0-1.4); POTASSIUM 5.8 mmol/l (3.5-5.1); SGOT/AST 23 u/l (17-59); SODIUM 133 mmol/l (137-146); TOTAL PROTEIN 6.6 g/dL (6.3-8.2)
[2021-10-14] MEDS ORDERED: CLEOCIN300 MG PO (01:28)
[2021-10-14] MEDS ORDERED: ULTRAM50 M1 PO (01:29)
[2021-10-14 01:37] LABS: URINE BILIRUBIN - DIPSTICK NEGATIVE (NEGATIVE); URINE BLOOD DIPSTICK NEGATIVE (NEGATIVE); URINE COLOR YELLOW; URINE GLUCOSE - DIPSTICK >=1000 mg/dL (NEGATIVE); URINE KETONE NEGATIVE (NEGATIVE); URINE LEUK ESTERASE NEGATIVE (NEGATIVE); URINE PROTEIN - DIPSTICK NEGATIVE (NEG-TRACE); URINE UROBILINOGEN - DIPSTICK 0.2 E.U./dL (0.2)
[2021-10-14 01:40] LABS: URINE NITRITE - DIPSTICK NEGATIVE (Negative)
[2021-10-14 02:15] VITALS: BP 138/89
== END 2021-10-14 02:15 | disposition home or self-care (01) ==
LOC: ED 00:12
PROVIDERS: Emergency Medicine
DX: K04.7 Periapical abscess without sinus (principal); E11.65 Type 2 diabetes mellitus with hyperglycemia; I10 Essential (primary) hypertension; E78.00 Pure hypercholesterolemia, unspecified; E03.9 Hypothyroidism, unspecified; Z79.4 Long term (current) use of insulin

== ENCOUNTER 2022-02-03 14:36 | Inpatient (IN) | payer MEDICARE, MEDICAID ==
[~2022-02-03] VITALS: Ht 180.3 cm; Wt 77.7 kg
[2022-02-03] VITALS (19 sets, daily range): BP systolic 108–147; BP diastolic 56–84
[~2022-02-03 14:36] MED LIST changes: +CLEOCIN300 MG PO; +ULTRAM50 M1 PO
[2022-02-03] MEDS ORDERED: NOVOLIN R100 UNIT/1 (14:50)
[2022-02-03 14:52] LABS: HEMATOCRIT 45.4 % (39.0-50.0); HEMOGLOBIN 14.8 g/dl (14.0-18.0); IMMATURE GRANULOCYTES 0.8 % (0.0-5.0); MEAN CELL VOLUME 94.4 fL CALC (80.0-100.0); MEAN CORPUSCULAR HGB 30.8 pG CALC (26.0-32.0); MEAN CORPUSCULAR HGB CONC 32.6 g/dL CAL (32.0-36.0); NEUT# 5.89 thou/uL (1.82-7.42); RED BLOOD COUNT 4.81 mill/uL (4.70-6.10); RED CELL DISTRI WIDTH 13.9 % (11.5-15.5)
[2022-02-03 14:53] LABS: GFR FOR AFR.AMER. > 60 ML/MIN (>=60 (CALC)); GFR OTHER RACES > 60 ML/MIN (>=60 (CALC))
[2022-02-03 15:05] LABS: ALKALINE PHOSPHATASE 131 u/l (38-126); BUN 24 mg/dL (9-20); BUN/CREATININE RATIO 19 (12-20 (CALC)); CHLORIDE 98 mmol/l (95-108); CREATININE 1.3 mg/dL (0.7-1.3); GFR FOR AFR.AMER. > 60 ML/MIN (>=60 (CALC)); GFR OTHER RACES > 60 ML/MIN (>=60 (CALC)); SGOT/AST 27 u/l (17-59); SODIUM 133 mmol/l (137-146); TOTAL PROTEIN 7.6 g/dL (6.3-8.2)
[2022-02-03 15:18] LABS: ALBUMIN 4.7 g/dL (3.2-5.0); ANION GAP 31 (6-22 (CALC)); CARBON DIOXIDE 9 mmol/l (22-30); POTASSIUM 5.4 mmol/l (3.5-5.1)
[2022-02-03 15:56] LABS: URINE BLOOD DIPSTICK NEGATIVE (NEGATIVE); URINE COLOR YELLOW; URINE GLUCOSE - DIPSTICK 500 mg/dL (NEGATIVE); URINE KETONE >=80 mg/dL (NEGATIVE); URINE LEUK ESTERASE NEGATIVE (NEGATIVE); URINE PROTEIN - DIPSTICK NEGATIVE (NEG-TRACE); URINE SPECIFIC GRAVITY 1.025; URINE UROBILINOGEN - DIPSTICK 0.2 E.U./dL (0.2)
[2022-02-03 15:58] LABS: URINE BILIRUBIN - DIPSTICK NEGATIVE (NEGATIVE); URINE NITRITE - DIPSTICK NEGATIVE (Negative)
[2022-02-03 16:30] LABS: BUN 24 mg/dL (9-20); BUN/CREATININE RATIO 19 (12-20 (CALC)); CHLORIDE 102 mmol/l (95-108); CREATININE 1.2 mg/dL (0.7-1.3); GFR FOR AFR.AMER. > 60 ML/MIN (>=60 (CALC)); GFR OTHER RACES > 60 ML/MIN (>=60 (CALC)); POTASSIUM 4.5 mmol/l (3.5-5.1); SODIUM 136 mmol/l (137-146)
[2022-02-03 16:33] LABS: ANION GAP 30 (6-22 (CALC))
[2022-02-03 16:34] LABS: CARBON DIOXIDE 9 mmol/l (22-30)
[2022-02-03 20:19] LABS: ANION GAP 18 (6-22 (CALC)); BUN 21 mg/dL (9-20); BUN/CREATININE RATIO 23 (12-20 (CALC)); CHLORIDE 108 mmol/l (95-108); CREATININE 0.9 mg/dL (0.7-1.3); GFR FOR AFR.AMER. > 60 ML/MIN (>=60 (CALC)); GFR OTHER RACES > 60 ML/MIN (>=60 (CALC)); POTASSIUM 4.1 mmol/l (3.5-5.1); SODIUM 137 mmol/l (137-146)
[2022-02-03 20:20] LABS: CARBON DIOXIDE 15 mmol/l (22-30)
[2022-02-04] VITALS (26 sets, daily range): BP systolic 82–158; BP diastolic 44–93
[2022-02-04 00:40] LABS: ANION GAP 15 (6-22 (CALC)); BUN 19 mg/dL (9-20); BUN/CREATININE RATIO 21 (12-20 (CALC)); CARBON DIOXIDE 17 mmol/l (22-30); CHLORIDE 107 mmol/l (95-108); CREATININE 0.9 mg/dL (0.7-1.3); GFR FOR AFR.AMER. > 60 ML/MIN (>=60 (CALC)); GFR OTHER RACES > 60 ML/MIN (>=60 (CALC)); POTASSIUM 4.8 mmol/l (3.5-5.1); SODIUM 135 mmol/l (137-146)
[2022-02-04 05:26] LABS: BUN 18 mg/dL (9-20); BUN/CREATININE RATIO 20 (12-20 (CALC)); CARBON DIOXIDE 20 mmol/l (22-30); CHLORIDE 108 mmol/l (95-108); CREATININE 0.9 mg/dL (0.7-1.3); GFR FOR AFR.AMER. > 60 ML/MIN (>=60 (CALC)); GFR OTHER RACES > 60 ML/MIN (>=60 (CALC)); SODIUM 136 mmol/l (137-146)
[2022-02-04 05:29] LABS: ANION GAP 13 (6-22 (CALC)); POTASSIUM 4.9 mmol/l (3.5-5.1)
[2022-02-04 09:17] LABS: CHOLESTEROL HDL RATIO 5.3 (<4.4 (CALC))
[2022-02-05 04:14] VITALS: BP 119/77
[2022-02-05 06:09] LABS: BUN 14 mg/dL (9-20); BUN/CREATININE RATIO 22 (12-20 (CALC)); CARBON DIOXIDE 24 mmol/l (22-30); CHLORIDE 108 mmol/l (95-108); CREATININE 0.6 mg/dL (0.7-1.3); GFR FOR AFR.AMER. > 60 ML/MIN (>=60 (CALC)); GFR OTHER RACES > 60 ML/MIN (>=60 (CALC)); MAGNESIUM 1.7 mg/dL (1.6-2.3); SODIUM 142 mmol/l (137-146)
[2022-02-05 06:21] LABS: ANION GAP 13 (6-22 (CALC)); POTASSIUM 3.4 mmol/l (3.5-5.1)
[2022-02-05 07:09] VITALS: BP 149/85
[2022-02-05] MEDS ORDERED: SERTRALINE HCL100 MG PO (09:30)
[2022-02-05] MEDS ORDERED: LISINOPRIL20 M1 PO (09:30)
[2022-02-05] MEDS ORDERED: LEVEMIR FL100 UNIT/M SC (09:31)
[2022-02-05] MEDS ORDERED: HUMALOG100 UNIT SC (09:33)
[2022-02-05] MEDS ORDERED: LEVOTHYROXIN50 MCG PO (09:33)
[2022-02-05] MEDS ORDERED: FENOFIBRATE145 MG PO (09:35)
[2022-02-05] MEDS ORDERED: OLANZAPINE2.5 MG PO (09:35)
== END 2022-02-05 11:30 | disposition home or self-care (01) | DRG 639 ==
LOC: ED 14:36 → ED-I 15:46 → ED 16:06 → ICU 16:07 → MS2 02-04 20:10
PROVIDERS: Family Medicine; ADMIT Internal Medicine; ATTEND Internal Medicine
DX: E10.10 Type 1 diabetes mellitus with ketoacidosis without coma (principal); E10.42 Type 1 diabetes mellitus with diabetic polyneuropathy; I10 Essential (primary) hypertension; E78.1 Pure hyperglyceridemia; F31.9 Bipolar disorder, unspecified; F41.9 Anxiety disorder, unspecified; K75.81 Nonalcoholic steatohepatitis (NASH); E03.9 Hypothyroidism, unspecified; T38.3X6A Underdosing of insulin and oral hypoglycemic [antidiabetic] drugs, initial encounter; Z91.128 Patient's intentional underdosing of medication regimen for other reason; Z87.891 Personal history of nicotine dependence; Z79.4 Long term (current) use of insulin; Z20.822 Contact with and (suspected) exposure to COVID-19; Z23 Encounter for immunization
CPT/HCPCS: Q9967

== ENCOUNTER 2022-04-05 20:51 | Inpatient (IN) | payer MEDICARE, MEDICAID ==
[~2022-04-05] VITALS: Ht 185.4 cm; Wt 79.2 kg
[~2022-04-05 20:51] MED LIST changes: +HUMALOG100 UNIT SC; +NOVOLIN R100 UNIT/1
[2022-04-05 21:23] LABS: BASO% 0.4 % (0-3); EOS% 0.8 % (0-8); HEMOGLOBIN 15.3 g/dl (14.0-18.0); IMMATURE GRANULOCYTES 1.4 % (0.0-5.0); LYMPH% 15.9 % (15-41); MEAN CELL VOLUME 93.3 fL CALC (80.0-100.0); MEAN CORPUSCULAR HGB 30.4 pG CALC (26.0-32.0); MEAN CORPUSCULAR HGB CONC 32.6 g/dL CAL (32.0-36.0); MONO% 8.6 % (2-13); NEUT# 8.02 thou/uL (1.82-7.42); NEUT% 72.9 % (42-76); RED BLOOD COUNT 5.04 mill/uL (4.70-6.10); RED CELL DISTRI WIDTH 12.5 % (11.5-15.5)
[2022-04-05 21:42] LABS: ALBUMIN 4.9 g/dL (3.2-5.0); BILIRUBIN, TOTAL 0.8 mg/dL (0.2-1.3); BUN 21 mg/dL (9-20); BUN/CREATININE RATIO 22 (12-20 (CALC)); CPK 77 u/l (55-170); GFR FOR AFR.AMER. > 60 ML/MIN (>=60 (CALC)); GFR OTHER RACES > 60 ML/MIN (>=60 (CALC)); LIPASE 35 u/l (23-300); MAGNESIUM 2.1 mg/dL (1.6-2.3); SGOT/AST 33 u/l (17-59); TOTAL PROTEIN 8.8 g/dL (6.3-8.2)
[2022-04-05 21:51] LABS: ALKALINE PHOSPHATASE 207 u/l (38-126); ANION GAP 29 (6-22 (CALC)); CARBON DIOXIDE 14 mmol/l (22-30); CHLORIDE 91 mmol/l (95-108); POTASSIUM 4.4 mmol/l (3.5-5.1); SODIUM 130 mmol/l (137-146)
[2022-04-05 22:44] LABS: URINE BLOOD DIPSTICK TRACE-INTACT (NEGATIVE); URINE COLOR YELLOW; URINE GLUCOSE - DIPSTICK >=1000 mg/dL (NEGATIVE); URINE KETONE >=80 mg/dL (NEGATIVE); URINE LEUK ESTERASE NEGATIVE (NEGATIVE); URINE PROTEIN - DIPSTICK NEGATIVE (NEG-TRACE); URINE UROBILINOGEN - DIPSTICK 0.2 E.U./dL (0.2)
[2022-04-05 22:47] LABS: URINE BILIRUBIN - DIPSTICK NEGATIVE (NEGATIVE); URINE NITRITE - DIPSTICK NEGATIVE (Negative)
[2022-04-05 23:39] VITALS: BP 130/87
[2022-04-05 23:45] VITALS: BP 127/86
[2022-04-06] VITALS (25 sets, daily range): BP systolic 99–183; BP diastolic 56–111
[2022-04-06 01:22] LABS: BUN 22 mg/dL (9-20); BUN/CREATININE RATIO 25 (12-20 (CALC)); CHLORIDE 101 mmol/l (95-108); CREATININE 0.9 mg/dL (0.7-1.3); GFR FOR AFR.AMER. > 60 ML/MIN (>=60 (CALC)); GFR OTHER RACES > 60 ML/MIN (>=60 (CALC)); POTASSIUM 4.1 mmol/l (3.5-5.1); SODIUM 136 mmol/l (137-146)
[2022-04-06 01:23] LABS: ANION GAP 14 (6-22 (CALC)); CARBON DIOXIDE 25 mmol/l (22-30)
[2022-04-06 05:09] LABS: BASO% 0.4 % (0-3); EOS% 2.4 % (0-8); IMMATURE GRANULOCYTES 1.3 % (0.0-5.0); LYMPH% 25.8 % (15-41); MEAN CELL VOLUME 90.3 fL CALC (80.0-100.0); MEAN CORPUSCULAR HGB 30.3 pG CALC (26.0-32.0); MEAN CORPUSCULAR HGB CONC 33.6 g/dL CAL (32.0-36.0); MONO% 8.4 % (2-13); NEUT# 6.93 thou/uL (1.82-7.42); NEUT% 61.7 % (42-76); RED BLOOD COUNT 4.35 mill/uL (4.70-6.10); RED CELL DISTRI WIDTH 12.6 % (11.5-15.5)
[2022-04-06 05:24] LABS: HEMATOCRIT 39.3 % (39.0-50.0); HEMOGLOBIN 13.2 g/dl (14.0-18.0)
[2022-04-06 05:30] LABS: ALKALINE PHOSPHATASE 138 u/l (38-126); ANION GAP 10 (6-22 (CALC)); BUN 21 mg/dL (9-20); BUN/CREATININE RATIO 29 (12-20 (CALC)); CARBON DIOXIDE 27 mmol/l (22-30); CHLORIDE 104 mmol/l (95-108); CREATININE 0.7 mg/dL (0.7-1.3); GFR FOR AFR.AMER. > 60 ML/MIN (>=60 (CALC)); GFR OTHER RACES > 60 ML/MIN (>=60 (CALC)); MAGNESIUM 2.2 mg/dL (1.6-2.3); POTASSIUM 3.9 mmol/l (3.5-5.1); SGOT/AST 23 u/l (17-59); SODIUM 137 mmol/l (137-146); TOTAL PROTEIN 7.3 g/dL (6.3-8.2)
[2022-04-06 05:31] LABS: BILIRUBIN, TOTAL 0.2 mg/dL (0.2-1.3)
[2022-04-07 04:00] VITALS: BP 144/88
[2022-04-07 04:06] VITALS: BP 144/88
[2022-04-07 04:59] LABS: HEMATOCRIT 41.6 % (39.0-50.0); HEMOGLOBIN 13.7 g/dl (14.0-18.0); MEAN CELL VOLUME 91.6 fL CALC (80.0-100.0); MEAN CORPUSCULAR HGB 30.2 pG CALC (26.0-32.0); MEAN CORPUSCULAR HGB CONC 32.9 g/dL CAL (32.0-36.0); RED BLOOD COUNT 4.54 mill/uL (4.70-6.10); RED CELL DISTRI WIDTH 12.7 % (11.5-15.5)
[2022-04-07 05:07] LABS: ALKALINE PHOSPHATASE 114 u/l (38-126); ANION GAP 11 (6-22 (CALC)); BUN 13 mg/dL (9-20); BUN/CREATININE RATIO 21 (12-20 (CALC)); CARBON DIOXIDE 25 mmol/l (22-30); CHLORIDE 105 mmol/l (95-108); CREATININE 0.6 mg/dL (0.7-1.3); GFR FOR AFR.AMER. > 60 ML/MIN (>=60 (CALC)); GFR OTHER RACES > 60 ML/MIN (>=60 (CALC)); MAGNESIUM 1.9 mg/dL (1.6-2.3); POTASSIUM 4.3 mmol/l (3.5-5.1); SGOT/AST 30 u/l (17-59); SODIUM 136 mmol/l (137-146); TOTAL PROTEIN 7.4 g/dL (6.3-8.2)
[2022-04-07 05:15] LABS: BILIRUBIN, TOTAL 0.1 mg/dL (0.2-1.3)
[2022-04-07 06:49] VITALS: BP 144/87
[2022-04-07 09:21] VITALS: BP 156/88
[2022-04-07 09:23] VITALS: BP 156/88
[2022-04-07] MEDS ORDERED: HUMALOG100 UNIT SC (11:11)
[2022-04-07] MEDS ORDERED: LEVOTHYROXIN50 MCG PO (11:11)
[2022-04-07] MEDS ORDERED: LEVEMIR FL100 UNIT/M SC (11:11)
[2022-04-07] MEDS ORDERED: LISINOPRIL20 M1 PO (11:11)
[2022-04-07] MEDS ORDERED: FENOFIBRATE145 MG PO (11:11)
== END 2022-04-07 15:00 | disposition home or self-care (01) | DRG 638 ==
LOC: ED 20:51 → ED-I 22:54 → ED 22:57 → ICU 22:58 → MS2 04-06 12:50
PROVIDERS: Family Medicine; ADMIT Internal Medicine; ATTEND Internal Medicine
DX: E10.10 Type 1 diabetes mellitus with ketoacidosis without coma (principal); K86.1 Other chronic pancreatitis; J11.1 Influenza due to unidentified influenza virus with other respiratory manifestations; E10.69 Type 1 diabetes mellitus with other specified complication; E78.1 Pure hyperglyceridemia; E10.42 Type 1 diabetes mellitus with diabetic polyneuropathy; I10 Essential (primary) hypertension; E03.9 Hypothyroidism, unspecified; F31.9 Bipolar disorder, unspecified; F41.9 Anxiety disorder, unspecified; K75.81 Nonalcoholic steatohepatitis (NASH); T38.3X6A Underdosing of insulin and oral hypoglycemic [antidiabetic] drugs, initial encounter; Z91.138 Patient's unintentional underdosing of medication regimen for other reason; Z79.4 Long term (current) use of insulin; Z87.891 Personal history of nicotine dependence; Z20.822 Contact with and (suspected) exposure to COVID-19
CPT/HCPCS: J1650

== ENCOUNTER 2023-11-28 13:13 | Inpatient (IN) | payer MEDICARE, MEDICAID ==
[2023-11-28] VITALS (19 sets, daily range): BP systolic 122–170; BP diastolic 66–100
[~2023-11-28] VITALS: Ht 185.4 cm; Wt 86.2 kg
[~2023-11-28 13:13] MED LIST changes: +LEVEMIR100 UNIT SC; +NOVOLOG100 UNIT SC; +VIBRAMYCIN100 M2 PO; +ZOLOFT100 MG PO
--- NOTE | 2023-11-28 13:14 | NUR ---
PT BROUGHT BACK TO ER ROOM 9 VIA EMS, NO DISTRESS NOTED
[2023-11-28] MEDS ORDERED: SODIUM CHLORIDE 0.9% 1,000 ML IV ONE (13:45)
[2023-11-28] MEDS ORDERED: KETOROLAC TROMETHAMINE 15 MG/ML SDV IV ONE (13:45)
[2023-11-28 13:58] LABS: BASO% 0.2 % (0-3); EOS% 0.1 % (0-8); IMMATURE GRANULOCYTES 0.8 % (0.0-5.0); LYMPH% 9.2 % (15-41); MEAN CELL VOLUME 88.7 fL CALC (80.0-100.0); MEAN CORPUSCULAR HGB 29.6 pG CALC (26.0-32.0); MEAN CORPUSCULAR HGB CONC 33.4 g/dL CAL (32.0-36.0); MONO% 3.2 % (2-13); NEUT# 12.33 thou/uL (1.82-7.42); NEUT% 86.5 % (42-76); RED BLOOD COUNT 5.4 mill/uL (4.70-6.10); RED CELL DISTRI WIDTH 13.6 % (11.5-15.5)
[2023-11-28 13:59] LABS: HEMATOCRIT 47.9 % (39.0-50.0)
[2023-11-28 14:15] LABS: CREATININE 1.2 mg/dL (0.7-1.3); TOTAL PROTEIN 8.7 g/dL (6.3-8.2)
[2023-11-28 14:28] LABS: ALBUMIN 5.2 g/dL (3.2-5.0); POTASSIUM 5.4 mmol/l (3.5-5.1)
[2023-11-28] MEDS ORDERED: SODIUM CHLORIDE 0.9% 1,000 ML IV STA (15:20)
--- NOTE | 2023-11-28 15:26 | NUR ---
PT GIVEN A URINAL, NO OTHER NEEDS AT THIS TIME.
[2023-11-28 15:31] LABS: URINE BILIRUBIN - DIPSTICK Negative (NEGATIVE); URINE BLOOD DIPSTICK Negative (NEGATIVE); URINE GLUCOSE - DIPSTICK 500 mg/dL (NEGATIVE); URINE KETONE >=160 mg/dL (NEGATIVE); URINE LEUK ESTERASE Negative (NEGATIVE); URINE NITRITE - DIPSTICK Negative (Negative); URINE PH 5.5 (4.5-8.0); URINE PROTEIN - DIPSTICK Negative (NEG-TRACE); URINE UROBILINOGEN - DIPSTICK 0.2 E.U./dL (0.2)
[2023-11-28 15:35] LABS: URINE COLOR Yellow
[2023-11-28] MEDS ORDERED: INSULIN REGULAR (HUMAN) 100 UNIT/ML INJ IV ONE (15:45)
[2023-11-28] MEDS ORDERED: INSULIN REGULAR (HUMAN) IN SOD 100 ML IV ONE (15:45)
[2023-11-28] MEDS ORDERED: HYDROmorphone HCL 2 MG/AMP IV ONE (15:50)
--- NOTE | 2023-11-28 17:03 | NUR ---
PT TO CT.
[2023-11-28] MEDS ORDERED: SERTRALINE50 MG PO (17:54)
[2023-11-28] MEDS ORDERED: ALPRAZOLAM0.5 MG PO (17:54)
[2023-11-28] MEDS ORDERED: POTASSIUM CHLORIDE IN NACL 1,000 ML IV PRN (18:05)
[2023-11-28] MEDS ORDERED: SODIUM CHLORIDE 0.45% 1,000 ML IV PRN (18:05)
[2023-11-28] MEDS ORDERED: D5 1/2 NaCL W/KCL 20MEQ 1,000 ML IV PRN (18:05)
[2023-11-28] MEDS ORDERED: POTASSIUM CHLORIDE 20MEQ 100 ML IV PRN (18:05)
[2023-11-28] MEDS ORDERED: MAGNESIUM HYDROXIDE 30 ML UDC PO PRN (18:05)
[2023-11-28] MEDS ORDERED: DEXTROSE 5% w/NACL 0.45 1,000 ML IV PRN (18:05)
[2023-11-28] MEDS ORDERED: INSULIN REGULAR (HUMAN) IN SOD 100 ML IV PRN (18:05)
[2023-11-28] MEDS ORDERED: ONDANSETRON HCl 4 MG/2 ML SDV IV PRN (18:10)
[2023-11-28 18:32] LABS: ANION GAP 34 (6-22 (CALC)); BUN 35 mg/dL (9-20); BUN/CREATININE RATIO 27 (12-20 (CALC)); CHLORIDE 104 mmol/l (95-108); CREATININE 1.3 mg/dL (0.7-1.3); ESTIMATED GFR 74 ML/MIN (>=90 (CALC)); SODIUM 138 mmol/l (137-146)
[2023-11-28 18:41] LABS: CARBON DIOXIDE < 5 mmol/l (22-30)
--- NOTE | 2023-11-28 19:00 | NUR ---
resumed care at this time
--- NOTE | 2023-11-28 19:42 | NUR ---
assessed pt, pt sitting up in bed, c/o mild ruq pain. does not want anything for pain at this time. insulin gtt infusing at 5 units per hour.
--- NOTE | 2023-11-28 19:56 | NUR ---
accu check at this time is 463, will continue insulin gtt at 5 units
--- NOTE | 2023-11-28 20:00 | NUR ---
pt assessed, adn moved from ER 9 to ER 15, new IV established to dedicate current L wrist IV to insulin gtt only and second IV for IV fluids, per protocol. finished 1/2 ER bag of NS that was in room and needsed to be ran. pt alox4 , BGMs Q1 hr on insulin gtt at 5 currently.and hung IVF 1/2 NS at 125 per protocol. monitoring Labs Q4 per orders and ajusting gtt and fluids per orders on protocol. call herndon withinreach emptied 700 clear yellow. educated pt on checking BS at home . pt states he has a dexcom but has not worn it. Pt states he has access to inaulin and dexcom at home but has not used it due tyo " working outside and being sweaty'. reinforced the importance of checking BGM and using insulin , Pt is a long time diabetic and has hisotory of non complience. on quality assurance monitor NSR all needs met.
[2023-11-28] MEDS ORDERED: hydrALAZINE HCL 20 MG/ML VIAL(1 ML) IV PRN (20:30)
[2023-11-28] MEDS ORDERED: ENOXAPARIN SODIUM 40 MG/0.4 ML SYR SC SCH (21:00)
--- NOTE | 2023-11-28 22:00 | NUR ---
pt has some nausea medicated with zofran , pt complaining of burping. mallox given . pt stated he got some relief with meds. ice chips available pt kept NPO. on 03/11 NS at 125 and insulin gtt at 4 for BS of 338. monitoriung Q1 hr BGM . call herndon within reach on moniotr NSR all needs met.
[2023-11-28 22:28] LABS: CREATININE 1.2 mg/dL (0.7-1.3)
--- NOTE | 2023-11-28 23:00 | NUR ---
labs back BGM 234 , per protocol less than 250 and GAP iopen at 22 switched fluids to D%1/2 NS at 125cc/hr per protocol order.insulin at 3units/hr per protocol order. all needs met call herndon within reach . .
[2023-11-29] VITALS (27 sets, daily range): BP systolic 99–178; BP diastolic 57–102
--- NOTE | 2023-11-29 | NUR ---
assessment uncahnged, emptied 575 clear yellow urine. BS 260 insulin gtt remains at 3units /hr, IV fl;uids D51/2 ND at 125cc/hr. call herndon within reach NSR all needs met.
--- NOTE | 2023-11-29 01:00 | NUR ---
pt resting comfortably with eyes closed. BGM 238 insulin gtt reamins at 3units/hr per protocol, IV fluids remain at D5 1/2 NS at 125cc/hr. per protocol, call herndon within reach. assessment unchanged .
--- NOTE | 2023-11-29 02:00 | NUR ---
BGM 216 insylin gtt remains per protocol at 3units/hr, IVF D5 1/2 NS at 125cc/hr per DKA protocol. assessment uyncahnged , Q4 hr Chemistry lab being drawn by general ledger bookkeeper. all needs met call herndon within reach.
[2023-11-29 02:37] LABS: CREATININE 0.9 mg/dL (0.7-1.3); POTASSIUM 4.1 mmol/l (3.5-5.1)
--- NOTE | 2023-11-29 03:13 | NUR ---
pt labs back Gap open at 14, K=4.1 per protocol gap open and K less than <5 , Fluids changed to D5 1/2 NS +20K at 125cc/hr. BGM 226 imsulin gtt remains at 3units/hr per protocol. pt resting comfortbaly with eyes closed. call herndon within reach on cardiac rn and BP Q1 hr. NSR.
--- NOTE | 2023-11-29 04:00 | NUR ---
assessment unchanged, BGM 201 , insulin gtt remains at 3units/hr per protocol order, D5 1/2 NS + 20 K remains at 125cc/hr per protocol. Pt resting comfortably with eyes closed. NSR. calkl herndon within reach all needs met.
--- NOTE | 2023-11-29 05:00 | NUR ---
BGM 196 insulin gtt changed per protocol to 2 units/hr, IVF D5 1/2 NS + 20K going at 125cc/hr per protocol. all needs met. call robert nichols.
[2023-11-29 06:19] LABS: CHOLESTEROL HDL RATIO 3.3 (<4.4 (CALC))
[2023-11-29 06:22] LABS: MAGNESIUM 2.7 mg/dL (1.6-2.3)
[2023-11-29 06:25] LABS: CREATININE 0.8 mg/dL (0.7-1.3); POTASSIUM 4.1 mmol/l (3.5-5.1)
[2023-11-29 06:31] LABS: BASO% 0.1 % (0-3); IMMATURE GRANULOCYTES 0.8 % (0.0-5.0); LYMPH% 18.9 % (15-41); MEAN CELL VOLUME 88.1 fL CALC (80.0-100.0); MEAN CORPUSCULAR HGB 29.9 pG CALC (26.0-32.0); MEAN CORPUSCULAR HGB CONC 33.9 g/dL CAL (32.0-36.0); MONO% 6.9 % (2-13); NEUT% 72.3 % (42-76); RED BLOOD COUNT 4.69 mill/uL (4.70-6.10); RED CELL DISTRI WIDTH 14.2 % (11.5-15.5)
[2023-11-29 06:43] LABS: HEMATOCRIT 41.3 % (39.0-50.0)
[2023-11-29] MEDS ORDERED: DEXTROSE 250 ML IV PRN ×2 (07:00)
--- NOTE | 2023-11-29 07:13 | NUR ---
pt awake in bed; no apparent distress noted; pt offers no complaints; assessment completed at this time; pt alert and oriented; denies pain; no n/v noted noted at this time; resp even and unlabored; lungs clear; skin color wnl; ra; hr reg; strong pulses; no edema noted; sr on monitor; abd soft with bs present; no bm noted per policy writer; no urine to inspect at this time; urinal at bedside; #20 to lfa patent; #20 to lh (ems) patent; ivf/ insulin gtt at 2 units/hr; no redness or edema noted at site; plan of care/ hourly accuchecks/ medications explained; call light within reach; will continue to monitor
[2023-11-29] MEDS ORDERED: INSULIN LISPRO 100 UNITS/ML ML SC SCH (07:30)
[2023-11-29] MEDS ORDERED: INSULIN DETEMIR 100 UNITS/ML SC ONE (08:00)
--- NOTE | 2023-11-29 08:05 | NUR ---
awake in bed eating breakfast; offers no complaints; iv intact and patent; call light within reach; will continue to monitor
--- NOTE | 2023-11-29 08:25 | NUR ---
Dr Perez present at bedside to assess pt and discuss plan of care
[2023-11-29] MEDS ORDERED: ALPRAZolam 0.5 MG/TAB PO PRN (08:50)
[2023-11-29] MEDS ORDERED: MORPHINE SULFATE 4 MG/ML VIAL IV PRN (08:55)
[2023-11-29] MEDS ORDERED: LISINOPRIL 20 MG/TAB PO SCH (09:30)
[2023-11-29] MEDS ORDERED: risperiDONE 0.5 MG/TAB PO SCH (09:30)
[2023-11-29] MEDS ORDERED: KETOROLAC TROMETHAMINE 30 MG/ML SDV IV SCH (09:30)
[2023-11-29] MEDS ORDERED: SERTRALINE HCL 50 MG/TAB PO SCH (09:30)
[2023-11-29] MEDS ORDERED: busPIRone HCL 5 MG/TAB PO SCH (09:30)
[2023-11-29] MEDS ORDERED: Pantoprazole Sodium 40 MG VIAL (Protonix) IV SCH (10:00)
[2023-11-29] MEDS ORDERED: ALUM & MAG HYDROX-SIMETHICONE 30 ML PO SCH (10:00)
--- NOTE | 2023-11-29 10:06 | NUR ---
awake in bed; no apparent distress noted; sr on monitor; iv intact and patent; call light within reach; will continue to monitor
--- NOTE | 2023-11-29 10:55 | NUR ---
MS Hamm, called; pt to transfer to [facility] with LARISSA Hurley receiving
--- NOTE | 2023-11-29 12:11 | NUR ---
awake in bed eating lunch; offers no complaints; iv intact and patent; sr on monitor; call light within reach; will continue to monitor
[2023-11-29] MEDS ORDERED: KETOROLAC TROMETHAMINE 15 MG/ML SDV IV PRN (14:00)
[2023-11-29] MEDS ORDERED: ALUM & MAG HYDROX-SIMETHICONE 30 ML PO PRN (14:00)
--- NOTE | 2023-11-29 14:16 | NUR ---
awake in room; offers no complaints; iv intact; call light within reach; will continue to monitor
--- NOTE | 2023-11-29 16:03 | NUR ---
pt awake in bed; no apparent distress noted; pt offers no complaints; iv intact and patent; sr on monitor; call light within reach; will continue to monitor
--- NOTE | 2023-11-29 20:00 | NUR ---
[id number] awake. c/o abd pain. medicated as ordered. ekg monitor tech shows sinus rhythm. ivf infusing well. po fluids taken well. urinal @ bedside. fall precautions cont.
[2023-11-30] VITALS (10 sets, daily range): BP systolic 109–158; BP diastolic 60–91
--- NOTE | 2023-11-30 00:01 | NUR ---
telemetry shows sinus ashli hr 57
--- NOTE | 2023-11-30 04:00 | NUR ---
telemetry report shows sinus rhythm hr 62.
[2023-11-30 05:04] LABS: BASO% 0.1 % (0-3); EOS% 1.4 % (0-8); HEMATOCRIT 35.4 % (39.0-50.0); IMMATURE GRANULOCYTES 0.7 % (0.0-5.0); LYMPH% 32.6 % (15-41); MEAN CELL VOLUME 90.8 fL CALC (80.0-100.0); MEAN CORPUSCULAR HGB 30.5 pG CALC (26.0-32.0); MEAN CORPUSCULAR HGB CONC 33.6 g/dL CAL (32.0-36.0); MONO% 8.1 % (2-13); NEUT# 3.95 thou/uL (1.82-7.42); NEUT% 57.1 % (42-76); RED BLOOD COUNT 3.9 mill/uL (4.70-6.10); RED CELL DISTRI WIDTH 14.3 % (11.5-15.5)
[2023-11-30 05:19] LABS: HEMOGLOBIN 11.9 g/dl (14.0-18.0)
[2023-11-30 05:24] LABS: CREATININE 0.8 mg/dL (0.7-1.3); MAGNESIUM 2.2 mg/dL (1.6-2.3); POTASSIUM 3.7 mmol/l (3.5-5.1)
[2023-11-30 05:25] LABS: ALBUMIN 3.3 g/dL (3.2-5.0); BILIRUBIN, TOTAL 0.4 mg/dL (0.2-1.3)
[2023-11-30] MEDS ORDERED: LISINOPRIL20 M1 PO (05:46)
[2023-11-30] MEDS ORDERED: LEVEMIR100 UNIT SC (05:47)
[2023-11-30] MEDS ORDERED: SERTRALINE50 MG PO (05:47)
[2023-11-30] MEDS ORDERED: LEVOTHYROXINE SODIUM 50 MCG/TAB PO SCH (06:00)
--- NOTE | 2023-11-30 07:22 | NUR ---
pt resting in bed with eyes closed; no apparent distress noted; easily aroused; offers no complaints; assessment completed at this time; pt alert and oriented; denies pain; no n/v noted; resp even and unlabored; lungs clear; skin color wnl; ra; hr reg; strong pulses; no edema noted; sr on monitor; abd soft with bs present; no bm noted per financial writer; pt voiding without complication; urinal at bedside; #20 to lfa patent with ivf infusing without complication; #20 to lw saline locked; no redness or edema noted at site; plan of care/ meds explained; call light within reach; will continue to monitor
--- NOTE | 2023-11-30 08:04 | NUR ---
awake in bed; no apparent distress noted; offers no complaints; call light within reach; will continue to monitor
[2023-11-30] MEDS ORDERED: DEXTROSE 250 ML IV PRN (08:45)
[2023-11-30] MEDS ORDERED: INSULIN DETEMIR 100 UNITS/ML SC SCH (09:00)
--- NOTE | 2023-11-30 09:43 | NUR ---
Discharge instructions given. Patient verbalizes understanding of same. Discharged in stable condition via Wheelchair to Home with *Other. All belongings sent with pt.
== END 2023-11-30 09:43 | disposition home or self-care (01) | DRG 639 ==
LOC: ED 13:13 → ED-I 15:40 → ED 15:40 → ED-I 18:00 → ED 18:10 → ED-I 18:11
PROVIDERS: Family Medicine; ADMIT Student in an Organized Health Care Education/Training Program; ATTEND Student in an Organized Health Care Education/Training Program
DX: E11.10 Type 2 diabetes mellitus with ketoacidosis without coma (principal); E86.0 Dehydration; E11.42 Type 2 diabetes mellitus with diabetic polyneuropathy; E78.1 Pure hyperglyceridemia; E03.9 Hypothyroidism, unspecified; K75.81 Nonalcoholic steatohepatitis (NASH); K21.9 Gastro-esophageal reflux disease without esophagitis; F25.9 Schizoaffective disorder, unspecified; F41.9 Anxiety disorder, unspecified; F31.77 Bipolar disorder, in partial remission, most recent episode mixed; T38.3X6A Underdosing of insulin and oral hypoglycemic [antidiabetic] drugs, initial encounter; Z91.128 Patient's intentional underdosing of medication regimen for other reason; Z79.4 Long term (current) use of insulin; Z87.891 Personal history of nicotine dependence; K83.8 Other specified diseases of biliary tract; Z96.89 Presence of other specified functional implants; Z96.41 Presence of insulin pump (external) (internal)
CPT/HCPCS: J1650; J2470; Q9967

== ENCOUNTER 2023-12-07 19:25 | Emergency (ER) | payer OTHER, MEDICARE, MEDICAID ==
[~2023-12-07] VITALS: Ht 185.4 cm; Wt 87.0 kg
[2023-12-07] VITALS (16 sets, daily range): BP systolic 143–181; BP diastolic 85–115
[~2023-12-07 19:25] MED LIST changes: +ALPRAZOLAM0.5 MG PO
[2023-12-07] MEDS ORDERED: traMADol HCL 50 MG/TAB PO ONE (19:30)
[2023-12-07] MEDS ORDERED: LORazepam 2 MG/ML IV ONE (19:35)
[2023-12-07] MEDS ORDERED: SODIUM CHLORIDE 0.9% 500 ML IV ONE (19:35)
[2023-12-07 20:44] LABS: BASO% 0.3 % (0-3); EOS% 0.3 % (0-8); IMMATURE GRANULOCYTES 0.4 % (0.0-5.0); LYMPH% 18.1 % (15-41); MEAN CELL VOLUME 90.9 fL CALC (80.0-100.0); MONO% 11.2 % (2-13); NEUT# 6.46 thou/uL (1.82-7.42); NEUT% 69.7 % (42-76); RED BLOOD COUNT 4.94 mill/uL (4.70-6.10); RED CELL DISTRI WIDTH 14.1 % (11.5-15.5)
[2023-12-07 20:46] LABS: HEMATOCRIT 44.9 % (39.0-50.0); HEMOGLOBIN 14.8 g/dl (14.0-18.0)
== END 2023-12-07 23:43 | disposition home or self-care (01) | DRG 556 ==
LOC: ED 19:25
PROVIDERS: Nurse Practitioner Family
DX: M79.671 Pain in right foot (principal); R07.9 Chest pain, unspecified; I10 Essential (primary) hypertension; F41.9 Anxiety disorder, unspecified; F31.9 Bipolar disorder, unspecified; E10.8 Type 1 diabetes mellitus with unspecified complications; Z79.84 Long term (current) use of oral hypoglycemic drugs
CPT/HCPCS: J2060

== ENCOUNTER 2024-06-04 04:38 | Emergency (ER) | payer MEDICARE, MEDICAID ==
[2024-06-04] VITALS (14 sets, daily range): BP systolic 101–185; BP diastolic 65–105
[~2024-06-04] VITALS: Ht 185.4 cm; Wt 80.5 kg
[2024-06-04] MEDS ORDERED: Pantoprazole Sodium 40 MG VIAL (Protonix) IV STA (05:07)
[2024-06-04] MEDS ORDERED: MORPHINE SULFATE 4 MG/ML VIAL IV STA (05:07)
[2024-06-04] MEDS ORDERED: SODIUM CHLORIDE 0.9% 1,000 ML IV STA (05:07)
[2024-06-04] MEDS ORDERED: INSULIN REGULAR (HUMAN) 100 UNIT/ML INJ IV STA (05:08)
[2024-06-04] MEDS ORDERED: INSULIN REGULAR (HUMAN) 100 UNIT/ML INJ SC STA (05:08)
[2024-06-04] MEDS ORDERED: PROMETHAZINE HCL 25 MG/ML AMP IV ONE (05:10)
[2024-06-04] MEDS ORDERED: ISOVUE-300 (Iopamidol) 100 ML SDV IV ONE (05:10)
[2024-06-04] MEDS ORDERED: KETOROLAC TROMETHAMINE 30 MG/ML SDV IV ONE (05:10)
[2024-06-04] MEDS ORDERED: DiphenhydrAMINE HCL 50 MG/ML SDV IV ONE (05:10)
[2024-06-04] MEDS ORDERED: DIATRIZOATE MEGLUMINE & SODIUM 30 ML/BTL PO ONE (05:10)
[2024-06-04] MEDS ORDERED: ZOLOFT100 MG PO (06:13)
[2024-06-04 06:22] LABS: BASO% 0.1 % (0-3); EOS% 1.3 % (0-8); HEMATOCRIT 39.9 % (39.0-50.0); HEMOGLOBIN 12.7 g/dl (14.0-18.0); IMMATURE GRANULOCYTES 0.8 % (0.0-5.0); LYMPH% 15.3 % (15-41); MEAN CELL VOLUME 96.1 fL CALC (80.0-100.0); MEAN CORPUSCULAR HGB 30.6 pG CALC (26.0-32.0); MEAN CORPUSCULAR HGB CONC 31.8 g/dL CAL (32.0-36.0); MONO% 9.2 % (2-13); NEUT# 6.15 thou/uL (1.82-7.42); NEUT% 73.3 % (42-76); RED BLOOD COUNT 4.15 mill/uL (4.70-6.10); RED CELL DISTRI WIDTH 13.1 % (11.5-15.5); URINE BILIRUBIN - DIPSTICK Negative (NEGATIVE); URINE BLOOD DIPSTICK Negative (NEGATIVE); URINE GLUCOSE - DIPSTICK 500 mg/dL (NEGATIVE); URINE KETONE Negative (NEGATIVE); URINE LEUK ESTERASE Negative (NEGATIVE); URINE NITRITE - DIPSTICK Negative (Negative); URINE PROTEIN - DIPSTICK Negative (NEG-TRACE); URINE UROBILINOGEN - DIPSTICK 0.2 E.U./dL (0.2)
[2024-06-04 06:27] LABS: URINE COLOR Yellow
[2024-06-04 06:32] LABS: BILIRUBIN, TOTAL 0.5 mg/dL (0.2-1.3); BUN 24 mg/dL (9-20); BUN/CREATININE RATIO 23 (12-20 (CALC)); CARBON DIOXIDE 20 mmol/l (22-30); ESTIMATED GFR 101 ML/MIN (>=90 (CALC)); LIPASE 16 u/l (23-300); TOTAL PROTEIN 6.9 g/dL (6.3-8.2)
[2024-06-04 06:34] LABS: ALBUMIN 4.1 g/dL (3.2-5.0); ALKALINE PHOSPHATASE 181 u/l (38-126); ANION GAP 21 (6-22 (CALC)); CHLORIDE 90 mmol/l (95-108); POTASSIUM 5.2 mmol/l (3.5-5.1); SGOT/AST 57 u/l (17-59); SODIUM 126 mmol/l (137-146)
[2024-06-04] MEDS ORDERED: SODIUM CHLORIDE 0.9% 1,000 ML IV ONE (06:45)
[2024-06-04] MEDS ORDERED: INSULIN REGULAR (HUMAN) IN SOD 100 ML IV PRN (06:45)
[2024-06-04] MEDS ORDERED: INSULIN REGULAR (HUMAN) IN SOD 100 ML IV ONE (06:50)
[2024-06-04] MEDS ORDERED: ONDANSETRON HCl 4 MG/2 ML SDV IV ONE (08:50)
[2024-06-04] MEDS ORDERED: MORPHINE SULFATE 4 MG/ML VIAL IV ONE (08:50)
[2024-06-04] MEDS ORDERED: RISPERDAL1 M1 PO (10:29)
[2024-06-04] MEDS ORDERED: TRILEPTAL300 MG PO (10:29)
[2024-06-04] MEDS ORDERED: CYCLOBENZAPRINE10 MG PO (10:30)
[2024-06-04] MEDS ORDERED: BUSPIRONE15 MG PO (10:30)
[2024-06-04 10:34] LABS: POTASSIUM 4.1 mmol/l (3.5-5.1)
== END 2024-06-04 14:04 | disposition home or self-care (01) ==
LOC: ED 04:38 → ED-I 09:00 → ED 14:04
PROVIDERS: Family Medicine
DX: E10.65 Type 1 diabetes mellitus with hyperglycemia (principal); E10.69 Type 1 diabetes mellitus with other specified complication; E87.0 Hyperosmolality and hypernatremia; I10 Essential (primary) hypertension; F41.9 Anxiety disorder, unspecified; F31.9 Bipolar disorder, unspecified; Z79.4 Long term (current) use of insulin; Z20.822 Contact with and (suspected) exposure to COVID-19
CPT/HCPCS: J1200; J2405; J2470; J2550; Q9967